=== PATIENT | female | born 1985 | race Caucasian/White ===

== ENCOUNTER 2024-07-08 07:03 | Outpatient (CLI) | payer MEDICARE, OTHER, SELFPAY | END 2024-07-08 07:04 | disposition home or self-care (01) | LOC: AMB 07-09 15:25 | PROVIDERS: Visit Provider Family Medicine | DX: R10.9 Unspecified abdominal pain (principal); R11.10 Vomiting, unspecified | CPT/HCPCS: A0425; A0427 ==

== ENCOUNTER 2024-07-08 07:39 | Emergency (ER) | payer MEDICARE, OTHER, SELFPAY ==
[2024-07-08] VITALS (13 sets, daily range): BP systolic 116–154; BP diastolic 91–107; PULSE 70–96; RESP 20; TEMP 35.8–36.1; O2SAT 90–99; BMI 43.6
--- OUTSIDE RECORDS SUMMARY | 2024-07-08 07:41 | XMS_ITS | Clinical Summary ---
Author Organization [facility] Address [address] [place] [address] [place] [address] Care Team Providers Care Assembly Lead Person Name Role Phone Unavailable Primary Care Provider Unavailabl e Allergies Active Allergy Reactions Criticality Noted Date Comments Amoxicillin GI Disturbance 07/31/2010 Medications * This document contains information received from the source organization and may not represent a complete record from that organization. fexofenadine (MICHAELLE) 180 MG tablet Take 1 tablet by mouth daily. 90 tablet 3 1 Active InFLIXimab (REMICADE IV) Inject into the vein. Once every 6 weeks Active citalopram (CELEXA) 40 MG tablet Take 40 mg by mouth daily. Active azaTHIOprine (IMURAN) 50 MG tablet Take 4 tablets by mouth daily. 90 tablet 2 Active albuterol (PROAIR HFA, PROVENTIL HFA, VENTOLIN HFA) 108 (90 BASE) MCG/ACT inhalerIndicati ons:Intermitten t asthma Inhale 2 puffs into the lungs every 6 hours as needed for shortness of breath / dyspnea. 3 Inhaler 1 3 Active EPINEPHrine (EPIPEN 2-DONNELL) 0.3 MG/0.3ML injectionIndica tions:Allergy to cats Inject 0.3 mLs into the muscle once as needed for anaphylaxis for 1 dose. 2 each 3 3 Active Additional Information Patient not taking.Reported on 03/02/2019 ciprofloxacin (CIPRO) 500 MG tabletIndicatio ns:UTI (urinary tract infection) Take 1 tablet by mouth 2 times daily. 14 tablet 0 3 Active Additional Information Patient not taking.Reported on 03/02/2019 ARIPiprazole (ABILIFY) 2 MG tablet Take 2 mg by mouth daily Active ziprasidone (GEODON) 20 MG capsule Take 20 mg by mouth 2 times daily (with meals) Active lithium (ESKALITH) 600 MG capsule Take 600 mg by mouth 2 times daily (with meals) Active lithium 300 MG capsule Take 300 mg by mouth 3 times daily (with meals) Active busPIRone (BUSPAR) 5 MG tablet Take 5 mg by mouth 2 times daily 1/2 tab TID Active topiramate (TOPAMAX) 25 MG tablet Take 25 mg by mouth 2 times daily 2 tabs in AM and 2 tabs in PM Active prazosin (MINIPRESS) 1 MG capsule Take 1 mg by mouth At Bedtime Active SUMAtriptan (IMITREX) 50 MG tablet Take 50 mg by mouth at onset of headache for migraine Active hydrOXYzine (ATARAX) 10 MG tablet Take 10 mg by mouth as needed for itching Active ustekinumab (STELARA) 45 MG/0.5ML SOSY Inject 45 mg Subcutaneous once 1 injection every 8 weeks Active LORazepam (ATIVAN) 0.5 MG tablet Take 0.5 mg by mouth as needed for anxiety Active escitalopram (LEXAPRO) 10 MG tablet Take 10 mg by mouth daily Active Active Problems Problem Noted Date Diagnosed Date Moderate bipolar I disorder, current or most recent episode depressed, in partial remission 03/05/2019 Major depression in complete remission 3 Fibromyalgia 12/07/2011 PTSD (post-traumatic stress disorder) 12/07/2011 Crohns disease 12/07/2011 Migraine 12/07/2011 Intermittent asthma 12/07/2011 Sleep disorder 12/07/2011 CARDIOVASCULAR SCREENING; LDL GOAL LESS THAN 160 08/07/2010 Erythema nodosum, chronic form Chronic urticaria Anxiety state Overview (12/20/2014): Problem list name updated by automated process. Provider to review Resolved Problems Problem Noted Date Diagnosed Date Resolved Date Crohn's colitis 12/07/2011 01/25/2012 Major depressive disorder, s junior episode, severe 12/07/2011 05/12/2012 Overview (12/20/2014): Problem list name updated by automated process. Provider to review Irritable bowel syndrome 08/2011 Immunizations Name Administration Dates Next Due Influenza (IIV3) PF 01/19/2011 TDAP (Adacel,Boostrix) 12/21/2010 Family History Medical History Relation Comments Bipolar Disorder Brother Bipolar Disorder Father Substance Abuse Father Anxiety Disorder Mother Relation Status Comments Brother Father Alive Mother Alive Social History Tobacco Use Types Packs/Day Years Used Date Smoking Tobacco: Never Smokeless Tobacco: Never Alcohol Use Standard Drinks/Week Comments Yes 0 (1 standard drink = 0.6 oz pur e alcohol) sparingly PHQ-2 Answer Date Recorded PHQ-2 Score 5 03/05/2019 Comments No Sex and Gender Information Value Date Recorded Sex Assigned at Not on file Legal Sex Female 4:56 AM HOOKER MACHINE TENDER Gender Identity Not on file Sexual Orientation Not on file Last Filed Vital Signs Vital Sign Reading Time Taken Comments Blood Pressure 102/67 08/18/2012 4:49 PM CDT Pulse 78 08/18/2012 4:49 PM CDT Temperature 37.2 C (98.9 F) 08/18/2012 4:49 PM CDT Respiratory Rate 16 05/12/2012 3:15 PM HOOKER MACHINE TENDER Oxygen Saturation 99% 06/01/2012 11:33 AM CDT Inhaled Oxygen Concentration - - Weight 86.6 kg (191 lb) 03/07/2019 2:36 PM HOOKER MACHINE TENDER Height 165.1 cm (5' 5) 03/07/2019 2:36 PM HOOKER MACHINE TENDER Body Mass Index 31.78 03/07/2019 2:36 PM HOOKER MACHINE TENDER Plan of Treatment Not on file Insurance MEDICARE
--- OUTSIDE RECORDS SUMMARY | 2024-07-08 07:41 | XMS_ITS | Encounter Summary ---
Author Organization [facility] Address [address] [place] [address] Care Team Providers Care Roller Stitcher Name Role Phone Xochitl Gay PA-C Primary Care Provider [phone] Encounter Details Date Type Department Care Team (Late st Contact Info) Description 05/09/2012 Emergency Room External to Henok Ramesh, Provider DYSURIA Social History Tobacco Use Types Packs/Day Years Used Date Smoking Tobacco: Never Assessed Comments Unknown Sex and Gender Information Value Date Recorded Sex Assigned at Not on file Legal Sex Female 6:49 AM CDT Gender Identity Not on file Sexual Orientation Not on file documented as of this encounter Progress Notes * Henok Ramesh, Provider - 05/09/2012 12:00 AM CST GED CARE NURSE documented in this encounter Plan of Treatment Not on file documented as of this encounter Visit Diagnoses Not on filedocumented in this encounter Care Teams Roller Stitcher Relationship Specialty Start Date End Date Xochitl Gay PA-C [facility] [place] [address] [place] [address] PCP - General Physician Pta 01/20/16 documented as of this encounter
--- OUTSIDE RECORDS SUMMARY | 2024-07-08 07:41 | XMS_ITS | Encounter Summary ---
Author Organization [facility] Address [address] [place] [address] Care Team Providers Care Coding Advisor Name Role Phone Xochitl Gay PA-C Primary Care Provider [phone] Encounter Details Date Type Department Care Team (Late st Contact Info) Description 02/16/2019 Correspondence External to External, [place] [address] LOCUS RECORDING FORM Social History Tobacco Use Types Packs/Day Years Used Date Smoking Tobacco: Never Smokeless Tobacco: Never Alcohol Use Standard Drinks/Week Comments Yes 0 (1 standard drink = 0.6 oz pur e alcohol) Occasional Comments No Sex and Gender Information Value Date Recorded Sex Assigned at Not on file Legal Sex Female 6:49 AM CDT Gender Identity Not on file Sexual Orientation Not on file documented as of this encounter Plan of Treatment Not on file documented as of this encounter Visit Diagnoses Not on filedocumented in this encounter Care Teams Coding Advisor Relationship Specialty Start Date End Date Xochitl Gay PA-C [facility] [address] [place] [address] PCP - General Physician Power Crane Operator 01/20/16 documented as of this encounter
--- OUTSIDE RECORDS SUMMARY | 2024-07-08 07:41 | XMS_ITS | Clinical Summary ---
Author Organization [facility] Address [address] [place] [address] Care Team Providers Care Admission Nurse Name Role Phone Kasandra Quevedo MD Unavailable Unav ailable Allergies Active Allergy Reactions Criticality Noted Date Comments Amoxicillin 07/12/2016 Stomach upset Cat Dander Anaphylaxis High 01/08/2016 Methotrexate Nausea 01/08/2016 Penicillins 12/01/2015 Prednisone 01/21/2016 Medications ACETAMINOPHEN (TYLENOL ORAL) Take 500 mg by mouth Once Daily. Active topiramate (TOPAMAX) 25 mg oral tablet 6 Active fexofenadine (MICHAELLE) 180 mg oral tablet Take by mouth. Unsure of how many milligrams Active albuterol HFA (PROVENTIL;VENT JOYCE HFA) 90 mcg/actuation Inhl inhaler Inhale 2 puffs every 4 (four) hours as needed for Shortness of breath or Wheezing. 18 g 1 6 Active LITHIUM CARBONATE ORAL Take by mouth. Active PRAZOSIN HCL (MINIPRESS ORAL) Take by mouth. Activ e ZIPRASIDONE HCL (GEODON ORAL) Take by mouth. A ctive fluticasone (FLONASE) 50 mcg/actuation nasal spray Instill 2 sprays into EACH nare once daily. Active ARIPiprazole (ABILIFY) 2 mg oral tablet Take 2 mg by mouth. 8 Active busPIRone (BUSPAR) 10 mg oral tablet Take 5 mg by mouth twice a day. Active SUMAtriptan succinate (IMITREX) 50 mg oral tablet Take 50 mg by mouth every 2 hours if needed for Migraine. Max dose: 200mg per 24 hrs. Active predniSONE (DELTASONE) 5 mg oral tablet Take 35 mg by mouth once daily. Active ondansetron (ZOFRAN ODT) 4 mg oral ODT Dissolve 1-2 tablets (4-8 mg) in mouth every 12 (twelve) hours as needed for nausea. 10 tablet 8 Active Social History Tobacco Use Types Packs/Day Years Used Date Smoking Tobacco: Never Smokeless Tobacco: Never Tobacco Cessation:Counseling Given: No Alcohol Use Standard Drinks/Week Comments No 0 (1 standard drink = 0.6 oz pur e alcohol) Comments Unknown Sex and Gender Information Value Date Recorded Sex Assigned at Not on file Legal Sex Female 7:46 AM CDT Gender Identity Not on file Sexual Orientation Not on file Last Filed Vital Signs Vital Sign Reading Time Taken Comments Blood Pressure 121/88 11/19/2019 10:15 PM CDT Pulse 62 11/19/2019 10:45 PM CDT Temperature 36.8 C (98.2 F) 11/19/2019 8:39 PM CDT Respiratory Rate 18 11/19/2019 8:39 PM CDT Oxygen Saturation 97% 11/19/2019 10:45 PM CDT Inhaled Oxygen Concentration - - Weight 83.9 kg (185 lb) 10/20/2018 10:11 PM CDT Height 165.1 cm (5' 5) 10/21/2018 1:46 PM CDT Body Mass Index 30.79 10/20/2018 10:11 PM CDT Plan of Treatment Health Maintenance Due Date Last Done Comments Hepatitis C Screening 1985 Anxiety Screening (ERNESTINA-2) 08/28/1987 Depression Assessment (PHQ-2) 08/28/1987 Pneumococcal Vaccine (1 of 2 - PCV) 2005 Pap Smear 12/06/2008 12/06/2005 COVID-19 Vaccine ( - 2023- season) 2023 Influenza Vaccine (Season Ended) 2024 Adult Tetanus Booster 05/13/2025 05/13/2015, 011 RSV Vaccines (1 - 1-dose 75+ series) 2061 Procedures Procedure Name Priority Date/Time Associated Diagnosis Comments CAT AND DOG BATHER CYTOLOGY 12/06/2005 12:00 AM CDT from Last 3 Months or Most Recently Relevant to Health Maintenance Results * CAT AND DOG BATHER CYTOLOGY (12/06/2005 12:00 AM CDT) 12/06/2005 Narrative 12/06/2005 12:00 AM CDT Ordered by an unspecified provider. Transcriptions [facility] - 12/06/2005 12:00 AM CDTAccession #: [id number] [facility] Surgical Pathology Laboratory [address] [place] [address] CYTOLOGY REPORT Patient Name: CARMELA PERES Specimen No: [id number] Location: ODPED Age: 20 Sex: F Stefanie. Date: 12/02/2005 Med. Rec. #: [id number] : 1985 Received: 12/06/2005 Physician(s): Katalina Heaton MD Reported: 12/07/2005 SOURCE OF SPECIMEN CERVICAL - THIN PREP ( HPV REFLEX CASE ) CLINICAL HISTORY Date of Last Menstrual Period: 11-26-05 Other: CHART NUMBER:: [id number] SPECIMEN ADEQUACY Satisfactory for evaluation. Endocervical cells present INTERPRETATION Negative for intraepithelial lesion or malignant cells. Electronically Signed Out [facility] / 12/07/2005 us PATHOLOGY/CYTOLOGY ORDERABLE Fin al Result from Last 3 Months or Most Recently Relevant to Health [place] [address] NON CONTRACT GENERIC MEDICARE PART A & B [address] [address] MEDICARE PART A & B NON CONTRACT GENERIC * Guarantor: CARMELA DELACRUZ Account Type Relation to Patient Date of Phone Billing Address Personal/Family Advance Directives For more information, please contact: [phone] * Full Code (Latest Code Status on File) Date Activated Date Inactivated Comments 10/21/2018 11:14 AM 10/26/2018 7:29 PM Question Answer Comments How was code status determined? Patient * Full Code Date Activated Date Inactivated Comments 10/20/2018 8:28 PM 10/21/2018 11:09 AM Question Answer Comments How was code status determined? Physician Determ [facility] Care Teams Admission Nurse Relationship Specialty Start Date End Date Kasandra Quevedo MD PCP - Oncologist Hematology/Oncology 04/01/15
--- OUTSIDE RECORDS SUMMARY | 2024-07-08 07:41 | XMS_ITS | Encounter Summary ---
Author Organization [facility] Address [address] [place] [address]. [place] [address] Care Team Providers Care Accounting Auditor Name Role Phone aLrry Jean MD Unavailable [phone] Reason for Visit * Reason Onset Date Comments Outpatient 02/22/2019 Encounter Details Date Type Department Care Team ([facility] st Contact Info) Description 02/22/2019 Telephone [facility] Behavioral Health Intake [address] [place] [id number] Generic, Behavioral Intake, Outpatient Social History Tobacco Use Types Packs/Day Years Used Date Smoking Tobacco: Never Smokeless Tobacco: Never Alcohol Use Standard Drinks/Week Comments Yes 0 (1 standard drink = 0.6 oz pur e alcohol) sparingly PHQ-2 Answer Date Recorded PHQ-2 Score 5 03/05/2019 Comments No Sex and Gender Information Value Date Recorded Sex Assigned at Not on file Legal Sex Female 4:56 AM CENTRIFUGAL CASTING MACHINE TENDER Gender Identity Not on file Sexual Orientation Not on file documented as of this encounter Miscellaneous Notes * Telephone Encounter - Saturnino Pinedo - 03/02/2019 12:12 PM CST ----- Message from Gavi Lewis sent at 03/02/2019 12:04 PM CENTRIFUGAL CASTING MACHINE TENDER ----- Regarding: New Start Day [place] New Start Monday 03/05 Day [place] [address] M,[place],TH [id number] Dr Faye No Auth Required Medicare/[employer] RIFUGAL CASTING MACHINE TENDER * Telephone Encounter - Hilaria Whitman - 02/22/2019 2:06 PM CST Rec'd call from the pt who is interested in the partial program. Pt scheduled for a DA with Reta Wright on 03/02/19 at 8:30 am. Created referral, sent for benefits. RIFUGAL CASTING MACHINE TENDER documented in this encounter Plan of Treatment Not on file documented as of this encounter Visit Diagnoses Not on filedocumented in this encounter Care Teams Accounting Auditor Relationship Specialty Start Date End Date [place] [address] Family Medicine Physician Family Practice 05/12/12 documented as of this encounter
--- OUTSIDE RECORDS SUMMARY | 2024-07-08 07:41 | XMS_ITS | Referral Summary ---
Author Organization [facility] Address [address] [place] [address] Care Team Providers Care Security Flex Utility Officer Name Role Phone Kasandra Quevedo MD Unavailable [...] 10/20/2018 10:11 PM CDT Plan of Treatment Not on file Procedures Procedure Name Priority Date/Time Associated Diagnosis Comments FINGERNAIL SCULPTURER CYTOLOGY 12/06/2005 12:00 AM CDT from Last 3 Months or Most Recently Relevant to Health Maintenance Results * FINGERNAIL SCULPTURER CYTOLOGY (12/06/2005 12:00 AM CDT) 12/06/2005 Narrative 12/06/2005 12:00 AM CDT Ordered by an unspecified provider. Transcriptions Associate, [facility] - 12/06/2005 12:00 AM CDTAccession #: [id number] [facility] Surgical Pathology Laboratory [address] [place] [id number] CYTOLOGY REPORT Patient Name: CARMELA PERES Specimen No: [id number] Location: [facility]DPED Age: 20 Sex: F Stefanie. Date: 12/02/2005 Med. Rec. #: [id number] : 1985 Received: 12/06/2005 Physician(s): Katalina Heaton MD Reported: 12/07/2005 SOURCE OF SPECIMEN CERVICAL - THIN PREP ( HPV REFLEX CASE ) CLINICAL HISTORY Date of Last Menstrual Period: 11-26-05 Other: CHART NUMBER:: [id number] SPECIMEN ADEQUACY Satisfactory for evaluation. Endocervical cells present INTERPRETATION Negative for intraepithelial lesion or malignant cells. Electronically Signed Out [facility] / 12/07/2005 us PATHOLOGY/CYTOLOGY ORDERABLE Fin al Result from Last 3 Months or Most Recently Relevant to Health Maintenance Insurance NON CONTRACT GENERIC MEDICARE PART A & B [id number] [address] MEDICARE PART A & B NON CONTRACT GENERIC * Guarantor: CARMELA DELACRUZ Account Type Relation to Patient Date of Phone Billing Address Personal/Family Advance Directives For more information, please contact: [phone] * Full Code (Latest Code Status on File) Date Activated Date Inactivated Comments 10/21/2018 11:14 AM 10/26/2018 7:29 PM Question Answer Comments How was code status determined? Patient * Full Code Date Activated Date Inactivated Comments 10/20/2018 8:28 PM 10/21/2018 11:09 AM Question Answer Comments How was code status determined? Physician [facility] Care Teams Security Flex Utility Officer Relationship Specialty Start Date End Date Kasandra Quevedo MD PCP - Oncologist Hematology/Oncology 04/01/15
--- OUTSIDE RECORDS SUMMARY | 2024-07-08 07:41 | XMS_ITS | Clinical Summary ---
Author Organization [facility] Address [address] [place] [address] Care Team Providers Care Fisher Trammel Net Name Role Phone Xochitl Gay PA-C Primary Care Provider [phone] Source Comments You are receiving this document as you are listed as the primary care provider,follow-up provider, or the patient has been referred to you for consultation.This is in compliance with the Medicare and[employer] Health[employer] EHR Incentive Program,which states Providers who transition their patient to another setting of careor provider of care or refers their patient to another provider of care shouldprovide summary care record for each transition of care or referral. [facility] Allergies Active Allergy Reactions Criticality Noted Date Comments Amoxicillin 05/05/2003 PN: LW Reaction: GI Pain Methotrexate 03/08/2016 Dizzy, nauseated Other 07/02/1992 PN: LW Other1: -NKA Prednisone 03/08/2016 Hloly Review Contrast Media Hives High 07/02/1992 PN: LW CM1: CONTRAST- NKA Reaction : during iron infusion. Review Food Intolerance 05/05/2003 PN: LW FI1: NKA Medications * This document contains information received from the source organization and may not represent a complete record from that organization. ALBUTEROL SULFATE HFA INIndications:DESHAUN GUERRA Jun 30, 2015 9:53 AM Received from: External Pharmacy Received Si puffs 4 times daily as needed. 4 Active TUBERCULIN SYR 1CC/25GX5/8 (B-D TB SYRINGE 1CC/25GX5/8) 25G X 5/8 1 MLIndications:Zena WADDELLDESHAUN ZEPEDA Zena TueJun 30, 2015 9:53 AM Received from: External Pharmacy Indications: PN: DESHAUN NICKERSON TueJun 30, 2015 9:53 AM Received from: External Pharmacy 99 6 Active aspirin-acetami nophen-caffeine (EXCEDRIN,MIGRA INE) 250-250-65 MG tablet Take 1 Tab by mouth every 6 hours as needed for Pain. Active NIFEDIPINE 0.5% OINTMENT Apply 1 Application topically every 24 hours as needed. Active SUMAtriptan (IMITREX) 50 MG tablet Take 1 Tab by mouth as needed for Migraine. May repeat one tablet after 2 hours if needed. Maximum 4 tabs/24 hours and 9 days/month 9 Tab 0 6 Active polyethylene glycol (MIRALAX) packet Take 1 Packet by mouth daily as needed for Constipation. 7 Active topiramate (TOPAMAX) 25 MG tablet Take 75 mg by mouth two times a day. 7 Active diphenhydrAMINE (BENADRYL) 25 MG capsule Take 1 tablet before Humira injection weekly. 7 Active lidocaine (XYLOCAINE) 2 % jelly Apply topically to affected areas once daily as needed for fibromyalgia. 30 g 7 Active metroNIDAZOLE (METROGEL) 0.75 % gel Apply topically two times a day. 45 g 11 7 Active tobramycin (TOBREX) 0.3 % eye drop solution Place 2 Drops into left eye every 4 hours. 5 mL 8 Active tobramycin (TOBREX) 0.3 % eye drop solution Place 2 Drops into left eye every 4 hours. 5 mL 8 Active acetaminophen (TYLENOL) 500 MG tablet Take 1,000 mg by mouth. 9 Active Acetaminophen-C affeine 500-65 MG Take 2 Tablets by mouth. 9 Active EPINEPHrine (EPIPEN) 0.3 MG/0.3ML injection Inject 0.3 mg intramuscularly. 3 Active OXYCODONE HCL OR Active Ustekinumab (STELARA SC) Active LORazepam (ATIVAN) 0.5 MG tablet Take 1 Tablet by mouth two times daily as needed for Anxiety. 30 Tablet 1 1 Active Active Problems Problem Noted Date Diagnosed Date PTSD (post-traumatic stress disorder) 04/11/2018 Irritable bowel syndrome wit h both constipation and diarrhea 03/25/2016 Hypokalemia 03/24/2016 Chronic migraine without aur a without status migrainosus, not intractable 01/12/2016 Bipolar 1 disorder 01/12/2016 Fibromyalgia 06/30/2015 Other specified eating disorder 06/30/2015 Overview (11/10/2016): Other Specified Feeding and Eating Disorder - OSFED Crohn's disease of colon with complication 06/29 ERNESTINA (generalized anxiety disorder) 06/30/2015 Asthma 02/10/2010 Overview (11/10/2016): Asthma NOS Resolved Problems Problem Noted Date Diagnosed Date Resolved Date [facility] Case Management 02/13/20 16 12/17/2016 Overview (02/13/2016): Background: Diagnosis: Eating disorder, unspecified, Post traumatic stress disorder, Bipolar disorder, Social phobia, Generalized anxiety disorder. Current situation: Grisel's physical health is compromised by Chron's disease, Colitis, Fibromyalgia and Chronic migraines. She is taking a number of medications, one of which recently was thought to have contributed to a manic episode. Grisel has been attending [facility]'s partial hospitalization program with the goal of stabilizing her mental health. She has not been able to work and is in the process of applying for social security income. Providers outside of [facility]: PCP- Dr. Kathie Velez, [facility] [phone] Psychiatry- [facility] [phone] Psychotherapy: [facility] [phone] Goals/Recommendations: Outpatient Behavioral Health Finding FastenerLead Business Analyst Information: Susana Davis MA [facility] [phone] Action Plan: Upon discharge from [facility], Grisel is hoping to start a DBT Program through [facility] in addition to continuing to see her other providers there. Grisel also needs to schedule an initial appointment with [facility] in order to establish her care there. She will continue to follow up with outpatient providers for optimal condition management. Moderate episode of recurren t major depressive disorder 06/30/2015 01/20/2016 Erythema nodosum 02/10/2010 06/30/2015 Immunizations Immunization Administration Dates Next Due DTP 11/22/1991, 9,02/27/1987,1986 ,1986 Hib (ActHIB) 04/01/1988 MMR 12/10/1987 OPV, Trivalent (Orimune or tOPV) 11/22/1991,03/21,1986,1986 Social History Tobacco Use Types Packs/Day Years [...] Sign Reading Time Taken Comments Blood Pressure 129/55 02/05/2019 11:01 PM CREDIT REPORTER Pulse 88 02/05/2019 11:01 PM CREDIT REPORTER Temperature 36.6 C (97.8 F) 02/05/2019 11:01 PM CREDIT REPORTER Respiratory Rate 16 02/05/2019 11:01 PM CREDIT REPORTER Oxygen Saturation 100% 02/05/2019 11:01 PM CREDIT REPORTER Inhaled Oxygen Concentration - - Weight 84.1 kg (185 lb 8 oz) 11/30/2018 2:09 PM CDT Height 165.1 cm (5' 5) 11/30/2018 2:09 PM CDT Body Mass Index 30.87 11/30/2018 2:09 PM CDT Plan of Treatment Health Maintenance Due Date Last Done Comments Cervical Cancer Screening Due 1986 Hep C Screening (Preventive Services) 1986 Medicare Annual Wellness Visit 1986 Asthma ACT (score of 20 or higher) 1990 HIV Screening (Preventive Services) 2002 HepB Vaccine (1) 2005 Pneumococcal Vaccine (1 of 2 - PCV) 2005 COVID-19 Vaccine ( season) 2023 03/16/2021, 08/07/2020, 07/17/2020 Influenza Vaccine (#1) 2023 01/19/2011 DTaP/Tdap/Td Vaccine (8 - Tdap) 05/13/2025 05/13/2015, 12/21/2010, 11/22/1991, Additional history exists Zoster/Shingles Vaccine (1 of 2) 2036 Hib Vaccine Completed 04/01/1988 IPV (Polio) Vaccine Completed 11/22/1991, 04/01/1988, 1986, Additional history exists HPV Vaccine Aged Out No longer eligi ble based on patient's age to complete this topic HepA Vaccine Aged Out No longer eligi ble based on patient's age to complete this topic MCV4 Vaccine Aged Out No longer eligi ble based on patient's age to complete this topic Meningococcal B Vaccine Aged Out No l onger eligible based on patient's age to complete this topic Insurance MEDICARE [employer] SENIOR SUPPLEMENTAL INSURANCE MEDICARE AETNA SENIOR SUPPLEMENTAL INSURANCE Advance Directives * Full Code (Latest Code Status on File) Date Activated Date Inactivated Comments 12/09/2015 7:54 PM 12/11/2015 3:13 PM Care Teams Fisher Trammel Net Relationship Specialty Start Date End Date Xochitl Gay PA-C [address] [place] [address] [address] [place] [address] PCP - General Physician Pilot Safety Inspector 01/20/16
--- OUTSIDE RECORDS SUMMARY | 2024-07-08 07:41 | XMS_ITS | Encounter Summary ---
Author Organization [facility] Address [address] [place] [address]. [place] [address] Care Team Providers Care Chip Crusher Operator Name Role Phone Makayla Anderson MD Primary Care Provider Larry Jean MD Unavailable [phone] Encounter Details Date Type Department Care Team (Late st Contact Info) Description 12/08/[address] [id number] Abstract, Provider DIAGNOSIS NOT YET DEFINED (Primary Dx) Social History Tobacco Use Types Packs/Day Years Used Date Smoking Tobacco: Never Smokeless Tobacco: Never Alcohol Use Standard Drinks/Week Comments Yes 0 (1 standard drink = 0.6 oz pur e alcohol) sparingly Comments No Sex and Gender Information Value Date Recorded Sex Assigned at Not on file 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 Gender Identity Not on file Sexual Orientation Not on file documented as of this encounter Plan of Treatment Not on file documented as of this encounter Procedures Procedure Name Priority Date/Time Associated Diagnosis Comments ABSTRACT PAP (HIM EXTERNAL RESULT) Routine 01/19/2011 DIAGNOSIS NOT YET DEFINED documented in this encounter Results * ABSTRACT PAP-NO CHARGE (01/19/2011) Impressions MISYS - 01/19/2011 Normal pap smear done at [facility] as reported by patient 01/2011 us Provider Abstract LAB - HIM EXTERNAL RESULT Sarai l Result MISYS documented in this encounter Visit Diagnoses Diagnosis DIAGNOSIS NOT YET DEFINED- Primary documented in this encounter Care Teams Chip Crusher Operator Relationship Specialty Start Date End Date Makayla Anderson MD [address] [facility] [place] [address] PCP - General 05/26/08 05/11/12 [place] [address] Family Medicine Physician Family Practice 05/12/12 documented as of this encounter
--- OUTSIDE RECORDS SUMMARY | 2024-07-08 07:42 | XMS_ITS | Clinical Summary ---
Author Organization [facility] Address [address] [place] [address] Care Team Providers Care Rough Rounder Machine Name Role Phone Kathie Velez MD Primary Care Provider Alejandra perez Allergies Active Allergy Reactions Criticality Noted Date Comments Amoxicillin Nausea And Vomiting 05/03/2010 Methotrexate *Unknown 01/30/2016 Prednisone Behavioral Disturbances 01/30/2016 Medications diphenhydrAMINE (BENADRYL ALLERGY) 25 mg tablet Take 25 mg by mouth every 4 hours if needed. Active SUMAtriptan (IMITREX) 50 mg tablet Take 50 mg by mouth every 2 hours if needed for Migraine. Max dose: 200mg per 24 hrs. Active topiramate (TOPAMAX) 25 mg tablet Take 25 mg by mouth 2 times daily. Two tabs bid, taper up to 100 mg within 6weeks Active prazosin (MINIPRESS) 2 mg capsuleIndicati ons:Major depressive disorder, recurrent episode, moderate (HC) Take 1 capsule by mouth at bedtime. 30 capsule 1 02/20/2016 Active busPIRone (BUSPAR) 5 mg tablet Take 2.5 mg by mouth. 05/30/2017 Active ARIPiprazole (ABILIFY) 2 mg tablet Take 2 mg by mouth. 05/30/2017 Active lithium carbonate 300 mg tablet Take 1 tablet by mouth 2 times daily. 0 12/21/2017 Active ziprasidone (GEODON) 20 mg capsule Take 1 capsule by mouth. 07/14/2016 Active hydrOXYzine HCl (ATARAX) 10 mg/5 mL syrp Take 7.5 mg by mouth every 6 hours if needed. Active iron,carb/vit C/vit B12/folic (IRON 100 PLUS ORAL) Take by mouth. Active albuterol sulfate (PROAIR HFA INHL) Inhale by mouth. Active certolizumab pegol (CIMZIA SUBQ) Inject subcutaneous . 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 Gender Identity Not on file Sexual Orientation Not on file Obstetrics History Last Filed Vital Signs Vital Sign Reading Time Taken Comments Blood Pressure 129/71 06/08/2018 9:40 PM CDT Pulse 108 06/08/2018 9:40 PM CDT Temperature 38.3 C (100.9 F) 06/08/2018 8:14 PM CDT Respiratory Rate 16 06/08/2018 9:40 PM CDT Oxygen Saturation 100% 06/08/2018 9:40 PM CDT Inhaled Oxygen Concentration - - Weight 79.8 kg (176 lb) 06/08/2018 8:14 PM CDT Height 165.1 cm (5' 5) 06/08/2018 8:14 PM CDT Body Mass Index 29.29 06/08/2018 8:14 PM CDT Plan of Treatment Health Maintenance Due Date Last Done Comments Tdap 1997 HIV for age 15-65 2001 Hepatitis C screening for age 18-79 2004 Tetanus booster 2006 Pap test for age 21-65 08/28/2007 Depression screening for age 12+ 02/19/2017 02/20/2016, 01/30/2016 BMI (ht and wt on same day) for age 18+ 12/21/2018 12/21/2017 COVID-19 vaccine series (2023- season) 2023 12/08/2021, 06/25/2021, 03/16/2021, Additional history exists Influenza Vaccine (Season Ended) 2024 Pneumococcal series for age 6-49 Aged Out No longer eligible based on patient's age to complete this topic Advance Directives Documents on File Type Date Recorded Patient Manager Food Expl anation Healthcare Directive 03/05/2016 12:47 AM 12/16/2015 Care Teams Rough Rounder Machine Relationship Specialty Start Date End Date Kathie Velez MD PCP - General Family Practice 12/23/15
--- NOTE | 2024-07-08 08:07 | CRLHL7_ITS ---
For Patients: As a result of the Century Cures Act, medical imaging exams and procedure reports are released immediately into your electronic medical record. You may view this report before your referring provider. If you have questions, please contact your health care provider. INDICATION: Abdominal pain. TECHNIQUE: CT abdomen and pelvis acquired with 129 cc Isovue 370 IV contrast. COMPARISON: None. FINDINGS: Lower chest: Unremarkable. Liver: Normal in size and attenuation. No suspicious masses. Gallbladder and bile ducts: No stones or inflammation. No biliary dilatation. Pancreas: No mass or inflammation. Spleen: Normal in size. A calcified granuloma in the spleen. Adrenal glands: No suspicious mass. Kidneys: Bilateral kidneys are normal in size with symmetric enhancement. No nephrolithiasis or hydronephrosis. GI tract: Abnormal distention of the mid to distal small bowel loops with maximum diameter of 3.6 cm. Transition point is identified at the right lower quadrant ostomy. Large parastomal hernia containing nondilated bowel loops. No evidence of free intraperitoneal fluid or air. No pneumatosis intestinalis. Postsurgical changes of total colectomy. Vasculature: Abdominal aorta is normal in caliber. Lymph nodes: No lymphadenopathy. Peritoneum/Abdominal Wall: No free air or significant free fluid. Pelvis: Fat containing umbilical hernia. Large right lower quadrant parastomal hernia containing nonobstructed bowel loops. Bones: Unremarkable for age. IMPRESSION: 1. Findings are suggestive of distal small-bowel obstruction with a transition point at right lower quadrant ostomy. No pneumatosis intestinalis or free intraperitoneal fluid. Findings were communicated with Dr. Maile Weinstein and dose by Dr. Jonh MD radiology at 9:14 a.m. on 07/08/2024. 2. Large right lower quadrant parastomal hernia containing nonobstructed bowel loops. Please note that all CT scans at this facility use dose modulation, iterative reconstruction, and/or weight-based dosing when appropriate to reduce radiation dose to as low as reasonably achievable. Dictated by Silvia Borja MD @ 07/08/2024 9:19:31 AM (Electronically Signed)
--- NOTE | 2024-07-08 08:09 | ED.GENADULT ---
HPI - General Adult General Chief complaint: Abdominal Pain Stated complaint: abdominal pain Time Seen by Provider: 07/08/24 07:43 History of Present Illness HPI narrative: Patient is a 38 year old woman who presents with lower abdominal pain. She has had no fevers no chills no night sweats. She does have a history of Crohn's disease and has a colostomy. She is status post total colectomy with removal the rectum as well. She has had no nausea no vomiting. The pain is diffuse. She has most of her care at [facility] and stopped here as she did not feel like she can not drive all the way to [place] today. Pain started over night but she does have chronic intermittent pain. Today's pain is much worse and sharp as well as more diffuse. Related Data Home Medications ?Medication ?Instructions ?Recorded ?Confirmed ustekinumab 90 mg/mL subcutaneous 90 mg subcut Q4W 06/02/24 06/02/24 syringe (Stelara) benzonatate 100 mg capsule 100 mg PO BID-TID PRN 07/08/24 07/08/24 buspirone 5 mg tablet 5 mg PO 3XD 07/08/24 07/08/24 celecoxib 200 mg capsule 1 PO BID 07/08/24 dextroamphetamine-amphetamine ER 1 cap PO QAM 07/08/24 07/08/24 10 mg 24hr capsule,extend release famotidine 20 mg tablet 20 mg PO Q12H 07/08/24 07/08/24 fexofenadine 180 mg tablet 180 mg PO DAILY 07/08/24 07/08/24 (Iesha Hives) hydroxyzine HCl 10 mg tablet PO 07/08/24 lurasidone 40 mg tablet 40 mg PO DAILY 07/08/24 07/08/24 ondansetron 4 mg disintegrating 4 mg PO Q8H PRN 07/08/24 07/08/24 tablet sulfamethoxazole 800 1 tab PO BID 07/08/24 07/08/24 mg-trimethoprim 160 mg tablet sumatriptan succinate 50 mg tablet PO 07/08/24 ustekinumab 45 mg/0.5 mL mg subcut 07/08/24 subcutaneous solution (Stelara) Allergies Allergy/AdvReac Type Severity Reaction Status Date / Time amoxicillin Allergy Mild Verified 07/08/24 08:17 Review of Systems Status of ROS: Reports: 10 or more systems reviewed and unremarkable except as noted in History and below [facility] Social History Smoking Status: Unknown if ever smoked Exam Narrative: Exam Narrative: EXAM GENERAL: Patient appears comfortable and well. EYES: No scleral icterus. LYMPH: No supraclavicular or cervical lymphadenopathy. SKIN: Visible skin seen during exam normal or with benign process only. EXT: No dependent lower extremity pedal edema. HEART: Regular rate and rhythm with no murmurs, rubs, or gallops. LUNGS: Clear to auscultation bilaterally with no crackles or wheezes. ABD: Mildly distended with colostomy noted. Tenderness palpation no rebound. PSYCH: Good eye contact, speech is not pressured. Const: Vital Signs, click to edit/add: Vital Signs - 24 hr 07/08/24 07:47 07/08/24 08:15 07/08/24 08:38 Temperature 97.0 F L Pulse Rate 82 Pulse Rate [Pulse Oximeter] 85 Respiratory Rate 20 Blood Pressure Blood Pressure [Ri ght Forearm] 143/93 H Pulse Oximetry 97 95 97 Oxygen Delivery Me thod Room Air 07/08/24 09:01 07/08/24 09:30 07/08/24 10:10 Temperature Pulse Rate 70 85 96 Pulse Rate [Pulse Oximeter] Respiratory Rate Blood Pressure 116/91 H 154/94 H Blood Pressure [Ri ght Forearm] Pulse Oximetry 96 90 93 Oxygen Delivery Me thod 07/08/24 10:30 07/08/24 11:02 07/08/24 11:15 Temperature Pulse Rate 78 96 76 Pulse Rate [Pulse Oximeter] Respiratory Rate Blood Pressure 151/107 H Blood Pressure [Ri ght Forearm] Pulse Oximetry 97 99 97 Oxygen Delivery Me thod Course Course ED Course: CBC CMP lipase UA CT abdomen pelvis pending. Normal saline Dilaudid Ativan given. Vital Signs Vital signs: Initial Vital Signs Temperature 97.0 F L 07/08/24 07:47 Temperature Source Temporal Artery Scan 07/08/24 07:47 Pulse Rate 85 07/08/24 07:47 Respiratory Rate 20 07/08/24 07:47 Blood Pressure 143/93 H 07/08/24 07:47 Blood Pressure Mean 109 H 07/08/24 07:47 Blood Pressure Position Supine 07/08/24 07:47 Pulse Oximetry 97 07/08/24 07:47 Oxygen Delivery Method Room Air 07/08/24 07:47 Vital Signs Temperature 97.0 F L 07/08/24 07:47 Pulse Rate 85 07/08/24 07:47 Respiratory Rate 20 07/08/24 07:47 Blood Pressure 143/93 H 07/08/24 07:47 Pulse Oximetry 97 07/08/24 07:47 Oxygen Delivery Method Room Air 07/08/24 07:47 Temperature 97.0 F L 07/08/24 07:47 Pulse Rate 76 07/08/24 11:15 Respiratory Rate 20 07/08/24 07:47 Blood Pressure 151/107 H 07/08/24 11:02 Pulse Oximetry 97 07/08/24 11:15 Oxygen Delivery Method Room Air 07/08/24 07:47 Medications Administered Medications: Generic Name Dose Route Start Last Admin Trade Name Freq PRN Reason Stop Dose Admin Phenol 1 spray 07/08/24 11:38 07/08/24 11:46 Phenol 1.4 % Throat Arab MUCOUS MEM 1 spray Q2H PRN Administration Discontinued Medications Generic Name Dose Route Start Last Admin Trade Name Freq PRN Reason Stop Dose Admin Hydromorphone HCl 0.5 mg 07/08/24 08:08 07/08/24 08:39 Hydromorphone 0.5 Mg/0.5 Ml Inj IVP 07/08/24 08:09 0.5 mg ONCE ONE Administration Hydromorphone HCl 0.5 mg 07/08/24 10:34 07/08/24 10:43 Hydromorphone 0.5 Mg/0.5 Ml Inj IVP 07/08/24 10:35 0.5 mg ONCE ONE Administration Sodium Chloride 1,000 mls @ 1,000 mls/hr 07/08/24 08:12 07/08/24 09:41 0.9 % Sodium Chloride 1000 Ml IV 07/08/24 09:11 Infused .Q1H MEGHAN Infusion Lorazepam 1 mg 07/08/24 08:07 07/08/24 08:25 Lorazepam 2 Mg/Ml Inj IVP 07/08/24 08:08 1 mg ONCE ONE Administration Medical Decision Making [facility] Narrative Medical decision making narrative: Patient is a 38-year-old woman with history of Crohn's disease who presents with small-bowel obstruction the transition point appears to be at the peristomal hernia. I did talk to local General surgery in the did recommend transfer. Patient will be transferred to [place] to be on their inpatient service. NG tube is placed IV hydration provided pain control with Dilaudid anxiety control with Ativan. Patient transferred in stable condition laboratory results reviewed. Lab Data Labs: Lab Results 07/08/24 07/08/24 Range/Units 08:15 10:08 WBC 14.40 H (4.50-11.00) K/uL RBC 5.25 H (4.00-5.20) m/uL Hgb 14.8 (12.0-16.0) gm/dL Hct 44.2 (33.0-51.0) % MCV 84 (80-100) fL MCH 28 (26-34) pg MCHC 34 (32-36) gm/dL RDW Coeff of Yaritza 12.7 (11.5-15.5) % Plt Count 380 (140-440) K/uL Neut % (Auto) 79.4 H (42.0-72.0) % Lymph % (Auto) 13.1 L (20-44) % Barren % (Auto) 6.1 (0.0-11.0) % Eos % (Auto) 1.0 (0.0-7.0) % Baso % (Auto) 0.3 (0.0-3.0) % Neut # (Auto) 11.40 H (1.7-7.0) K/uL Lymph # (Auto) 1.90 (0.90-2.90) K/uL Barren # (Auto) 0.90 (0.00-0.90) K/UL Eos # (Auto) 0.10 (0.00-0.50) K/uL Baso # (Auto) 0.00 (0.00-0.30) K/uL Abs Immat Gran (auto) 0.00 (0.00-0.30) K/uL Imm/Tot Granulo (auto) 0.1 % Sodium 138 (135-149) mmol/L Potassium 3.8 (3.6-5.1) mmol/L Chloride 101 (96-114) mmol/L Carbon Dioxide 26 (20-32) mmol/L Anion Gap 11 (7-15) mEq/L BUN 16 (5-24) mg/dL Creatinine 0.8 (0.5-1.5) mg/dL Estimated Creat Clear 86.64 Estimated GFR 97 ml/min Glucose 112 (60-115) mg/dL Lactate 1.1 (0.5-1.9) mmol/L Calcium 10.0 (8.4-10.6) mg/dL Total Bilirubin 1.0 (0.1-1.5) mg/dL AST 37 H (12-35) U/L ALT 27 (4-35) U/L Alkaline Phosphatase 74 (40-150) U/L Total Protein 7.8 (6.0-8.3) g/dL Albumin 5.0 (3.3-5.0) g/dL Lipase 70 (23-300) U/L Urine Color Yellow (Yellow) Urine Appearance Clear (Clear) Urine pH 6.0 (5.0-8.5) Ur Specific [place] 1.010 (1.000-1.030) Urine Protein Trace A (Negative) Urine Glucose (UA) Negative (Negative) Urine Ketones Negative (Negative) Urine Blood 1+ A (Negative) Urine Nitrite Negative (Negative) Urine Bilirubin Negative (Negative) Urine Urobilinogen 0.2 (0.2-1.0) Ur Leukocyte Esterase Negative (Negative) Urine RBC 0-2 (0-2) Urine WBC 0-2 (0-5) Ur Squamous Epith Cells Few (None-Few) Urine Bacteria None (None) Discharge Plan Discharge Clinical Impression: Complete small bowel obstruction Patient Disposition: [facility] Condition: Stable Activity Level: No Restrictions Discharge Diet: Other Prescriptions: No Action Stelara 90 mg/mL syringe 90 mg subcut Q4W celecoxib 200 mg capsule 1 PO BID buspirone 5 mg tablet 5 mg PO 3XD sumatriptan succinate 50 mg tablet PO dextroamphetamine-amphetamine 10 mg capsule,extended release 24hr 1 cap PO QAM hydroxyzine HCl 10 mg tablet PO ondansetron 4 mg tablet,disintegrating 4 mg PO Q8H PRN lurasidone 40 mg tablet 40 mg PO DAILY benzonatate 100 mg capsule 100 mg PO BID-TID PRN famotidine 20 mg tablet 20 mg PO Q12H fexofenadine [Iesha Hives] 180 mg tablet 180 mg PO DAILY sulfamethoxazole-trimethoprim 800-160 mg tablet 1 tab PO BID Stelara 45 mg/0.5 mL solution SUBCUT Patient Comments: [NO ORIGINAL SIG] Follow Up/Referrals: Provider,Not a Local [Primary Care Provider] - Stand Alone Forms: Web International English Info Instructions
[2024-07-08 08:22] LABS: Lactate* 1.1 mmol/L (0.5-1.9)
[2024-07-08] MEDS: LORazepam 2 MG/ML inj 1 MG IVP (08:25)
--- OUTSIDE RECORDS SUMMARY | 2024-07-08 08:25 | XMS_ITS | Encounter Summary ---
Author Organization [facility] Address [address] [place] [address] Care Team Providers Care Church Administrator Name Role Phone Sánchez Goldberg D.O. Primary Care Provider Encounter Details Date Type Department Care Team (Late st Contact Info) Description 11/20/2010 Historical Ophthalmology [facility] Gentry Love M.D. [address] [place] [phone] Social History Tobacco Use Types Packs/Day Years Used Date Smoking Tobacco: Never Assessed Comments Unknown Sex and Gender Information Value Date Recorded Sex Assigned at Female 09/13/2017 7:50 PM CDT Legal Sex Female 3:11 PM [employer]KERCH[employer] Gender Identity Female 09/13/2017 7:50 PM CDT Sexual Orientation Straight 09/13/2017 7: 50 PM CDT documented as of this encounter Progress Notes * Gentry Love M.D. - 11/20/2010 12:57 PM CDT Eye General CHIEF COMPLAINT worried about iritis, migraines, just diagnosed with Crohn's HISTORY OF PRESENT ILLNESS Blurred vision; both eyes (left > right); x several years; intermittently; symptoms occur at distance and when reading. 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 Daily migraines involving both eyes. Denies floaters or light flashes. Denies diplopia but states she needs to focus hard when tired to keep images single. Has been concerned about iritis due to puffiness in her lower lids lasting 2 hours 2 days ago. No conjunctival redness or eye pain. Light sensitivity forthe past 18 months. SSK: The history is as recorded above. 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 She is currently on Prednisone 40mg/day. She has migraines which occasionally are accompanied by light flashes. She also notes photophobia with the migraines. She has no specific vision or eye complaints. She has had no prolonged rednessor pain in the eyes in the past. IMPRESSION / REPORT / PLAN #1 No evidence of ocular inflammation in the setting of Crohn's Disease We reviewed the symptoms of ocular inflammation for which she should be seen promptly. #2 Migraine Headache She has minimal visual symptoms in conjuction with her migraines. #3 High Risk Medicine Screen We discussed the potential eye side-effects of corticosteroid therapy and she should be examined periodically if she remains on the steroids. #4 Hyperopia DIAGNOSIS #1 No evidence of ocular inflammation in the setting of Crohn's Disease #2 Migraine Headache #3 High Risk Medicine Screen #4 Hyperopia CDM Reports - EYEGEN Id: [id number] Status: Fnl documented in this encounter Plan of Treatment Upcoming Encounters Date Type Department Care Team (Latest Contact Info) Description 07/17/2024 12:30 PM CDT Clinical Communication Virtual Review in [place], [place] [address] [place] [phone] 07/18/2024 10:45 AM CDT Office Visit Department of Orthopedic Surgery in [place], [place] [address] [place] [phone] Andrew Dougherty M.D. [address] [place] [phone] 07/23/2024 10:50 AM CDT Hospital Encounter Post Anesthesia Care Unit in [place], [place] [address] [place] [phone] Andrew Dougherty M.D. [address] [place] [phone] 07/23/2024 10:50 AM CDT - 07/23/2024 12:02 PM CDT Surgery [facility] [address] [place] [phone] Andrew Dougherty M.D. [address] [place] [phone] RELEASE CARPAL TUNNEL OPEN WRIST 09/06/2024 7:50 AM CDT Hospital Encounter Post Anesthesia Care Unit in [place], [place] [address] [place] [phone] Andrew Dougherty M.D. [address] [place] [phone] 09/06/2024 7:50 AM CDT - 09/06/2024 9:02 AM CDT Surgery [facility] [address] [place] [phone] Andrew Dougherty M.D. [address] [place] [phone] RELEASE CARPAL TUNNEL OPEN WRIST Scheduled Procedures Name Priority Associated Diagnoses Date/Ti la RELEASE CARPAL TUNNEL OPEN WRIST Carpal Tunnel Syndrome Right 07/23/2024 10:50 AM CDT RELEASE CARPAL TUNNEL OPEN WRIST Carpal Tunnel Syndrome Left 09/06/2024 7:50 AM CDT documented as of this encounter Visit Diagnoses Not on filedocumented in this encounter Additional Health Concerns Infection Onset Date Last Indicated Resolved Time COVID19 Pending 06/17/2019 06/17/2019 06/18/2019 2 :51 AM CDT COVID19 Pending 07/25/2019 07/25/2019 07/25/2019 7 :25 PM CDT COVID19 Pending 09/26/2019 09/26/2019 09/27/2019 1 0:31 AM CDT COVID19 Pending 11/20/2019 11/20/2019 11/20/2019 1 1:09 AM CDT COVID19 Pending 02/26/2020 02/26/2020 02/26/2020 6 :02 PM HANDKERCHIEF MAKER COVID19 Pending 03/12/2020 03/12/2020 03/12/2020 5 :42 PM HANDKERCHIEF MAKER COVID19 Pending 07/11/2020 07/11/2020 07/11/2020 3 :33 AM CDT COVID19 Pending 07/29/2020 07/29/2020 07/29/2020 4 :12 PM CDT COVID19 Pending 10/02/2020 10/02/2020 10/02/2020 8 :22 AM CDT COVID19 Pending 11/12/2020 11/12/2020 11/12/2020 4 :31 AM CDT COVID19 Pending 05/30/2021 05/30/2021 05/30/2021 4 :55 PM HANDKERCHIEF MAKER COVID19 Pending 12/25/2021 12/25/2021 12/25/2021 1 0:45 AM CDT COVID19 Pending 07/05/2022 07/05/2022 07/05/2022 3 :11 PM CDT COVID19 Pending 01/30/2023 01/30/2023 01/30/2023 1 1:53 AM [employer]KERCHIEF MAKER documented as of this encounter Care Teams Church Administrator Relationship Specialty Start Date End Date Sánchez Goldberg D.O. [address] [place] [phone] PCP - General Family Medicine 03/26/20 documented as of this encounter
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
--- OUTSIDE RECORDS SUMMARY | 2024-07-08 08:25 | XMS_ITS | Clinical Summary ---
Author Organization [facility] Address [address] [place] [address] Care Team Providers Care Background Check Coordinator Name Role Phone Michael Goldberg D.O. Primary Care Provider Source Comments Patient records contain information from all sites at [facility]. For routine questions regarding patient records, call [phone] during business hours, M-F 8:00 AM - 5:00 PM Central Time. Record requests for emergency care only can be directed to [phone] at any time.[facility] Allergies Active Allergy Reactions Criticality Noted Date Comments Adhesive Rash 07/19/2022 Amoxicillin GI intolerance 11/12/2010 nausia, vomiting, diarrhea Cat Dander Anaphylaxis 11/12/2010 Ciprofloxacin Hives (Reselect Reaction) 07/10/2018 Dog Dander Hives (Reselect Reaction) 11/12/2010 Iron Sucrose Hives (Reselect Reaction) High 11/11/2016 Rash, joint pain Skin Cleanser,General Rash 07/19/2022 ESENTA Barrier wipes Methotrexate Nausea Only 12/09/2015 Medications * This document contains information received from the source organization and may not represent a complete record from that organization. DME Ostomy suppliesIndicatio ns:Ileostomy Status (HCC) DME Order 1 Unspecified 11 022 Active amphetamine-dextr oamphetamine (ADDERALL XR) 10 mg 24 hr capsule Take 1 capsule (10 mg total) by mouth daily. 30 capsule 023 Active benzonatate (TESSALON PERLES) 100 mg capsuleIndication s:Cough Unspecified Type Take 1 capsule (100 mg total) by mouth 3 (three) times a day as needed for cough. 60 capsule 1 Active Additional Information Patient not taking.Reported on 01/18/2024 LORazepam (Ativan) 0.5 mg tabletIndications :Anxiety Generalized Disorder Take 1 tablet (0.5 mg total) by mouth daily as needed for anxiety. 30 tablet 024 Active ondansetron ODT (Zofran-ODT) 4 mg disintegrating tablet Dissolve 1 tablet (4 mg total) in the mouth every 8 (eight) hours as needed for nausea or vomiting. 20 tablet 024 Active busPIRone (BuSpar) 5 mg tabletIndications :Anxiety Generalized Disorder Take 1 tablet (5 mg total) by mouth 3 (three) times a day as needed (Anxiety). Place on file 270 tablet 024 Active EPINEPHrine 0.3 mg/0.3 mL injection syringe Inject 0.3 mL (0.3 mg total) intramuscularly as needed (allergies). 1 each 2 024 Active hydrOXYzine (Atarax) 10 mg tabletIndications :Anxiety Generalized Disorder Take 1 tablet (10 mg total) by mouth 4 (four) times a day as needed for anxiety. 30 tablet 3 024 Active ibuprofen 200 mg tabletIndications :Fibromyalgia Take 3 tablets (600 mg total) by mouth every 6 (six) hours as needed for pain. 90 tablet 11 024 Active Stelara 45 mg/0.5 mL injection Inject 45 mg under the skin. Pt states every 6-8 weeks Active naloxone (Narcan) 4 mg/actuation nasal spray Administer 4 mg into nostril(s) as needed. 025 Active cholecalciferol (Vitamin D3) 25 mcg (1,000 Unit) capsule Take 1 capsule by mouth daily. Active celecoxib (CeleBREX) 200 mg capsuleIndication s:Fibromyalgia Take 1 capsule (200 mg total) by mouth 2 (two) times a day. 60 capsule 1 Active albuterol (ProAir HFA) 90 mcg/actuation inhalerIndication s:Asthma (HCC) Inhale 2 puffs every 4 (four) hours as needed for wheezing or shortness of breath. Congestion 18 g 1 Active acetaminophen (TylenoL) 500 mg tabletIndications :Fibromyalgia Take 2 tablets (1,000 mg total) by mouth every 6 (six) hours as needed for pain. Do not exceed 4000 mg in 24 hours. 90 tablet 3 Active SUMAtriptan (Imitrex) 50 mg tabletIndications :Migraine Headache Take 1 tablet (50 mg total) by mouth as needed for migraine. May repeat dose once in 2 hours if migraine is unresolved. Do not exceed 200 mg in 24 hours. 9 tablet 11 Active sulfamethoxazole- trimethoprim (Bactrim DS) 800-160 mg per tabletIndications :Cellulitis Take 1 tablet by mouth 2 (two) times a day. 20 tablet Active lurasidone (Latuda) 20 mg tablet Take 1 tablet (20 mg total) by mouth daily with morning meal. Administer with food (at least 350 calories) 025 2025 Active oxyCODONE (Roxicodone) 5 mg immediate release tabletIndications :Chronic Pain/Nonacute Pain Take 1 tablet (5 mg total) by mouth daily Indication: Chronic Pain/Nonacute Pain. 6 tablet Active oxyCODONE (Roxicodone) 5 mg immediate release tabletIndications :Chronic Pain/Nonacute Pain Take 1 tablet (5 mg total) by mouth daily Indication: Chronic Pain/Nonacute Pain. 6 tablet 025 2024 Disconti nued(Reo rder) sulfamethoxazole- trimethoprim (Bactrim DS) 800-160 mg per tabletIndications :Cellulitis Take 1 tablet by mouth 2 (two) times a day. 20 tablet 025 2024 Disconti nued(Reo rder) oxyCODONE (Roxicodone) 5 mg immediate release tabletIndications :Chronic Pain/Nonacute Pain Take 1 tablet (5 mg total) by mouth daily Indication: Chronic Pain/Nonacute Pain. 6 tablet 2024 Disconti nued(Reo rder) Active Problems Problem Noted Date Diagnosed Date Sinusitis Acute Maxillary 09/29/2023 Fatigue 06/30/2023 Abdominal Pain 05/28/2022 Carpal Tunnel Syndrome Right 01/13/2022 Overview (01/13/2022): EMG showed mild medial neuropathy on right side. Recommended night wrist splint. Obstruction Intestinal 12/24/2021 Hidradenitis Suppurativa 12/24/2021 Borderline Personality Disorder 05/11/2021 Anemia Iron Deficiency 03/16/2021 Overview (03/16/2021): Reports longstanding history of iron deficiency and requiring iron infusions. She does have allergy to iron sucrose, developed hives. She is requesting an order be placed for IV iron infusion, states that she has been taking daily oral iron without any improvement in her iron stores. Current ferritin is 8. Assessment & Plan (03/16/2021 8:52 PM AUTOMOBILE WRECKER): Placed order for iron infusion, dextran. Follow-up labs in 6 weeks. Bipolar Disorder Current Episode Depressed Moder ate 03/16/2021 Overview (06/30/2023): Grisel reports a history of bipolar disorder and recent significant stress. She has tried a number of medications, she does not want to take daily medications to help with mood. More recently she has been using hydroxyzine to cope with increased stress. In the past she notes that Ativan has been helpful for increased stress. She is requesting a prescription for Ativan. Assessment & Plan (03/16/2021 8:50 PM AUTOMOBILE WRECKER): She is looking forward to the consult with Psychiatry. We discussed recommendation to trial BuSpar as needed for increased anxiety and stress, prescription was sent to her pharmacy. I did recommended trial of a daily medication however given her history of trying multiple medications and not having any improvement to symptoms it would likely be best for Psychiatry to evaluate 1st. Abnormal Uterine And Vaginal Bleeding Unspecifie d 11/12/2020 Morbid Obesity Body Mass Index 45.0-49.9 Adult 0 07/30/2020 Obesity Body Mass Index 30-39.9 Adult 08/07/2019 Ileostomy Status 08/03/2019 Hypomagnesemia 07/28/2019 Pain Rectal 06/16/2019 Anemia Iron Deficiency 04/10/2019 Ileostomy Status 06/28/2018 Other Urticaria 06/09/2018 Erythema Nodosum 06/09/2018 Perianal Crohn's Disease 05/17/2018 Overview (05/17/2018): Added automatically from request for surgery [id number] Abscess Perianal 03/07/2018 Overview (03/16/2021): Grisel of recurrent perianal and vaginal lesions, but have been infected. She recalls being placed on Augmentin and did not tolerate this very well only for few days. More recently she has been treated with cefdinir after being seen in the emergency department on February 27, 2021 for these lesions. She does feel that there has been some improvement however since being off the antibiotics over the last week she reports worsening, increased drainage and persistent discomfort. Assessment & Plan (03/16/2021 8:56 PM AUTOMOBILE WRECKER): Recommended referral to gynecology for further evaluation recommendations given persistence of these lesions. Since she did have some improvement with antibiotic to continue with cefdinir 300 mg twice daily for 10 days to treat concern for persistent infection. If any new signs of infection despite use of antibiotics recommend that she be evaluated again. Major depressive disorder, recurrent episode, mo derate 01/18/2018 Posttraumatic Stress Disorder Brief 01/18/2018 Anal/Rectal Fistula NOS 09/15/2017 Overview (01/18/2018): Added automatically from request for surgery [id number] Irritable bowel syndrome 03/25/2016 Chronic Migraine Without Aur a Not Intractable Without Status Migrainosus 01/12/2016 Other Specified Eating Disorder 06/30/2015 Overview (07/30/2020): Overview: Other Specified Feeding and Eating Disorder - OSFED Other Specified Feeding and Eating Disorder - OSFED Other Specified Feeding and Eating Disorder - OSFED Other Specified Feeding and Eating Disorder - OSFED Fibromyalgia 03/21/2012 Migraine Headache 03/21/2012 Overview (03/16/2021): Reports longstanding history of migraine headaches. She has used Imitrex in the past 50 mg as needed and request a refill of this today. Due to limitation in time today for concerns did recommend follow-up visit to more fully addressed migraine headaches. She is requesting referral to Neurology however recommended we 1st do repeat visit in primary care to more fully evaluate this concern. Assessment & Plan (03/16/2021 8:58 PM AUTOMOBILE WRECKER): Placed follow-up office visit, she has requested a video visit for this as it is difficult for her to travel. Anxiety Generalized Disorder 03/21/2012 Asthma Mild Intermittent 12/07/2011 Crohns Disease Of Large Inte andrey With Unspecified Complications 11/21/2010 High Risk Medication 11/21/2010 Crohns Disease Unspecified With Other Complicati on 03/21/2010 Gastroesophageal Reflux Disease NOS 03/21/2000 Asthma 03/21/1994 Overview (07/30/2020): Overview: Asthma NOS Overview: Asthma NOS Asthma NOS Sinus Wound Perineal Low Income Resolved Problems Problem Noted Date Diagnosed Date Resolved Date Hydrosalpinx 11/12/2020 03/16/2021 Pelvic Inflammatory Disease 11/12/2020 03/16/2021 Obstruction Intestinal 10/02/202010/02 Counseling Preconception 09/17/2020 Abdominal Pain 07/11/2020 03/16/2021 Bipolar Disorder Current Epi sode Manic Mild Without Psychotic Features 04/02/2020 05/11/2021 Dehiscence Wound Initial 04/02/2020 Follow Up Examination Status Post Surgery 04/02/2020 03/16/2021 Suicide Ideation 03/12/2020 03/26/2020 Complication Enterostomy 11/20/2019 Hypokalemia 07/31/2019 11/13/2020 Crohns Disease Of Large Inte andrey With Fistula 06/17/2019 06/15/2024 Bipolar Most Recent Episode Depressed Partial Remission 03/05/2019 03/16/2021 Abscess Perineal 07/15/2018 07/19/2019 Anal/Rectal Fistula NOS 06/16/201806/21 Overview (06/16/2018): Added automatically from request for surgery [id number] Depression Major Recurrent Moderate 06/09/2018 07/19/2019 Fever Postprocedural 06/09/2018 020 Urinary Tract Infection Site Not Specified 06/09/2018 07/19/2019 Anemia Posthemorrhagic Acute (Blood Loss Anemia) 01/24/2018 07/19/2019 Colitis Crohn's 01/18/2018 07/19/2019 Bipolar Disorder 01/12/2016 07/19/2019 Depression Major One Episode Full Remission 05/12/2012 07/19/2019 Depressive Disorder 03/21/2012 07/19/19 20 Sleep Disorder 12/07/2011 07/19/2019 Fissure Anal 07/02/2011 07/19/2019 Hyperopia Bilateral 11/21/2010 03/16/20 21 Inflammatory Bowel Disease 11/12/2010 0 07/19/2019 Encounter For Screening For Cardiovascular Disorders 08/07/2010 07/19/2019 Crohns Disease Unspecified W ithout Complications 03/21/2010 09/29/2023 Overview (07/30/2020): Added automatically from request for surgery [id number] Added automatically from request for surgery [id number] Encounters * This document contains information received from the source organization and may not represent a complete record from that organization. Date Type Department Care Team Description 07/08/2024 Nurse Triage Department of Family Medicine, [facility] in [place], [place] [address] [place] [phone] Nicole Flower R.N. Abdominal Pain 07/02/2024 Clinical Communication Department of Family Medicine, [facility], in [place], [place] [address] [place] [phone] Michael Goldberg D.O. 06/15/2024 8:30 AM CDT Office Visit Department of Family Medicine, [facility] in [place], [place] [address] [place] [phone] Michael Goldberg D.O. Preoperative Exam (Primary Dx); Cellulitis; Paronychia Finger Right; Bipolar Disorder Current Episode Depressed Moderate (HCC); Morbid Obesity Body Mass Index 45.0-49.9 Adult (HCC); Low Income 06/15/2024 Clinical Communication Department of Family Medicine, [facility] in [place], [place] [address] [place] [phone] Darby Martines M.S.N., R.N. Med Refill 06/13/2024 12:00 PM CDT Clinical Communication Virtual Review in [place], [place] [address] [place] [phone] Annual Exam (Disability paperwork/Infectio n in left hand pointer finger-finished antibiotics but still a little red-cefalexin /Wrist surgery-needs physical for surgery /Suicide attempt beginning of the month) 06/05/2024 Clinical Communication Department of Family Medicine, [facility] in [place], [place] [address] [place] [phone] Michael Goldberg D.O. OSM - Outside Materials ([employer]) 06/04/2024 Clinical Communication Department of Family Medicine, [facility] in [place], [place] [address] [place] [phone] Michael Goldberg D.O. 05/28/2024 2:00 PM CDT Comprehensive Visit Department of Orthopedic Surgery in [address] [phone] Felipa Regalado, STEPHANIE, C.N.P., M.S. Carpal Tunnel Syndrome Bilateral 05/28/2024 9:15 AM CDT - 05/28/2024 11:59 PM CDT Hospital Encounter Department of Neurology in [address] [phone] Michael Goldberg D.O. Carpal Tunnel Syndrome Bilateral Discharge Disposition: Home or Self Care 05/28/2024 Results Follow-Up Department of Family Medicine, [facility], in [place], [place] [address] [place] [phone] Michael Goldberg D.O. EMG 05/16/2024 11:00 AM AUTOMOBILE WRECKER Telemedicine Department of Family Medicine, [facility], in [place], [place] [address] [place] [phone] Michael Goldberg D.O. Carpal Tunnel Syndrome Bilateral (Primary Dx); Fibromyalgia; Asthma (HCC); Migraine Headache 05/16/2024 Clinical Communication Department of Family Medicine, [facility], in [place], [place] [address] [place] [phone] Michael Goldberg D.O. Med Question; Phone Contact 05/16/2024 Clinical Communication Division of Gastroenterology in [place], [place] [address] [place] [phone] Bradford Gross M.D. Plan of care and visit from Last 3 Months Immunizations Immunization Administration Dates Next Due DTP 11/22/1991, 9,02/27/1987,1986,1986 Hib (PRP-T) (ACTHIB, HIBERIX) 04/01/1988 Influenza Split 01/19/2011 Influenza TIV (IM) 01/19/2011 Influenza, Unspecified 01/19/2011 MMR 12/10/1987 OPV 11/22/1991, 9,1986,1986 PCV13 09/06/2023(Deferred: Patient decision - Patient to bring in records) SARS-COV-2 (COVID-19) - MODE RNA (12 YEARS AND OLDER) Fall Seasonal 01/21/2023 SARS-COV-2 (COVID-19) - MODERNA(Discontinued) 09/06/2023(Deferred: Patient decision) SARS-COV-2 (COVID-19) - PFIZ ER (Discontinued)(12 years or older) 03/16/2021,08/07/2020,07/17/2020 SARS-COV-2 (COVID-19) - PFIZ ER BIVALENT TS(Discontinued)(12 YEARS OR OLDER) 12/08/2021 SARS-COV-2 (COVID-19) - PFIZ ER TS(Discontinued)(12 years or older) 06/25/2021 Tdap 05/13/2015,12/21/2010 influenza vaccine quad (FLUZONE/FLUARIX) (6 months and older)(PF) 09/06/2023(Deferred: Patient decision) Family History Medical History Relation Name Comments Depression Father Hari narvaez Sleep apnea Father Hari narvaez Breast cancer Neg Hx Colon cancer Neg Hx Ovarian cancer Neg Hx Uterine cancer Neg Hx Relation Name Status Comments Father Hari narvaez Alive Social History Tobacco Use Types Packs/Day Years Used Date Smoking Tobacco: Never Passive Smoke Exposure: Never Smokeless Tobacco: Never Tobacco Cessation:Counseling Given: Not Answered Alcohol Use Standard Drinks/Week Comments Not Currently 1 (1 standard drink = 0.6 oz pur e alcohol) daily caffeine [address] FACC Fund I Answer Date Recorded In the past 12 months has [employer], [employer], or water [employer] threatened to shut off services in your [...] Never 07/13/2022 How often do you attend [facility] or church services? Never 07/13/2022 Do you belong to any clubs o r organizations such as druze groups, unions, fraternal or athletic groups, or [...] Answer Date Recorded PHQ-2 Score 6 05/16/2024 [facility] - Occupational Stress Questionnaire Answer Date [...] money to buy more. Never true 01/18/20 24 Within the past 12 months, t he [...] your living situation today? I have a [employer] place to live 01/18/2024 Education Answer Date Recorded What is the highest level of school you have completed or the highest degree you have received? Some college, no degree 02/18/2019 Comments No Sex and Gender Information Value Date Recorded Sex Assigned at Female 09/13/2017 7:50 PM CDT Legal Sex Female 3:11 PM AUTOMOBILE WRECKER Gender Identity Female 09/13/2017 7:50 PM CDT Sexual Orientation Straight 09/13/2017 7: 50 PM CDT Last Filed Vital Signs Vital Sign Reading Time Taken Comments Blood Pressure 137/94 06/15/2024 8:37 AM CDT average of 3 Pulse 102 06/15/2024 8:37 AM CDT Temperature 36.7 C (98.1 F) 09/29/2023 10:53 AM CDT Respiratory Rate 16 09/19/2023 5:20 PM CDT Oxygen Saturation 97% 09/19/2023 5:2 0 PM CDT Inhaled Oxygen Concentration - - Weight 121 kg (266 lb 12.1 oz) 06/16/19 25 8:37 AM CDT pt stated Height 165.1 cm (5' 5) 01/18/2024 3:58 PM CDT Body Mass Index 44.39 01/18/2024 3:58 PM CDT Plan of Treatment Upcoming Encounters Date Type Department Care Team (Latest Contact Info) Description 07/17/2024 12:30 PM CDT Clinical Communication Virtual Review in [place], [place] [address] [place] [phone] 07/18/2024 10:45 AM CDT Office Visit Department of Orthopedic Surgery in [place], [place] [address] [place] [phone] Andrew Dougherty M.D. [address] [place] [phone] 07/23/2024 10:50 AM CDT Hospital Encounter Post Anesthesia Care Unit in [address] [phone] Andrew Dougherty M.D. [address] [place] [phone] 07/23/2024 10:50 AM CDT - 07/23/2024 12:02 PM CDT Surgery [facility] MAIN OR [address] [place] [phone] Andrew Dougherty M.D. [address] [place] [phone] RELEASE CARPAL TUNNEL OPEN WRIST 09/06/2024 7:50 AM CDT Hospital Encounter Post Anesthesia Care Unit in [address] [phone] Andrew Dougherty M.D. [address] [place] [phone] 09/06/2024 7:50 AM CDT - 09/06/2024 9:02 AM CDT Surgery [facility] OR [address] [place] [phone] Andrew Dougherty M.D. [address] [place] [phone] RELEASE CARPAL TUNNEL OPEN WRIST Scheduled Procedures Name Priority Associated Diagnoses Date/Ti me RELEASE CARPAL TUNNEL OPEN WRIST Carpal Tunnel Syndrome Right 07/23/2024 10:50 AM CDT RELEASE CARPAL TUNNEL OPEN WRIST Carpal Tunnel Syndrome Left 09/06/2024 7:50 AM CDT Health Maintenance Due Date Last Done Comments Lipid (Cholesterol) Screening 1986 Hepatitis B Vaccines (1 of 3 - 19+ 3-dose series) 2005 Pneumococcal vaccine (0-49 y ears) (1 of 2 - PCV) 2005 Zoster Vaccines (1 of 2) 2005 HPV Vaccines (1 - Risk 3-dos e SCDM series) 2013 Asthma Action Plan 09/16/2017 COVID-19 Vaccine (7 2023-2 5 season) 2023 01/21/2023, 12/08/2021, 06/25/2021, Additional history exists Influenza Vaccine (#1) 2023 1, 01/19/2011, 01/19/2011 Depression Screening (Annual PHQ-2) 03/21/2024 Controlled Substance Agreement 06/17/2024 Controlled Substance Monitor ing (UDS) 06/17/2024 Opioid Risk Tool (ORT) 06/17/2024 PEG assessment for Opioid therapy 06/17/2024 Asthma Control Test Questionnaire 06/29/2024 024 Asthma Management/Exacerbati on Questionnaire (AMQ/AEQ) 06/29/2024 06/30/2023 Glucose Test for Med Monitoring 09/18/2024 09/19/2023, 09/18/2023, 09/17/2023, Additional history exists Visit: Medicare Annual Wellness 01/18/2025 Controlled Substance Monitor ing (PHQ-9) 05/16/2025 05/16/2024 Generalized Anxiety (ERNESTINA-7) 05/16/2025 05/16/2024 Cervical/Vaginal Cancer Screening 06/26/2026 06/26/2021, 06/26/2021, 03/21/2012 (Performed elsewhere), Additional history exists DTaP,Tdap,and Td Vaccines (9 - Td or Tdap) 06/02/2034 06/02/2024, 05/13/2015, 12/21/2010, Additional history exists IPV Vaccines Completed 11/22/1991, 03/21, 1986, Additional history exists HIV Screening Completed 07/05/2023, 01/30/2023 Goals Goal Patient Goal Type Associated Problems Recent Progress Patient-Stated? Author Autogenera martinez Goal Care Plan Autogenerated Problem No Patient, Online Services Medical Devices Implanted Type Area Sales Associate Cashier Device Identifier Shelf Expiration Date Model / Serial / Lot Screw Cosmo St 2.4x12 - [id number] Implanted:Qt y: 1 on 04/07/2022 by Jose Swift III, M.D. at [facility] Hardware e.g. pins/screws/ashlyn s Left: Ankle Depuy Synthes [id number] / / Screw Cosmo St 2.4x10 - [id number] Implanted:Qt y: 1 on 04/07/2022 by Jose Swift III, M.D. at [facility] Hardware e.g. pins/screws/ashlyn s Left: Ankle Depuy Synthes 201.680 / / Scrw Axs St Fthrd Lck 3.5x12 - [id number] Implanted:Qt y: 2 on 04/07/2022 by Jose Swift III, M.D. at [facility] Hardware e.g. pins/screws/ashlyn s Left: Ankle Reji [id number] / / Scrw Axs St Fthrd Lck 3.5x14 - [id number] Implanted:Qt y: 2 on 04/07/2022 by Jose Swift III, M.D. at [facility] Hardware e.g. pins/screws/ashlyn s Left: Ankle Reji [id number] / / Scrw Axs St Fthrd Lck 3.5x60 - [id number] Implanted:Qt y: 1 on 04/07/2022 by Jose Swift III, M.D. at [facility] Hardware e.g. pins/screws/ashlyn s Left: Ankle [place] [id number] / / Description:10/18/2022: screw broke during removal, part of screw explanted disposed of, part of screw remains in left tibia Plt Sps 03/23 Tub 10h 129 - [id number] Implanted:Qt y: 1 on 04/07/2022 by Jose Swift III, M.D. at [facility] Hardware e.g. pins/screws/ashlyn s Left: Ankle [place] [id number] / / Scrw Asn [address] St Pthrd Travis 4x34 - [id number] Implanted:Qt y: 2 on 04/07/2022 by Jose Swift III, M.D. at [facility] Hardware e.g. pins/screws/ashlyn s Left: Ankle Reji [id number] / / Iud Mrn Lvngstr 52mg-07/01/19 22 Implanted:Qt y: 1 on 06/30/2021 by Martha Pavon APRN CDanielaNDanielaPDaniela, M.S.N. Intrauterine Device Uterus Yesi 09/19/2023 [id number] 05-19 / / [id number] Description:Due to be remove d 06/30/2028 [facility] Jacki Synth 15x15 - [id number] Implanted:Qt y: 1 on 12/24/2021 by Roberto Carlos Sotelo M.D., M.B.A. at [facility] Mesh or Patch N/A: Abdomen Medtronic 06/18/2025 [id number] / / [id number] [facility] Jacki Synth 20x30 - [id number] Implanted:Qt y: 1 on 07/19/2022 by Luz Vaughn M.D., M.S. at [facility] Mesh or Patch Abdomen Medtronic 10/18/2024 [id number] / / [id number] Explanted Type Area Sales Associate Cashier Device Identifier Shelf Expiration Date Model / Serial / Lot Scrw Axs St Ftd Lck 3.5x55 - [id number] Implanted:Qty : 1 on 04/07/2022 by Jose wSift III, M.D. at [facility] Explanted:Qty : 1 on 10/18/2022 by Rosalba Weber M.D. at [facility] Hardware e.g. pins/screws/ rods Left: Ankle Reji [id number] / / Procedures Procedure Name Priority Date/Time Associated Diagnosis Comments EMG Routine 05/28/2024 9:22 AM CDT Carpal Tunnel Syndrome Bilateral BASIC METABOLIC PANEL, S/P Routine 09/19/2023 12:28 AM CDT HIV-1/-2 AG AND AB SCREEN, PLASMA Routine 07/05/2023 2:40 PM CDT General Medical Examination Adult Human Immunodeficiency Virus Screening HPV WITH GENOTYPING, PCR, THINPREP Routine 06/26/2021 1:42 PM CDT from Last 3 Months or Most Recently Relevant to Health Maintenance Results * EMG (05/28/2024 9:22 AM CDT) 05/28/2024 9:15 AM CDT Narrative [facility] - 05/28/2024 10:34 AM CDT Table formatting from the original result was not included. 28-May-2024 Electromyography Final Report Study Number: 2 EMG Varnish Melter Helper: Martha Gilliam 127 or [phone] Referred by: MICHAEL GOLDBERG (127 or [phone]) Referred for: bilat CTS ( R>L) Referral Code: 211 920 RX: [id number] SUMMARY: Prior to starting the procedure, the patient's identity was verified, pertinent available records were reviewed, the nature of the procedure was explained, the appropriate sites of the exam were confirmed directly with the patient, and a pre-procedure pause was performed for final verification of all of the above. Upper limb nerve conduction studies showed a low amplitude median sensory response on the right and prolonged median motor and sensory distal latencies bilaterally. Bilateral upper limb needle EMG was normal. The left and right median nerves were evaluated with ultrasound, using a high frequency linear transducer to evaluate the nerves in short and long axis at the wrists and in short axis at the mid forearms. The patient was positioned semi-recumbent, with the elbow extended, in relaxed supination. The nerve cross-sectional area at the wrists were enlarged bilaterally and the wrist-forearm cross-sectional area ratios were increased bilaterally. A bifid median nerve or persistent median artery was not present on either side. Images were saved to the internal Nuubo network time study observer. CLINICAL INTERPRETATION: Abnormal study. There is electrodiagnostic and neuromuscular ultrasound evidence of a median mononeuropathy at both wrists (carpal tunnel syndrome), which is moderate in severity bilaterally (right worse than left) based on electrodiagnostic criteria. Compared to the prior study from January 12, 2022, there has interval worsening of the median nerve conduction study findings on the right and new findings in this distribution on the left. Magdalena Gilliam (127 or [phone])/SMB NERVE CONDUCTIONS Record Rep Normal Normal Distal Normal F-Wave F-Wave Temp Nerve Type Site Stim Side Amp Amp CV CV Lat Lat Lat Est ( C) Median Motor APB L 12.4 (> 4.0) 59 (> 48) 4.5 (< 4.5) 31.2 Median Motor APB R 10.1 (> 4.0) 58 (> 48) 7.3 (< 4.5) 32.5 Ulnar Motor ADM R 7.7 (> 6.0) 67 (> 51) 2.2 (< 3.6) 32.9 Median Sensory Dig II L 31 (> 15.0) (> 56) 4.3 (< 3.6) 30.9 Median Sensory Dig II R 9 (> 15.0) 48 (> 56) 6.2 (< 3.6) 32.3 Ulnar Sensory Dig V L 21 (> 10.0) (> 54) 2.7 (< 3.1) 31.0 Ulnar Sensory Dig V R 43 (> 10.0) 68 (> 54) 2.4 (< 3.1) 33.2 NEEDLE EMG Ins Spont MUP Recruitment Duration Amplitude Phases Muscle Side Act Fib Fasc Normal Activ Reduced Rapid Long Short High Low % Turns Abductor pollicis brevis R NL 0 0 NL Abductor pollicis brevis L NL 0 0 NL First dorsal interosseous R NL 0 0 NL Pronator teres R NL 0 0 NL NERVE ULTRASOUND (Potential) Area Area Nerve Side Site (mm ) NL Segment Ratio NL Mobility Vascularity Comments Median L Wrist 12.8 < 12.0 Median L Forearm 5.8 Wrist - Forearm 2.2 < 2.00 Median R Wrist 18.8 < 12.0 Median R Forearm 6.5 Wrist - Forearm 2.9 < 2.00 This interpretation has been electronically signed: Martha Gilliam M.D. at 05/28/2024 10:35:50 AM CDT Procedure Note Martha Gilliam M.D. - 05/28/2024 10-Mar-2025 Electromyography Final Report Study Number: 2 EMG Varnish Melter Helper: Martha Gilliam 127 or [phone] Referred by: MICHAEL GOLDBERG (127 or [phone]) Referred for: bilat CTS ( R>L) Referral Code: 211 920 RX: [id number] SUMMARY: Prior to starting the procedure, the patient's identity wasverified, pertinent available records were reviewed, the nature of theprocedure was explained, the appropriate sites of the exam were confirmeddirectly with the patient, and a pre-procedure pause was performed forfinal verification of all of the above. Upper limb nerve conduction studies showed a low amplitude median sensoryresponse on the right and prolonged median motor and sensory distallatencies bilaterally. Bilateral upper limb needle EMG was normal. The left and right median nerves were evaluated with ultrasound, using ahigh frequency linear transducer to evaluate the nerves in short and longaxis at the wrists and in short axis at the mid forearms. The patient waspositioned semi-recumbent, with the elbow extended, in relaxed supination.The nerve cross-sectional area at the wrists were enlarged bilaterally andthe wrist- forearm cross-sectional area ratios were increased bilaterally.A bifid median nerve or persistent median artery was not present on eitherside. Images were saved to the internal Nuubo network time study observer. CLINICAL INTERPRETATION: Abnormal study. There is electrodiagnostic andneuromuscular ultrasound evidence of a median mononeuropathy at bothwrists (carpal tunnel syndrome), which is moderate in severity bilaterally(right worse than left) based on electrodiagnostic criteria. Compared tothe prior study from January 12, 2022, there has interval worsening of themedian nerve conduction study findings on the right and new findings inthis distribution on the left. Magdalena Gilliam (127 or [phone])/SMB NERVE CONDUCTIONS Record Rep Normal Normal Distal Normal F-Wave F-Wave Temp Nerve Type Site Stim Side Amp Amp CV CV Lat Lat Lat Est ( C) Median Motor APB L 12.4 (> 4.0) 59 (> 48) 4.5 (< 4.5) 31.2 Median Motor APB R 10.1 (> 4.0) 58 (> 48) 7.3 (< 4.5) 32.5 Ulnar Motor ADM R 7.7 (> 6.0) 67 (> 51) 2.2 (< 3.6) 32.9 Median Sensory Dig II L 31 (> 15.0) (> 56) 4.3 (< 3.6) 30.9 Median Sensory Dig II R 9 (> 15.0) 48 (> 56) 6.2 (< 3.6) 32.3 Ulnar Sensory Dig V L 21 (> 10.0) (> 54) 2.7 (< 3.1) 31.0 Ulnar Sensory Dig V R 43 (> 10.0) 68 (> 54) 2.4 (< 3.1) 33.2 NEEDLE EMG Ins Spont MUP Recruitment Duration Amplitude Phases Muscle Side Act Fib Fasc Normal Activ Reduced Rapid Long Short High Low %Turns Abductor pollicis brevis R NL 0 0 NL Abductor pollicis brevis L NL 0 0 NL First dorsal interosseous R NL 0 0 NL Pronator teres R NL 0 0 NL NERVE ULTRASOUND (Potential) Area Area Nerve Side Site (mm ) NL Segment Ratio NL Mobility Vascularity Comments Median L Wrist 12.8 < 12.0 Median L Forearm 5.8 Wrist - Forearm 2.2 < 2.00 Median R Wrist 18.8 < 12.0 Median R Forearm 6.5 Wrist - Forearm 2.9 < 2.00 This interpretation has been electronically signed: Martha Guillory M.D. at 05/28/2024 10:35:50 AM CDT Michael Goldberg D.O. NEUROLOGY ORDERABLES E dited Result - Final [facility] * (ABNORMAL) Basic Metabolic Panel (09/19/2023 12:28 AM CDT) Potassium, S 4.2 3.6 - 5.2 mmol/L 09/19/2023 1:16 AM CDT DTL Sodium, S 140 135 - 145 mmol/L 09/19/2023 1:16 AM CDT DTL Chloride, S 107 98 - 107 mmol/L 09/19/2023 1:16 AM CDT DTL Bicarbonate, S 21(L) 22 - 29 mmol/L 09/19/2023 1:16 AM CDT DTL Anion Gap 12 7 - 15 09/19/2023 1:16 AM CDT DTL BUN (Blood Urea Nitrogen), S 10 6 - 21 mg/dL 09/19/2023 1:16 AM CDT DTL Creatinine 0.75 0.59 - 1.04 mg/dL 09/19/2023 1:16 AM CDT DTL Estimated GFR (eGFR) >90 >=60 mL/min/BSA 09/19/2023 1:16 AM CDT DTL Comment: Estimated GFR calculated using the 2020 CKD_EPI creatinine equation. Calcium, Total, S 9.4 8.6 - 10.0 mg/dL 09/19/2023 1:16 AM CDT DTL Glucose, S 95 70 - 140 mg/dL 09/19/2023 1:16 AM CDT DTL Blood (Blood, Venous) 09/19/2023 12:28 AM CDT 09/19/2023 12:40 AM CDT Javad Colindres M.D. LAB BLOOD ADD-ON Final Result Performing Organization Address City/[facility]/ZIP [place] [address], [place] [address] * HIV-1/-2 Ag and Ab Screen, Plasma (07/05/2023 2:40 PM CDT) [facility] HIV-1/-2 Ag and Ab Screen, P Negative Negative 07/05/2023 8:51 PM CDT [facility] Comment: Negative result does not rule out HIV infection. If exposure to HIV infection occurred <14 days ago, contact the laboratory to request addition of HIV-1/HIV-2 RNA detection, Plasma (HIP12). Blood (Blood, Venous) 07/05/2023 2:40 PM CDT 07/05/2023 8:11 PM CDT Michael Goldberg D.O. LAB MICROBIOLOGY - BLO OD ORDERABLES Final Result [facility] [address] [place] [address] [facility] [address] [place] [address] * HPV with Genotyping, PCR, ThinPrep (06/26/2021 1:42 PM CDT) Specimen Source Thin Prep Vial, Cervix/Endoc ervix 07/02/2021 2:47 PM CDT DTL HPV High Risk type 16, PCR Negative Negative 07/02/2021 2:47 PM CDT DTL HPV High Risk type 18, PCR Negative Negative 07/02/2021 2:47 PM CDT DTL HPV other High Risk types, PCR Negative Negative 07/02/2021 2:47 PM CDT DTL Comment: The following Other High Risk HPV types were not detected: 31, 33, 35, 39, 45, 51, 52, 56, 58, 59, 66, and 68 This test was ordered in the context of a [facility] INSURANCE RISK ANALYST Cytology case; this result should be interpreted within the context of the INSURANCE RISK ANALYST cytology report. Varies 06/26/2021 1:42 PM CDT 06/26/2021 4:01 PM CDT Toña Iqbal APRN, C.N.P., M.S.N. LAB MICROBIOLOG Y - GENERAL ORDERABLES Final Result [facility] [address] [place] [address], [facility] [address] [place] [address] from Last 3 Months or Most Recently Relevant to Health Maintenance Additional Health Concerns Active Problems Noted Date Diagnosed Date Autogenerated Problem 06/30/2024 Insurance MEDICARE [employer] Advance Directives For more information, please contact: [phone] Documents on File Type Date Recorded Patient Philosophy Faculty Expl anation Advance Directives 07/25/2019 9:52 AM Healt h Care Directive Advance Directives 01/17/2018 10:21 AM Advance Directives 11/12/2010 12:00 AM Leg acy document. See document viewer. * Full Code (Latest Code Status on File) Date Activated Date Inactivated Comments 09/16/2023 9:17 PM 09/19/2023 8:29 PM Question Answer Comments Full Code: Discussed * Full Code Date Activated Date Inactivated Comments 07/19/2022 6:26 AM 07/22/2022 2:21 PM Question Answer Comments Full Code: Discussed * Full Code Date Activated Date Inactivated Comments 04/07/2022 1:29 PM 04/07/2022 6:06 PM Question Answer Comments Full Code: Not Discussed Due to: Patient not available * Full Code Date Activated Date Inactivated Comments 07/11/2020 1:06 PM 07/12/2020 4:36 PM Question Answer Comments Full Code: Discussed * Full Code Date Activated Date Inactivated Comments 03/12/2020 3:55 PM 03/27/2020 5:21 PM Question Answer Comments Full Code: Discussed Healthcare Agents on File Name Relationship Healthcare Agent Relationshi p Communication Jose A [facility] Health Care Agent --00 [phone] (Mobile) Noe [facility] Health Car e Agent Care Teams Background Check Coordinator Relationship Specialty Start Date End Date Michael Goldberg D.O. [address] [place] [phone] PCP - General Family Medicine 03/26/20
--- OUTSIDE RECORDS SUMMARY | 2024-07-08 08:25 | XMS_ITS | Clinical Summary ---
Author Organization [facility] Address [address] [place] [address] [place] [address] Care Team Providers Care Glass Scullion Name Role Phone Unavailable Primary Care Provider [...] on file Legal Sex Female 4:56 AM EDGE MOLDER Gender Identity Not on file Sexual Orientation Not on file Last Filed Vital Signs Vital Sign Reading Time Taken Comments Blood Pressure 102/67 08/18/2012 4:49 PM CDT Pulse 78 08/18/2012 4:49 PM CDT Temperature 37.2 C (98.9 F) 08/18/2012 4:49 PM CDT Respiratory Rate 16 05/12/2012 3:15 PM EDGE MOLDER Oxygen Saturation 99% 06/01/2012 11:33 AM CDT Inhaled Oxygen Concentration - - Weight 86.6 kg (191 lb) 03/07/2019 2:36 PM EDGE MOLDER Height 165.1 cm (5' 5) 03/07/2019 2:36 PM EDGE MOLDER Body Mass Index 31.78 03/07/2019 2:36 PM EDGE MOLDER Plan of Treatment Not on file Insurance MEDICARE
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
--- OUTSIDE RECORDS SUMMARY | 2024-07-08 08:25 | XMS_ITS | Encounter Summary ---
Author Organization [facility] Address [address] [place] [address] Care Team Providers Care Corncob Pipes Assembler Name Role Phone Sánchez Goldberg D.O. Primary Care Provider Reason for Visit * Reason Onset Date Comments Med Refill 06/15/2024 Encounter Details Date Type Department Care Team (Late st Contact Info) Description 06/15/2024 Clinical Communication Department of Family Medicine, [facility], in [place], [place] [address] [place] [phone] Darby Martines M.S.N., R.N. [address] [place] [phone] Med Refill Social History Tobacco Use Types Packs/Day Years Used Date Smoking Tobacco: Never Passive Smoke Exposure: Never Smokeless Tobacco: Never Alcohol Use Standard Drinks/Week Comments Not Currently 1 (1 standard drink = 0.6 oz pur e alcohol) daily caffeine [facility] Utilities Answer Date Recorded In the past 12 months has th e electric, gas, oil, or water company [...] often do you attend chur ch or taoism services? Never 07/13/2022 Do you belong to any clubs o r organizations such as catholic groups, unions, fraternal or athletic groups, [...] Answer Date Recorded PHQ-2 Score 6 05/16/2024 [facility] - Occupational Stress Questionnaire Answer Date Recorded [...] your living situation today? I have a [facility] place to live 01/18/2024 Education Answer Date Recorded What is the highest level of school you have completed or the highest degree you have received? Some college, no degree 02/18/2019 Comments No Sex and Gender Information Value Date Recorded Sex Assigned at Female 09/13/2017 7:50 PM CDT Legal Sex Female 3:11 PM CASE PLANNER Gender Identity Female 09/13/2017 7:50 PM CDT Sexual Orientation Straight 09/13/2017 7: 50 PM CDT documented as of this encounter Miscellaneous Notes * Telephone Encounter - Lainey Fraser L.P.N. - 06/20/2024 9:06 AM CDT Prescription for oxycodone 5 mg sent on 06/15/24 for #[address] [facility] per patient request. I have pended the prescription to [facility] as requested by patient. documented in this encounter Plan of Treatment Upcoming Encounters Date Type Department Care Team (Latest Contact Info) Description 07/17/2024 12:30 PM CDT Clinical Communication Virtual Review in [place], [place] 200 [place] [phone] 07/18/2024 10:45 AM CDT Office Visit Department of Orthopedic Surgery in [place], [place] [address] [place] [phone] Andrew Dougherty M.D. [address] [place] [phone] 07/23/2024 10:50 AM CDT Hospital Encounter Post Anesthesia Care Unit in [address] [phone] Andrew Dougherty M.D. [address] [place] [phone] 07/23/2024 10:50 AM CDT - 07/23/2024 12:02 PM CDT Surgery RST ROMB MAIN OR [address] [place] [phone] Andrew Dougherty M.D. [address] [place] [phone] RELEASE CARPAL TUNNEL OPEN WRIST 09/06/2024 7:50 AM CDT Hospital Encounter Post Anesthesia Care Unit in [address] [phone] Andrew Dougherty M.D. [address] [place] [phone] 09/06/2024 7:50 AM CDT - 09/06/2024 9:02 AM CDT Surgery RST ROMB MAIN OR [address] [place] [phone] Andrew Dougherty M.D. [address] [place] [phone] RELEASE CARPAL TUNNEL OPEN WRIST Scheduled Procedures Name Priority Associated Diagnoses Date/Ti me RELEASE CARPAL TUNNEL OPEN WRIST Carpal Tunnel Syndrome Right 07/23/2024 10:50 AM CDT RELEASE CARPAL TUNNEL OPEN WRIST Carpal Tunnel Syndrome Left 09/06/2024 7:50 AM CDT documented as of this encounter Visit Diagnoses Diagnosis Cellulitis Carpal Tunnel Syndrome Right Carpal Tunnel Syndrome Left documented in this encounter Additional Health Concerns Assessment Noted Time PHQ-9 Depression Total Score: 17 025 10:48 AM CASE PLANNER documented as of this encounter Care Teams Corncob Pipes Assembler Relationship Specialty Start Date End Date Sánchez Goldberg D.O. [address] [place] [phone] PCP - General Family Medicine 03/26/20 documented as of this encounter
--- OUTSIDE RECORDS SUMMARY | 2024-07-08 08:25 | XMS_ITS | Encounter Summary ---
Author Organization [facility] Address [address] [place] [address] Care Team Providers Care Editing Clerk Name Role Phone Sánchez Goldberg D.O. Primary Care Provider Reason for Visit * Reason Onset Date Comments Annual Exam 06/13/2024 Disability paper workInfection in left hand pointer finger-finished antibiotics but still a little red-cefalexin Wrist surgery-needs physical for surgery Suicide attempt beginning of the month Encounter Details Date Type Department Care Team (Latest Contact Info) Description 06/13/2024 12:00 PM CDT Clinical Communication Virtual Review in [place], [place] 200 [place] [address] Annual Exam (Disability paperwork/Infection in left hand pointer finger-finished antibiotics but still a little red-cefalexin /Wrist surgery-needs physical for surgery /Suicide attempt beginning of the month) Social History Tobacco Use Types Packs/Day Years Used Date Smoking Tobacco: Never Passive Smoke Exposure: Never Smokeless Tobacco: Never Alcohol Use Standard Drinks/Week Comments Not Currently 2 (1 standard drink = 0.6 oz pur e alcohol) daily caffeine C Utilities Answer Date Recorded In the past [...] 07/13/2022 How often do you attend chur or latter day services? Never 07/13/2022 Do you belong to any clubs o r organizations such as baptism groups, unions, fraternal or athletic groups, or [...] Answer Date Recorded PHQ-2 Score 6 05/16/2024 [facility] of Occupat ional Health - Occupational Stress [...] living situation today? I have a [facility] place to live 01/18/2024 Education Answer Date Recorded What is the highest level of school you have completed or the highest degree you have received? Some college, no degree 02/18/2019 Comments No Sex and Gender Information Value Date Recorded Sex Assigned at Female 09/13/2017 7:50 PM CDT Legal Sex Female 3:11 PM DRIER AND EVAPORATOR OPERATOR Gender Identity Female 09/13/2017 7:50 PM CDT Sexual Orientation Straight 09/13/2017 7: 50 PM CDT documented as of this encounter Plan of Treatment Upcoming Encounters Date Type Department Care Team (Latest Contact Info) Description 07/17/2024 12:30 PM CDT Clinical Communication Virtual Review in [address] [phone] 07/18/2024 10:45 AM CDT Office Visit Department of Orthopedic Surgery in [place], [place] [address] [place] [phone] Andrew Dougherty M.D. [address] [place] [phone] 07/23/2024 10:50 AM CDT Hospital Encounter Post Anesthesia Care Unit in [address] [phone] Andrew Dougherty M.D. [address] [place] [phone] 07/23/2024 10:50 AM CDT - 07/23/2024 12:02 PM CDT Surgery RST ROM MAIN OR [address] [place] [phone] Andrew Dougherty M.D. [address] [place] [phone] RELEASE CARPAL TUNNEL OPEN WRIST 09/06/2024 7:50 AM CDT Hospital Encounter Post Anesthesia Care Unit in [address] [phone] Andrew Dougherty M.D. [address] [place] [phone] 09/06/2024 7:50 AM CDT - 09/06/2024 9:02 AM CDT Surgery RST ROMB MAIN OR [address] [place] [phone] Andrew Dougherty M.D. [address] [place] [phone] RELEASE CARPAL TUNNEL OPEN WRIST Scheduled Procedures Name Priority Associated Diagnoses Date/Ti ri RELEASE CARPAL TUNNEL OPEN WRIST Carpal Tunnel Syndrome Right 07/23/2024 10:50 AM CDT RELEASE CARPAL TUNNEL OPEN WRIST Carpal Tunnel Syndrome Left 09/06/2024 7:50 AM CDT documented as of this encounter Visit Diagnoses Not on filedocumented in this encounter Additional Health Concerns Assessment Noted Time PHQ-9 Depression Total Score: 17 025 10:48 AM DRIER AND EVAPORATOR OPERATOR documented as of this encounter Care Teams Editing Clerk Relationship Specialty Start Date End Date Sánchez Goldberg D.O. [address] [place] [address] PCP - General Family Medicine 03/26/20 documented as of this encounter
--- OUTSIDE RECORDS SUMMARY | 2024-07-08 08:25 | XMS_ITS | Clinical Summary ---
Author Organization [facility] Address [address] [place] [address] Care Team Providers Care Trailer Driver Name Role Phone Kathie Velez MD Primary [...] on file Legal Sex Female 6:21 AM CHEF Gender Identity Not on file Sexual Orientation [...] 12/21/2017 COVID-19 vaccine series (2023- season) 2023 01/21/2023, 12/08/2021, 06/25/2021, Additional history exists Influenza Vaccine (Season Ended) 2024 Pneumococcal series for age 6-49 Aged Out No longer eligible based on patient's age to complete this topic Advance Directives Documents on File Type Date Recorded Patient Mass Spectrometry Manager Expl anation Healthcare Directive 03/05/2016 12:47 AM 12/16/2015 Care Teams Trailer Driver Relationship Specialty Start Date End Date Kathie Velez MD PCP - General Family Practice 12/23/15
--- OUTSIDE RECORDS SUMMARY | 2024-07-08 08:25 | XMS_ITS | Encounter Summary ---
Author Organization [facility] Address [address] [place] [address]. 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 Pt scheduled for a DA with Reta Wright on 03/02/19 at 8:30 am. Created referral, sent for benefits. STS' BOOKING REPRESENTATIVE documented in this encounter Plan of Treatment Not on file documented as of this encounter Visit Diagnoses Not on filedocumented in this encounter Care Teams Nurse Ortho Relationship Specialty Start Date End Date Larry Jean MD [place] [address] Family Medicine Physician Family Practice 05/12/12 documented as of this encounter
--- OUTSIDE RECORDS SUMMARY | 2024-07-08 08:25 | XMS_ITS | Encounter Summary ---
Author Organization [facility] Address [address] [place] [address] Care Team Providers Care Partner Marketing Manager Name Role Phone Sánchez Goldberg D.O. Primary Care Provider Encounter Details Date Type Department Care Team (Late st Contact Info) Description 07/02/2024 Clinical Communication Department of Family Medicine, [facility], in [place], [place] [address] [place] [address] Sánchez Goldberg D.O. [address] [place] [phone] Social History Tobacco Use Types Packs/Day Years Used Date Smoking Tobacco: Never Passive Smoke Exposure: Never Smokeless Tobacco: Never Alcohol Use Standard Drinks/Week Comments Not Currently 1 (1 standard drink = 0.6 oz pur e alcohol) daily caffeine [facility] Utilities Answer Date Recorded In the past 12 months has e [employer], gas, oil, or water company threatened to [...] often do you attend chur ch or rastafarian services? Never 07/13/2022 Do you belong to any clubs o r organizations such as temple groups, unions, fraternal or athletic groups, or [...] Answer Date Recorded PHQ-2 Score 6 05/16/2024 [facility] of Occupat ional Health - Occupational Stress [...] your living situation today? I have a [facility] place to live 01/18/2024 Education Answer Date Recorded What is the highest level of school you have completed or the highest degree you have received? 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 Form is done and was faxed back to [facility] on 06/18/2024. documented in this encounter Plan of Treatment Upcoming Encounters Date Type Department Care Team (Latest Contact Info) Description 07/17/2024 12:30 PM CDT Clinical Communication Virtual Review in [place], [place] [address] [place] [address] 07/18/2024 10:45 AM CDT Office Visit Department of Orthopedic Surgery in [place], [place] [address] [place] [phone] Andrew Dougherty M.D. [address] [place] [phone] 07/23/2024 10:50 AM CDT Hospital Encounter Post Anesthesia Care Unit in [address] [phone] Andrew Dougherty M.D. [address] [place] [phone] 07/23/2024 10:50 AM CDT - 07/23/2024 12:02 PM CDT Surgery RST ROMB MAIN OR [facility] [address] [place] [phone] Andrew Dougherty M.D. [address] [place] [phone] RELEASE CARPAL TUNNEL OPEN WRIST 09/06/2024 7:50 AM CDT Hospital Encounter Post Anesthesia Care Unit in [address] [phone] Andrew Dougherty M.D. [address] [place] [phone] 09/06/2024 7:50 AM CDT - 09/06/2024 9:02 AM CDT Surgery RST ROMB MAIN OR [address] [place] [phone] Andrew Dougherty M.D. [address] [place] [phone] RELEASE CARPAL TUNNEL OPEN WRIST Scheduled Procedures Name Priority Associated Diagnoses Date/Ti in RELEASE CARPAL TUNNEL OPEN WRIST Carpal Tunnel Syndrome Right 07/23/2024 10:50 AM CDT RELEASE CARPAL TUNNEL OPEN WRIST Carpal Tunnel Syndrome Left 09/06/2024 7:50 AM CDT documented as of this encounter Goals Goal Patient Goal Type Associated Problems Recent Progress Patient-Stated? Author Moises martinez Goal Care Plan Autogenerated Problem No Patient, Online Services documented as of this encounter Visit Diagnoses Not on filedocumented in this encounter Additional Health Concerns Active Problems Noted Date Diagnosed Date Autogenerated Problem 06/30/2024 Assessment Noted Time PHQ-9 Depression Total Score: 17 025 10:48 AM HIGH SCHOOL ART TEACHER documented as of this encounter Care Teams Partner Marketing Manager Relationship Specialty Start Date End Date Sánchez Goldberg D.O. 200 [place] [address] PCP - General Family Medicine 03/26/20 documented as of this encounter
--- OUTSIDE RECORDS SUMMARY | 2024-07-08 08:25 | XMS_ITS | Encounter Summary ---
Author Organization [facility] Address [address] [place] [address] Care Team Providers Care Medical Scientific Liaison Name Role Phone Sánchez Goldberg D.O. Primary Care Provider Reason for Visit * Reason Onset Date Comments Abdominal Pain 07/08/2024 Encounter Details Date Type Department Care Team (Late st Contact Info) Description 07/08/2024 Nurse Triage Department of Family Medicine, [facility], in [place], [place] [address] [place] [address] Nicole Flower RNavarro [address] [place] [address] Abdominal Pain Social History Tobacco Use Types Packs/Day Years Used Date Smoking Tobacco: Never Passive Smoke Exposure: Never Smokeless Tobacco: Never Alcohol Use Standard Drinks/Week Comments Not Currently 1 (1 standard drink = 0.6 oz pur e alcohol) daily caffeine [facility] Utilities Answer Date Recorded In the past 12 months has e [employer], gas, oil, or water company threatened to [...] How often do you attend chur or hindu services? Never 07/13/2022 Do you belong to any clubs o r organizations such as faith groups, unions, fraternal or athletic groups, or [...] Answer Date Recorded PHQ-2 Score 6 05/16/2024 [facility] of Occupat ional Health - [...] your living situation today? I have a [facility] place to live 01/18/2024 Education Answer Date Recorded What is the highest level of school you have completed or the highest degree you have received? 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 - 07/08/2024 6:27 AM CDT Chief Complaint / Reason for Call Patient is a 38 y.o. female calling regarding Abdominal Pain. Assessment Concern: Abdominal pain with concerns of a partial blockage. Patient has a stoma. Pain is constant,9/10, nausea Present for: 5.5 hours Home cares tried: none Calling to request: advice The recommended disposition is Go to ED Now. Care Advice Patient/Caregiver understands and will follow care advice?: Yes, able to teach back Abdominal Pain - Oivbvy-Txryo-EX Nurse Nicole Fuentes Jul 08, 2024 06:28 AM Care Advice GO TO ED NOW: * You need to be seen in the Emergency Department. * Go to the ED at your Hospital. * Leave now. Drive carefully. NOTHING BY MOUTH: * Do not eat or drink anything for now. * Reason: Condition may need surgery and general anesthesia. Reason for Disposition [1] SEVERE pain (e.g., excruciating) AND [2] present > 1 hour Protocols used: Abdominal Pain - [id number] documented in this encounter Plan of Treatment Upcoming Encounters Date Type Department Care Team (Latest Contact Info) Description 07/17/2024 12:30 PM CDT Clinical Communication Virtual Review in [place], [place] 200 [place] [address] 07/18/2024 10:45 AM CDT Office Visit Department of Orthopedic Surgery in [place], [place] [address] [place] [phone] Andrew Dougherty M.D. [address] [place] [phone] 07/23/2024 10:50 AM CDT Hospital Encounter Post Anesthesia Care Unit in [place] [phone] [place] [phone] Andrew Dougherty M.D. [address] [place] [phone] 07/23/2024 10:50 AM CDT - 07/23/2024 12:02 PM CDT Surgery RST ROMB MAIN OR [address] [place] [phone] Andrew Dougherty M.D. [address] [place] [phone] RELEASE CARPAL TUNNEL OPEN WRIST 09/06/2024 7:50 AM CDT Hospital Encounter Post Anesthesia Care Unit in [place], [place] [address] [place] [phone] Andrew Dougherty M.D. [address] [place] [phone] 09/06/2024 7:50 AM CDT - 09/06/2024 9:02 AM CDT Surgery RST ROMB MAIN OR [address] [place] [phone] Andrew Dougherty M.D. [address] [place] [phone] RELEASE CARPAL TUNNEL OPEN WRIST Scheduled Procedures Name Priority Associated Diagnoses Date/Ti me RELEASE CARPAL TUNNEL OPEN WRIST Carpal Tunnel Syndrome Right 07/23/2024 10:50 AM CDT RELEASE CARPAL TUNNEL OPEN WRIST Carpal Tunnel Syndrome Left 09/06/2024 7:50 AM CDT documented as of this encounter Goals Goal Patient Goal Type Associated Problems Recent Progress Patient-Stated? 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 [address] [place] [phone] PCP - General Family Medicine 03/26/20 documented as of this encounter
--- OUTSIDE RECORDS SUMMARY | 2024-07-08 08:26 | XMS_ITS | Encounter Summary ---
Author Organization [facility] Address [address] [place] [address] Care Team Providers Care Grain Broker And Market Operator Name Role Phone Sánchez Goldberg D.O. Primary Care Provider Reason for Visit * Reason Onset Date Comments [employer] 06/05/2024 [employer] Encounter Details Date Type Department Care Team (Latest Contact Info) Description 06/05/2024 Clinical Communication Department of Family Medicine, [facility], in [place], [place] [address] [place] [phone] Sánchez Goldberg D.O. [address] [place] [phone] [employer] ([employer]) Social History Tobacco Use Types Packs/Day Years Used Date Smoking Tobacco: Never Passive Smoke Exposure: Never Smokeless Tobacco: Never Alcohol Use Standard Drinks/Week Comments Not Currently 2 (1 standard drink = 0.6 oz pur e alcohol) daily caffeine [facility] Utilities Answer Date Recorded In the [...] often do you attend chur ch or baptist services? Never 07/13/2022 Do you belong to any clubs o r organizations such as religion groups, unions, fraternal or athletic groups, or [...] Answer Date Recorded PHQ-2 Score 6 05/16/2024 [facility] of Occupat ional Health - Occupational Stress [...] your living situation today? I have a [facility] place to live 01/18/2024 Education Answer Date Recorded What is the highest level of school you have completed or the highest degree you have received? Some college, no degree 02/18/2019 Comments No Sex and Gender Information Value Date Recorded Sex Assigned at Female 09/13/2017 7:50 PM CDT Legal Sex Female 3:11 PM WIRE WINDER Gender Identity Female 09/13/2017 7:50 PM CDT Sexual Orientation Straight 09/13/2017 7: 50 PM CDT documented as of this encounter Plan of Treatment Upcoming Encounters Date Type Department Care Team (Latest Contact Info) Description 07/17/2024 12:30 PM CDT Clinical Communication Virtual Review in [place], [place] [address] [place] [address] 07/18/2024 10:45 AM CDT Office Visit Department of Orthopedic Surgery in [place], [place] [address] [place] [phone] Andrew Dougherty M.D. [address] [place] [phone] 07/23/2024 10:50 AM CDT Hospital Encounter Post Anesthesia Care Unit in [address] [phone] Andrew Dougherty M.D. [address] [place] [phone] 07/23/2024 10:50 AM CDT - 07/23/2024 12:02 PM CDT Surgery RST ROMB MAIN OR [address] [place] [phone] Andrew Dougherty M.D. [address] [place] [phone] RELEASE CARPAL TUNNEL OPEN WRIST 09/06/2024 7:50 AM CDT Hospital Encounter Post Anesthesia Care Unit in [address] [phone] Andrew Dougherty M.D. [address] [place] [phone] 09/06/2024 7:50 AM CDT - 09/06/2024 9:02 AM CDT Surgery RST ROMB MAIN OR [address] [place] [phone] Andrew Dougherty M.D. [address] [place] [phone] RELEASE CARPAL TUNNEL OPEN WRIST Scheduled Procedures Name Priority Associated Diagnoses Date/Ti pr RELEASE CARPAL TUNNEL OPEN WRIST Carpal Tunnel Syndrome Right 07/23/2024 10:50 AM CDT RELEASE CARPAL TUNNEL OPEN WRIST Carpal Tunnel Syndrome Left 09/06/2024 7:50 AM CDT documented as of this encounter Visit Diagnoses Not on filedocumented in this encounter Additional Health Concerns Assessment Noted Time PHQ-9 Depression Total Score: 17 025 10:48 AM WIRE WINDER documented as of this encounter Care Teams Grain Broker And Market Operator Relationship Specialty Start Date End Date Sánchez Goldberg D.O. [address] [place] [address] PCP - General Family Medicine 03/26/20 documented as of this encounter
--- OUTSIDE RECORDS SUMMARY | 2024-07-08 08:26 | XMS_ITS | Encounter Summary ---
Author Organization [facility] Address [address] [place] [address] Care Team Providers Care Municipal Court Judge Name Role Phone Xochitl Gay PA-C Primary Care Provider [phone] Encounter Details Date Type Department Care Team [...] Ramesh, Provider - 05/09/2012 12:00 AM CST L HANGER documented in this encounter Plan of Treatment Not on file documented as of this encounter Visit Diagnoses Not on filedocumented in this encounter Care Teams Municipal Court Judge Relationship Specialty Start Date End Date Xochitl Gay PA-C [facility] [address] [place] [address] PCP - General Physician Painter And Paperhanger Apprentice 01/20/16 documented as of this encounter
--- OUTSIDE RECORDS SUMMARY | 2024-07-08 08:26 | XMS_ITS | Encounter Summary ---
Author Organization [facility] Address [address] [place] [address] Care Team Providers Care Iron Guardrail Installer Name Role Phone Sánchez Goldberg D.O. Primary Care Provider Reason for Visit * Reason Onset Date Comments Med Question 05/16/2024 Phone Contact 05/16/2024 Encounter Details Date Type Department Care Team (Latest Contact Info) Description 05/16/2024 Clinical Communication Department of Family Medicine, [facility], in [place], [place] [address] [place] [phone] Sánchez Goldberg D.O. [address] [place] [phone] Med Question; Phone Contact Social History Tobacco Use Types Packs/Day Years Used Date Smoking Tobacco: Never Passive Smoke Exposure: Never Smokeless Tobacco: Never Alcohol Use Standard Drinks/Week Comments Not Currently 2 (1 standard drink = 0.6 oz pur e alcohol) daily caffeine [facility] Utilities Answer Date Recorded In the [...] often do you attend chur ch or gnosticist services? Never 07/13/2022 Do you belong to any clubs o r organizations such as religious groups, unions, fraternal or athletic groups, or [...] Answer Date Recorded PHQ-2 Score 6 05/16/2024 [facility] [place] of Occupat ional Health - Occupational Stress [...] your living situation today? I have a [facility] place to live 01/18/2024 Education Answer Date Recorded What is the highest level of school you have completed or the highest degree you have received? Some college, no degree 02/18/2019 Comments No Sex and Gender Information Value Date Recorded Sex Assigned at Female 09/13/2017 7:50 PM CDT Legal Sex Female 3:11 PM STAFF RN Gender Identity Female 09/13/2017 7:50 PM CDT Sexual Orientation Straight 09/13/2017 7: 50 PM CDT documented as of this encounter Plan of Treatment Upcoming Encounters Date Type Department Care Team (Latest Contact Info) Description 07/17/2024 12:30 PM CDT Clinical Communication Virtual Review in [place], [place] [address] [place] [address] 07/18/2024 10:45 AM CDT Office Visit Department of Orthopedic Surgery in [place], [place] [address] [place] [phone] Andrew Dougherty M.D. [address] [place] [phone] 07/23/2024 10:50 AM CDT Hospital Encounter Post Anesthesia Care Unit in [address] [phone] Andrew Dougherty M.D. [address] [place] [phone] 07/23/2024 10:50 AM CDT - 07/23/2024 12:02 PM CDT Surgery RST ROMB MAIN OR [address] [place] [phone] Andrew Dougherty M.D. [address] [place] [phone] RELEASE CARPAL TUNNEL OPEN WRIST 09/06/2024 7:50 AM CDT Hospital Encounter Post Anesthesia Care Unit in [address] [address] Andrew Dougherty M.D. [address] [place] [phone] 09/06/2024 7:50 AM CDT - 09/06/2024 9:02 AM CDT Surgery RST ROMB MAIN OR [address] [place] [phone] Andrew Dougherty M.D. [address] [place] [phone] RELEASE CARPAL TUNNEL OPEN WRIST Scheduled Procedures [...] Depression Total Score: 17 025 10:48 AM STAFF RN documented as of this encounter Care Teams Iron Guardrail Installer Relationship Specialty Start Date End Date Sánchez Goldberg D.O. [address] [place] [address] PCP - General Family Medicine 03/26/20 documented as of this encounter
--- OUTSIDE RECORDS SUMMARY | 2024-07-08 08:26 | XMS_ITS | Encounter Summary ---
Author Organization [facility] Address [address] [place] [address] Care Team Providers Care Insurance Instructor Name Role Phone Sánchez Goldberg D.O. Primary Care Provider Encounter Details Date Type Department Care Team (Late st Contact Info) Description 06/04/2024 Clinical Communication Department of Family Medicine, [facility], in [place], [place] [address] [place] [address] Sánchez Goldberg D.O. [address] [place] [phone] Social History Tobacco Use Types Packs/Day Years Used Date Smoking Tobacco: Never Passive Smoke Exposure: Never Smokeless Tobacco: Never Alcohol Use Standard Drinks/Week Comments Not Currently 2 (1 standard drink = 0.6 oz pur e alcohol) daily caffeine [facility] Utilities Answer Date Recorded In the past 12 months has e [employer], gas, oil, or water company threatened to [...] often do you attend chur ch or yazidi services? Never 07/13/2022 Do you belong to any clubs o r organizations such as amish groups, unions, fraternal or athletic groups, or [...] Answer Date Recorded PHQ-2 Score 6 05/16/2024 [facility] of Occupat ional Health - Occupational Stress [...] your living situation today? I have a [facility] place to live 01/18/2024 Education Answer Date Recorded What is the highest level of school you have completed or the highest degree you have received? Some college, no degree 02/18/2019 Comments No Sex and Gender Information Value Date Recorded Sex Assigned at Female 09/13/2017 7:50 PM CDT Legal Sex Female 3:11 PM AUTOMATION QA LEAD Gender Identity Female 09/13/2017 7:50 PM CDT Sexual Orientation Straight 09/13/2017 7: 50 PM CDT documented as of this encounter Plan of Treatment Upcoming Encounters Date Type Department Care Team (Latest Contact Info) Description 07/17/2024 12:30 PM CDT Clinical Communication Virtual Review in [place], [place] 200 [place] [address] 07/18/2024 10:45 AM CDT Office Visit Department of Orthopedic Surgery in [place], [place] [address] [place] [phone] Andrew Dougherty M.D. [address] [place] [phone] 07/23/2024 10:50 AM CDT Hospital Encounter Post Anesthesia Care Unit in [address] [address] Andrew Dougherty M.D. [address] [place] [phone] 07/23/2024 10:50 AM CDT - 07/23/2024 12:02 PM CDT Surgery RST ROMB MAIN OR [address] [place] [phone] Andrew Dougherty M.D. [address] [place] [phone] RELEASE CARPAL TUNNEL OPEN WRIST 09/06/2024 7:50 AM CDT Hospital Encounter Post Anesthesia Care Unit in [address] [address] Andrew Dougherty M.D. [address] [place] [phone] 09/06/2024 7:50 AM CDT - 09/06/2024 9:02 AM CDT Surgery RST ROMB MAIN OR [address] [place] [phone] Andrew Dougherty M.D. [address] [place] [phone] RELEASE CARPAL TUNNEL OPEN WRIST Scheduled Procedures Name Priority Associated Diagnoses Date/Ti ne RELEASE CARPAL TUNNEL OPEN WRIST Carpal Tunnel Syndrome Right 07/23/2024 10:50 AM CDT RELEASE CARPAL TUNNEL OPEN WRIST Carpal Tunnel Syndrome Left 09/06/2024 7:50 AM CDT documented as of this encounter Visit Diagnoses Not on filedocumented in this encounter Additional Health Concerns Assessment Noted Time PHQ-9 Depression Total Score: 17 05/16/ 025 10:48 AM AUTOMATION QA LEAD documented as of this encounter Care Teams Insurance Instructor Relationship Specialty Start Date End Date Sánchez Goldberg D.O. 200 [place] [address] PCP - General Family Medicine 03/26/20 documented as of this encounter
--- OUTSIDE RECORDS SUMMARY | 2024-07-08 08:26 | XMS_ITS | Encounter Summary ---
Author Organization [facility] Address [address] [place] [address] Care Team Providers Care Programmer Business Name Role Phone Michael Goldberg D.O. Primary Care Provider Reason for Referral * Outpatient (Routine) - Closed Specialty Diagnoses / Procedures Referred By Clare anthony Referred To Contact Diagnoses Carpal Tunnel Syndrome Bilateral Procedures EMG Michael Goldberg D.O. 200 [place] [address] Phone: tel: fax: [facility] Referral ID Status Reason Start Date Expiration Date Visits Re quested Visits Authorized [id number] Closed 05/16/2024 08/16/2025 1 1 Reason for Visit * Outpatient (Routine) - Closed Specialty Diagnoses / Procedures Referred By Clare anthony Referred To Contact Diagnoses Carpal Tunnel Syndrome Bilateral Procedures EMG Michael Goldberg D.O. [address] [place] [address] Phone: tel: fax: [facility] Referral ID Status Reason Start Date Expiration Date Visits Re quested Visits Authorized [id number] Closed 05/16/2024 08/16/2025 1 1 Encounter Details Date Type Department Care Team (Latest Contact Info) Description 05/28/2024 9:15 AM CDT - 05/28/2024 11:59 PM CDT Hospital Encounter Department of Neurology in [place], [place] [address] [place] [address] Michael Goldberg D.O. [address] [place] [address] Carpal Tunnel Syndrome Bilateral Discharge Disposition: Home or Self Care Social History Tobacco Use Types Packs/Day Years Used Date Smoking Tobacco: Never Passive Smoke Exposure: Never Smokeless Tobacco: Never Alcohol Use Standard Drinks/Week Comments Not Currently 2 (1 standard drink = 0.6 oz pur e alcohol) daily caffeine [facility] Utilities Answer Date Recorded In the past 12 months has e [employer], gas, oil, or water [employer] threatened to shut off services in your [...] any clubs o r organizations such as taoism groups, unions, fraternal or athletic groups, or [...] Answer Date Recorded PHQ-2 Score 6 05/16/2024 [facility] of Occupat ional Health - [...] Date Recorded Dental: Regular Dentist Yes 10/26/19 24 Employment Answer Date Recorded Employment status Permanently disabled Housing Stability Answer Date Recorded What is your living situation today? I have a [facility] place to live 01/18/2024 Education Answer Date Recorded What is the highest level of school you have completed or the highest degree you have received? 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 Do not exceed 4000 mg in 24 hours. 90 tablet 3 05/16/19 25 albuterol (ProAir HFA) 90 mcg/actuation inhalerIndications :Asthma (HCC) Inhale 2 puffs every 4 (four) hours as needed for wheezing or shortness of breath. Congestion 18 g 1 05/16/19 25 amphetamine-dextro amphetamine (ADDERALL XR) 10 mg 24 hr capsule Take 1 capsule (10 mg total) by mouth daily. 30 capsule 01/19/20 23 benzonatate (TESSALON PERLES) 100 mg capsuleIndications :Cough Unspecified Type Take 1 capsule (100 mg total) by mouth 3 (three) times a day as needed for cough. 60 capsule 1 06/30/19 24 busPIRone (BuSpar) 5 mg tabletIndications: Anxiety Generalized Disorder Take 1 tablet (5 mg total) by mouth 3 (three) times a day as needed (Anxiety). Place on file 270 tablet 02/02/20 24 celecoxib (CeleBREX) 200 mg capsuleIndications :Fibromyalgia Take 1 capsule (200 mg total) by mouth 2 (two) times a day. 60 capsule 1 05/16/19 25 cholecalciferol (Vitamin D3) 25 mcg (1,000 Unit) capsule Take 1 capsule by mouth daily. DME Ostomy suppliesIndication s:Ileostomy Status (HCC) DME Order 1 Unspecified 11 01/09/20 22 EPINEPHrine 0.3 mg/0.3 mL injection syringe Inject 0.3 mL (0.3 mg total) intramuscularly as needed (allergies). 1 each 2 02/02/20 24 hydrOXYzine (Atarax) 10 mg tabletIndications: Anxiety Generalized Disorder Take 1 tablet (10 mg total) by mouth 4 (four) times a day as needed for anxiety. 30 tablet 3 02/02/20 24 ibuprofen 200 mg tabletIndications: Fibromyalgia Take 3 tablets (600 mg total) by mouth every 6 (six) hours as needed for pain. 90 tablet 11 02/02/20 24 LORazepam (Ativan) 0.5 mg tabletIndications: Anxiety Generalized Disorder Take 1 tablet (0.5 mg total) by mouth daily as needed for anxiety. 30 tablet 09/13/19 24 naloxone (Narcan) 4 mg/actuation nasal spray Administer 4 mg into nostril(s) as needed. 04/16/19 25 ondansetron ODT (Zofran-ODT) 4 mg disintegrating tablet Dissolve 1 tablet (4 mg total) in the mouth every 8 (eight) hours as needed for nausea or vomiting. 20 tablet 01/09/20 24 Stelara 45 mg/0.5 mL injection Inject 45 mg under the skin. Pt states every 6-8 weeks 03/26/19 25 SUMAtriptan (Imitrex) 50 mg tabletIndications: Migraine Headache Take 1 tablet (50 mg total) by mouth as needed for migraine. May repeat dose once in 2 hours if migraine is unresolved. Do not exceed 200 mg in 24 hours. 9 tablet 11 05/16/19 25 oxyCODONE (Roxicodone) 5 mg immediate release tabletIndications: Chronic Pain/Nonacute Pain Take 1 tablet (5 mg total) by mouth daily Indication: Chronic Pain/Nonacute Pain. 6 tablet 05/16/19 25 025 documented as of this encounter Plan of Treatment Upcoming Encounters Date Type Department Care Team (Latest Contact Info) Description 07/17/2024 12:30 PM CDT Clinical Communication Virtual Review in [address] [phone] 07/18/2024 10:45 AM CDT Office Visit Department of Orthopedic Surgery in [place], [place] [address] [place] [phone] Andrew Dougherty M.D. [address] [place] [phone] 07/23/2024 10:50 AM CDT Hospital Encounter Post Anesthesia Care Unit in [address] [address] Andrew Dougherty M.D. [address] [place] [phone] 07/23/2024 10:50 AM CDT - 07/23/2024 12:02 PM CDT Surgery RST ROMB MAIN OR [address] [place] [phone] Andrew Dougherty M.D. [address] [place] [phone] RELEASE CARPAL TUNNEL OPEN WRIST 09/06/2024 7:50 AM CDT Hospital Encounter Post Anesthesia Care Unit in [address] [address] Andrew Dougherty M.D. [address] [place] [phone] 09/06/2024 7:50 AM CDT - 09/06/2024 9:02 AM CDT Surgery RST ROMB MAIN OR [address] [place] [phone] Andrew Dougherty M.D. [address] [place] [phone] RELEASE CARPAL TUNNEL OPEN WRIST Scheduled Procedures Name Priority Associated Diagnoses Date/Ti tn RELEASE CARPAL TUNNEL OPEN WRIST Carpal Tunnel Syndrome Right 07/23/2024 10:50 AM CDT RELEASE CARPAL TUNNEL OPEN WRIST Carpal Tunnel Syndrome Left 09/06/2024 7:50 AM CDT documented as of this encounter Procedures Procedure Name Priority Date/Time Associated Diagnosis Comments EMG Routine 05/28/2024 9:22 AM CDT Carpal Tunnel Syndrome Bilateral documented in this encounter Results * EMG (05/28/2024 9:22 AM CDT) 05/28/2024 9:15 AM CDT Narrative EMG - 05/28/2024 10:34 AM CDT Table formatting from the original result was not included. 28-May-2024 Electromyography Final Report Study Number: 2 EMG Wetlands Conservation Laborer: Martha Gilliam 127 or [phone] Referred by: MICHAEL GOLDBERG (127 or [phone]) Referred for: bilat CTS ( R>L) Referral [...] side. Images were saved to the internal [employer] network geophysical observer. CLINICAL INTERPRETATION: Abnormal study. There is [...] on the left. Magdalena Gilliam (127 or [phone])/SMB NERVE CONDUCTIONS Record Rep Normal Normal Distal [...] Procedure Note Martha Gilliam M.D. - 05/28/2024 28-May-2024 Electromyography Final Report Study Number: 2 EMG Wetlands Conservation Laborer: Martha Gilliam 127 or [phone] Referred by: MICHAEL GOLDBERG (127 or [phone]) Referred for: bilat CTS ( R>L) Referral [...] eitherside. Images were saved to the internal [employer] network geophysical observer. CLINICAL INTERPRETATION: Abnormal study. There is [...] on the left. 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 [address] [place] [address] PCP - General Family Medicine 03/26/20 documented as of this encounter
--- OUTSIDE RECORDS SUMMARY | 2024-07-08 08:26 | XMS_ITS | Referral Summary ---
Author Organization [facility] Address [address] [place] [address] Care Team Providers Care Rural Mail Carrier Name Role Phone Kasandra Quevedo MD Unavailable [...] Procedure Name Priority Date/Time Associated Diagnosis Comments WOOD SHINGLE ROOFER CYTOLOGY 12/06/2005 12:00 AM CDT from Last 3 Months or Most Recently Relevant to Health Maintenance Results * WOOD SHINGLE ROOFER CYTOLOGY (12/06/2005 12:00 AM CDT) 12/06/2005 Narrative 12/06/2005 12:00 AM CDT Ordered by an unspecified provider. Transcriptions Associate, [facility] - 12/06/2005 12:00 AM CDTAccession #: [id number] Formerly [facility] [address] [place] [phone] CYTOLOGY REPORT Patient Name: CARMELA PERES Specimen No: [id number] Location: [facility] Age: 20 Sex: F Stefanie. Date: 12/02/2005 Med. Rec. #: [id number] : 1985 Received: 12/06/2005 Physician(s): Katalina Heaton MD Reported: 12/07/2005 SOURCE OF SPECIMEN CERVICAL - THIN PREP ( HPV REFLEX CASE ) CLINICAL HISTORY Date of Last Menstrual Period: 11-26-05 Other: CHART NUMBER:: [id number] SPECIMEN ADEQUACY Satisfactory for evaluation. Endocervical cells present INTERPRETATION Negative for intraepithelial lesion or malignant cells. Electronically Signed Out [facility] / 12/07/2005 us PATHOLOGY/CYTOLOGY ORDERABLE Fin al Result from Last 3 Months or Most Recently Relevant to Health Maintenance Insurance NON CONTRACT GENERIC MEDICARE PART A & B [address] [id number] MEDICARE PART A & B NON CONTRACT GENERIC * Guarantor: CARMELA DELACRUZ Account Type Relation to Patient Date of Phone Billing Address Personal/Family Advance Directives For more information, please contact: [phone] * Full Code (Latest Code Status on File) Date Activated Date Inactivated Comments 10/21/2018 11:14 AM 10/26/2018 7:29 PM Question Answer Comments How was code status determined? Patient * Full Code Date Activated Date Inactivated Comments 10/20/2018 8:28 PM 10/21/2018 11:09 AM Question Answer Comments How was code status determined? Physician [facility] Care Teams Rural Mail Carrier Relationship Specialty Start Date End Date Kasandra Quevedo MD PCP - Oncologist Hematology/Oncology 04/01/15
--- OUTSIDE RECORDS SUMMARY | 2024-07-08 08:26 | XMS_ITS | Encounter Summary ---
Author Organization [facility] Address [address] [place] [address]. [place] [address] Care Team Providers Care Nail Specialist Name Role Phone Makayla Anderosn MD Primary Care Provider [phone] Larry Jean MD Unavailable [phone] Encounter Details Date Type Department Care Team (Late st Contact Info) Description 12/08/[address] [phone] Abstract, Provider DIAGNOSIS NOT YET DEFINED (Primary Dx) Social History Tobacco Use Types Packs/Day Years Used Date Smoking Tobacco: Never Smokeless Tobacco: Never Alcohol Use Standard Drinks/Week Comments Yes 0 (1 standard drink = 0.6 oz pur e alcohol) sparingly Comments No Sex and Gender Information Value Date Recorded Sex Assigned at Not on file Legal Sex Female 4:56 AM 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 OF 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 Gender Identity Not on file Sexual Orientation [...] - 01/19/2011 Normal pap smear done at [facility] as reported by patient 01/2011 us Provider Abstract LAB - HIM EXTERNAL RESULT Sarai l Result MISYS documented in this encounter Visit Diagnoses Diagnosis DIAGNOSIS NOT YET DEFINED- Primary documented in this encounter Care Teams Nail Specialist Relationship Specialty Start Date End Date Makayla Anderson MD [address] [facility] [place] [address] PCP - General 05/26/08 05/11/12 Larry Jean [place] [address] Family Medicine Physician Family Practice 05/12/12 documented as of this encounter
--- OUTSIDE RECORDS SUMMARY | 2024-07-08 08:26 | XMS_ITS | Encounter Summary ---
Author Organization [facility] Address [address] [place] [address] Care Team Providers Care Financial Intern Name Role Phone Sánchez Goldberg D.O. Primary Care Provider Encounter Details Date Type Department Care Team (Late st Contact Info) Description 05/28/2024 Results Follow-Up Department of Family Medicine, [facility], in [place], [place] [address] [place] [address] Sánchez Goldberg D.O. [address] [place] [phone] EMG Social History Tobacco Use Types Packs/Day Years Used Date Smoking Tobacco: Never Passive Smoke Exposure: Never Smokeless Tobacco: Never Alcohol Use Standard Drinks/Week Comments Not Currently 2 (1 standard drink = 0.6 oz pur e alcohol) daily caffeine [facility] Utilities Answer Date Recorded In the past 12 months has e [employer], gas, oil, or water company threatened to [...] any clubs o r organizations such as buddhist groups, unions, fraternal or athletic groups, or [...] Date Recorded PHQ-2 Score 6 05/16/2024 [facility] of Occupat ional Health - Occupational [...] your living situation today? I have a [facility] place to live 01/18/2024 Education Answer Date Recorded What is the highest level of school you have completed or the highest degree you have received? 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 [address] [place] [phone] 07/23/2024 10:50 AM CDT Hospital Encounter Post Anesthesia Care Unit in [address] [address] Andrew Dougherty M.D. [address] [place] [phone] 07/23/2024 10:50 AM CDT - 07/23/2024 12:02 PM CDT Surgery RST ROMB MAIN OR [address] [place] [phone] Andrew Dougherty M.D. [address] [place] [phone] RELEASE CARPAL TUNNEL OPEN WRIST 09/06/2024 7:50 AM CDT Hospital Encounter Post Anesthesia Care Unit in [address] [phone] Andrew Dougherty M.D. [address] [place] [phone] 09/06/2024 7:50 AM CDT - 09/06/2024 9:02 AM CDT Surgery RST ROMB MAIN OR [address] [place] [phone] Andrew Dougherty M.D. 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 [address] [place] [address] PCP - General Family Medicine 03/26/20 documented as of this encounter
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
--- OUTSIDE RECORDS SUMMARY | 2024-07-08 08:26 | XMS_ITS | Encounter Summary ---
Author Organization [facility] Address [address] [place] [address] Care Team Providers Care Immersion Metal Cleaner Name Role Phone Xochitl Gay PA-C Primary Care Provider [phone] Encounter Details Date Type Department Care Team (Late st Contact Info) Description 02/16/2019 Correspondence External to External, [place] [address] LOCUS RECORDING FORM Social History Tobacco Use [...] on filedocumented in this encounter Care Teams Immersion Metal Cleaner Relationship Specialty Start Date End Date Xochitl Gay PA-C [facility] [address] [place] [address] PCP - General Physician School Plant Consultant 01/20/16 documented as of this encounter
--- OUTSIDE RECORDS SUMMARY | 2024-07-08 08:26 | XMS_ITS | Clinical Summary ---
Author Organization [facility] Address [address] [place] [address] Care Team Providers Care Technical Illustrations Map Inker Name Role Phone Kasandra Quevedo MD Unavailable [...] Procedure Name Priority Date/Time Associated Diagnosis Comments PLANTING MATERIAL REMOVER CYTOLOGY 12/06/2005 12:00 AM CDT from Last 3 Months or Most Recently Relevant to Health Maintenance Results * PLANTING MATERIAL REMOVER CYTOLOGY (12/06/2005 12:00 AM CDT) 12/06/2005 Narrative 12/06/2005 12:00 AM CDT Ordered by an unspecified provider. Transcriptions Henok Abbott - 12/06/2005 12:00 AM CDTAccession #: [id number] [facility] [address] [place] [address] CYTOLOGY REPORT Patient Name: CARMELA PERES Specimen No: [id number] Location: [facility] Age: 20 Sex: F Stefanie. Date: 12/02/2005 Med. Rec. #: [id number] : 1985 Received: 12/06/2005 Physician(s): Katalina Heaton MD Reported: 12/07/2005 SOURCE OF SPECIMEN CERVICAL - THIN PREP ( HPV REFLEX CASE ) CLINICAL HISTORY Date of Last Menstrual Period: 11-26-05 Other: CHART NUMBER:: [id number] SPECIMEN ADEQUACY Satisfactory for evaluation. Endocervical cells present INTERPRETATION Negative for intraepithelial lesion or malignant cells. Electronically Signed [facility] / 12/07/2005 us PATHOLOGY/CYTOLOGY ORDERABLE Fin al Result from Last 3 Months or Most Recently Relevant to Health [place] [address] NON CONTRACT GENERIC MEDICARE PART A & B [address] [address] MEDICARE PART A & B NON CONTRACT GENERIC * Guarantor: CARMELA DELACRUZ Account Type Relation to Patient Date of Phone Billing Address Personal/Family Advance Directives For more information, please contact: [phone] * Full Code (Latest Code Status on File) Date Activated Date Inactivated Comments 10/21/2018 11:14 AM 10/26/2018 7:29 PM Question Answer Comments How was code status determined? Patient * Full Code Date Activated Date Inactivated Comments 10/20/2018 8:28 PM 10/21/2018 11:09 AM Question Answer Comments How was code status determined? Physician Determ [facility] Care Teams Technical Illustrations Map Inker Relationship Specialty Start Date End Date Kasandra Quevedo MD PCP - Oncologist Hematology/Oncology 04/01/15
--- OUTSIDE RECORDS SUMMARY | 2024-07-08 08:26 | XMS_ITS | Clinical Summary ---
Author Organization [employer] Address [address] [place] [address] Care Team Providers Care Will Call Order Clerk Name Role Phone Xochitl Gay PA-C Primary Care Provider [phone] Source Comments You are receiving this document as you are listed as the primary care provider,follow-up provider, or the patient has been referred to you for consultation.This is in compliance with the Medicare and[facility] Hospital[facility] EHR Incentive Program,which states Providers who transition their patient to another setting of careor provider of care or refers their patient to another provider of care shouldprovide summary care record for each transition of care or referral. [employer] Allergies Active Allergy Reactions Criticality Noted Date Comments Amoxicillin 05/05/2003 PN: LW Reaction: GI Pain Methotrexate 03/08/2016 Dizzy, nauseated Other 07/02/1992 PN: LW Other1: -NKA Prednisone 03/08/2016 Holly Review Contrast Media Hives High 07/02/1992 PN: [...] Problem Noted Date Diagnosed Date Resolved Date [facility] Case Management 02/13/20 16 12/17/2016 Overview (02/13/2016): Background: Diagnosis: Eating disorder, unspecified, Post traumatic stress disorder, Bipolar disorder, Social phobia, Generalized anxiety disorder. Current situation: Grisel's physical health is compromised by Chron's disease, Colitis, Fibromyalgia and Chronic migraines. She is taking a number of medications, one of which recently was thought to have contributed to a manic episode. Grisel has been attending [facility]'s partial hospitalization program with the goal of stabilizing her mental health. She has not been able to work and is in the process of applying for social security income. Providers outside of [facility]: PCP- Dr. Kathie Velez, [facility] [phone] Psychiatry- Meseret Michael [phone] Psychotherapy: Meseret Barker [phone] Goals/Recommendations: Outpatient Behavioral Health Fine PatcherLooseleaf Binder Coverer Information: Susana Davis MA [facility] [phone] Action Plan: Upon discharge from [facility], Grisel is hoping to start a DBT [...] Comments Blood Pressure 129/55 02/05/2019 11:01 PM OXIDATION OPERATOR Pulse 88 02/05/2019 11:01 PM OXIDATION OPERATOR Temperature 36.6 C (97.8 F) 02/05/2019 11:01 PM OXIDATION OPERATOR Respiratory Rate 16 02/05/2019 11:01 PM OXIDATION OPERATOR Oxygen Saturation 100% 02/05/2019 11:01 PM OXIDATION OPERATOR Inhaled Oxygen Concentration - - Weight 84.1 [...] 7:54 PM 12/11/2015 3:13 PM Care Teams Will Call Order Clerk Relationship Specialty Start Date End Date Xochitl Gay PA-C [address] [place] [address] [address] [place] [address] PCP - General Physician Sharepoint Solutions Developer 01/20/16
[2024-07-08 08:27] LABS: Basophils Percent Auto 0.3 % (0.0-3.0); Hematocrit 44.2 % (33.0-51.0); Hemoglobin* 14.8 gm/dL (12.0-16.0); Immature Granulocytes Pct Auto 0.1 %; Lymphocytes Percent Auto 13.1 % (20-44); Mean Corpuscular HGB Conc 34 gm/dL (32-36); Mean Corpuscular Hemoglobin 28 pg (26-34); Mean Corpuscular Volume 84 fL (80-100); Monocytes Percent Auto 6.1 % (0.0-11.0); Neutrophils Percent Auto 79.4 % (42.0-72.0); Platelet Count* 380 K/uL (140-440); RDW Coefficient of Variation % 12.7 % (11.5-15.5); Red Blood Count 5.25 m/uL (4.00-5.20)
[2024-07-08 08:28] LABS: Slide Review Reflex No
[2024-07-08 08:38] LABS: Chloride* 101 mmol/L (96-114); Potassium* 3.8 mmol/L (3.6-5.1); Sodium* 138 mmol/L (135-149)
[2024-07-08] MEDS: HYDROmorphone 0.5 mg/0.5 ml inj IVP ×3 (08:39→13:12)
[2024-07-08] MEDS: 0.9 % SODIUM CHLORIDE 1000 ml 1,000 ML IV (08:39)
[2024-07-08 08:41] LABS: Alanine Aminotransferase* 27 U/L (4-35); Alkaline Phosphatase* 74 U/L (40-150); Anion Gap 11 mEq/L (7-15); Aspartate Amino Transferase* 37 U/L (12-35); Blood Urea Nitrogen* 16 mg/dL (5-24); Carbon Dioxide* 26 mmol/L (20-32); Creatinine* 0.8 mg/dL (0.5-1.5); Est. Creatinine Clearance* 86.64; Estimated Glomerular Filt Rate 97 ml/min; Glucose* 112 mg/dL (60-115); Lipase* 70 U/L (23-300); Total Protein* 7.8 g/dL (6.0-8.3)
[2024-07-08 10:14] LABS: Appearance Urine Clear (Clear); Bilirubin Urine Negative (Negative); Blood Urine 1+ (Negative); Color Urine Yellow (Yellow); Glucose Urine Negative (Negative); Ketones Urine Negative (Negative); Leukocyte Esterase Urine Negative (Negative); Nitrite Urine Negative (Negative); Protein Urine Trace (Negative); Urobilinogen Urine 0.2 (0.2-1.0)
[2024-07-08 10:34] LABS: RBC Urine 0-2 (0-2); Squamous Epithelial Cell Urine Few (None-Few); WBC Urine 0-2 (0-5)
--- NOTE | 2024-07-08 11:35 | CRLHL7_ITS ---
For Patients: As a result of the Century Cures Act, medical imaging exams and procedure reports are released immediately into your electronic medical record. You may view this report before your referring provider. If you have questions, please contact your health care provider. INDICATION: Nasogastric tube placement confirmation. TECHNIQUE: Chest AP sitting. FINDINGS: There is a nasogastric tube extending into the body of the stomach. The visualized lungs are clear. There is contrast within both renal pelves. IMPRESSION: The nasogastric tube is extending into the body of the stomach. Dictated by Lincoln Augustin MD @ 07/08/2024 1:11:09 PM (Electronically Signed)
[2024-07-08] MEDS: phenoL 1.4 % THROAT SPRAY 1 SPRAY MUCOUS MEM (11:46)
[2024-07-08] MEDS: ONDANSETRON 2 MG/ML inj 4 MG IVP (12:45)
== END 2024-07-08 13:32 | disposition short-term general hospital (02) ==
PROVIDERS: Emergency Provider Internal Medicine
DX: K56.601 Complete intestinal obstruction, unspecified as to cause (principal)
CPT/HCPCS: 36415; 74018; 74177; 80053; 81001; 81003; 83605; 83690; 85025; 94761; 96361; 96374; 96375; 99283; 99285; A9270; J1171; J2060; J2405; J7030; Q9967

== ENCOUNTER 2024-07-08 13:03 | Outpatient (CLI) | payer MEDICARE, OTHER, SELFPAY | END 2024-07-08 13:04 | disposition home or self-care (01) | LOC: AMB 07-10 09:32 | PROVIDERS: Visit Provider Internal Medicine | DX: K56.601 Complete intestinal obstruction, unspecified as to cause (principal) | CPT/HCPCS: A0425; A0427 ==

== ENCOUNTER 2024-07-13 23:18 | Outpatient (CLI) | payer MEDICARE, OTHER, SELFPAY | END 2024-07-13 23:19 | disposition home or self-care (01) | PROVIDERS: Visit Provider Student in an Organized Health Care Education/Training Program | DX: R10.9 Unspecified abdominal pain (principal) | CPT/HCPCS: A0425; A0427 ==

== ENCOUNTER 2024-07-13 23:42 | Emergency (ER) | payer MEDICARE, OTHER, SELFPAY ==
--- OUTSIDE RECORDS SUMMARY | 2024-07-13 23:44 | XMS_ITS | Encounter Summary ---
Author Organization [facility] Address [address] [place] [address] Care Team Providers Care Spinning Frame Fixer Name Role Phone Sánchez Goldberg D.O. Primary Care Provider Reason for Visit * Reason Onset Date Comments Abdominal Pain 07/08/2024 Encounter Details Date Type Department Care Team (Late st Contact Info) Description 07/08/2024 Nurse Triage Department of Family Medicine, [facility], in [place], [place] [address] [place] [address] Nicole Flower, RNavarro [address] [place] [address] Abdominal Pain Social History Tobacco Use Types Packs/Day Years Used Date Smoking Tobacco: Never Passive Smoke Exposure: Never Smokeless Tobacco: Never Alcohol Use Standard Drinks/Week Comments Not Currently 1 (1 standard drink = 0.6 oz pur e alcohol) daily caffeine [facility] Utilities Answer Date Recorded In the past 12 months has th e electric, gas, oil, or water company threatened to shut off services in your home? No 07/08/2024 Humiliation, Afraid, Rape, and Kick questionnair e Answer Date Recorded Within the last year, have y ou been afraid of your partner or ex-partner? No 07/08/2024 Within the last year, have y ou been humiliated or emotionally abused in other ways by your partner or ex-partner? No Within the last year, have y ou been kicked, hit, slapped, or otherwise physically hurt by your partner or ex-partner? No 07/08/2024 Within the last year, have y ou been raped or forced to have any kind of sexual activity by your partner or ex-partner? No 07/08/2024 Social Connection and Isolat ion Panel [NHANES] Answer Date Recorded In a typical week, how many times do you talk on the phone with family, friends, or neighbors? More than three times a week 07/13/2022 How often do you get togethe r with friends or relatives? Never 07/13/2022 How often do you attend chur ch or advent services? Never 07/13/2022 Do you belong to any clubs o r organizations such as orthodox groups, unions, fraternal or athletic groups, or [...] Answer Date Recorded PHQ-2 Score 6 05/16/2024 [facility] [place] of Occupat ional Health - Occupational Stress [...] the money to buy more. Never true 07/09/19 25 Within the past 12 months, t he food you bought just didn't last and you didn't have money to get more. Never true 07/08/2024 PRAPARE - Transportation Answer Date Re corded In the past 12 months, has l ack of transportation kept you from medical appointments or from getting medications? No 06/20 In the past 12 months, has l ack of transportation kept you from meetings, work, or from getting things needed for daily living? No 07/08/2024 Depression Answer Date Recor ded PHQ-9 Total [...] your living situation today? I have a [facility] place to live 07/08/2024 Education Answer Date Recorded What is the highest level of school you have completed or the highest degree you have received? Some college, no degree 02/18/2019 Comments No Sex and Gender Information Value Date Recorded Sex Assigned at Female 09/13/2017 7:50 PM CDT Legal Sex Female 3:11 PM MERGERS AND ACQUISITIONS CONSULTANT Gender Identity Female 09/13/2017 7:50 PM CDT [...] able to teach back Abdominal Pain - Bodpkf-Ijehl-SP Nurse Nicole Fuentes Jul 08, 2024 06:28 [...] 1 hour Protocols used: Abdominal Pain - [id number]-GU documented in this encounter Plan of Treatment Upcoming Encounters Date Type Department Care Team (Latest Contact Info) Description 07/18/2024 10:45 AM CDT Office Visit Department of Orthopedic Surgery in [place], [place] [address] [place] [address] Andrew Dougherty M.D. [address] [place] [phone] 07/20/2024 3:00 PM CDT Office Visit Department of Family Medicine, [facility], in [place], [place] [address] [place] [phone] Sánchez Goldberg D.O. [address] [place] [phone] 07/23/2024 10:50 AM CDT Hospital Encounter Post Anesthesia Care Unit in [place], [place] [address] [place] [phone] Andrew Dougherty M.D. [address] [place] [phone] 07/23/2024 10:50 AM CDT - 07/23/2024 12:02 PM CDT Surgery [facility] MAIN OR [address] [place] [phone] Andrew Dougherty M.D. [address] [place] [phone] RELEASE CARPAL TUNNEL OPEN WRIST 07/27/2024 9:00 AM CDT Office Visit Division of Trauma Critical Care and General Surgery in [address] [phone] Jeanie Tavarez APRN, C.N.P., D.N.P. [address] [place] [phone] 09/06/2024 7:50 AM CDT Hospital Encounter Post Anesthesia Care Unit in [address] [phone] Andrew Dougherty M.D. [address] [place] [phone] 09/06/2024 7:50 AM CDT - 09/06/2024 9:02 AM CDT Surgery [facility] MAIN OR [address] [place] [phone] Andrew Dougherty M.D. [address] [place] [phone] RELEASE CARPAL TUNNEL OPEN WRIST Scheduled Procedures Name Priority Associated Diagnoses Date/Ti ia RELEASE CARPAL TUNNEL OPEN WRIST Carpal Tunnel [...] Depression Total Score: 17 025 10:48 AM MERGERS AND ACQUISITIONS CONSULTANT documented as of this encounter Care Teams Spinning Frame Fixer Relationship Specialty Start Date End Date Sánchez Goldberg D.O. 200 [place] [address] PCP - General Family Medicine 03/26/20 documented as of this encounter
--- OUTSIDE RECORDS SUMMARY | 2024-07-13 23:45 | XMS_ITS | Encounter Summary ---
Author Organization [facility] Address [address] [place] [address] Care Team Providers Care Telemarketing Manager Name Role Phone Sánchez Goldberg D.O. Primary Care Provider Encounter Details Date Type Department Care Team (Late st Contact Info) Description 07/09/2024 Clinical Communication [facility] [address] [place] [phone] Bradford Gross M.D. [address] [place] [phone] Social History Tobacco Use Types Packs/Day Years Used Date Smoking Tobacco: Never Passive Smoke Exposure: Never Smokeless Tobacco: Never Alcohol Use Standard Drinks/Week Comments Not Currently 1 (1 standard drink = 0.6 oz pur e alcohol) daily caffeine [facility] Utilities Answer Date Recorded In the past 12 months has [employer] electric, gas, oil, or water company threatened [...] often do you attend chur ch or mormonism services? Never 07/13/2022 Do you belong to [...] Answer Date Recorded PHQ-2 Score 6 05/16/2024 [facility] of Occupat ional Health - [...] your living situation today? I have a [facility] place to live 07/08/2024 Education Answer Date Recorded What is the highest level of school you have completed or the highest degree you have received? Some college, no degree 02/18/2019 Comments No Sex and Gender Information Value Date Recorded Sex Assigned at Female 09/13/2017 7:50 PM CDT Legal Sex Female 3:11 PM COLD HEADER OPERATOR Gender Identity Female 09/13/2017 7:50 PM CDT Sexual Orientation Straight 09/13/2017 7: 50 PM CDT documented as of this encounter Plan of Treatment Upcoming Encounters Date Type Department Care Team (Latest Contact Info) Description 07/18/2024 10:45 AM CDT Office Visit Department of Orthopedic Surgery in [place], [place] 200 [place] [phone] Andrew Dougherty M.D. 200 [place] [address] 07/20/2024 3:00 PM CDT Office Visit Department of Family Medicine, [facility], in [place], [place] [address] [place] [address] Sánchez Goldberg D.O. [address] [place] [phone] 07/23/2024 10:50 AM CDT Hospital Encounter Post Anesthesia Care Unit in [address] [phone] Andrew Dougherty M.D. [address] [place] [phone] 07/23/2024 10:50 AM CDT - 07/23/2024 12:02 PM CDT Surgery [facility] MAIN OR [address] [place] [phone] Andrew Dougherty M.D. [address] [place] [phone] RELEASE CARPAL TUNNEL OPEN WRIST 07/27/2024 9:00 AM CDT Office Visit Division of Trauma Critical Care and General Surgery in [address] [phone] Jeanie Tavarez APRN, C.N.P., D.N.P. [address] [place] [phone] 09/06/2024 7:50 AM CDT Hospital Encounter Post Anesthesia Care Unit in [address] [phone] Andrew Dougherty M.D. [address] [place] [phone] 09/06/2024 7:50 AM CDT - 09/06/2024 9:02 AM CDT Surgery [facility] MAIN OR [address] [place] [phone] Andrew Dougherty M.D. 200 [place] [address] RELEASE CARPAL TUNNEL OPEN WRIST Scheduled Procedures Name Priority Associated Diagnoses Date/Ti ct RELEASE CARPAL TUNNEL OPEN WRIST Carpal Tunnel [...] Total Score: 17 05/16/ 025 10:48 AM COLD HEADER OPERATOR documented as of this encounter Care Teams Telemarketing Manager Relationship Specialty Start Date End Date Sánchez Goldberg D.O. 200 [place] [address] PCP - General Family Medicine 03/26/20 documented as of this encounter
--- OUTSIDE RECORDS SUMMARY | 2024-07-13 23:45 | XMS_ITS | Encounter Summary ---
Author Organization [facility] Address [address] [place] [address] Care Team Providers Care Kelp Or Seagrass Gatherer Name Role Phone Sánchez Goldberg D.O. Primary Care Provider Encounter Details Date Type Department Care Team (Late st Contact Info) Description 11/20/2010 Historical Ophthalmology [facility] Gentry Love M.D. [address] [place] [phone] Social History Tobacco Use Types Packs/Day Years Used Date Smoking Tobacco: Never Assessed Comments Unknown Sex and Gender Information Value Date Recorded Sex Assigned at Female 09/13/2017 7:50 PM CDT Legal Sex Female 3:11 PM VACATION GUIDE Gender Identity Female 09/13/2017 7:50 PM CDT Sexual Orientation Straight 09/13/2017 7: 50 PM CDT documented as of this encounter Progress Notes * eGntry Love M.D. - 11/20/2010 12:57 PM CDT [...] #4 Hyperopia CDM Reports - EYEGEN Id: [id number] Status: Fnl documented in this encounter Plan of Treatment Upcoming Encounters Date Type Department Care Team (Latest Contact Info) Description 07/18/2024 10:45 AM CDT Office Visit Department of Orthopedic Surgery in [place], [place] [address] [place] [address] Andrew Dougherty M.D. [address] [place] [address] 07/20/2024 3:00 PM CDT Office Visit Department of Family Medicine, [facility], in [place], [place] [address] [place] [address] Sánchez Goldberg D.O. [address] [place] [phone] 07/23/2024 10:50 AM CDT Hospital Encounter Post Anesthesia Care Unit in [address] [phone] Andrew Dougherty M.D. [address] [place] [phone] 07/23/2024 10:50 AM CDT - 07/23/2024 12:02 PM CDT Surgery [facility] MAIN OR [address] [place] [phone] Andrew Dougherty M.D. [address] [place] [phone] RELEASE CARPAL TUNNEL OPEN WRIST 07/27/2024 9:00 AM CDT Office Visit Division of Trauma Critical Care and General Surgery in [address] [phone] Jeanie Tavarez APRN, C.N.P., D.N.P. [address] [place] [phone] 09/06/2024 7:50 AM CDT Hospital Encounter Post Anesthesia Care Unit in [address] [phone] Andrew Dougherty M.D. [address] [place] [phone] 09/06/2024 7:50 AM CDT - 09/06/2024 9:02 AM CDT Surgery [facility] MAIN OR [address] [place] [phone] Andrew Dougherty M.D. [address] [place] [phone] RELEASE CARPAL TUNNEL OPEN WRIST Scheduled Procedures [...] Pending 02/26/2020 02/26/2020 02/26/2020 6 :02 PM VACATION GUIDE COVID19 Pending 03/12/2020 03/12/2020 03/12/2020 5 :42 PM VACATION GUIDE COVID19 Pending 07/11/2020 07/11/2020 07/11/2020 3 :33 AM CDT COVID19 Pending 07/29/2020 07/29/2020 07/29/2020 4 :12 PM CDT COVID19 Pending 10/02/2020 10/02/2020 10/02/2020 8 :22 AM CDT COVID19 Pending 11/12/2020 11/12/2020 11/12/2020 4 :31 AM CDT COVID19 Pending 05/30/2021 05/30/2021 05/30/2021 4 :55 PM VACATION GUIDE COVID19 Pending 12/25/2021 12/25/2021 12/25/2021 1 0:45 AM CDT COVID19 Pending 07/05/2022 07/05/2022 07/05/2022 3 :11 PM CDT COVID19 Pending 01/30/2023 01/30/2023 01/30/2023 1 1:53 AM VACATION GUIDE documented as of this encounter Care Teams Kelp Or Seagrass Gatherer Relationship Specialty Start Date End Date Sánchez Goldberg D.O. [address] [place] [phone] PCP - General Family Medicine 03/26/20 documented as of this encounter
--- OUTSIDE RECORDS SUMMARY | 2024-07-13 23:45 | XMS_ITS | Encounter Summary ---
Author Organization [facility] Address [address] [place] [address] Care Team Providers Care Publications Inspector Name Role Phone Sánchez Goldberg D.O. Primary Care Provider Reason for Visit * Reason Onset Date Comments Med Question 05/16/2024 Phone Contact 05/16/2024 Encounter Details Date Type Department Care Team (Latest Contact Info) Description 05/16/2024 Clinical Communication Department of Family Medicine, [facility], in [place], [place] [address] [place] [phone] Sánchez Goldberg D.O. [address] [place] [phone] Med Question; Phone Contact Social History Tobacco [...] How often do you attend chur or gnosticist services? Never 07/13/2022 Do you belong to any clubs o r organizations such as quaker groups, unions, fraternal or athletic groups, or [...] Answer Date Recorded PHQ-2 Score 6 05/16/2024 [facility] of Occupat ional Health - Occupational Stress [...] your living situation today? I have a [facility] place to live 01/18/2024 Education Answer Date Recorded What is the highest level of school you have completed or the highest degree you have received? Some college, no degree 02/18/2019 Comments No Sex and Gender Information Value Date Recorded Sex Assigned at Female 09/13/2017 7:50 PM CDT Legal Sex Female 3:11 PM REAL ESTATE ASSISTANT Gender Identity Female 09/13/2017 7:50 PM CDT Sexual Orientation Straight 09/13/2017 7: 50 PM CDT documented as of this encounter Plan of Treatment Upcoming Encounters Date Type Department Care Team (Latest Contact Info) Description 07/18/2024 10:45 AM CDT Office Visit Department of Orthopedic Surgery in [place], [place] 200 [place] [address] Andrew Dougherty M.D. [address] [place] [phone] 07/20/2024 3:00 PM CDT Office Visit Department of Family Medicine, [facility], in [place], [place] [address] [place] [address] Sánchez Goldberg D.O. [address] [place] [phone] 07/23/2024 10:50 AM CDT Hospital Encounter Post Anesthesia Care Unit in [address] [phone] Andrew Dougherty M.D. [address] [place] [phone] 07/23/2024 10:50 AM CDT - 07/23/2024 12:02 PM CDT Surgery [facility] MAIN OR [address] [place] [phone] Andrew Dougherty M.D. [address] [place] [phone] RELEASE CARPAL TUNNEL OPEN WRIST 07/27/2024 9:00 AM CDT Office Visit Division of Trauma Critical Care and General Surgery in [address] [phone] Jeanie Tavarez APRN, C.N.P., D.N.P. [address] [place] [phone] 09/06/2024 7:50 AM CDT Hospital Encounter Post Anesthesia Care Unit in [address] [phone] Andrew Dougherty M.D. [address] [place] [phone] 09/06/2024 7:50 AM CDT - 09/06/2024 9:02 AM CDT Surgery [facility] MAIN OR [address] [place] [address] Andrew Dougherty M.D. 200 [place] [address] RELEASE CARPAL TUNNEL OPEN WRIST Scheduled Procedures [...] Depression Total Score: 17 025 10:48 AM REAL ESTATE ASSISTANT documented as of this encounter Care Teams Publications Inspector Relationship Specialty Start Date End Date Sánchez Goldberg D.O. [address] [place] [phone] PCP - General Family Medicine 03/26/20 documented as of this encounter
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
--- OUTSIDE RECORDS SUMMARY | 2024-07-13 23:45 | XMS_ITS | Encounter Summary ---
Author Organization [facility] Address [address] [place] [phone] Care Team Providers Care Store Consultant Name Role Phone Sánchez Goldberg D.O. Primary [...] PM CDT Clinical Communication Virtual Review in [place], [place] 200 [place] [phone] Annual Exam (Disability paperwork/Infection in left hand [...] 0.6 oz pur e alcohol) daily caffeine [facility] Utilities Answer Date Recorded In the past 12 months has [employer], gas, oil, or water company threatened [...] Never 07/13/2022 How often do you attend [facility] or restorationism services? Never 07/13/2022 Do you belong to any clubs o r organizations such as presybeterian groups, unions, fraternal or athletic groups, or [...] Date Recorded PHQ-2 Score 6 05/16/2024 [facility] of Occupat ional Health - Occupational [...] your living situation today? I have a [facility] place to live 01/18/2024 Education Answer Date Recorded What is the highest level of school you have completed or the highest degree you have received? Some college, no degree 02/18/2019 Comments No Sex and Gender Information Value Date Recorded Sex Assigned at Female 09/13/2017 7:50 PM CDT Legal Sex Female 3:11 PM PRODUCT DIRECTOR Gender Identity Female 09/13/2017 7:50 PM CDT Sexual Orientation Straight 09/13/2017 7: 50 PM CDT documented as of this encounter Plan of Treatment Upcoming Encounters Date Type Department Care Team (Latest Contact Info) Description 07/18/2024 10:45 AM CDT Office Visit Department of Orthopedic Surgery in [place], [place] [address] [place] [phone] Andrew Dougherty M.D. [address] [place] [phone] 07/20/2024 3:00 PM CDT Office Visit Department of Family Medicine, [facility], in [place], [place] [address] [place] [phone] Sánchez Goldberg D.O. [address] [place] [phone] 07/23/2024 10:50 AM CDT Hospital Encounter Post Anesthesia Care Unit in [address] [phone] Andrew Dougherty M.D. [address] [place] [phone] 07/23/2024 10:50 AM CDT - 07/23/2024 12:02 PM CDT Surgery [facility]ST ROMB MAIN OR [address] [place] [phone] Andrew Dougherty M.D. [address] [place] [phone] RELEASE CARPAL TUNNEL OPEN WRIST 07/27/2024 9:00 AM CDT Office Visit Division of Trauma Critical Care and General Surgery in [address] [phone] Jeanie Tavarez APRN, C.N.P., D.N.P. [address] [place] [phone] 09/06/2024 7:50 AM CDT Hospital Encounter Post Anesthesia Care Unit in [address] [phone] Andrew Dougherty M.D. [address] [place] [phone] 09/06/2024 7:50 AM CDT - 09/06/2024 9:02 AM CDT Surgery RST ROMB MAIN OR [address] [place] [address] Andrew Dougherty M.D. 200 [place] [phone] RELEASE CARPAL TUNNEL OPEN WRIST Scheduled Procedures [...] Depression Total Score: 17 025 10:48 AM PRODUCT DIRECTOR documented as of this encounter Care Teams Store Consultant Relationship Specialty Start Date End Date Sánchez Goldberg D.O. [address] [place] [phone] PCP - General Family Medicine 03/26/20 documented as of this encounter
--- OUTSIDE RECORDS SUMMARY | 2024-07-13 23:45 | XMS_ITS | Encounter Summary ---
Author Organization [facility] Address [address] [place] [address] Care Team Providers Care Reduction Furnace Operator Helper Name Role Phone Sánchez Goldberg D.O. Primary Care Provider Encounter Details Date Type Department Care Team (Late st Contact Info) Description 06/04/2024 Clinical Communication Department of Family Medicine, [facility], in [place], [place] [address] [place] [phone] Sánchez Goldberg D.O. [address] [place] [phone] Social History Tobacco Use Types Packs/Day Years Used Date Smoking Tobacco: Never Passive Smoke Exposure: Never Smokeless Tobacco: Never Alcohol Use Standard Drinks/Week Comments Not Currently 2 (1 standard drink = 0.6 oz pur e alcohol) daily caffeine [facility] [place] [facility] Utilities Answer Date Recorded In the past 12 months has e [employer], gas, oil, or water [employer] threatened to shut off services in your [...] often do you attend chur ch or synagogue services? Never 07/13/2022 Do you belong to any clubs o r organizations such as islam groups, unions, fraternal or athletic groups, or [...] Answer Date Recorded PHQ-2 Score 6 05/16/2024 [facility] of Occupat ional Health - Occupational Stress [...] your living situation today? I have a [facility] place to live 01/18/2024 Education Answer Date Recorded What is the highest level of school you have completed or the highest degree you have received? 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 200 [place] [phone] 07/20/2024 3:00 PM CDT Office Visit Department of Family Medicine, [facility], in [place], [place] [address] [place] [phone] Sánchez Goldberg D.O. [address] [place] [phone] 07/23/2024 10:50 AM CDT Hospital Encounter Post Anesthesia Care Unit in [address] [phone] Andrew Dougherty M.D. [address] [place] [phone] 07/23/2024 10:50 AM CDT - 07/23/2024 12:02 PM CDT Surgery RST ROMB MAIN OR [address] [place] [phone] Andrew Dougherty M.D. [address] [place] [phone] RELEASE CARPAL TUNNEL OPEN WRIST 07/27/2024 9:00 AM CDT Office Visit Division of Trauma Critical Care and General Surgery in [address] [phone] Jeanie Tavarez APRN, C.N.P., D.N.P. [address] [place] [phone] 09/06/2024 7:50 AM CDT Hospital Encounter Post Anesthesia Care Unit in [address] [phone] Andrew Dougherty M.D. [address] [place] [phone] 09/06/2024 7:50 AM CDT - 09/06/2024 9:02 AM CDT Surgery RST ROMB MAIN OR [address] [place] [phone] Andrew Dougherty M.D. [address] [place] [phone] RELEASE CARPAL TUNNEL OPEN WRIST Scheduled Procedures [...] Depression Total Score: 17 025 10:48 AM INSPECTOR TUBES documented as of this encounter Care Teams Reduction Furnace Operator Helper Relationship Specialty Start Date End Date Sánchez Goldberg D.O. [address] [place] [phone] PCP - General Family Medicine 03/26/20 documented as of this encounter
--- OUTSIDE RECORDS SUMMARY | 2024-07-13 23:45 | XMS_ITS | Encounter Summary ---
Author Organization [facility] Address [address] [place] [address] Care Team Providers Care Waste Picker Name Role Phone Sánchez Goldberg D.O. Primary Care Provider Encounter Details Date Type Department Care Team (Latest Contact Info) Description 07/08/2024 Intake [facility] Social History Tobacco Use Types Packs/Day Years Used Date Smoking Tobacco: Never Passive Smoke Exposure: Never Smokeless Tobacco: Never Alcohol Use Standard Drinks/Week Comments Not Currently 1 (1 standard drink = 0.6 oz pur e alcohol) daily caffeine [facility] Utilities Answer Date Recorded In the past 12 months has [facility] [employer], oil, or water [employer] threatened to shut off services in your [...] often do you attend chur ch or confucianism services? Never 07/13/2022 Do you belong to [...] Answer Date Recorded PHQ-2 Score 6 05/16/2024 [facility] of Occupat ional Health - Occupational [...] your living situation today? I have a [facility] place to live 07/08/2024 Education Answer Date Recorded What is the highest level of school you have completed or the highest degree you have received? 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 200 [place] [phone] 07/20/2024 3:00 PM CDT Office Visit Department of Family Medicine, [facility], in [place], [place] [address] [place] [phone] Sánchez Goldberg D.O. 200 [place] [phone] 07/23/2024 10:50 AM CDT Hospital Encounter Post Anesthesia Care Unit in [address] [phone] Andrew Dougherty M.D. [address] [place] [phone] 07/23/2024 10:50 AM CDT - 07/23/2024 12:02 PM CDT Surgery RST ROMB MAIN OR [address] [place] [phone] Andrew Dougherty M.D. [address] [place] [phone] RELEASE CARPAL TUNNEL OPEN WRIST 07/27/2024 9:00 AM CDT Office Visit Division of Trauma Critical Care and General Surgery in [address] [phone] Jeanie Tavarez APRN, C.N.P., D.N.P. [address] [place] [phone] 09/06/2024 7:50 AM CDT Hospital Encounter Post Anesthesia Care Unit in [address] [phone] Andrew Dougherty M.D. [address] [place] [phone] 09/06/2024 7:50 AM CDT - 09/06/2024 9:02 AM CDT Surgery RST ROMB MAIN OR [address] [place] [phone] Andrew Dougherty M.D. [address] [place] [phone] RELEASE CARPAL TUNNEL OPEN WRIST Scheduled Procedures Name Priority Associated Diagnoses Date/Ti me RELEASE CARPAL TUNNEL OPEN WRIST Carpal Tunnel Syndrome Right 07/23/2024 10:50 AM CDT RELEASE CARPAL TUNNEL OPEN WRIST Carpal Tunnel Syndrome Left 09/06/2024 7:50 AM CDT documented as of this encounter Goals Goal Patient Goal Type Associated Problems Recent Progress Patient-Stated? Author Autogenera [email or web address] Goal Care Plan Autogenerated Problem No Patient, Online Services documented as of this encounter Visit Diagnoses Not on filedocumented in this encounter Additional Health Concerns Active Problems Noted Date Diagnosed Date Autogenerated Problem 06/30/2024 Assessment Noted Time PHQ-9 Depression Total Score: 17 05/16/ 025 10:48 AM TEMPLATE INSPECTOR documented as of this encounter Care Teams Waste Picker Relationship Specialty Start Date End Date Sánchez Goldberg D.O. 200 [place] [phone] PCP - General Family Medicine 03/26/20 documented as of this encounter
--- OUTSIDE RECORDS SUMMARY | 2024-07-13 23:45 | XMS_ITS | Clinical Summary ---
Author Organization [facility] Address [address] [place] [address] Care Team Providers Care Personnel Placement Specialist Name Role Phone Michael Goldberg D.O. Primary Care Provider Source Comments Patient records contain information from all sites at [facility]. For routine questions regarding patient records, call [phone] during business hours, M-F 8:00 AM - 5:00 PM Central Time. Record requests for emergency care only can be directed to [phone] at any time.[facility] Allergies Active Allergy Reactions Criticality Noted Date [...] complete record from that organization. DME Ostomy suppliesIndicati ons:Ileostomy Status (HCC) DME Order 1 Unspecified 11 2021 Active amphetamine-dext roamphetamine (ADDERALL XR) 10 mg 24 hr capsule Take 1 capsule (10 mg total) by mouth daily. 30 capsule 2022 Active LORazepam (Ativan) 0.5 mg tabletIndication s:Anxiety Generalized Disorder Take 1 tablet (0.5 mg total) by mouth daily as needed for anxiety. 30 tablet 2023 Active ondansetron ODT (Zofran-ODT) 4 mg disintegrating tablet Dissolve 1 tablet (4 mg total) in the mouth every 8 (eight) hours as needed for nausea or vomiting. 20 tablet 2023 Active busPIRone (BuSpar) 5 mg tabletIndication s:Anxiety Generalized Disorder Take 1 tablet (5 mg total) by mouth 3 (three) times a day as needed (Anxiety). Place on file 270 tablet 2023 Active EPINEPHrine 0.3 mg/0.3 mL injection syringe Inject 0.3 mL (0.3 mg total) intramuscularly as needed (allergies). 1 each 2 2023 Active hydrOXYzine (Atarax) 10 mg tabletIndication s:Anxiety Generalized Disorder Take 1 tablet (10 mg total) by mouth 4 (four) times a day as needed for anxiety. 30 tablet 3 2023 Active ibuprofen 200 mg tabletIndication s:Fibromyalgia Take 3 tablets (600 mg total) by mouth every 6 (six) hours as needed for pain. 90 tablet 11 2023 Active Stelara 45 mg/0.5 mL injection Inject 45 mg under the skin. Pt states every 6-8 weeks 2024 Active naloxone (Narcan) 4 mg/actuation nasal spray Administer 4 mg into nostril(s) as needed. 2024 Active cholecalciferol (Vitamin D3) 25 mcg (1,000 Unit) capsule Take 1 capsule by mouth daily. Active celecoxib (CeleBREX) 200 mg capsuleIndicatio ns:Fibromyalgia Take 1 capsule (200 mg total) by mouth 2 (two) times a day. 60 capsule 1 2024 Active albuterol (ProAir HFA) 90 mcg/actuation inhalerIndicatio ns:Asthma (HCC) Inhale 2 puffs every 4 (four) hours as needed for wheezing or shortness of breath. Congestion 18 g 1 2024 Active acetaminophen (TylenoL) 500 mg tabletIndication s:Fibromyalgia Take 2 tablets (1,000 mg total) by mouth every 6 (six) hours as needed for pain. Do not exceed 4000 mg in 24 hours. 90 tablet 3 2024 Active SUMAtriptan (Imitrex) 50 mg tabletIndication s:Migraine Headache Take 1 tablet (50 mg total) by mouth as needed for migraine. May repeat dose once in 2 hours if migraine is unresolved. Do not exceed 200 mg in 24 hours. 9 tablet 11 2024 Active lurasidone (Latuda) 20 mg tablet Take 1 tablet (20 mg total) by mouth daily with morning meal. Administer with food (at least 350 calories) 06/15 Active Additional Information Patient taking differently: 40 mgoral Daily with morning meal, Administer with food (at least 350 calories), Reported on 07/09/2024 oxyCODONE (Roxicodone) 5 mg immediate release tabletIndication s:Chronic Pain/Nonacute Pain Take 1 tablet (5 mg total) by mouth daily Indication: Chronic Pain/Nonacute Pain. 6 tablet 2024 Active oxyCODONE (Roxicodone) 5 mg immediate release tabletIndication s:Acute Pain Take 1 tablet (5 mg total) by mouth every 4 (four) hours as needed for severe pain or score 7-10 of 10 12 tablet 025 1:23 PM CDT 2024 Active pantoprazole (Protonix) 40 mg EC tablet Take 1 tablet (40 mg total) by mouth daily before morning meal. 30 tablet 025 1:23 PM CDT 2024 Active benzonatate (TESSALON PERLES) 100 mg capsuleIndicatio ns:Cough Unspecified Type Take 1 capsule (100 mg total) by mouth 3 (three) times a day as needed for cough. 60 capsule 1 07/09 Discontinued oxyCODONE (Roxicodone) 5 mg immediate release tabletIndication s:Chronic Pain/Nonacute Pain Take 1 tablet (5 mg total) by mouth daily Indication: Chronic Pain/Nonacute Pain. 6 tablet 06/15 Discontinued( Reorder) sulfamethoxazole -trimethoprim (Bactrim DS) 800-160 mg per tabletIndication s:Cellulitis Take 1 tablet by mouth 2 (two) times a day. 20 tablet 06/15 Discontinued( Reorder) oxyCODONE (Roxicodone) 5 mg immediate release tabletIndication s:Chronic Pain/Nonacute Pain Take 1 tablet (5 mg total) by mouth daily Indication: Chronic Pain/Nonacute Pain. 6 tablet 06/20 Discontinued( Reorder) sulfamethoxazole -trimethoprim (Bactrim DS) 800-160 mg per tabletIndication s:Cellulitis Take 1 tablet by mouth 2 (two) times a day. 20 tablet 07/09 Discontinued Active Problems Problem Noted Date Diagnosed Date Crohn's Disease 07/08/2024 Sinusitis Acute Maxillary 09/29/2023 Fatigue 06/30/2023 Abdominal [...] 8. Assessment & Plan (03/16/2021 8:52 PM ORACLE SECURITY CONSULTANT): Placed order for iron infusion, dextran. Follow-up [...] Ativan. Assessment & Plan (03/16/2021 8:50 PM ORACLE SECURITY CONSULTANT): She is looking forward to the consult [...] (05/17/2018): Added automatically from request for surgery [id number] Abscess Perianal 03/07/2018 Overview (03/16/2021): Grisel of [...] discomfort. Assessment & Plan (03/16/2021 8:56 PM ORACLE SECURITY CONSULTANT): Recommended referral to gynecology for further evaluation [...] (01/18/2018): Added automatically from request for surgery [id number] Irritable bowel syndrome 03/25/2016 Chronic Migraine Without [...] concern. Assessment & Plan (03/16/2021 8:58 PM ORACLE SECURITY CONSULTANT): Placed follow-up office visit, she has requested [...] (06/16/2018): Added automatically from request for surgery [id number] Depression Major Recurrent Moderate 06/09/2018 07/19/2019 Fever [...] (07/30/2020): Added automatically from request for surgery [id number] Added automatically from request for surgery [id number] Encounters * This document contains information received from the source organization and may not represent a complete record from that organization. Date Type Department Care Team Description 07/13/2024 Clinical Communication Division of Trauma Critical Care and General Surgery in [address] [phone] Jose Leon D.O. 07/13/2024 Nurse Triage Department of Family Medicine, [facility], in [place], [place] [address] [place] [address] Kelly Palomo R.N. Abdominal Pain; Constipation 07/13/2024 Clinical Communication RST [address] [phone] Jeanie Tavarez, STEPHANIE, C.N.P., D.N.P. Pre-visit Testing Orders 07/12/2024 Clinical Communication Division of Trauma Critical Care and General Surgery in [address] [phone] Jennifer Edge M.D. Request to see a [facility] nurse 07/09/2024 4:06 PM CDT Anesthesia Event [facility] [place] [address] [place] [phone] Shereen Rocha M.D. Nuttall, Gregory A, M.D. 07/09/2024 2:30 PM CDT Ancillary Procedure Department of General Surgery 07/09/2024 1:58 PM CDT - 07/09/2024 6:01 PM CDT Surgery RST [facility] OR [address] [place] [phone] Jennifer Edge M.D. ROBOTIC-ASSISTED ABDOMINAL EXPLORATION, lysis of adhesions, parastoma hernia repair with mesh 07/09/2024 Clinical Communication RST [facility] [address] [place] [phone] Bradford Gross M.D. 07/08/2024 6:55 PM CDT Ancillary Procedure Department of Gastroenterology 07/08/2024 2:52 PM CDT - 07/13/2024 1:28 PM CDT Hospital Encounter [facility], [facility] [place], Fourth Floor [address] [place] [phone] Jay Love M.B.B.S., Jennifer Corey M.D. Abdominal Pain (Primary Dx) Discharge Disposition: Home or Self Care 07/08/2024 Intake [facility] 07/08/2024 Nurse Triage Department of Family Medicine, [place], [place] [address] [place] [phone] Nicole Flower R.N. Abdominal Pain 07/02/2024 Clinical Communication Department of Family Medicine, [place], [place] [address] [place] [phone] Michael Goldberg D.O. 06/15/2024 8:30 AM CDT Office Visit Department of Family Medicine, [place], [place] [address] [place] [phone] Michael Goldberg D.O. Preoperative Exam (Primary Dx); Cellulitis; Paronychia Finger Right; Bipolar Disorder Current Episode Depressed Moderate (HCC); Morbid Obesity Body Mass Index 45.0-49.9 Adult (HCC); Low Income 06/15/2024 Clinical Communication Department of Family Medicine, [place], [place] [address] [place] [phone] Darby Martines M.S.N., R.N. Med Refill 06/13/2024 12:00 PM CDT Clinical Communication Virtual Review in [place], [place] [address] [place] [address] Annual Exam (Disability paperwork/Infectio n in left hand pointer finger-finished antibiotics but still a little red-cefalexin /Wrist surgery-needs physical for surgery /Suicide attempt beginning of the month) 06/05/2024 Clinical Communication Department of Family Medicine, [facility], in [place], [place] [address] [place] [phone] Michael Goldberg D.O. OSM - Outside Materials ([employer]) 06/04/2024 Clinical Communication Department of Family Medicine, [facility] in [place], [place] [address] [place] [phone] Michael Goldberg D.O. 05/28/2024 2:00 PM CDT Comprehensive Visit Department of Orthopedic Surgery in [place], [place] [address] [place] [phone] Felipa Regalado, STEPHANIE CDanielaN.P., M.S. Carpal Tunnel Syndrome Bilateral 05/28/2024 9:15 AM CDT - 05/28/2024 11:59 PM CDT Hospital Encounter Department of Neurology in [place], [place] [address] [place] [address] Michael Goldberg D.O. Carpal Tunnel Syndrome Bilateral Discharge Disposition: Home or Self Care 05/28/2024 Results Follow-Up Department of Family Medicine, [facility], in [place], [place] [address] [place] [phone] Michael Goldberg D.O. EMG 05/16/2024 11:00 AM ORACLE SECURITY CONSULTANT Telemedicine Department of Family Medicine, [facility], in [place], [place] [address] [place] [phone] Michael Goldberg D.O. Carpal Tunnel Syndrome Bilateral (Primary Dx); Fibromyalgia; Asthma (HCC); Migraine Headache 05/16/2024 Clinical Communication Department of Family Medicine, [facility], in [place], [place] [address] [place] [phone] Michael Goldberg D.O. Med Question; Phone Contact 05/16/2024 Clinical Communication Division of Gastroenterology in [place], [place] [address] [place] [phone] Bradford Gross M.D. Plan of care and [...] 0.6 oz pur e alcohol) daily caffeine [facility] Utilities Answer Date Recorded In the past 12 months has th e Trover, gas, oil, or water [employer] threatened to shut off services in your [...] How often do you attend chur or worship services? Never 07/13/2022 Do you belong to any clubs o r organizations such as spiritism groups, unions, fraternal or athletic groups, or [...] Date Recorded PHQ-2 Score 6 05/16/2024 [facility] of Occupat ional Health - Occupational Stress [...] money to buy more. Never true 07/09/19 Within the past 12 months, t he [...] PM CDT Legal Sex Female 3:11 PM ORACLE SECURITY CONSULTANT Gender Identity Female 09/13/2017 7:50 PM CDT Sexual Orientation Straight 09/13/2017 7: 50 PM CDT Last Filed Vital Signs Vital Sign Reading Time Taken Comments Blood Pressure 131/109 07/13/2024 9:37 AM CDT Pulse 88 07/12/2024 10:56 PM CDT Temperature 36.8 C (98.2 F) 07/13/2024 9:37 AM CDT Respiratory Rate 16 07/13/2024 9:37 AM CDT Oxygen Saturation 97% 07/12/2024 10:56 PM CDT Inhaled Oxygen Concentration - - Weight 122 kg (268 lb 1.3 oz) 07/11/2024 12:45 A M CDT Height 165.1 cm (5' 5) 07/08/2024 3:15 PM CDT Body Mass Index 44.61 07/08/2024 3:15 PM CDT Plan of Treatment Upcoming Encounters Date Type Department Care Team (Latest Contact Info) Description 07/18/2024 10:45 AM CDT Office Visit Department of Orthopedic Surgery in [place], [place] [address] [place] [phone] Anderw Dougherty M.D. [address] [place] [phone] 07/20/2024 3:00 PM CDT Office Visit Department of Family Medicine, [facility], in [place], [place] [address] [place] [phone] Michael Goldberg D.O. [address] [place] [phone] 07/23/2024 10:50 AM CDT Hospital Encounter Post Anesthesia Care Unit in [place], [place] [address] [place] [phone] Andrew Dougherty M.D. [address] [place] [phone] 07/23/2024 10:50 AM CDT - 07/23/2024 12:02 PM CDT Surgery [facility] [address] [place] [phone] Andrew Dougherty M.D. [address] [place] [phone] RELEASE CARPAL TUNNEL OPEN WRIST 07/27/2024 9:00 AM CDT Office Visit Division of Trauma Critical Care and General Surgery in [place], [place] [address] [place] [phone] Jeanie Tavarez, TAPPING MACHINE OPERATOR, C.N.P., D.N.P. [address] [place] [phone] 09/06/2024 7:50 AM CDT Hospital Encounter Post Anesthesia Care Unit in [address] [phone] Andrew Dougherty M.D. [address] [place] [phone] 09/06/2024 7:50 AM CDT - 09/06/2024 9:02 AM CDT Surgery [facility] OR [address] [place] [phone] Andrew Dougherty M.D. [address] [place] [phone] RELEASE CARPAL TUNNEL OPEN WRIST Scheduled Procedures [...] 2013 Asthma Action Plan 09/16/2017 COVID-19 Vaccine (2023-2 5 season) 2023 01/21/2023, 12/08/2021, 06/25/2021, Additional history exists Influenza Vaccine (#1) 2023 1, 01/19/2011, 01/19/2011 Depression Screening (Annual PHQ-2) 03/21/2024 Controlled Substance Agreement 06/17/2024 Controlled Substance Monitor ing (UDS) 06/17/2024 Opioid Risk Tool (ORT) 06/17/2024 PEG assessment for Opioid therapy 06/17/2024 Asthma Control Test Questionnaire 06/29/2024 024 Asthma Management/Exacerbati on Questionnaire (AMQ/AEQ) 06/29/2024 06/30/2023 Visit: Medicare Annual Wellness 01/18/2025 Controlled Substance Monitor ing (PHQ-9) 05/16/2025 05/16/2024 Generalized Anxiety (ERNESTINA-7) 05/16/2025 05/16/2024 Glucose Test for Med Monitoring 07/12/2025 07/12/2024, 07/10/2024, 07/10/2024, Additional history exists Cervical/Vaginal Cancer Screening 06/26/2026 06/26/2021, 06/26/2021, 03/21/2012 [...] Online Services Medical Devices Implanted Type Area Personal Attendant Device Identifier Shelf Expiration Date Model / Serial / Lot Scrw Asn 3 St Pthrd Travis 4x34 - [id number] Implanted:Q ty: 2 on 04/07/2022 by Jose Swift III, M.D. at [facility] Hardware e.g. pins/screws/ro ds Left: Ankle Erskine [id number] / / Screw Cosmo St 2.4x12 - [id number] Implanted:Q ty: 1 on 04/07/2022 by Jose Swift III, M.D. at [facility] Hardware e.g. pins/screws/ro ds Left: Ankle Depuy Synthes 201.612 / / Screw Cosmo St 2.4x10 - [id number] 28 Implanted:Q ty: 1 on 04/07/2022 by Jose Swift III, M.D. at [facility] Hardware e.g. pins/screws/ro ds Left: Ankle Depuy Synthes 201.680 / / Scrw Axs St Fthrd Lck 3.5x12 - [id number] 28 Implanted:Q ty: 2 on 04/07/2022 by Jose Swift III, M.D. at [facility] Hardware e.g. pins/screws/ro ds Left: Ankle Reji [id number] / / Scrw Axs St Fthrd Lck 3.5x14 - [id number] 28 Implanted:Q ty: 2 on 04/07/2022 by Jose Swift III, M.D. at [facility] Hardware e.g. pins/screws/ro ds Left: Ankle Erskine [id number] / / Scrw Axs St Fthrd Lck 3.5x60 - [id number] 28 Implanted:Q ty: 1 on 04/07/2022 by Jose Swift III, M.D. at [facility] Hardware e.g. pins/screws/ro ds Left: Ankle Reji [id number] / / Description:10/18/2022: screw broke during removal, part of screw explanted disposed of, part of screw remains in left tibia Plt Sps 03/23 Tub 10h 129 - [id number] 28 Implanted:Q ty: 1 on 04/07/2022 by Jose Swift III, M.D. at [facility] Hardware e.g. pins/screws/ro ds Left: Ankle Erskine [id number] / / Iud Mrn Lvngstr 52mg- 022 Implanted:Q ty: 1 on 06/30/2021 by Martha Pavon APRN, C.N.P., M.S.N. Intrauterine Device Uterus Yesi 09/19/2023 [id number] / / [id number] Description:Due to be remove d 06/30/2028 [facility] Jacki Synth 15x15 - [id number] Implanted:Q ty: 1 on 12/24/2021 by Roberto Carlos Sotelo M.D., M.B.A. at [facility] Mesh or Patch N/A: Abdomen Medtronic 06/18/2025 [id number] / / [id number] [facility] Prt Jacki Synth 20x30 - [id number] Implanted:Q ty: 1 on 07/19/2022 by Luz Vaughn M.D., M.S. at [facility] Mesh or Patch Abdomen Medtronic 10/18/2024 [id number] / / [id number] [facility] Vnt Jacki Polyprp Ov 4x6 - [id number] Implanted:Q ty: 1 on 07/09/2024 by Keisha Donald M.D. at [facility] Mesh or Patch N/A: Abdomen C.R.Bard [id number] 01/15/2026 [id number] / / [id number] Explanted Type Area Personal Attendant Device Identifier Shelf Expiration Date Model / Serial / Lot Scrw Axs St Fthrd Lck 3.5x55 - [id number] Implanted:Qty : 1 on 04/07/2022 by Jose Swift III, M.D. at [facility] Explanted:Qty : 1 on 10/18/2022 by Rosalba Weber M.D. at [facility] Hardware e.g. pins/screws/ rods Left: Ankle Erskine [id number] / / Procedures Procedure Name Priority Date/Time Associated Diagnosis Comments REMOVE CENTRAL OR MIDLINE CATHETER Routine 07/13/2024 12:08 PM CDT CBC WITHOUT DIFFERENTIAL, B Routine 07/12/2024 8:13 PM CDT PHOSPHORUS (INORGANIC), S Routine 07/12/2024 3:25 AM CDT MAGNESIUM, S Routine 07/12/2024 3:25 AM CDT BASIC METABOLIC PANEL, S/P Routine 07/12/2024 3:25 AM CDT CBC WITHOUT DIFFERENTIAL, B Routine 07/12/2024 3:24 AM CDT DX ABDOMEN PORTABLE ANTERIOR POSTERIOR 1 VIEW RAD - Routine (most inpatients and all outpatients) 07/11/2024 11:39 PM CDT DX ABDOMEN PORTABLE ANTERIOR POSTERIOR 1 VIEW RAD - Routine (most inpatients and all outpatients) 07/11/2024 6:24 PM CDT DX ABDOMEN PORTABLE ANTERIOR POSTERIOR 1 VIEW RAD - Routine (most inpatients and all outpatients) 07/11/2024 1:[address] MIDLINE CATHETER Routine 07/11/2024 12:05 PM CDT BASIC METABOLIC PANEL, S/P Routine 07/10/2024 8:53 PM CDT CBC WITHOUT DIFFERENTIAL, B Routine 07/10/2024 8:53 PM CDT PHOSPHORUS (INORGANIC), S Routine 07/10/2024 8:53 PM CDT CBC WITHOUT DIFFERENTIAL, B Timed 07/10/2024 8:17 AM CDT BASIC METABOLIC PANEL, S/P Timed 07/10/2024 8:17 AM CDT MAGNESIUM, S Timed 07/10/2024 8:17 AM CDT PHOSPHORUS (INORGANIC), S Timed 07/10/2024 8:17 AM CDT ADULT OXYGEN THERAPY Routine 07/09/2024 9:31 PM CDT DX CHEST PORTABLE 1 VIEW RAD - Routine (most inpatients and all outpatients) 07/09/2024 9:30 PM CDT LDA ANE ENDOTRACHEAL AIRWAY Routine 07/09/2024 4:19 PM CDT BLOCK - TRANSVERSUS ABDOMINIS PLANE 07/09/2024 3:36 PM CDT Abdominal Pain ROBOTIC-ASSISTED ABDOMINAL EXPLORATION 07/09/2024 3:36 PM CDT Abdominal Pain SURGERY IMAGE EXAM Routine 07/09/2024 2:30 PM CDT PROTHROMBIN TIME (PT), P Timed 07/09/2024 6:48 AM CDT TYPE AND SCREEN Routine 07/09/2024 6:48 AM CDT BASIC METABOLIC PANEL, S/P Timed 07/09/2024 6:48 AM CDT CBC WITH DIFFERENTIAL, B Timed 07/09/2024 6:48 AM CDT DX ABDOMEN 1 VIEW RAD - Routine (most inpatients and all outpatients) 07/09/2024 4:42 AM CDT GASTROENTEROLOGY IMAGE EXAM Routine 07/08/2024 6:55 PM CDT DX ABDOMEN PORTABLE ANTERIOR POSTERIOR 1 VIEW RAD - Semiurgent (Fast; most ED patients; some inpatients) 07/08/2024 4:49 PM CDT ECG Routine 07/08/2024 3:48 PM CDT LACTATE, B/P STAT 07/08/2024 3:42 PM CDT PROTHROMBIN TIME (PT), P Timed 07/08/2024 3:42 PM CDT C-REACTIVE PROTEIN (CRP), S/P Timed 07/08/2024 3:42 PM CDT HEPATIC FUNCTION PANEL, S Timed 07/08/2024 3:42 PM CDT BASIC METABOLIC PANEL, S/P Timed 07/08/2024 3:42 PM CDT CBC WITH DIFFERENTIAL, B Timed 07/08/2024 3:[address] BODY Routine 07/08/2024 8:20 AM CDT EMG Routine 05/28/2024 9:22 AM CDT Carpal Tunnel Syndrome Bilateral HIV-1/-2 AG AND AB SCREEN, PLASMA Routine 07/05/2023 2:40 PM CDT General Medical Examination Adult Human Immunodeficiency Virus Screening HPV WITH GENOTYPING, PCR, THINPREP Routine 06/26/2021 1:42 PM CDT from Last 3 Months or Most Recently Relevant to Health Maintenance Results * Remove PICC (non-tunneled) or Midline Catheter (07/13/2024 12:08 PM CDT) Narrative MMODAL - 07/13/2024 12:08 PM CDT Paty Kowalski R.N. 07/13/2024 12:09 PM Remove PICC (non-tunneled) or Midline Catheter Performed by: Paty Kowalski R.N. Authorized by: Jennifer Edge M.D. Jennifer Edge M.D. PROCEDURE/MINOR SURGICAL ORDERABLES Final Result MMODAL NA * (ABNORMAL) CBC without Differential (07/12/2024 8:13 PM CDT) Only the most recent of4 resultswithin the time period is included. Hemoglobin 13.5 11.6 - 15.0 g/dL 07/12/2024 9:17 PM CDT DTL Hematocrit 41.0 35.5 - 44.9 % 07/12/2024 9:17 PM CDT DTL Erythrocytes 4.75 3.92 - 5.13 x10(12)/L 07/12/2024 9:17 PM CDT DTL MCV 86.3 78.2 - 97.9 fL 07/12/2024 9:17 PM CDT DTL RBC Distrib Width 13.0 12.2 - 16.1 % 07/12/2024 9:17 PM CDT DTL Platelet Count 386(H) 157 - 371 x10(9)/L 07/12/2024 9:17 PM CDT DTL Leukocytes 14.3(H) 3.4 - 9.6 x10(9)/L 07/12/2024 9:17 PM CDT DTL Blood (Blood, Venous) 07/12/2024 8:13 PM CDT 07/12/2024 9:09 PM CDT Jeanie Tavarez APRN, C.N.P., D.N.P. LAB BLOOD A DD-ON Final Result Performing Organization Address City/[facility]/[place] [address] * Phosphorus Inorganic (07/12/2024 3:25 AM CDT) Only the most recent of3 resultswithin the time period is included. Phosphorus (Inorganic), S 3.4 2.5 - 4.5 mg/dL 07/12/2024 4:42 AM CDT DTL Blood (Blood, Venous) 07/12/2024 3:25 AM CDT 07/12/2024 4:20 AM CDT Noreen Vega P.A.-C. LAB BLOOD ADD-ON Final Result Performing Organization Address City/[facility]/ZIP Co de Phone Number [facility] [address] [place] [address] * Magnesium (07/12/2024 3:25 AM CDT) Only the most recent of2 resultswithin the time period is included. Magnesium, S 2.3 1.7 - 2.3 mg/dL 07/12/2024 4:42 AM CDT DTL Blood (Blood, Venous) 07/12/2024 3:25 AM CDT 07/12/2024 4:20 AM CDT us Noreen Vega P.A.-C. LAB BLOOD ADD-ON Final Result [facility] [address] [place] [address], [place] DTL [facility] [address] [place] [address] * Basic Metabolic Panel (07/12/2024 3:25 AM CDT) Only the most recent of5 resultswithin the time period is included. Pathologist [facility] Potassium, S 4.0 3.6 - 5.2 mmol/L 07/12/2024 4:42 AM CDT DTL Sodium, S 141 135 - 145 mmol/L 07/12/2024 4:42 AM CDT DTL Chloride, S 102 98 - 107 mmol/L 07/12/2024 4:42 AM CDT DTL Bicarbonate, S 24 22 - 29 mmol/L 07/12/2024 4:42 AM CDT DTL Anion Gap 15 7 - 15 07/12/2024 4:42 AM CDT DTL BUN (Blood Urea Nitrogen), S 8 6 - 21 mg/dL 07/12/2024 4:42 AM CDT DTL Creatinine 0.73 0.59 - 1.04 mg/dL 07/12/2024 4:42 AM CDT DTL Estimated GFR (eGFR) >90 >=60 mL/min/BSA 07/12/2024 4:42 AM CDT DTL Comment: Estimated GFR calculated using the 2020 CKD_EPI creatinine equation. Calcium, Total, S 9.0 8.6 - 10.0 mg/dL 07/12/2024 4:42 AM CDT DTL Glucose, S 83 70 - 140 mg/dL 07/12/2024 4:42 AM CDT DTL Blood (Blood, Venous) 07/12/2024 3:25 AM CDT 07/12/2024 4:20 AM CDT us Noreen Vega P.A.-C. LAB BLOOD ADD-ON Final Result [facility] [address] [place] [address], [place] DTL [facility] [address] [place] [address] * DX Abdomen Portable Anterior Posterior 1 View (07/11/2024 11:39 PM CDT) Only the most recent of4 resultswithin the time period is included. Anatomical Region Laterality Modality Abdomen, Abdominal RST LOS, Abdominal ARZ LOS, Abdominal FLA LOS N/A Digital Radiography Impressions 07/12/2024 7:43 AM CDT Enteric tube with tip and side-port below the diaphragm projecting in the stomach. Redemonstrated dilated loops of small bowel consistent with obstruction. Cutaneous sharmin. Narrative 07/12/2024 7:43 AM CDT EXAM: DX ABDOMEN PORTABLE ANTERIOR POSTERIOR 1 VIEW Procedure Note Ad Curran M.D. - 07/12/2024 EXAM: DX ABDOMEN PORTABLE ANTERIOR POSTERIOR 1 VIEW IMPRESSION: Enteric tube with tip and side-port below the diaphragm projecting in thestomach. Redemonstrated dilated loops of small bowel consistent withobstruction. Cutaneous sharmin. Jennifer Edge M.D. [facility] DI[facility] IM[facility] P ROCEDURES Final Result * Place midline catheter (single lumen) (07/11/2024 12:05 PM CDT) Narrative Mariola Kaur R.N. - 07/11/2024 12:05 PM CDT Mariola Kaur R.N. 07/11/2024 12:[address] midline catheter (single lumen) Performed by: Mariola Kaur R.N. Authorized by: Noreen Vega PDanielaA.Kwame. Care team members present 1. Mariola Kaur R.N. 2. Tamara Marks R.N. PROCEDURE DETAILS Select line: Midline Line type: temporary (non-tunneled, non-implanted) Line size: Other (Comment) (18g) Catheter to vein ratio less than 45%: yes Adult or Julio C/Peds: adult # of lumens: single lumen Type of catheter: power injectable and non-valved Laterality: right IV location: cephalic Optimal site selected: yes Number of insertion attempts: 1 Blood return: yes Placement assistance: ultrasound guided Catheter length (cm): 10 Initial exposed catheter (cm): 0 Mid upper arm circumference (cm): 42 All lumens flushed (Document volume in I/O): yes CONSENT Consent obtained: written (Risks, benefits and alternatives were discussed and a written Informed Consent was obtained. Please see Informed Consent form for further details.) UNIVERSAL PROTOCOL All relevant documentation and testing were reviewed and available. All required blood products, implants, devices and or special equipment were made available as applicable. Pre-procedure verification was conducted and the correct site was marked if required. A fire risk and smoke assessment were done as applicable. The procedural time-out to verify correct patient, correct side/site, and procedure was conducted prior to performing the procedure and confirmed in a procedural pause. PRE-PROCEDURE DETAILS Indications: Insufficient peripheral access Appropriate hand hygiene, gown, cap, mask, protective eyewear, sterile gloves, skin preparation, sterile drape, and strict aseptic technique were utilized as applicable for the procedure.: yes Site preparation: Chlorhexidine SEDATION / ANESTHESIA Anesthesia method: local infiltration Local infiltrate type: lidocaine POST-PROCEDURE DETAILS Procedure completed successfully: yes Complications: no apparent complications us Noreen Vega P.A.-C. PROCEDURE/MINOR SURGIC AL ORDERABLES Final Result * DX Chest Portable 1 View (07/09/2024 9:30 PM CDT) Anatomical Region Laterality Modality Chest, Thoracic RST LOS, Tho racic ARZ LOS, Thoracic FLA LOS N/A Digital Radiography Impressions 07/10/2024 3:27 AM CDT Postoperative radiograph obtained following abdominal surgery. No pneumothorax. Low lung volumes which accentuates the cardiac silhouette. Perihilar and bibasilar atelectasis. No focal consolidation or pleural effusion. Endotracheal tube with tip in the mid thoracic trachea. Narrative 07/10/2024 3:27 AM CDT EXAM: DX CHEST PORTABLE 1 VIEW Procedure Note Mayra Wilson M.D. - 07/10/2024 EXAM: DX CHEST PORTABLE 1 VIEW IMPRESSION: Postoperative radiograph obtained following abdominal surgery. Nopneumothorax. Low lung volumes which accentuates the cardiac silhouette.Perihilar and bibasilar atelectasis. No focal consolidation or pleuraleffusion. Endotracheal tube with tip in the mid thoracic trachea. us Keisha Donald M.D. IMG DIAGNOSTIC IMAGING PROC EDURES Final Result * LDA ANE ENDOTRACHEAL AIRWAY (07/09/2024 4:19 PM CDT) Narrative Brice Gutierrez APRN, CRNA, DNAP - 07/09/2024 4:19 PM CDT Brice Gutierrez APRN, CRNA, DNASony 07/09/2024 5:11 PM Airway Date/Time: 07/09/2024 4:19 PM Performed by: Brice Gutierrez APRN, CRNA, DNAP Authorized by: Josue Williamson M.D. Patient location during procedure: OR / Procedure Area PROCEDURE DETAILS: Mask difficulty assessment: not attempted Final airway type: video laryngoscope Laryngeal Manipulation: no Final best view of glottic structures - Cormack/Lehane Score: grade 2A ETT location: oral VL device: glide scope Norman scope blade size: 3 Tube size: 6.5 ETT distance at teeth/gum: 21 Oral tube type: standard ETT Cuffed: yes Number of attempt to successful placement: 1 Airway confirmation: bilateral breath sounds, positive ETCO2 and bilateral chest rise Other previous techniques attempted: none PRE PROCEDURE DETAILS: Pre evaluation for airway management: procedure Urgency: elective Preop assessment of probable difficulty: no difficulty anticipated Preoxygenation: bag valve mask SEDATION / ANESTHESIA Anesthesia method: anesthesia POST PROCEDURE DETAILS: Procedure outcome: successful Notable Events: no complications us Josue Williamson M.D. ANESTHESIA ORDERABLES Fin al Result * Surgery Image Exam-Surgery Image Exam (07/09/2024 2:30 PM CDT) Narrative IIMS - 07/09/2024 10:00 PM CDT This order has been created and auto-finalized to support the import of images acquired without order. The clinical documentation to support these images can be found on the encounter that produced images. Provider Not In System IMG NON RAD IMAGING PROCE DURES Final Result Performing Organization Address [facility] de Phone Number IIMS NA * Prothrombin Time (PT) (07/09/2024 6:48 AM CDT) Only the most recent of2 resultswithin the time period is included. Prothrombin Time, P 11.8 9.4 - 12.5 sec 07/09/2024 7:48 AM CDT DTL INR 1.1 0.9 - 1.1 07/09/2024 7:48 AM CDT DTL Comment: ----ADDITIONAL INFORMATION---- Standard intensity warfarin therapeutic range: 2.0 to 3.0 High intensity warfarin therapeutic range: 2.5 to 3.5 Blood (Blood, Venous) 07/09/2024 6:48 AM CDT 07/09/2024 7:12 AM CDT Kunal Sharif LAB BLOOD ADD- ON Final Result Performing Organization Address [facility] [place] [address], [facility] [place] [address] * (ABNORMAL) CBC with Differential, Blood (07/09/2024 6:48 AM CDT) Only the most recent of2 resultswithin the time period is included. Hemoglobin 14.2 11.6 - 15.0 g/dL 07/09/2024 7:23 AM CDT DTL Hematocrit 41.8 35.5 - 44.9 % 07/09/2024 7:23 AM CDT DTL Erythrocytes 4.99 3.92 - 5.13 x10(12)/L 07/09/2024 7:23 AM CDT DTL MCV 83.8 78.2 - 97.9 fL 07/09/2024 7:23 AM CDT DTL RBC Distrib Width 13.0 12.2 - 16.1 % 07/09/2024 7:23 AM CDT DTL Platelet Count 384(H) 157 - 371 x10(9)/L 07/09/2024 7:23 AM CDT DTL Leukocytes 16.0(H) 3.4 - 9.6 x10(9)/L 07/09/2024 7:23 AM CDT DTL Neutrophils 12.66(H) 1.56 - 6.45 x10(9)/L 07/09/2024 7:23 AM CDT DHPM Lymphocytes 2.21 0.95 - 3.07 x10(9)/L 07/09/2024 7:23 AM CDT DTL Monocytes 1.07(H) 0.26 - 0.81 x10(9)/L 07/09/2024 7:23 AM CDT DTL Eosinophils <0.03 0.03 - 0.48 x10(9)/L 07/09/2024 7:23 AM CDT DTL Basophils 0.05 0.01 - 0.08 x10(9)/L 07/09/2024 7:23 AM CDT DTL Blood (Blood, Venous) 07/09/2024 6:48 AM CDT 07/09/2024 7:12 AM CDT Kunal JoyceBDanielaSDaniela LAB BLOOD ADD- ON Final Result [facility] [address] [place] [address], [facility] DTL [facility] [address] [place] [address] DHPM [facility] [address] [place] [address] * Type and Screen (with Reflex Antibody ID) (07/09/2024 6:48 AM CDT) Pathologist [facility] ABORh B Pos Not applicable 07/09/2024 7:46 AM CDT STRM Antibody Screen Negative Negative 07/09/2024 7:51 AM CDT STRM Type & Screen Expiration 07/12/2024 23:59 07/09/2024 7:46 AM CDT STRM Testing Location [place] DEFAULT 07/09/2024 7:08 AM CDT STRM Blood (Blood, Venous) 07/09/2024 6:48 AM CDT 07/09/2024 7:08 AM CDT Kunal JoyceB.S. LAB BLOOD BANK TEST ORDERABLES Final Result [facility] [address] [place] [address], [facility] STRM [facility] [address] [place] [address] * DX Abdomen 1 View (07/09/2024 4:42 AM CDT) Anatomical Region Laterality Modality Abdomen, Abdominal RST LOS, Abdominal ARZ LOS, Abdominal FLA LOS N/A Digital Radiography Impressions 07/09/2024 5:31 AM CDT No significant change since 07/08/2024. Redemonstrated dilated loops of small bowel in the central abdomen. Enteric tube tip in the stomach. IUD. Residual contrast in the urinary bladder. No definitive positive enteric contrast is visualized but could be diluted in small bowel fluid. Narrative 07/09/2024 5:31 AM CDT EXAM: DX ABDOMEN 1 VIEW Procedure Note Honey Perera M.D., Ph.D. - 07/09/2024 EXAM: DX ABDOMEN 1 VIEW IMPRESSION: No significant change since 07/08/2024. Redemonstrated dilated loops ofsmall bowel in the central abdomen. Enteric tube tip in the stomach. IUD.Residual contrast in the urinary bladder. No definitive positive entericcontrast is visualized but could be diluted in small bowel fluid. Gabriel JoyceB.S. IMG DIAGNOSTIC IMAGING PROCEDURES Final Result * Abdomen-Gastroenterology Image Exam (07/08/2024 6:55 PM CDT) 07/08/2024 6:53 PM CDT Narrative IIMS - 07/08/2024 6:57 PM CDT This order has been created and auto-finalized to support the import of images acquired without order. The clinical documentation to support these images can be found on the encounter that produced images. us Provider Not In System IMG NON RAD IMAGING PROCE DURES Final Result Performing Organization Address [facility] Co de Phone Number IIMS NA * ECG 12 Lead (07/08/2024 3:48 PM CDT) Ventricular Rate ECG/Min 86 BPM MUSE IA Interval 166 ms MUSE QRSD Interval 92 ms MUSE QT Interval 374 ms MUSE QTC Interval 447 ms MUSE P [place] 6 degrees MUSE R [place] 79 degrees MUSE T Wave [place] -14 degrees MUSE 07/08/2024 3:48 PM CDT 07/09/2024 10:38 AM CDT Impressions MUSE - 07/08/2024 3:59 PM CDT Normal sinus rhythm Nonspecific T wave abnormality When compared with ECG of 30-Jan-2023 11:17, No significant change in data has occurred Reviewed by DIANNE Marques Narrative Procedure Note Gabino Canela M.D. - 07/09/2024 IMPRESSION: Normal sinus rhythm Nonspecific T wave abnormality When compared with ECG of 30-Jan-2023 11:17, No significant change in data has occurred Reviewed by DIANNE Marques Kunal Sharif ECG ORDERABLES Edited Result - Final Performing Organization Address [facility] Co de Phone Number MUSE NA * Hepatic Function Panel (07/08/2024 3:42 PM CDT) Bilirubin, Total, S 0.8 0.0 - 1.2 mg/dL 07/08/2024 4:33 PM CDT DTL Bilirubin, Direct, S <0.2 0.0 - 0.3 mg/dL 07/08/2024 4:33 PM CDT DTL Aspartate Aminotransferase (AST), S 30 8 - 43 U/L 07/08/2024 4:33 PM CDT DTL Alanine Aminotransferase (ALT), S 25 7 - 45 U/L 07/08/2024 4:33 PM CDT DTL Alkaline Phosphatase, S 95 35 - 104 U/L 07/08/2024 4:33 PM CDT DTL Albumin, S 4.8 3.5 - 5.0 g/dL 07/08/2024 4:33 PM CDT DTL Protein, Total, S 7.1 6.3 - 7.9 g/dL 07/08/2024 4:33 PM CDT DTL Blood (Blood, Venous) 07/08/2024 3:42 PM CDT 07/08/2024 4:18 PM CDT Kunal JoyceB.S. LAB BLOOD ADD- ON Final Result Performing Organization Address City/[facility]/ZIP Co de Phone Number [facility] [address] [place] [address] * (ABNORMAL) CRP (C-Reactive Protein) (07/08/2024 3:42 PM CDT) [facility] C-Reactive Protein (CRP), S 14.9(H) <5.0 mg/L 07/08/2024 4:33 PM CDT DTL Blood (Blood, Venous) 07/08/2024 3:42 PM CDT 07/08/2024 4:18 PM CDT Kunal JoyceB.S. LAB BLOOD ADD- ON Final Result [facility] [address] [place] [address] * Lactate (07/08/2024 3:42 PM CDT) Lactate, P 1.0 0.5 - 2.2 mmol/L 07/08/2024 4:35 PM CDT STMA Blood (Blood, Venous) 07/08/2024 3:42 PM CDT 07/08/2024 3:52 PM CDT Kunal Sharif LAB BLOOD NON ADD-ON Final Result Performing Organization Address [facility] de Phone Number [facility] [address] [place] [address], [facility] STMA [facility] [address] [place] [address] * CT ABDOMEN PELVIS W CON-Outside CT Body (07/08/2024 8:20 AM CDT) 07/08/2024 8:20 AM CDT Narrative IIMS - 07/08/2024 9:53 AM CDT This order has been created and auto-finalized to support the import of outside images. If available, original interpretation can be found on the Media Tab in Chart Review, in Document Viewer, as an image in InfinityView or as an Addendum. If a re-interpretation or overread is required please follow defined workflow. Provider Not In System IMG CT PROCEDURES Final R esult Performing Organization Address [facility] de Phone Number IIMS NA * EMG (05/28/2024 9:22 AM CDT) 05/28/2024 9:15 AM CDT Narrative EMG - 05/28/2024 10:34 AM CDT Table formatting from the original result was not included. 28-May-2024 Electromyography Final Report Study Number: 2 EMG Wire Tester: Martha Gilliam 127 or [phone] Referred by: MICHAEL GOLDBERG (127 or [phone]) Referred for: bilat CTS ( R>L) Referral [...] side. Images were saved to the internal [employer] kitchen food server. CLINICAL INTERPRETATION: Abnormal study. There is electrodiagnostic [...] on the left. Magdalena Gilliam (127 or [phone])/[facility] NERVE CONDUCTIONS Record Rep Normal Normal Distal [...] Electromyography Final Report Study Number: 2 EMG Wire Tester: Martha Gilliam 127 or [phone] Referred by: MICHAEL GOLDBERG (127 or [phone]) Referred for: bilat CTS ( R>L) Referral [...] eitherside. Images were saved to the internal [employer] network kitchen food server. CLINICAL INTERPRETATION: Abnormal study. There is electrodiagnostic [...] on the left. Magdalena Gilliam (127 or [phone])/[facility] NERVE CONDUCTIONS Record Rep Normal Normal Distal [...] dited Result - Final [facility] EMG * HIV-1/-2 Ag and Ab Screen, Plasma (07/05/2023 2:40 PM CDT) Pathologist [facility] HIV-1/-2 Ag and Ab Screen, P Negative Negative 07/05/2023 8:51 PM CDT [facility] Comment: Negative result does not rule out HIV infection. If exposure to HIV infection occurred <14 days ago, contact the laboratory to request addition of HIV-1/HIV-2 RNA detection, Plasma (HIP12). Blood (Blood, Venous) 07/05/2023 2:40 PM CDT 07/05/2023 8:11 PM CDT Michael Goldberg D.O. LAB MICROBIOLOGY - BLO OD ORDERABLES Final Result Performing Organization Address City/[facility] Co de Phone Number [facility] [address] [place] [address] [facility] [address] [place] [address] * HPV with Genotyping, PCR, ThinPrep (06/26/2021 [...] was ordered in the context of a [facility] RESEARCH AND EVALUATION ANALYST Cytology case; this result should be interpreted within the context of the RESEARCH AND EVALUATION ANALYST cytology report. Varies 06/26/2021 1:42 PM CDT 06/26/2021 4:01 PM CDT Toña Iqbal APRN C.N.P., M.S.N. LAB MICROBIOLOG Y - GENERAL ORDERABLES Final Result [facility] [address] [place] [address], [facility] [address] [place] [address] from Last 3 Months or Most Recently Relevant to Health Maintenance Additional Health Concerns Active Problems Noted Date Diagnosed Date Autogenerated Problem 06/30/2024 Insurance MEDICARE [employer] Advance Directives For more information, please contact: [phone] Documents on File Type Date Recorded Patient Material Stress Tester Expl anation Advance Directives 07/25/2019 9:52 AM Healt h Care Directive Advance Directives 01/17/2018 10:21 AM Advance Directives 11/12/2010 12:00 AM Leg acy document. See document viewer. * Full Code (Latest Code Status on File) Date Activated Date Inactivated Comments 07/09/2024 10:51 PM 07/13/2024 3:33 PM Question Answer Comments Full Code: Not Discussed Due to: Patient not available * Full Code Date Activated Date Inactivated Comments 07/08/2024 6:45 PM 07/09/2024 10:51 PM Question Answer Comments Full Code: Discussed * Full Code Date Activated Date Inactivated Comments 07/08/2024 3:30 PM 07/08/2024 6:45 PM Question Answer Comments Full Code: Not Discussed Due to: Not medically appropriate * Full Code Date Activated Date Inactivated Comments 09/16/2023 9:17 PM 09/19/2023 8:29 PM Question Answer Comments Full Code: Discussed * Full Code Date Activated Date Inactivated Comments 07/19/2022 6:26 AM 07/22/2022 2:21 PM Question Answer Comments Full Code: Discussed Healthcare Agents on File Name Relationship Healthcare Agent [facility] Care Agent - 00 (Mobile) Noe [facility] Health Car e Agent Care Teams Personnel Placement Specialist Relationship Specialty Start Date End Date Michael Goldberg D.O. [address] [place] [phone] PCP - General Family Medicine 03/26/20
--- OUTSIDE RECORDS SUMMARY | 2024-07-13 23:45 | XMS_ITS | Encounter Summary ---
Author Organization [facility] Address [address] [place] [address] Care Team Providers Care Proposal Rep Name Role Phone Michael Goldberg D.O. Primary Care Provider Reason for Referral * Outpatient (Routine) - Closed Specialty Diagnoses / Procedures Referred By Clare anthony Referred To Contact Diagnoses Carpal Tunnel Syndrome Bilateral Procedures EMG Michael Goldberg D.O. [address] [place] [address] Phone: tel: fax: [facility] Referral ID Status Reason Start Date Expiration Date Visits Re quested Visits Authorized [id number] Closed 05/16/2024 08/16/2025 1 1 Reason for Visit * Outpatient (Routine) - Closed Specialty Diagnoses / Procedures Referred By Clare anthony Referred To Contact Diagnoses Carpal Tunnel Syndrome Bilateral Procedures EMG Michael Goldberg D.O. 200 [place] [address] Phone: tel: fax: [facility] Referral ID Status Reason Start Date Expiration Date Visits Re quested Visits Authorized [id number] Closed 05/16/2024 08/16/2025 1 1 Encounter Details Date Type Department Care Team (Latest Contact Info) Description 05/28/2024 9:15 AM CDT - 05/28/2024 11:59 PM CDT Hospital Encounter Department of Neurology in [place], [place] [address] [place] [address] Michael Goldberg D.O. [address] [place] [address] Carpal Tunnel Syndrome Bilateral Discharge Disposition: Home or Self Care Social History Tobacco Use Types Packs/Day Years Used Date Smoking Tobacco: Never Passive Smoke Exposure: Never Smokeless Tobacco: Never Alcohol Use Standard Drinks/Week Comments Not Currently 2 (1 standard drink = 0.6 oz pur e alcohol) daily caffeine [facility] Utilities Answer Date Recorded In the past 12 months has [employer], gas, oil, or water [employer] threatened to shut off services in your [...] Never 07/13/2022 How often do you attend [facility] or latter day services? Never 07/13/2022 Do [...] Answer Date Recorded PHQ-2 Score 6 05/16/2024 [facility] - Occupational Stress [...] your living situation today? I have a [place] place to live 01/18/2024 Education Answer Date Recorded What is the highest level of school you have completed or the highest degree you have received? 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 30 capsule 01/19/20 23 busPIRone (BuSpar) 5 mg tabletIndications: Anxiety Generalized [...] 24 hours. 9 tablet 11 05/16/19 25 benzonatate (TESSALON PERLES) 100 mg capsuleIndications :Cough Unspecified Type Take 1 capsule (100 mg total) by mouth 3 (three) times a day as needed for cough. 60 capsule 1 06/30/19 24 025 oxyCODONE (Roxicodone) 5 mg immediate release tabletIndications: Chronic Pain/Nonacute Pain Take 1 tablet (5 mg total) by mouth daily Indication: Chronic Pain/Nonacute Pain. 6 tablet 05/16/19 25 025 documented as of this encounter Plan of Treatment Upcoming Encounters Date Type Department Care Team (Latest Contact Info) Description 07/18/2024 10:45 AM CDT Office Visit Department of Orthopedic Surgery in [place], [place] [address] [place] [phone] Andrew Dougherty M.D. [address] [place] [phone] 07/20/2024 3:00 PM CDT Office Visit Department of Family Medicine, [facility], in [place], [place] [address] [place] [phone] Michael Goldberg D.O. [address] [place] [phone] 07/23/2024 10:50 AM CDT Hospital Encounter Post Anesthesia Care Unit in [place] [id number] [place] [phone] Andrew Dougherty M.D. [address] [place] [phone] 07/23/2024 10:50 AM CDT - 07/23/2024 12:02 PM CDT Surgery [facility] ROM[facility] MAIN OR [address] [place] [phone] Andrew Dougherty M.D. [address] [place] [phone] RELEASE CARPAL TUNNEL OPEN WRIST 07/27/2024 9:00 AM CDT Office Visit Division of Trauma Critical Care and General Surgery in [address] [phone] Jeanie Tavarez APRN, C.N.P., D.N.P. [address] [place] [phone] 09/06/2024 7:50 AM CDT Hospital Encounter Post Anesthesia Care Unit in [address] [phone] Andrew Dougherty M.D. [address] [place] [address] 09/06/2024 7:50 AM CDT - 09/06/2024 9:02 AM CDT Surgery [facility] ROM[facility] MAIN OR [address] [place] [phone] Andrew Dougherty M.D. 200 [place] [phone] RELEASE CARPAL TUNNEL OPEN WRIST Scheduled Procedures [...] Electromyography Final Report Study Number: 2 EMG Housing Coordinator: Martha Gilliam 127 or [phone] Referred by: MICHAEL GOLDBERG (127 or [phone]) Referred for: bilat CTS ( R>L) Referral [...] either side. Images were saved to the Business [employer] observer gravity prospecting. CLINICAL INTERPRETATION: Abnormal study. There is electrodiagnostic [...] on the left. Magdalena Gilliam (127 or [phone])/[facility] NERVE CONDUCTIONS Record Rep Normal Normal Distal [...] Electromyography Final Report Study Number: 2 EMG Housing Coordinator: Martha Gilliam 127 or [phone] Referred by: MICHAEL GOLDBERG (127 or [phone]) Referred for: bilat CTS ( R>L) Referral [...] eitherside. Images were saved to the internal [employer] observer gravity prospecting. CLINICAL INTERPRETATION: Abnormal study. There is electrodiagnostic [...] on the left. Magdalena Gilliam (127 or [phone])/[facility] NERVE CONDUCTIONS Record Rep Normal Normal Distal [...] Depression Total Score: 17 025 10:48 AM TRAFFIC RATE ANALYST documented as of this encounter Care Teams Proposal Rep Relationship Specialty Start Date End Date Michael Goldberg D.O. [address] [place] [phone] PCP - General Family Medicine 03/26/20 documented as of this encounter
--- OUTSIDE RECORDS SUMMARY | 2024-07-13 23:45 | XMS_ITS | Encounter Summary ---
Author Organization [facility] Address [address] [place] [address] Care Team Providers Care Mixer Operator Name Role Phone Sánchez Goldberg D.O. Primary Care Provider Reason for Visit * Reason Onset Date Comments OSM - Outside Materials 06/05/2024 [employer] Encounter Details Date Type Department Care Team (Latest Contact Info) Description 06/05/2024 Clinical Communication Department of Family Medicine, [facility], in [place], [place] [address] [place] [phone] Sánchez Goldberg D.O. [address] [place] [phone] OSM - Outside Materials ([employer]) Social History Tobacco Use Types Packs/Day Years Used Date Smoking Tobacco: Never Passive Smoke Exposure: Never Smokeless Tobacco: Never Alcohol Use Standard Drinks/Week Comments Not Currently 2 (1 standard drink = 0.6 oz pur e alcohol) daily caffeine [facility] Utilities Answer Date Recorded In [...] How often do you attend chur or moravian services? Never 07/13/2022 Do you belong to any clubs o r organizations such as samaritan groups, unions, fraternal or athletic groups, or [...] Answer Date Recorded PHQ-2 Score 6 05/16/2024 [facility] [place] of Occupat ional Health - Occupational Stress [...] your living situation today? I have a [facility] place to live 01/18/2024 Education Answer Date Recorded What is the highest level of school you have completed or the highest degree you have received? 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 [address] [place] [phone] 07/20/2024 3:00 PM CDT Office Visit Department of Family Medicine, [facility], in [place], [place] [address] [place] [phone] Sánchez Goldberg D.O. [address] [place] [phone] 07/23/2024 10:50 AM CDT Hospital Encounter Post Anesthesia Care Unit in [address] [phone] Andrew Dougherty M.D. [address] [place] [phone] 07/23/2024 10:50 AM CDT - 07/23/2024 12:02 PM CDT Surgery RST ROMB MAIN OR [address] [place] [phone] Andrew Dougherty M.D. [address] [place] [phone] RELEASE CARPAL TUNNEL OPEN WRIST 07/27/2024 9:00 AM CDT Office Visit Division of Trauma Critical Care and General Surgery in [address] [phone] Jeanie Tavarez APRN, C.N.P., D.N.P. [address] [place] [phone] 09/06/2024 7:50 AM CDT Hospital Encounter Post Anesthesia Care Unit in [address] [phone] Andrew Dougherty M.D. [address] [place] [phone] 09/06/2024 7:50 AM CDT - 09/06/2024 9:02 AM CDT Surgery RST ROMB MAIN OR [address] [place] [phone] Andrew Dougherty M.D. [address] [place] [phone] RELEASE CARPAL TUNNEL OPEN WRIST Scheduled Procedures [...] Depression Total Score: 17 025 10:48 AM DRAW MACHINE OPERATOR documented as of this encounter Care Teams Mixer Operator Relationship Specialty Start Date End Date Sánchez Goldberg D.O. [address] [place] [phone] PCP - General Family Medicine 03/26/20 documented as of this encounter
--- OUTSIDE RECORDS SUMMARY | 2024-07-13 23:45 | XMS_ITS | Encounter Summary ---
Author Organization [facility] Address [address] [place] [address] Care Team Providers Care Clinical Fellow Name Role Phone Sánchez Goldberg D.O. Primary Care Provider Encounter Details Date Type Department Care Team (Late st Contact Info) Description 07/02/2024 Clinical Communication Department of Family Medicine, [facility], in [place], [place] [address] [place] [phone] Sánchez Goldberg D.O. [address] [place] [phone] Social History Tobacco Use Types Packs/Day Years Used Date Smoking Tobacco: Never Passive Smoke Exposure: Never Smokeless Tobacco: Never Alcohol Use Standard Drinks/Week Comments Not Currently 1 (1 standard drink = 0.6 oz pur e alcohol) daily caffeine [facility] Utilities Answer Date Recorded In the past 12 months has e [employer], gas, oil, or water [employer] threatened to shut off services in your [...] often do you attend chur ch or gnosticism services? Never 07/13/2022 Do you belong to any clubs o r organizations such as zoroastrian groups, unions, fraternal or athletic groups, or [...] Answer Date Recorded PHQ-2 Score 6 05/16/2024 [facility] [place] of Occupat ional Health - Occupational Stress [...] your living situation today? I have a [facility] place to live 01/18/2024 Education Answer Date Recorded What is the highest level of school you have completed or the highest degree you have received? Some college, no degree 02/18/2019 Comments No Sex and Gender Information Value Date Recorded Sex Assigned at Female 09/13/2017 7:50 PM CDT Legal Sex Female 3:11 PM CARDIOPULMONARY PHYSICAL THERAPIST Gender Identity Female 09/13/2017 7:50 PM CDT Sexual Orientation Straight 09/13/2017 7: 50 PM CDT documented as of this encounter Miscellaneous Notes * Telephone Encounter - Estefany Lange - 07/02/2024 4:27 PM CDT Called patient back. Form is done and was faxed back to [facility] on 06/18/2024. documented in this encounter Plan of Treatment Upcoming Encounters Date Type Department Care Team (Latest Contact Info) Description 07/18/2024 10:45 AM CDT Office Visit Department of Orthopedic Surgery in [place], [place] [address] [place] [phone] Andrew Dougherty M.D. [address] [place] [phone] 07/20/2024 3:00 PM CDT Office Visit Department of Family Medicine, [facility], in [place], [place] [address] [facility] [place] [phone] Sánchez Goldberg D.O. [address] [place] [phone] 07/23/2024 10:50 AM CDT Hospital Encounter Post Anesthesia Care Unit in [place], [place] [address] [place] [phone] Andrew Dougherty M.D. [address] [place] [phone] 07/23/2024 10:50 AM CDT - 07/23/2024 12:02 PM CDT Surgery RST ROMB MAIN OR [address] [place] [phone] Andrew Dougherty M.D. [address] [place] [phone] RELEASE CARPAL TUNNEL OPEN WRIST 07/27/2024 9:00 AM CDT Office Visit Division of Trauma Critical Care and General Surgery in [place] [phone] [place] [phone] Jeanie Tavarez, STEPHANIE, C.N.P., D.N.P. [address] [place] [phone] 09/06/2024 7:50 AM CDT Hospital Encounter Post Anesthesia Care Unit in [place], [place] [address] [place] [phone] Andrew Dougherty M.D. [address] [place] [phone] 09/06/2024 7:50 AM CDT - 09/06/2024 9:02 AM CDT Surgery RST ROMB MAIN OR [address] [place] [phone] Andrew Dougherty M.D. [address] [place] [phone] RELEASE CARPAL TUNNEL OPEN WRIST Scheduled Procedures Name Priority Associated Diagnoses Date/Ti ar RELEASE CARPAL TUNNEL OPEN WRIST Carpal Tunnel [...] Depression Total Score: 17 025 10:48 AM CARDIOPULMONARY PHYSICAL THERAPIST documented as of this encounter Care Teams Clinical Fellow Relationship Specialty Start Date End Date Sánchez Goldberg D.O. [address] [place] [phone] PCP - General Family Medicine 03/26/20 documented as of this encounter
--- OUTSIDE RECORDS SUMMARY | 2024-07-13 23:45 | XMS_ITS | Encounter Summary ---
Author Organization [facility] Address [address] [place] [address] Care Team Providers Care Manager Mobile Name Role Phone Sánchez Goldberg D.O. Primary Care Provider Reason for Visit * Reason Onset Date Comments Med Refill 06/15/2024 Encounter Details Date Type Department Care Team (Late st Contact Info) Description 06/15/2024 Clinical Communication Department of Family Medicine, [facility], in [place], [place] [address] [place] [phone] Darby Martines M.S.N., R.N. [address] [place] [phone] Med Refill Social History Tobacco Use Types [...] often do you attend chur ch or presybeterian services? Never 07/13/2022 Do you belong to any clubs o r organizations such as jew groups, unions, fraternal or athletic groups, or [...] Answer Date Recorded PHQ-2 Score 6 05/16/2024 [facility] [place] of Occupat ional Health - Occupational Stress [...] your living situation today? I have a [facility] place to live 01/18/2024 Education Answer Date Recorded What is the highest level of school you have completed or the highest degree you have received? Some college, no degree 02/18/2019 Comments No Sex and Gender Information Value Date Recorded Sex Assigned at Female 09/13/2017 7:50 PM CDT Legal Sex Female 3:11 PM SUPERVISOR WATER SOFTENER SERVICE Gender Identity Female 09/13/2017 7:50 PM CDT Sexual Orientation Straight 09/13/2017 7: 50 PM CDT documented as of this encounter Miscellaneous Notes * Telephone Encounter - Lainey Fraser L.P.N. - 06/20/2024 9:06 AM CDT Prescription for oxycodone 5 mg sent on 06/15/24 for #6 tablets canceled at [facility] per patient request. I have pended the prescription to [facility] as requested by patient. documented in this encounter Plan of Treatment Upcoming Encounters Date Type Department Care Team (Latest Contact Info) Description 07/18/2024 10:45 AM CDT Office Visit Department of Orthopedic Surgery in [place], [place] [address] [place] [phone] Andrew Dougherty M.D. [address] [place] [phone] 07/20/2024 3:00 PM CDT Office Visit Department of Family Medicine, [facility], in [place], [place] [address] [facility] [place] [phone] Sánchez Goldberg D.O. [address] [place] [phone] 07/23/2024 10:50 AM CDT Hospital Encounter Post Anesthesia Care Unit in [place], [place] [address] [place] [phone] Andrew Dougherty M.D. [address] [place] [phone] 07/23/2024 10:50 AM CDT - 07/23/2024 12:02 PM CDT Surgery RST ROMB MAIN OR [address] [place] [phone] Andrew Dougherty M.D. [address] [place] [phone] RELEASE CARPAL TUNNEL OPEN WRIST 07/27/2024 9:00 AM CDT Office Visit Division of Trauma Critical Care and General Surgery in [address] [phone] Jeanie Tavarez, STEPHANIE, C.N.P., D.N.P. [address] [place] [phone] 09/06/2024 7:50 AM CDT Hospital Encounter Post Anesthesia Care Unit in [place], [place] [address] [place] [phone] Andrew Dougherty M.D. [address] [place] [phone] 09/06/2024 7:50 AM CDT - 09/06/2024 9:02 AM CDT Surgery RST ROMB MAIN OR Counts include 234 beds at the [facility] [place] [phone] Andrew Dougherty M.D. [address] [place] [phone] RELEASE CARPAL TUNNEL OPEN WRIST Scheduled Procedures [...] Depression Total Score: 17 025 10:48 AM SUPERVISOR WATER SOFTENER SERVICE documented as of this encounter Care Teams Manager Mobile Relationship Specialty Start Date End Date Sánchez Goldberg D.O. [address] [place] [phone] PCP - General Family Medicine 03/26/20 documented as of this encounter
--- OUTSIDE RECORDS SUMMARY | 2024-07-13 23:45 | XMS_ITS | Encounter Summary ---
Author Organization [facility] Address [address] [place] [address] Care Team Providers Care Barge Engineer Name Role Phone Sánchez Goldberg D.O. Primary Care Provider Encounter Details Date Type Department Care Team (Late st Contact Info) Description 07/14/2016 Confidential HX RST NO MAPPING Niru Sorensen, M.S.WDaniela, Enrique.I.C.S.WDaniela [address] [place] [phone] Social History Tobacco Use Types Packs/Day Years Used Date Smoking Tobacco: Never Assessed Comments Unknown Sex and Gender Information Value Date Recorded Sex Assigned at Female 09/13/2017 7:50 PM CDT Legal Sex Female 3:11 PM SEMICONDUCTOR PROCESSING TECHNICIAN Gender Identity Female 09/13/2017 7:50 PM CDT Sexual Orientation Straight 09/13/2017 7: 50 PM CDT documented as of this encounter Progress Notes * Niru Pinto L.I.C.S.WDaniela, M.S.W. - 07/14/2016 10:01 AM CDT DEMOGRAPHIC INFORMATION Clinic Number: [id number] Patient Name: Mrs. Grisel Cruz Age: 30 Y Birthdate: 1985 Sex: F Address: [address] [place] [address] City: [place] [address] CONFIDENTIAL NOTE Service Date/Time: 14-Jul-2016 10:01 Provider: ELVIN Pinto MSW Pager: [phone] Service: MAXIM Type/Desc: PI Status: Fnl Revision [...] lyd Electronically Signed: 14-Jul-2016 10:06 by ELVIN Trevino MSW Clinical Notes - [id number] Id: [id number] Status: Fnl documented in this encounter Plan of Treatment Upcoming Encounters Date Type Department Care Team (Latest Contact Info) Description 07/18/2024 10:45 AM CDT Office Visit Department of Orthopedic Surgery in [place], [place] [address] [place] [address] Andrew Dougherty M.D. [address] [place] [phone] 07/20/2024 3:00 PM CDT Office Visit Department of Family Medicine, [facility], in [place] [address] [place] [address] Sánchez Goldberg D.O. [address] [place] [phone] 07/23/2024 10:50 AM CDT Hospital Encounter Post Anesthesia Care Unit in [address] [phone] Andrew Dougherty M.D. [address] [place] [phone] 07/23/2024 10:50 AM CDT - 07/23/2024 12:02 PM CDT Surgery RST ROMB MAIN OR [address] [place] [phone] Andrew Dougherty M.D. [address] [place] [phone] RELEASE CARPAL TUNNEL OPEN WRIST 07/27/2024 9:00 AM CDT Office Visit Division of Trauma Critical Care and General Surgery in [address] [phone] Jeanie Tavarez APRN, C.N.P., D.N.P. [address] [place] [phone] 09/06/2024 7:50 AM CDT Hospital Encounter Post Anesthesia Care Unit in [address] [phone] Andrew Dougherty M.D. [address] [place] [phone] 09/06/2024 7:50 AM CDT - 09/06/2024 9:02 AM CDT Surgery RST ROMB MAIN OR [address] [place] [phone] Andrew Dougherty M.D. [address] [place] [phone] RELEASE CARPAL TUNNEL OPEN WRIST Scheduled Procedures [...] Pending 02/26/2020 02/26/2020 02/26/2020 6 :02 PM SEMICONDUCTOR PROCESSING TECHNICIAN COVID19 Pending 03/12/2020 03/12/2020 03/12/2020 5 :42 PM SEMICONDUCTOR PROCESSING TECHNICIAN COVID19 Pending 07/11/2020 07/11/2020 07/11/2020 3 :33 AM CDT COVID19 Pending 07/29/2020 07/29/2020 07/29/2020 4 :12 PM CDT COVID19 Pending 10/02/2020 10/02/2020 10/02/2020 8 :22 AM CDT COVID19 Pending 11/12/2020 11/12/2020 11/12/2020 4 :31 AM CDT COVID19 Pending 05/30/2021 05/30/2021 05/30/2021 4 :55 PM SEMICONDUCTOR PROCESSING TECHNICIAN COVID19 Pending 12/25/2021 12/25/2021 12/25/2021 1 0:45 AM CDT COVID19 Pending 07/05/2022 07/05/2022 07/05/2022 3 :11 PM CDT COVID19 Pending 01/30/2023 01/30/2023 01/30/2023 1 1:53 AM SEMICONDUCTOR PROCESSING TECHNICIAN Assessment Noted Time PHQ-9 Depression Total Score: 19 012 9:38 AM CDT documented as of this encounter Care Teams Barge Engineer Relationship Specialty Start Date End Date Sánchez Goldberg D.O. [address] [place] [phone] PCP - General Family Medicine 03/26/20 documented as of this encounter
--- OUTSIDE RECORDS SUMMARY | 2024-07-13 23:45 | XMS_ITS | Encounter Summary ---
Author Organization [facility] Address [address] [place] [address] Care Team Providers Care Special Class Welder Name Role Phone Sánchez Goldberg D.O. Primary Care Provider Encounter Details Date Type Department Care Team (Late st Contact Info) Description 05/28/2024 Results Follow-Up Department of Family Medicine, [facility], in [place], [place] [address] [place] [phone] Sánchez Goldberg D.O. [address] [place] [phone] EMG Social History Tobacco Use Types Packs/Day [...] often do you attend chur ch or uatsdin services? Never 07/13/2022 Do you belong to any clubs o r organizations such as buddhism groups, unions, fraternal or athletic groups, or [...] Answer Date Recorded PHQ-2 Score 6 05/16/2024 [facility] [place] of Occupat ional Health - Occupational Stress [...] your living situation today? I have a [facility] place to live 01/18/2024 Education Answer Date Recorded What is the highest level of school you have completed or the highest degree you have received? Some college, no degree 02/18/2019 Comments No Sex and Gender Information Value Date Recorded Sex Assigned at Female 09/13/2017 7:50 PM CDT Legal Sex Female 3:11 PM CENTRIFUGAL SCREEN TENDER Gender Identity Female 09/13/2017 7:50 PM CDT Sexual Orientation Straight 09/13/2017 7: 50 PM CDT documented as of this encounter Plan of Treatment Upcoming Encounters Date Type Department Care Team (Latest Contact Info) Description 07/18/2024 10:45 AM CDT Office Visit Department of Orthopedic Surgery in [place], [place] [address] [place] [phone] Andrew Dougherty M.D. [address] [place] [address] 07/20/2024 3:00 PM CDT Office Visit Department of Family Medicine, [facility], in [place], [place] [address] [place] [phone] Sánchez Goldberg D.O. [address] [place] [phone] 07/23/2024 10:50 AM CDT Hospital Encounter Post Anesthesia Care Unit in [address] [phone] Andrew Dougherty M.D. [address] [place] [phone] 07/23/2024 10:50 AM CDT - 07/23/2024 12:02 PM CDT Surgery RST ROMB MAIN OR [address] [place] [phone] Andrew Dougherty M.D. [address] [place] [phone] RELEASE CARPAL TUNNEL OPEN WRIST 07/27/2024 9:00 AM CDT Office Visit Division of Trauma Critical Care and General Surgery in [address] [phone] Jeanie Tavarez APRN, C.N.P., D.N.P. [address] [place] [phone] 09/06/2024 7:50 AM CDT Hospital Encounter Post Anesthesia Care Unit in [address] [phone] Andrew Dougherty M.D. [address] [place] [phone] 09/06/2024 7:50 AM CDT - 09/06/2024 9:02 AM CDT Surgery RST ROMB MAIN OR [address] [place] [phone] Andrew Dougherty M.D. [address] [place] [phone] RELEASE CARPAL TUNNEL OPEN WRIST Scheduled Procedures [...] Depression Total Score: 17 025 10:48 AM CENTRIFUGAL SCREEN TENDER documented as of this encounter Care Teams Special Class Welder Relationship Specialty Start Date End Date Sánchez Goldberg D.O. [address] [place] [phone] PCP - General Family Medicine 03/26/20 documented as of this encounter
--- OUTSIDE RECORDS SUMMARY | 2024-07-13 23:46 | XMS_ITS | Encounter Summary ---
Author Organization [facility] Address [address] [place] [phone] Care Team Providers Care Manager Travel Name Role Phone Sánchez Goldberg D.O. Primary Care Provider Encounter Details Date Type Department Care Team (Late st Contact Info) Description 07/13/2024 Clinical Communication Division of Trauma Critical Care and General Surgery in [place], [place] [address] [place] [phone] Jose Leon D.O. [address] [place] [phone] Social History Tobacco Use Types Packs/Day Years Used Date Smoking Tobacco: Never Passive Smoke Exposure: Never Smokeless Tobacco: Never Alcohol Use Standard Drinks/Week Comments Not Currently 1 (1 standard drink = 0.6 oz pur e alcohol) daily caffeine C Utilities Answer Date Recorded In the past 12 months has e [employer], gas, oil, or water [employer] threatened to shut off services in your [...] often do you attend chur ch or spiritism services? Never 07/13/2022 Do you belong to any clubs o r organizations such as hindu groups, unions, fraternal or athletic groups, or [...] Answer Date Recorded PHQ-2 Score 6 05/16/2024 [facility] of Occupat ional Health - Occupational Stress [...] your living situation today? I have a [facility] place to live 07/08/2024 Education Answer Date Recorded What is the highest level of school you have completed or the highest degree you have received? Some college, no degree 02/18/2019 Comments No Sex and Gender Information Value Date Recorded Sex Assigned at Female 09/13/2017 7:50 PM CDT Legal Sex Female 3:11 PM PULL WORKER Gender Identity Female 09/13/2017 7:50 PM CDT Sexual Orientation Straight 09/13/2017 7: 50 PM CDT documented as of this encounter Miscellaneous Notes * Telephone Encounter - Jose Leon D.O. - 07/13/2024 11:05 PM CDT This evening Mrs. Jacobsen called our service multiple times over concerns of low stoma output, nausea and distention. After talking with her she has significant concern that she could have an obstruction. She tried to drink some water later this evening and was unable to tolerate it and feels it if she were to lay down that she would vomit. I recommended returning to our emergency department for evaluation, however due to certain restraints she will go to her local emergency department for evaluation of ileus versus early obstruction postoperatively. She understands that again in contact with our service, and we will remain available to her. documented in this encounter Plan of Treatment Upcoming Encounters Date Type Department Care Team (Latest Contact Info) Description 07/18/2024 10:45 AM CDT Office Visit Department of Orthopedic Surgery in [place], [place] [address] [place] [phone] Andrew Dougherty M.D. [address] [place] [phone] 07/20/2024 3:00 PM CDT Office Visit Department of Family Medicine, [facility], in [place], [place] [address] [place] [phone] Sánchez Goldberg D.O. [address] [place] [phone] 07/23/2024 10:50 AM CDT Hospital Encounter Post Anesthesia Care Unit in [place], [place] [address] [place] [phone] Andrew Dougherty M.D. [address] [place] [phone] 07/23/2024 10:50 AM CDT - 07/23/2024 12:02 PM CDT Surgery [facility] OR [address] [place] [phone] Andrew Dougherty M.D. [address] [place] [phone] RELEASE CARPAL TUNNEL OPEN WRIST 07/27/2024 9:00 AM CDT Office Visit Division of Trauma Critical Care and General Surgery in [address] [phone] Jeanie Tavarez APRN, C.N.P., D.N.P. [address] [place] [phone] 09/06/2024 7:50 AM CDT Hospital Encounter Post Anesthesia Care Unit in [address] [phone] Andrew Dougherty M.D. [address] [place] [phone] 09/06/2024 7:50 AM CDT - 09/06/2024 9:02 AM CDT Surgery [facility] MAIN OR [address] [place] [phone] Andrew Dougherty M.D. [address] [place] [phone] RELEASE CARPAL TUNNEL OPEN WRIST Scheduled Procedures Name Priority Associated Diagnoses Date/Ti mt RELEASE CARPAL TUNNEL OPEN WRIST Carpal Tunnel [...] Depression Total Score: 17 025 10:48 AM PULL WORKER documented as of this encounter Care Teams Manager Travel Relationship Specialty Start Date End Date Sánchez Goldberg D.O. [address] [place] [phone] PCP - General Family Medicine 03/26/20 documented as of this encounter
--- OUTSIDE RECORDS SUMMARY | 2024-07-13 23:46 | XMS_ITS | Encounter Summary ---
Author Organization [facility] Address [address] [place] [address] Care Team Providers Care Director Of Career Resources Name Role Phone Sánchez Goldberg D.O. Primary Care Provider Reason for Visit * Reason Onset Date Comments Request to see a [facility] nurse 07/12/2024 Encounter Details Date Type Department Care Team (Late st Contact Info) Description 07/12/2024 Clinical Communication Division of Trauma Critical Care and General Surgery in [place], [place] [address] [place] [phone] Jennifer Edge M.D. [address] [place] [phone] Request to see a [facility] nurse Social History Tobacco Use Types Packs/Day Years Used Date Smoking Tobacco: Never Passive Smoke Exposure: Never Smokeless Tobacco: Never Alcohol Use Standard Drinks/Week Comments Not Currently 1 (1 standard drink = 0.6 oz pur e alcohol) daily caffeine [facility] Utilities Answer Date Recorded In the [...] How often do you attend chur or pentecostal services? Never 07/13/2022 Do you belong to [...] Score 6 05/16/2024 [facility] of Occupat ional Health - Occupational Stress [...] your living situation today? I have a [facility] place to live 07/08/2024 Education Answer Date Recorded What is the highest level of school you have completed or the highest degree you have received? Some college, no degree 02/18/2019 Comments No Sex and Gender Information Value Date Recorded Sex Assigned at Female 09/13/2017 7:50 PM CDT Legal Sex Female 3:11 PM DOG LICENSER Gender Identity Female 09/13/2017 7:50 PM CDT Sexual Orientation Straight 09/13/2017 7: 50 PM CDT documented as of this encounter Plan of Treatment Upcoming Encounters Date Type Department Care Team (Latest Contact Info) Description 07/18/2024 10:45 AM CDT Office Visit Department of Orthopedic Surgery in [place], [place] 200 [place] [phone] Andrew Dougherty M.D. [address] [place] [phone] 07/20/2024 3:00 PM CDT Office Visit Department of Family Medicine, [facility], in [place], [place] [address] [place] [phone] Sánchez Goldberg D.O. [address] [place] [phone] 07/23/2024 10:50 AM CDT Hospital Encounter Post Anesthesia Care Unit in [address] [phone] Andrew Dougherty M.D. [address] [place] [phone] 07/23/2024 10:50 AM CDT - 07/23/2024 12:02 PM CDT Surgery [facility] MAIN OR [address] [place] [phone] Andrew Dougherty M.D. [address] [place] [phone] RELEASE CARPAL TUNNEL OPEN WRIST 07/27/2024 9:00 AM CDT Office Visit Division of Trauma Critical Care and General Surgery in [address] [phone] Jeanie Tavarez APRN, C.N.P., D.N.P. [address] [place] [phone] 09/06/2024 7:50 AM CDT Hospital Encounter Post Anesthesia Care Unit in [address] [phone] Andrew Dougherty M.D. [address] [place] [phone] 09/06/2024 7:50 AM CDT - 09/06/2024 9:02 AM CDT Surgery [facility] OR [address] [place] [phone] Andrew Dougherty M.D. [address] [place] [phone] RELEASE CARPAL TUNNEL OPEN WRIST Scheduled Procedures [...] Depression Total Score: 17 025 10:48 AM DOG LICENSER documented as of this encounter Care Teams Director Of Career Resources Relationship Specialty Start Date End Date Sánchez Goldberg, Melodie [address] [place] [phone] PCP - General Family Medicine 03/26/20 documented as of this encounter
--- OUTSIDE RECORDS SUMMARY | 2024-07-13 23:46 | XMS_ITS | Encounter Summary ---
Author Organization [facility] Address [address] [place] [address] Care Team Providers Care Wing Scorer Name Role Phone Sánchez Goldberg D.O. Primary Care Provider Encounter Details Date Type Department Care Team (Latest Contact Info) Description 07/08/2024 6:55 PM CDT Ancillary Procedure Department of Gastroenterology Social History Tobacco Use Types Packs/Day Years Used Date Smoking Tobacco: Never Passive Smoke Exposure: Never Smokeless Tobacco: Never Alcohol Use Standard Drinks/Week Comments Not Currently 1 (1 standard drink = 0.6 oz pur e alcohol) daily caffeine [facility] Utilities Answer Date Recorded In the past 12 months has [employer], oil, or water [employer] threatened to shut off services in your [...] often do you attend chur ch or zoroastrianism services? Never 07/13/2022 Do you belong to any clubs o r organizations such as mandaen groups, unions, fraternal or athletic groups, or [...] Answer Date Recorded PHQ-2 Score 6 05/16/2024 [facility] Questionnaire Answer Date [...] your living situation today? I have a [facility] place to live 07/08/2024 Education Answer Date Recorded What is the highest level of school you have completed or the highest degree you have received? Some college, no degree 02/18/2019 Comments No Sex and Gender Information Value Date Recorded Sex Assigned at Female 09/13/2017 7:50 PM CDT Legal Sex Female 3:11 PM [employer] MATE Gender Identity Female 09/13/2017 7:50 PM CDT Sexual Orientation Straight 09/13/2017 7: 50 PM CDT documented as of this encounter Plan of Treatment Upcoming Encounters Date Type Department Care Team (Latest Contact Info) Description 07/18/2024 10:45 AM CDT Office Visit Department of Orthopedic Surgery in [place], [place] 200 [place] [phone] Andrew Dougherty M.D. 200 [place] [phone] 07/20/2024 3:00 PM CDT Office Visit Department of Family Medicine, [facility], in [place], [place] [address] [place] [phone] Sánchez Goldberg D.O. [address] [place] [phone] 07/23/2024 10:50 AM CDT Hospital Encounter Post Anesthesia Care Unit in [address] [phone] Andrew Dougherty M.D. [address] [place] [phone] 07/23/2024 10:50 AM CDT - 07/23/2024 12:02 PM CDT Surgery [facility] MAIN OR [address] [place] [phone] Andrew Dougherty M.D. [address] [place] [phone] RELEASE CARPAL TUNNEL OPEN WRIST 07/27/2024 9:00 AM CDT Office Visit Division of Trauma Critical Care and General Surgery in [address] [phone] Jeanie Tavarez APRN, C.N.P., D.N.P. [address] [place] [phone] 09/06/2024 7:50 AM CDT Hospital Encounter Post Anesthesia Care Unit in [address] [phone] Andrew Dougherty M.D. [address] [place] [phone] 09/06/2024 7:50 AM CDT - 09/06/2024 9:02 AM CDT Surgery [facility] OR [address] [place] [phone] Andrew Dougherty M.D. [address] [place] [phone] RELEASE CARPAL TUNNEL OPEN WRIST Scheduled Procedures [...] Online Services documented as of this encounter Procedures Procedure Name Priority Date/Time Associated Diagnosis Comments GASTROENTEROLOGY IMAGE EXAM Routine 07/08/2024 6:55 PM CDT documented in this encounter Results * Abdomen-Gastroenterology Image Exam (07/08/2024 6:55 PM [...] NON RAD IMAGING PROCE DURES Final Result IIMS NA documented in this encounter Visit Diagnoses Not on filedocumented in this encounter Additional Health Concerns Active Problems Noted Date Diagnosed Date 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 [address] [place] [phone] PCP - General Family Medicine 03/26/20 documented as of this encounter
--- OUTSIDE RECORDS SUMMARY | 2024-07-13 23:46 | XMS_ITS | Encounter Summary ---
Author Organization [facility] Address [address] [place] [address] Care Team Providers Care Flow Machine Operator Name Role Phone Sánchez Goldberg D.O. Primary Care Provider Encounter Details Date Type Department Care Team (Late st Contact Info) Description 07/09/2024 1:58 PM CDT - 07/09/2024 6:01 PM CDT Surgery RST ROMB MAIN OR [address] [place] [phone] Jennifer Edge M.D. [address] [place] [phone] ROBOTIC-ASSISTED ABDOMINAL EXPLORATION, lysis of adhesions, parastoma hernia repair with mesh Social History Tobacco Use Types Packs/Day Years [...] How often do you attend chur or sabianist services? Never 07/13/2022 Do you belong to any clubs o r organizations such as gnosticist groups, unions, fraternal or athletic groups, or [...] Answer Date Recorded PHQ-2 Score 6 05/16/2024 [facility] [place] of Occupat ional Health - Occupational Stress [...] your living situation today? I have a [facility] place to live 07/08/2024 Education Answer Date Recorded What is the highest level of school you have completed or the highest degree you have received? 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 Gender Identity Female 09/13/2017 7:50 PM CDT Sexual Orientation Straight 09/13/2017 7: 50 PM CDT documented as of this encounter Last Filed Vital Signs Vital Sign Reading Time Taken Comments Blood Pressure 134/79 07/09/2024 12:07 PM CDT Pulse 88 07/09/2024 2:45 PM CDT Temperature 36.8 C (98.2 F) 07/09/2024 3:20 PM CDT Respiratory Rate 13 07/09/2024 2:45 PM CDT Oxygen Saturation 91% 07/09/2024 2:45 PM CDT Inhaled Oxygen Concentration - - Weight 120 kg (264 lb 12.4 oz) 07/08/2024 3:15 P M CDT Height 165.1 cm (5' 5) 07/08/2024 3:15 PM CDT Body Mass Index 44.61 07/08/2024 3:15 PM CDT documented in this encounter Discharge Summaries * Jeanie Tavarez APRN, C.N.P., D.N.P. - 07/13/2024 9:38 AM CDT DISCHARGE SUMMARY BRIEF OVERVIEW Hospital: [facility] Discharge Provider: Jennifer Edge M.D. Primary Team: [facility] Primary Care Providers: Sánchez Goldberg D.O. (General) [address] [place] [phone] Primary Care Provider Primary Care Provider Admission Date: 07/08/2024 Discharge Date: 07/13/2024 PRINCIPAL DIAGNOSIS Crohn's Disease (HCC) SECONDARY DIAGNOSES Principal Problem: Crohn's Disease (HCC) Active Problems: Gastroesophageal Reflux Disease NOS Fibromyalgia Anxiety Generalized Disorder Asthma Mild Intermittent (HCC) Anemia Iron Deficiency Morbid Obesity Body Mass Index 45.0-49.9 Adult (HCC) Bipolar Disorder Current Episode Depressed Moderate (HCC) Borderline Personality Disorder (HCC) Obstruction Intestinal (HCC) Abdominal Pain Resolved Problems: * No resolved hospital problems. * Surgery Information This Encounter Past Procedures (07/14/2023 to Today) Date Procedures Providers Loc / Dept 07/09/2024 ROBOTIC-ASSISTED ABDOMINAL EXPLORATION, lysis of adhesions, parastoma hernia repair withmesh, BLOCK - TRANSVERSUS ABDOMINIS PLANE Jennifer Edge M.D.Sherwin Galvan M.D., Ph.D.Keisha Donald M.D.Young, Lindsey W, M.D. RST ROMB OR DISCHARGE DISPOSITION Home or Self Care [1] ACTIVE ISSUES REQUIRING FOLLOW UP PRIMARY CARE PROVIDER: You should follow up with your primary care provider within one to two weeks of being discharged. This appointment will be for further assessment following your hospitalization evaluation of your pre-existing medical conditions and review and management of your medications. Changes to your previousmedications may have been made during this hospitalization, and you will need to discuss those ayala es with your healthcare provider. HOSPITAL SURGICAL SERVICE: CHIEF B SERVICE You will receive a follow up appointment in the mail to see a team otr truck driver of the [facility] Surgical Service in 2 weeks regarding staple removal for parastomal hernia repair. If you do not receive an appointment please call [phone]. If you need to speak with them during office hours you may call the [facility] Surgical executive secretary at [phone]. If you need to reach a provider on the [facility] Surgical Service after hours, you may call the [facility] carding machine operator at [phone] and ask to speak the provider high school home economics teacher. If you have forms that need addressed by the surgery team or outside records that need to be uploaded, please email them to [email or web address] or fax them at [phone]. Issue: Post hospitalization follow-up What is Needed: PCP follow-up Follow-up Appointments Arranged: Yes Issue: Staple removal, follow-up after parastomal hernia repair What is Needed: Follow-up in [facility] clinic Follow-up Appointments Arranged: Yes OUTPATIENT FOLLOW UP Scheduled Appointments 07/18/2024 10:45 AM Andrew Dougherty M.D. Orthopedic Surgery 07/20/2024 3:00 PM Sánchez Goldberg D.O. Family Medicine For appointment details refer to your Patient Appointment Guide. TEST RESULTS PENDING AT DISCHARGE Pending Labs None DETAILS OF HOSPITAL STAY REASON FOR ADMISSION Abdominal Pain Obstruction Intestinal (HCC) Crohn's Disease (HCC) HOSPITAL COURSE Mrs. Grisel Cruz is a 38 y.o. female with ileocolonic and perianal Crohn's disease s/p total proctocolectomy and end ileostomy (07/2019) and parastomal hernia c/b recurrence requiring repair in 2021 and 2022 as well as treatment refractory disease who was admitted for SBO suspected secondary to hernia obstruction. The patient had a 1 week history of worsening abdominal pain, which worsened overnight on 07/07, prompting her to present to her local hospital, [facility]. There they placed an NG tube and prescribed IV fluids. Outside CT abdomen pelvis on 07/08 demonstrated small bowel loop dilatation (up to 4 cm) and a likely transition point at the hernia site. [facility]. GI-B (07/08-07/09) On arrival, laboratory evaluation revealed elevated CRP and leukocytosis. Lactate was within normallimits. Of note, she stated explicitly that she would not refuse blood products (see admission notefor further details). She was started on maintenance fluids. HSS B (07/09-07/13) The [facility] Surgical Service Chief B was consulted. She underwent gastrografin challenge. She failed a Gastrografin challenge, therefore it was recommended to proceed to the operating room. On 07/09,she proceeded to the operating room for robotic assisted abdominal exploration, lysis of adhesions and parastomal hernia repair with mesh. Her incisions were closed with sharmin. She transferred to [facility] surgical service following the procedure. She remained with a NG tube in place until return of bowel function. This was removed on 07/12 and she was started on a clear liquid diet. She was then advanced to regular diet which she tolerated. [facility] RN also was engaged to assist with ostomy appliance. When she was tolerating a diet, her pain was well controlled with oral pain medications, she was mobilizing without difficulty and her bowel and bladder function were acceptable, she was dismissed tohome independently. CONSULTS ORDERED DURING THIS ADMISSION IP CONSULT TO GENERAL SURGERY IP CONSULT TO CARE MANAGEMENT IP CONSULT TO CARE MANAGEMENT IP CONSULT TO OSTOMY CARE CONDITION AT DISCHARGE stable Discharge instructions were provided to the patient and caregiver(s). Total time spent in discharge services today: 30 minutes. * Kunal Narvaez M.B.B.S. - 07/09/2024 1:23 PM CDT TRANSFER NOTE REASON FOR TRANSFER Postoperative Care CONDITION AT TRANSFER Stable. PHYSICAL EXAM Please see physical exam in the progress note from today. SUMMARY OF CARE Mrs. Grisel Cruz is a 38 y.o. female with ileocolonic and perianal Crohn's disease s/p total proctocolectomy and end ileostomy (07/2019) and parastomal hernia c/b recurrence requiring repair in 2021 and 2022 as well as treatment refractory disease who was admitted for SBO suspected secondary to hernia obstruction. The patient had a 1 week history of worsening abdominal pain, which worsened overnight on 07/07, prompting her to present to her local hospital, [facility]. There they placed an NG tube and prescribed IV fluids. Outside CT abdomen pelvis on 07/08 demonstrated small bowel loop dilatation (up to 4 cm) and a likely transition point at the hernia site. [facility] was [facility]. GI-B (07/08-07/09) On arrival, laboratory evaluation revealed elevated CRP and leukocytosis. Lactate was within normallimits. Of note, she stated explicitly that she would not refuse blood products (see admission notefor further details). She was started on maintenance fluids and TCGS was consulted. She failed a Gastrografin challenge and HSS-A took the patient to exploratory laparotomy on 07/09/2024. The patientsubsequently transferred to the surgical service. Recommendations: Cares per Primary Team Outpatient Gastroenterology Follow-Up with Dr. Mccollum (already ordered) SUMMARY DIAGNOSES #1 Ileocolonic Crohn's Disease and Perianal Crohn's disease s/p total proctocolectomy and end ileostomy c/b Parastomal Hernia #2 SBO Secondary to Parastomal Hernia Dr. Kunal Narvaez PGY-2 Internal Medicine [id number] Service Pager: [phone] documented in this encounter Discharge Instructions * Discharge Instructions* Jeanie Tavarez, STEPHANIE, C.N.P., D.N.P. - 07/09/2024 7:57 AM CDT You were discharged from the [facility] Hospital Service. Please identify this service name if you call with questions after hospitalization. .Opioid Pain Medicine Management Opioid pain medicines are strong medicines that are used to treat bad or very bad pain. When you take them for a short time, they can help you: 1. Sleep better. 2. Do better in physical therapy. 3. Feel better during the first few days after you get hurt. 4. Recover from surgery. Only take these medicines if a doctor says that you can. You should only take them for a short time. This is because opioids can be very addictive. This means that they are hard to stop taking. The longer you take opioids, the harder it may be to stop taking them. What are the risks? Opioids can cause problems (side effects). Taking them for more than 3 days raises your chance of problems, such as: 1. Trouble pooping (constipation). 2. Feeling sick to your stomach (nausea). 3. Vomiting. 4. Feeling very sleepy. 5. Confusion. 6. Not being able to stop taking the medicine. 7. Breathing problems. Taking opioids for a long time can make it hard for you to do daily tasks. It can also put you at risk for: 1. Car accidents. 2. Depression. 3. Suicide. 4. Heart attack. 5. Taking too much of the medicine (overdose). This can lead to . Tapering Opioids Opioids can help but also hurt. Opioids are strong medications that can help manage acute pain for a short time. However, when taken long-term, opioids can actually make pain worse. The risks of taking opioids over a long period of time include addiction and life-threatening breathing problems. In addition, risks include constipation, confusion, forgetfulness, dizziness, difficulty sleeping, sexual problems, irritability, and drug-interaction problems. Taking opioids can cause issues in your daily life, such as relationship, workplace and driving problems. For these reasons, it is important to take opioids only as long as needed and at the lowest dose possible. Why taper? Once you have been taking opioids for a long while, your body gets used to taking them. It is important to slowly lower the dose of opioids you take, called tapering, rather than just stop taking them all at once. This is to avoid withdrawal symptoms. Withdrawal symptoms can include: 1. Muscle aches. 2. Restlessness. 3. Anxiety. 4. Pain that gets worse. 5. Having a hard time sleeping. 6. Diarrhea, abdominal cramping, upset stomach. Opioids and the cycle of pain can happen over time when you take opioids. - You take opioids regularly - Your pain improves for a short while - Over time opioids become less effective. You take higher doses to get the same pain relief - Your pain gets worse, called hyperalgesia - You have more side effects and do not function well - You try to stop taking opioids - You have withdrawals symptoms What is your goal? Talk with your provider about your goal for tapering. For many people, the goal is to no longer take opioids at all. However, for others, the goal may be to taper opioids until they take the lowest dose of opioid medication that is helpful. Your provider can help you set a goal right for you. What is your tapering schedule? Work with your health care provider to set up a schedule for tapering opioids. Talk to your provider about other options besides opioids and how to safely reduce how much opioid medication you take. Use this resource to record your personal opioid tapering plan. Getting rid of leftover pills Do not save any leftover pills. Get rid of leftover pills safely by: 1. Taking the medicine to a prescription take-back program. This is usually offered by the county or law enforcement. 2. Bringing them to a pharmacy that has a drug disposal container. 3. Flushing them down the toilet. Check the label or package insert of your medicine to see whetherthis is safe to do. 4. Throwing them out in the trash. Check the label or package insert of your medicine to see whether this is safe to do. - If it is safe to throw it out, remove the medicine from the original container, put it into a sealable bag or container, and mix it with used coffee grounds, food scraps, dirt, or cat litter beforeputting it in the trash. Get help right away if: 1. You may have taken too much of an opioid (overdosed). Common symptoms of an overdose: -Your breathing is slower or more shallow than normal. -You have a very slow heartbeat (pulse). -You have slurred speech. -You have nausea and vomiting. -Your pupils become very small. 2. You have other potential symptoms: -You are very confused. -You faint or feel like you will faint. -You have cold, clammy skin. -You have blue lips or fingernails. 3. You have thoughts of harming yourself or harming others. Get help right away if you feel like you may hurt yourself or others or have thoughts about taking your own life. Go to your nearest emergency room or: - Call your local emergency services (911 in the [place] - Call the National Poison Control Center at . - Call a suicide crisis helpline, such as the National Suicide Prevention Lifeline at or 501 in the [place] This is open 24 hours a day. - Text the Crisis Text Line at 606997. Where to find more information - Centers for Disease Control and Prevention (CDC): www.cdc.gov - [place] Food and Drug Administration (FDA): www.fda.gov Summary Opioids are strong medicines that are used to treat bad or very bad pain. A pain treatment plan is a plan made by you and your doctor. Work with your doctor to make a plan for treating your pain. If you think that you or someone else may have taken too much of an opioid, get help right away. This information is not intended to replace advice given to you by your health care provider. Make sure you discuss any questions you have with your health care provider documented in this encounter Medications at Time of Discharge [...] needed for anxiety. 30 tablet 09/13/19 24 lurasidone (Latuda) 20 mg tablet Take 1 tablet (20 mg total) by mouth daily with morning meal. Administer with food (at least 350 calories) 06/16/19 25 026 naloxone (Narcan) 4 mg/actuation nasal spray Administer 4 mg into nostril(s) as needed. 04/16/19 25 ondansetron ODT (Zofran-ODT) 4 mg disintegrating tablet Dissolve 1 tablet (4 mg total) in the mouth every 8 (eight) hours as needed for nausea or vomiting. 20 tablet 01/09/20 24 oxyCODONE (Roxicodone) 5 mg immediate release tabletIndications: Chronic Pain/Nonacute Pain Take 1 tablet (5 mg total) by mouth daily Indication: Chronic Pain/Nonacute Pain. 6 tablet 06/21/19 25 oxyCODONE (Roxicodone) 5 mg immediate release tabletIndications: Acute Pain Take 1 tablet (5 mg total) by mouth every 4 (four) hours as needed for severe pain or score 7-10 of 10 12 tablet 07/13/2024 1:23 PM CDT 07/14/19 25 pantoprazole (Protonix) 40 mg EC tablet Take 1 tablet (40 mg total) by mouth daily before morning meal. 30 tablet 07/13/2024 1:23 PM CDT 07/15/19 25 Stelara 45 mg/0.5 mL injection Inject 45 mg under the skin. Pt states every 6-8 weeks 03/26/19 25 SUMAtriptan (Imitrex) 50 mg tabletIndications: Migraine Headache Take 1 tablet (50 mg total) by mouth as needed for migraine. May repeat dose once in 2 hours if migraine is unresolved. Do not exceed 200 mg in 24 hours. 9 tablet 11 05/16/19 25 documented as of this encounter Progress Notes * Leonidas Russell, RDanielaNDaniela, MELISSA - 07/13/2024 10:44 AM CDT SUBJECTIVE REASON FOR VISIT Postoperative visit Patient Coping: Appropriate OBJECTIVE Physical Exam 07/13/24 1000 Ileostomy End RLQ Placement Date/Time: 07/27/19 1634 Surgeon: Dr. Vaughn Ileostomy Type: End Location: RLQ Site Assessment Budded;Red Stoma Size 1-3/8 x 2 Skin Assessment Intact;Sutures intact Peristomal Skin Care Water Pouching System (Stomal Appliance) Status Changed Changed by Wound entry level administrative assistant;Completed;Patient;Observed Pouching System Removed OR Pouch Pouching System Applied Jerry 33850 wafer, Coloplast 37245 protective seal, Jerry 38301 pouch (Similar system to what she was using previously) Ongoing management Nursing;Patient/caregiver She was previously using a Scalf 22653 oval convex ring as well but this was not needed at thistime. Other products used are the same as before surgery. Additional Ostomy Products for Consideration: #8026 Jerry Adapt Stoma powder 1 oz bottle #[id number] Esenta Adhesive Remover Wipes 25/box #3583 Jerry Adapt 1 Ostomy Belt- Medium #2696 Scalf Adapt 1 Ostomy Belt- Large #3083 Jerry M9 Odor Eliminator Drops 8 oz bottle ASSESSMENT / PLAN EDUCATION STATUS Patient is familiar and comfortable with ostomy cares. PLAN Consult complete, patient has met ostomy specialty service criteria. To request another consultation with a [facility] nurse, please place an order using [id number]. * Tito Johnson M.D. - 07/13/2024 7:05 AM CDT HSS-B Progress Note SUBJECTIVE Postop Day: 4 Days Post-Op Hospital Day: LOS: 5 days No acute events overnight. Hemodynamically stable, afebrile, on room air. Tolerating soft diet without nausea or emesis. Adequate stoma function (1200 cc). Increased WBC 14.3 (13.3), Hb 13.5 (12.4) and platelets 386 (341) likely due to hemoconcentration. Ambulating. Adequate urine output. OBJECTIVE VITAL SIGNS Temperature: [36.8 ??C-37.2 ??C] 36.9 ??C Resp Rate: [13-16] 16 Blood Pressure: (120-143)/(69-94) 120/69 SpO2: [97 %-99 %] 97 % Pulse Rate: [88-95] 88 I/O Date 07/12/24 0700 - 07/13/24 0659 07/13/24 0700 - 07/14/24 0659 Shift 6203-9754 1851-6684 5673-9657 24 Hour Total 9643-6393 8822-0573 9522-8457 24 Hour Total INTAKE P.O. 450 300 750 Shift Total(mL/kg) 450(3.7) 300(2.5) 750(6.2) OUTPUT Urine(mL/kg/hr) 200(0.2) 650(0.7) 325(0.3) 1175(0.4) Emesis or Enteric Tube 100 100 Output (mL) ([REMOVED] GI Tube (Adult) 14 Fr Nare Left) 100 100 Stool 775 392 924 1240 Shift Total(mL/kg) 1075(8.8) 775(6.4) 705(5.8) 2555(21) Weight (kg) 121.6 121.6 121.6 121.6 121.6 121.6 121.6 121.6 DIAGNOSTICS Recent Results (from the past 24 hours) CBC without Differential Collection Time: 07/12/24 8:13 PM Result Value Hemoglobin 13.5 Hematocrit 41.0 Erythrocytes 4.75 MCV 86.3 RBC Distrib Width 13.0 Platelet Count 386 (H) Leukocytes 14.3 (H) PHYSICAL EXAM Constitutional General: She is not in acute distress. Appearance: She is obese. Eyes Extraocular Movements: Extraocular movements intact. Pulmonary Effort: Pulmonary effort is normal. Abdominal Palpations: Abdomen is soft. Comments: Healthy stoma, stool in the bag. Abdomen soft, appropriate minimal tenderness. Incisions healing well. Neurological Mental Status: She is alert. Assessment ASSESSMENT AND PLAN #1 Gastroesophageal Reflux Disease NOS #2 Fibromyalgia #3 Anxiety Generalized Disorder #4 Asthma Mild Intermittent ([facility]) #5 Anemia Iron Deficiency #6 Morbid Obesity Body Mass Index 45.0-49.9 Adult ([facility]) #7 Bipolar Disorder Current Episode Depressed Moderate ([facility]) #8 Borderline Personality Disorder ([facility]) #9 Obstruction Intestinal ([facility]) #10 Abdominal Pain #11 Crohn's Disease ([facility]) 38 F with Crohn's disease with history of total proctocolectomy with end ileostomy c/b recurrent parastomal hernia s/p robotic-assisted parastomal hernia repair with mesh on 07/09/24. Continues to progress favorably. NGT removed yesterday. Today she is tolerating soft diet and having adequate stoma function. PLAN: - Regular diet - Encourage increased fluid intake - Discharge later today if tolerating regular diet - Continue pain, bowel, and psychiatric regimen - Follow-up in 2 weeks via phone call Patient is being cared for by the HSS-B team. Please page [phone] (HSS-B) with any questions. Plan and assessment were discussed with Dr. Edge, who was in agreement. Rich Bella M.D. General Surgery PGY-1 * Shania Wills R.N., MELISSA - 07/12/2024 11:49 AM CDT SUBJECTIVE REASON FOR VISIT Consulted for questions if pouching system is due to be changed, if output is appropriate, and patient wanting to ensure her current procedure for system change is appropriate prior to discharge. Spoke with unit-based RN and referred to [facility] RN note from 07/09, which specifies [facility] RN role, ostomycares, and patient's current supplies. Informed Unit RN that any necessary supplies not orderable in [facility] can be provided by [facility] RN's. Discussed stool output can vary greatly from liquid to pudding-like depending on diet and that any questions related to appropriate quantity of output should be referred to Dr. Edge's Service. ADDENDUM: Spoke with patient's unit-based RN again who reported patient voiced she did not like the pouching system that was placed during surgery and that stoma size had changed due to recent hernia repair. Informed unit-RN the [facility] RN's never received a consult post hernia repair on 07/09 and that patient would be seen tomorrow for assessment of pouching system. Upon further examination, consult received for management of ostomy and request for cares for patient on 07/09 was received in the morning (note signed at 0833), and surgery for hernia repair was listed for 1438. PLAN Consult complete, patient has met ostomy specialty service criteria. To request another consultation with a [facility] nurse, please place an order using [id number]. * Tito Johnson M.D. - 07/12/2024 9:28 AM CDT HSS-B Progress Note SUBJECTIVE Postop Day: 3 Days Post-Op Hospital Day: LOS: 4 days No acute events overnight. Hemodynamically stable, afebrile, on room air. Feels well. NG in place (800 cc); denies nausea or vomiting. Stoma is producing stool (630 cc). WBC stable at 13.2 (13.3). Hemoglobin stable at 12.4 (12.1). Ambulating without difficulty. OBJECTIVE VITAL SIGNS Temperature: [36.7 ??C-37.3 ??C] 37.3 ??C Heart Rate: [92] 92 Resp Rate: [15-16] 16 Blood Pressure: (120-132)/(74-95) 120/74 SpO2: [93 %-96 %] 93 % Pulse Rate: [92-97] 97 I/O Date 07/11/24 07 - 07/12/24 0659 07/12/24 07 - 07/13/24 0659 Shift 4002-4694 0594-1576 9338-1885 24 Hour Total 7969-7432 6573-7320 1612-1651 24 Hour Total INTAKE P.O. 250 0 250 Crystalloid Bolus 20 20 Shift Total(mL/kg) 20(0.2) 250(2.1) 0(0) 270(2.2) OUTPUT Urine(mL/kg/hr) 900(0.9) 820(0.8) 375(0.4) 2095(0.7) Emesis or Enteric Tube 150 600 200 950 Output (mL) (GI Tube (Adult) 14 Fr Nare Left) 150 600 200 950 Stool 230 400 630 125 125 Shift Total(mL/kg) 1050(8.6) 1650(13.6) 975(8) 3675(30.2) 125(1) 125(1) Weight (kg) 121.6 121.6 121.6 121.6 121.6 121.6 121.6 121.6 DIAGNOSTICS Recent Results (from the past 24 hours) CBC without Differential Collection Time: 07/12/24 3:24 AM Result Value Hemoglobin 12.4 Hematocrit 38.2 Erythrocytes 4.35 MCV 87.8 RBC Distrib Width 12.8 Platelet Count 341 Leukocytes 13.2 (H) Basic Metabolic Panel Collection Time: 07/12/24 3:25 AM Result Value Potassium, S 4.0 Sodium, S 141 Chloride, S 102 Bicarbonate, S 24 Anion Gap 15 BUN (Blood Urea Nitrogen), S 8 Creatinine 0.73 Estimated GFR (eGFR) >90 Calcium, Total, S 9.0 Glucose, S 83 Magnesium Collection Time: 07/12/24 3:25 AM Result Value Magnesium, S 2.3 Phosphorus Inorganic Collection Time: 07/12/24 3:25 AM Result Value Phosphorus (Inorganic), S 3.4 PHYSICAL EXAM Constitutional General: She is not in acute distress. Eyes Extraocular Movements: Extraocular movements intact. Pulmonary Effort: Pulmonary effort is normal. Abdominal Palpations: Abdomen is soft. Comments: Healthy stoma, stool in the bag. Abdomen soft, nontender. Incisions healing well. Neurological Mental Status: She is alert. Assessment ASSESSMENT AND PLAN #1 Gastroesophageal Reflux Disease NOS #2 Fibromyalgia #3 Anxiety Generalized Disorder #4 Asthma Mild Intermittent ([facility]) #5 Anemia Iron Deficiency #6 Morbid Obesity Body Mass Index 45.0-49.9 Adult ([facility]) #7 Bipolar Disorder Current Episode Depressed Moderate ([facility]) #8 Borderline Personality Disorder ([facility]) #9 Obstruction Intestinal ([facility]) #10 Abdominal Pain #11 Crohn's Disease ([facility]) 38F with Crohn's disease with history of total proctocolectomy with end ileostomy c/b recurrent parastomal hernia s/p robotic-assisted parastomal hernia repair with mesh on 07/09/24. She is progressing in a favorable fashion. Achieved return of bowel function. PLAN: - NGT Clamp trial this morning. - Remove NGT and start clears if tolerates clamp trial. - Continue pain, bowel, and psychiatric medications as scheduled and tolerated. - Encourage ambulation Patient is being cared for by the S-B team. Please page [phone] (S-B) with any questions. Plan and assessment were discussed with Dr. Edge, who was in agreement. Rich Bella M.D. General Surgery PGY-1 * Jose Soni - 07/11/2024 8:29 AM CDT SUBJECTIVE Postop Day: 2 Days Post-Op Hospital Day: LOS: 3 days Grisel Cruz is a 38-year-old female with a history of Crohn's disease s/p total proctocolectomy with end ileostomy on hospital day 3, post-op day 2, recovering from a robotic parastomal hernia repair with mesh. She originally presented with an SBO on 07/08 with a recurrent, large parastomal hernia. She failed conservative measures and underwent a successful reduction and mesh repair of her hernia on 07/09. We met and examined the patient today. There were no acute events overnight. Her indwelling urinarycatheter was removed yesterday without complication. She continues to feel significantly improved. She did have some mild nausea last night but this improved when she turned the temperature down in her room. She states she is no longer nauseous, and additionally denies abdominal pain, abdominal pressure, or shortness of breath. Her stoma continues to demonstrate minimal, appropriate appearing output. She is intermittently sitting up and ambulating as tolerated. All questions answered. OBJECTIVE VITAL SIGNS Temperature: [36.4 ??C-37.2 ??C] 37.2 ??C Resp Rate: [14-17] 14 Blood Pressure: (110-127)/(61-76) 125/75 SpO2: [93 %-99 %] 96 % Weight: [122 kg] 122 kg BMI (Calculated): [44.6 kg/m??] 44.6 kg/m?? Pulse Rate: [79-91] 79 I/O Intake/Output Last 24 Hours: Intake/Output Summary (Last 24 hours) at 07/11/2024 0833 Last data filed at 07/11/2024 0822 Gross per 24 hour Intake 2117.5 ml Output 2720 ml Net -602.5 ml DIAGNOSTICS Recent Results (from the past 24 hours) Phosphorus Inorganic Collection Time: 07/10/24 8:53 PM Result Value Phosphorus (Inorganic), S 2.8 CBC without Differential Collection Time: 07/10/24 8:53 PM Result Value Hemoglobin 12.1 Hematocrit 35.9 Erythrocytes 4.18 MCV 85.9 RBC Distrib Width 13.1 Platelet Count 282 Leukocytes 13.3 (H) Basic Metabolic Panel Collection Time: 07/10/24 8:53 PM Result Value Potassium, S 3.5 (L) Sodium, S 139 Chloride, S 102 Bicarbonate, S 27 Anion Gap 10 BUN (Blood Urea Nitrogen), S 7 Creatinine 0.75 Estimated GFR (eGFR) >90 Calcium, Total, S 8.5 (L) Glucose, S 98 PHYSICAL EXAM Constitutional General: She is not in acute distress. Pulmonary Effort: Pulmonary effort is normal. Abdominal Palpations: Abdomen is soft. Comments: Minimal, appropriate appearing nonbloody stoma contents seen. There is diffuse mild tenderness to palpation. No erythema or overlying skin changes. Neurological Mental Status: She is alert. Assessment ASSESSMENT AND PLAN #1 Obstruction Intestinal (HCC) #2 Abdominal Pain #3 Crohn's Disease ([facility]) 38F with Crohn's disease s/p total proctocolectomy with end ileostomy c/b recurrent parastomal hernia post-op day 2 following robotic parastomal hernia repair with mesh. She continues to feel improved. There are no signs of surgical complications. The patient is hemodynamically stable. We are awaiting return of bowel function. PLAN: - Awaiting return of bowel function. The patient has active bowel sounds with no obvious signs of continued obstruction. Given her recent mild nausea, we will modify her clear liquid diet and transition to just sips. If her nausea were to recur or she demonstrates signs of recurrent obstruction, patient is aware she may require NG tube placement. - Continue pain, bowel, and psychiatric medications as scheduled and tolerated. - Continue to encourage careful walking in the hospital. Patient is being cared for by the HSS-B team. Please page [phone] (HSS-B) with any questions. Plan and assessment were discussed with Dr. Edge, who was in agreement. Jose Soni Medical Student Cosigned by Norma Chand M.D. at 07/11/2024 2:40 PM CDT Associated attestation - Norma Chand M.D. - 07/11/2024 2:40 PM CDT I saw the patient with the medical student. I was present for or re-performed the History of Present Illness. I saw and evaluated the patient, participating in the meneses portions of the service and didmedical decision making. I have reviewed the above documentation and agree or amended. Norma Chand PGY1 2:40 PM CDT 07/11/24 * Wayne Brown - 07/11/2024 8:03 AM CDT Pharmacist Progress Note Reason for admission: abdominal pain, small bowel obstruction s/p Hernia mesh repair on 07/09 PMH: Ileocolonic Crohn's Disease and perianal Crohn's disease (since 2010) s/p total proctocolectomy and end ileostomy (07/2019) and parastomal hernia c/b recurrence requiring repair in 2021 in 2022 as well as treatment refractory disease to infliximab, adalimumab, vedolizumab, and certolizumab currently on Ustekinumab; hepatic steatosis, hidradenitis suppurativa, bipolar disorder, fibromyalgia OBJECTIVE Home medications: Held: Adderall XL, Latuda, Celebrex, lorazepam, vitamins New: Pantoprazole DVT Prophylaxis: [facility] ASSESSMENT / PLAN GI SMO: PRN Zofran and Compazine; New pantoprazole 40 mg/d, Last BM Date: 07/10/24; Bowel regimen active Neuro Pain: APAP 1 g Q6H, PRN ketorolac 15 mg, PRN oxycodone 5-10 mg, PRN hydromorphone 0.2 mg; Naloxone order active Sumatriptan PRN for headaches Mood: hydroxyzine PRN; Consider reinitiating home Latuda, medication does need to be given with 350calories Consider discontinuing PRN buspirone, as other agents more effective when used PRN Neph K 3.5 07/10 PM, replacing with 60 mEq orally; continue to monitor lytes daily Duplicate rx orders: discontinued by pharmacy per CPA Wayne Brown PharmD Candidate Cosigned by Kayleigh Monique PharmCanelo, R.Ph., BCPS at 07/11/2024 10:09 AM CDT * Jennifer Edge M.D. - 07/10/2024 5:35 PM CDT 38-year-old woman who is 1 day status post robotic reduction of parastomal hernia and redo repair. Overall the patient has done very well overnight. Pain is well controlled. Minimal stoma function. Abdominal exam is benign. Operative findings discussed with the patient. Awaiting return of bowel function. * Keila Sanchez M.S.W., RyS.W. - 07/10/2024 11:44 AM CDT SUBJECTIVE Patient requested social work visit today. Patient concerned about getting home when medically ready. Reported does not have funds at this time due to moving twice within 5 months and is on permanentdisability. Limited social supports. She states she has been in touch with friends and they might be a possibility for a ride, but they also work and may not be available. Social work shared transportation can be further discussed when discharge is known, but there are options. Patient was appreciative of visit. OBJECTIVE Anticipated Needs Anticipated Needs Assistive Devices: None Anticipated Modifications to the Patient's Home: None Transportation Needs: Cab/ride share, Public transportation Does the patient need discharge transport arranged?: Yes Has discharge transport been arranged?: No Anticipated Discharge Destination: Home or Self Care Patient remains hospitalized on [facility]. Patient requested social work visit to discuss transportation options at discharge. Patient/family are understanding and accepting of the discharge plan as described below. ASSESSMENT / PLAN Assessment Those noted above appear to have insight into the patient's needs at this time and are planning appropriately for discharge needs. They report agreement with the below plan with no further questions at this time. Anticipated barriers: None Plan 1) Patient anticipates returning home self care when medically ready 2) Social work will continue to follow. Charles Jin, RyS.W. 07/10/2024 * Jose Soni - 07/10/2024 10:49 AM CDT SUBJECTIVE Postop Day: 1 Day Post-Op Hospital Day: LOS: 2 days Grisel Anthony is a 38-year-old female with a history of Crohn's disease s/p total proctocolectomy with end ileostomy on hospital day 2, post-op day 1, recovering from a robotic parastomal hernia repair with mesh. She originally presented with an SBO on 07/08 with a recurrent, large parastomal hernia. She failed conservative measures and underwent a successful reduction and mesh repair of her hernia yesterday (07/09). We met and examined the patient today. There were no acute overnight events. She feels significantly improved. She denies nausea, abdominal pain, abdominal pressure, shortness of breath, or chest pain. Her stoma demonstrates minimal, appropriate appearing output. She endorses active bowel sounds. Continues to be hemodynamically stable. She is motivated to ambulate in the hospital and would like to lose weight over the coming months. All questions answered. OBJECTIVE VITAL SIGNS Temperature: [36.3 ??C-37.3 ??C] 36.4 ??C Heart Rate: [80-118] 96 Resp Rate: [12-23] 16 Blood Pressure: (117-144)/(66-95) 118/71 SpO2: [91 %-100 %] 95 % Flow Rate (L/min): [0 L/min-3 L/min] 0 L/min Pulse Rate: [61-121] 89 I/O Intake/Output Last 24 Hours: Intake/Output Summary (Last 24 hours) at 07/10/2024 1059 Last data filed at 07/10/2024 1026 Gross per 24 hour Intake 4662.5 ml Output 1750 ml Net 2912.5 ml DIAGNOSTICS Recent Results (from the past 24 hours) Phosphorus Inorganic Collection Time: 07/10/24 8:17 AM Result Value Phosphorus (Inorganic), S 2.3 (L) Magnesium Collection Time: 07/10/24 8:17 AM Result Value Magnesium, S 2.0 Basic Metabolic Panel Collection Time: 07/10/24 8:17 AM Result Value Potassium, S 3.5 (L) Sodium, S 140 Chloride, S 101 Bicarbonate, S 27 Anion Gap 12 BUN (Blood Urea Nitrogen), S 10 Creatinine 0.78 Estimated GFR (eGFR) >90 Calcium, Total, S 9.0 Glucose, S 102 CBC without Differential Collection Time: 07/10/24 8:17 AM Result Value Hemoglobin 13.6 Hematocrit 41.6 Erythrocytes 4.82 MCV 86.3 RBC Distrib Width 13.2 Platelet Count 387 (H) Leukocytes 17.8 (H) PHYSICAL EXAM Constitutional General: She is not in acute distress. Appearance: Normal appearance. Pulmonary Effort: Pulmonary effort is normal. Abdominal General: Abdomen is flat. There is no distension. Palpations: Abdomen is soft. Tenderness: There is no abdominal tenderness. Comments: Ostomy bag with minimal appropriately appearing stool content. No blood. Skin General: Skin is warm and dry. Findings: No erythema. Neurological Mental Status: She is alert. Assessment ASSESSMENT AND PLAN #1 Obstruction Intestinal (HCC) #2 Abdominal Pain #3 Crohn's Disease (HCC) 38F with Crohn's disease s/p total proctocolectomy with end ileostomy c/b recurrent parastomal hernia post-op day 1 following robotic parastomal hernia repair with mesh. She feels significantly improved from yesterday. There are no signs of acute complications. PLAN: - Continue pain, bowel, and psychiatric medications as scheduled and tolerated. - Indwelling catheter will be removed. - Continue to encourage careful walking in the hospital. - Awaiting return of bowel function. The patient has active bowel sounds with no obvious signs of continued obstruction. Continue clear liquid diet. Patient is being cared for by the HSS-B team. Please page [phone] (HSS-B) with any questions. Plan and assessment were discussed with Dr. Edge, who was in agreement. Jose Soni Medical Student Cosigned by Norma Chand M.D. at 07/10/2024 12:03 PM CDT Associated attestation - Norma Chand M.D. - 07/10/2024 12:03 PM CDT I saw the patient with the medical student. I was present for or re-performed the History of Present Illness. I saw and evaluated the patient, participating in the meneses portions of the service and didmedical decision making. I have reviewed the above documentation and agree or amended. Norma JesikaDaniela Chand PGY1 12:03 PM CDT 07/10/24 * Vivi Hameed, Pharm.D., R.Ph., BCPS - 07/09/2024 12:39 PM CDT Images from the original note were not included. Admission Medication History Note Adherence issues: No concerns Medication list source: Patient, Care Everywhere or chart review, and Pharmacy or dispense records Medication related information: Dc: bactrim, PRN tessalon Perles Prior to Admission Medications Med List Status: Pharmacy Complete Set By: Vivi Hameed, Pharm.D., R.Ph., BCPS at 07/09/2024 12:35 PM Status Comment 07/09/2024 12:35 PM With patient over the phone Taking? Last Dose Informant Start Date End Date LT acetaminophen (TylenoL) 500 mg tablet 07/07/2024 at Bedtime -- 05/16/24 -- Take 2 tablets (1,000 mg total) by mouth every 6 (six) hours as needed for pain. Do not exceed 4000mg in 24 hours. albuterol (ProAir HFA) 90 mcg/actuation inhaler -- -- 05/16/24 -- Inhale 2 puffs every 4 (four) hours as needed for wheezing or shortness of breath. Congestion Notes: May substitute generic Proair, generic Ventolin or generic Proventil as appropriate for patient or insurance preference amphetamine-dextroamphetamine (ADDERALL XR) 10 mg 24 hr capsule -- -- 01/18/23 07/09/24 Take 1 capsule (10 mg total) by mouth daily. busPIRone (BuSpar) 5 mg tablet 07/07/2024 at Evening -- 02/02/24 -- Take 1 tablet (5 mg total) by mouth 3 (three) times a day as needed (Anxiety). Place on file celecoxib (CeleBREX) 200 mg capsule 07/08/2024 -- 05/16/24 -- Take 1 capsule (200 mg total) by mouth 2 (two) times a day. cholecalciferol (Vitamin D3) 25 mcg (1,000 Unit) capsule 07/07/2024 at Bedtime -- -- -- Take 1 capsule by mouth daily. DME Ostomy supplies -- -- 01/08/22 -- DME Order EPINEPHrine 0.3 mg/0.3 mL injection syringe -- -- 02/02/24 -- Inject 0.3 mL (0.3 mg total) intramuscularly as needed (allergies). Notes: Place on file hydrOXYzine (Atarax) 10 mg tablet -- -- 02/02/24 -- Take 1 tablet (10 mg total) by mouth 4 (four) times a day as needed for anxiety. Notes: Has not taken ibuprofen 200 mg tablet More than a month -- 02/02/24 -- Take 3 tablets (600 mg total) by mouth every 6 (six) hours as needed for pain. LORazepam (Ativan) 0.5 mg tablet More than a month -- 09/13/23 -- Take 1 tablet (0.5 mg total) by mouth daily as needed for anxiety. lurasidone (Latuda) 20 mg tablet 07/07/2024 at Evening -- 06/15/24 06/15/25 Take 1 tablet (20 mg total) by mouth daily with morning meal. Administer with food (at least 350 calories) Patient taking differently: Take 40 mg by mouth daily with morning meal. Administer with food (at least 350 calories) naloxone (Narcan) 4 mg/actuation nasal spray -- -- 04/16/24 -- Administer 4 mg into nostril(s) as needed. Patient not taking: Reported on 06/13/2024 ondansetron ODT (Zofran-ODT) 4 mg disintegrating tablet 07/08/2024 at Morning -- 01/09/24 -- Dissolve 1 tablet (4 mg total) in the mouth every 8 (eight) hours as needed for nausea or vomiting. oxyCODONE (Roxicodone) 5 mg immediate release tablet 07/07/2024 at Evening -- 06/20/24 -- Take 1 tablet (5 mg total) by mouth daily Indication: Chronic Pain/Nonacute Pain. Notes: Fill now Stelara 45 mg/0.5 mL injection -- -- 03/26/24 -- Inject 45 mg under the skin. Pt states every 6-8 weeks Notes: About 6 weeks ago per patient SUMAtriptan (Imitrex) 50 mg tablet Past Week -- 05/16/24 -- Take 1 tablet (50 mg total) by mouth as needed for migraine. May repeat dose once in 2 hours if migraine is unresolved. Do not exceed 200 mg in 24 hours. * Vivi Hameed PharmFady., R.Ph., BCPS - 07/09/2024 8:49 AM CDT Pharmacist Progress Note Reason for admission: abdominal pain, concern for small bowel obstruction PMH: Ileocolonic Crohn's Disease and perianal Crohn's disease (since 2010) s/p total proctocolectomy and end ileostomy (07/2019) and parastomal hernia c/b recurrence requiring repair in 2021 in 2022 as well as treatment refractory disease to infliximab, adalimumab, vedolizumab, and certolizumab currently on Ustekinumab, hepatic steatosis, hidradenitis suppurativa, bipolar disorder, fibromyalgia OBJECTIVE Home medications: Held: hydroxyzine PRN, sumatriptan PRN, Adderall XL, Latuda, Celebrex DVT Prophylaxis: held Estimated Creatinine Clearance: 138.8 mL/min (by C-G formula based on SCr of 0.72 mg/dL). ASSESSMENT / PLAN Small bowel obstruction, Crohn's: IVF, NGT in, Gastrografin given 07/08, PRN compazine Pain control: PRN tylenol, PRN IV hydromorphone break thru DVT PPX: ordered as x2 SQ heparin doses on admission, would resume as continuous order pending procedures plans Home medication reconciliation: to review with patient as able; note: holding multiple home medications Vivi Hameed Pharm.D., R.Ph., BCPS * Christiana Portillo R.N. - 07/09/2024 8:22 AM CDT SUBJECTIVE REASON FOR VISIT Consulted for Patient requesting assistance with routine pouching system change. Discussion from bedside nursing and FIELD MARKETING TEAM LEADER identified the following: Grisel changes her pouching system on her own at home but is way too sick to do it here and needs someone who knows what they are doing. Nursing explained that they can help her. She is currently using Jerry [id number] but denies needing supplies or adjustments to her system. Nursing states that there is some skin irritation on the lower right peristomal skin. Grisel is treating this with barrier spray, stoma powder, and purple stuff for antibiotic. Nursing states the skinappears dry & is blanchable. PLAN Consult complete, patient has met ostomy specialty service criteria. WOC RN explained that we do not do routine changes and it does not sound like Grisel wants any adjustments made to her pouching system. We would recommend she complete her next pouching system change with bedside nursing assistance as she would normally do so at home. If there are skin issues during that change, they should take photos and then reconsult us. To request another consultation with a [facility] nurse, please place an order using [id number]. * Whit De Paz M.B.B.S. - 07/09/2024 8:00 AM CDT SUBJECTIVE No acute events overnight. Afebrile and hemodynamically stable on room air. Remains NPO with NGT toLIS. GGC was done overnight. AM abdominal X-ray does not show any contrast in the colon. Patient continues to feel bloated. Pain is otherwise well controlled. No gas or stool in stoma appliance. UOP adequate. OBJECTIVE Net IO Since Admission: -102.5 mL [07/09/24 1442] Vitals: Vitals signs reviewed. Hemodynamically stable and afebrile. Physical Exam: General: No acute distress. AAO x3 Abdomen: Soft, tenderness around stoma site with palpable peristomal hernia. No overlying skin changes. No gas or stool seen in stoma appliance Labs Labs reviewed 16.0 \ 14.2 / 384 / 41.8 \ 137 101 10 / 129 3.8(S) ; -- (P) 24 0.72 \ ASSESSMENT / PLAN #1 Obstruction Intestinal (HCC) #2 Abdominal Pain #3 Crohn's Disease (HCC) 38F with Crohn's disease s/p total proctocolectomy with end ileostomy c/b recurrent parastomal hernia is currently admitted with SBO with a transition point at the fascial level. Abdomen is soft withmild tenderness. Patient has failed gastrografin challenge on AXR this morning. We will plan for surgical intervention today. Plan Continue NPO with NGT to [facility] OR with HSS-B today 07/10 for robotic-assisted exploration. Risks, benefits, and alternatives discussed with the patient. Informed consent has been obtained. Will plan to transfer to [facility] service post-op Please page [phone] (S-A) with any questions or concerns. Plan and assessment were discussed with Dr. Hollis, who was in agreement. CLAUDE Riggs General Surgery Resident * Kunal Narvaez M.B.B.S. - 07/09/2024 6:29 AM CDT Images from the original note were not included. GI-B PROGRESS NOTE SUBJECTIVE Mrs. Grisel Cruz is a 38 y.o. female with ileocolonic and perianal Crohn's disease s/p total proctocolectomy and end ileostomy (07/2019) and parastomal hernia c/b recurrence requiring repair in 2021 and 2022 as well as treatment refractory disease who was admitted for SBO suspected secondary to hernia obstruction. Interval Events: - Patient said she has been taking Celecoxib Daily for the past year - Clarified that she takes Lurasidone 40 mg Daily - Failed Gastrografin Challenge - CM and Wound Care Ostomy Consulted I have reviewed the current medication list. OBJECTIVE VITAL SIGNS Temperature: [36.9 ??C-37.6 ??C] 37.3 ??C Heart Rate: [86-103] 103 Resp Rate: [10-24] 10 Blood Pressure: (131-147)/(88-98) 143/88 SpO2: [92 %-97 %] 94 % Pulse Rate: [86-98] 92 Intake/Output Last 24 Hours: Intake/Output Summary (Last 24 hours) at 07/09/2024 0629 Last data filed at 07/09/2024 0022 Gross per 24 hour Intake 212.5 ml Output 300 ml Net -87.5 ml PHYSICAL EXAM General: Alert, oriented, appropriate affect, no apparent distress. Eyes: Clear conjunctivae and lids. ENT: Moist oral mucosa without mucositis. Vessels: Normal radial and pedal pulses. No edema. Heart: Regular rate. No murmurs or rubs. Lungs: Clear to auscultation bilaterally. Abdomen: Ileostomy Bag with no stool output. Examination of the ileostomy site revealed hard stool on palpation around the site. Exquisite tenderness around ostomy site. DIAGNOSTICS AXR s/p Gastrografin Challenge (07/09/2024) Impression: ASSESSMENT / PLAN Overall, upon discussion with [facility] they are planning to take the patient to the OR for exploratory laparotomy. We will defer IV corticosteroids at this time, keep the patient NPO, and on NG tube withintermittent suction. I have ordered the necessary presurgical laboratory testing. Plan Today: Follow-Up [facility] Surgical Opinion Defer IV Corticosteroids NPO and Continue NGT to Intermittent Suction PT with INR and Type & Screen #Ileocolonic Crohn's Disease and perianal Crohn's disease (diagnosed approximately around 2010) s/ptotal proctocolectomy and end ileostomy (07/2019) and parastomal hernia c/b recurrence requiring repair in 2021 in 2022 as well as treatment refractory disease to infliximab, adalimumab, vedolizumab,and certolizumab currently on Ustekinumab #Previous Yazdanism #Obesity (BMI 44) c/b hepatic steatosis and hidradenitis suppurativa - Failed Gastrografin Challenge - PT with INR and Type & Screen - NGT to low intermittent suction - Maintenance IV Fluids LR 75 cc/hr - Benzocaine [place] 20% 1 Application QID PRN - Blood Consent Form Completed - Hold other PO Medications - Hold Bactrim DS BID - Hold NSAIDs #Bipolar Disorder #Fibromyalgia - Hold Sumatriptan 50 mg PRN - Hold Hydroxyzine 10 mg QID PRN - Hold Lurasidone 40 mg Daily Current activity/mobility: PAMP Level 4 (walks frequently) Diet: NPO diet Tubes/lines: PIV VTE prophylaxis: heparin Code status: Full Code Disposition: Uncertain with expected discharge date Stable to discharge criteria (not met): Tests/procedures/consults Dr. Kunal Narvaez PGY-2 Internal Medicine [id number] Service Pager: [phone] documented in this encounter H&P Notes * Jay Love M.B.B.S., M.S. - 07/09/2024 10:20 AM CDT Hospital Admission Note DATE: 07/09/2024 This is a supervisory note for Chante Pantoja. I have reviewed the available records, interviewed and examined the patient. I agree with the history,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 obese. Cardiovascular Rate and Rhythm: Normal rate. Pulmonary Effort: Pulmonary effort is normal. Abdominal Comments: Soft, mild distention, mild generalized tenderness, no peritonitis. Palpable peristomal hernia with no skin changes. Stoma appliance in place Neurological Mental Status: She is alert. DIAGNOSTICS I have reviewed the relevant laboratory, imaging, and other diagnostics as applicable. Labs Recent Results (from the past 24 hours) CBC with Differential, Blood Collection Time: 07/08/24 3:42 PM Result Value Hemoglobin 15.0 Hematocrit 44.9 Erythrocytes 5.31 (H) MCV 84.6 RBC Distrib Width 12.9 Platelet Count 397 (H) Leukocytes 19.5 (H) Neutrophils 17.25 (H) Lymphocytes 1.49 Monocytes 0.71 Eosinophils <0.03 Basophils 0.07 Basic Metabolic Panel Collection Time: 07/08/24 3:42 PM Result Value Potassium, S 4.5 Sodium, S 140 Chloride, S 102 Bicarbonate, S 23 Anion Gap 15 BUN (Blood Urea Nitrogen), S 11 Creatinine 0.70 Estimated GFR (eGFR) >90 Calcium, Total, S 9.7 Glucose, S 113 Hepatic Function Panel Collection Time: 07/08/24 3:42 PM Result Value Bilirubin, Total, S 0.8 Bilirubin, Direct, S <0.2 Aspartate Aminotransferase (AST), S 30 Alanine Aminotransferase (ALT), S 25 Alkaline Phosphatase, S 95 Albumin, S 4.8 Protein, Total, S 7.1 CRP (C-Reactive Protein) Collection Time: 07/08/24 3:42 PM Result Value C-Reactive Protein (CRP), S 14.9 (H) Prothrombin Time (PT) Collection Time: 07/08/24 3:42 PM Result Value Prothrombin Time, P 11.0 INR 1.0 Lactate Collection Time: 07/08/24 3:42 PM Result Value Lactate, P 1.0 Imaging DX Abdomen Portable Anterior Posterior 1 View Result Date: 07/08/2024 Impression: Comparison CT abdomen/pelvis with IV contrast 07/08/2024. Placement of a NGT with tip and side-port in the stomach. ASSESSMENT / PLAN #1 Obstruction Intestinal (HCC) #2 Crohn's Disease (HCC) Grisel Cruz is a 38 y.o. female with a past medical history significant for Crohn's disease status post total proctocolectomy with end ileostomy and a peristomal hernia complicated by recurrent who presents with a small-bowel obstruction with a transition point at the level of the fascia. Patient is vitally stable. WBC 19.5. Abdomen is soft, distended with mild generalized tenderness, no evidence of peritonitis. Discussed with the patient our recommendation to proceed with conservative management with NGT decompression and Gastrografin challenge discussed with the patient the possibilityof needing to proceed to the OR for surgical intervention. Patient understands and all questions answered at this time Recommendations: - NPO - NGT to LIS - Gastrografin challenge - Maintain electrolytes - Stoma consult - Hold off on steroids until we know the results of the gastrografin challenge. Please page [phone] (HSS-A) with any questions. Plan and assessment were discussed with Dr. Bernal, who was in agreement. Gregory Kovacs D.O. General Surgery Cosigned by Stephanie Bernal M.D. at 07/08/2024 8:57 PM CDT Associated attestation - Stephanie Bernal M.D. - 07/08/2024 8:57 PM CDT I saw and evaluated the patient, participating in the meneses portions of the service. I reviewed Dr. Kovacs's note. I agree with his findings and plan. S ICU INSURANCE SALESPERSON SUMMARY Ms. Cruz is a 38 year old female patient on whom we are consulted regarding small bowel obstruction. She has a history of Crohn's disease status post colectomy and end ileostomy, on Stelara, and with recurrent parastomal herniation. Surgical history is as follows: - 2018 ileostomy creation -[id number] multiple exams of perianal area under anesthesia - 2019 proctocolectomy, end ileostomy, perineal closure - 2021 parastomal hernia repair with onlay Prolene mesh for emergent obstruction at ostomy site - 2022 robotic-assisted parastomal and ventral hernia repairs with mesh - Documented recurrence of hernia in August 2023 The patient reports she has had abdominal pain for weeks. She also describes significant malaise. She has been emptying her ostomy appliance regularly. Then, this morning, she noticed decreased ostomy output and she vomited. She reports that she knew this meant she had a bowel obstruction, so she sought medical attention. Her vital signs are stable. She has leukocytosis to 19.[address] scan of her abdomen demonstrates small bowel obstruction at the level of the abdominal wall, at the mouth of the hernia. No signsof bowel ischemia. No abdominal free fluid. OBJECTIVE I have reviewed the current vital sign data as applicable. VITAL SIGNS BP (!) 142/98 (BP Location: Right arm, Patient Position: Semi-recumbent) Pulse 86 Temp 37.6 ??C Resp 20 Ht 165.1 cm Wt 120 kg SpO2 97% BMI 44.06 kg/m?? PHYSICAL EXAM GENERAL: In no acute distress. Sitting up in bed calmly but appears uncomfortable. NEUROLOGIC: Awake, alert and oriented. Appropriately conversive. PULMONARY: Breathing comfortably on room air. No increased work of breathing. ABDOMINAL: Tender at the site of hernia but without any rebound tenderness, guarding, peritonitis. The hernia itself is soft. EXTREMITIES: Warm, well-perfused. ASSESSMENT AND PLAN Ms. Cruz is a 38 year old female patient with recurrent parastomal herniation, with small bowelobstruction associated with this. Her abdominal exam is reassuring, so we will proceed with Gastrografin challenge. If her bowel obstruction is able to be managed without surgery, then she can hopefully get back on the pathway of weight loss with the goal of being a candidate for an elective parastomal hernia repair. The patient strongly requests help with changing her ostomy appliance if she starts to have bowel function again; applying the pouch is likely made difficult by the prominence of the hernia, so we would recommend ostomy nursing consult to assist with this. documented in this encounter Nursing Notes * Jose Raul Johnson R.N. - 07/13/2024 1:28 PM CDT Patient was discharged home to self care. The dismissal and AVS were reviewed with the patient/family. The education was provided and reinforced. All questions were answered. The patient's belongings were sent with them. Vital signs were obtained and IV was removed. Patient transport was called to escort the patient off the unit. Prescriptions for were sent to [facility] pharmacy. Electronically signed by: Jasmeet Johnson R.N. 07/13/24 3:27 PM CDT * Shayla Freed R.N. - 07/13/2024 2:51 AM CDT Problem: Risk for Compromised Skin Integrity-NG/ND/NJ Tube Goal: Maintain and/or improve skin integrity under and around nasogastric/nasoduodenal/nasojejunal tube. Outcome: Completed * Judith Munoz APRN, BEA, D.N.P. - 07/09/2024 8:27 AM CDT AUTOMOTIVE PRODUCT SPECIALIST Clinical Nurse Specialist consulted by primary RN to assess Mrs. Grisel Cruz' ostomy change needs. Assessment: Mrs. Cruz requested a WOC consult after declining to allow bedside RNs to assist with changing her ostomy with her home supplies. FIELD MARKETING TEAM LEADER explained that bedside RNs can assist with changes, and that FIELD MARKETING TEAM LEADER will consult with WOC if any new supplies are needed. Patient declined to alter homesystem and requested FIELD MARKETING TEAM LEADER assistance in changing her home system. Mrs. Cruz expressed feelings of anxiety, and FIELD MARKETING TEAM LEADER provided emotional support, active listening, and set expectations and limitations. Mrs. Cruz used adhesive remover to detach the previous wafer from her abdomen, which was non-adherent at the right inferior aspect. Peristomal skin irritation from approximately 5 o'clock to 8 o'clock was erythematous and dry with no lesions. Interventions: FIELD MARKETING TEAM LEADER assisted Mrs. Cruz with supplies, as she completed her home regimen. The peristomal area was cleansed with Vashe prior to applying stoma powder and barrier spray. She placed the cut 66973 to the 17290 wafer and then applied a coloplast 24949 ring to seal to the skin. She applied this after barrier spray dried and then attached the bag 15527. A warm blanket and light pressure was placed over the top of the pouching system to help the wax soften and adhere to her skin. Recommendations: Mrs. Cruz expressed satisfaction with this system, and FIELD MARKETING TEAM LEADER reinforced that bedside RNs can and will assist her with this change when needed. If a new or altered pouching system is needed, please consult FIELD MARKETING TEAM LEADER or WOC RN. Electronically signed by: Idalia Munoz APRN, BEA, D.N.P. 07/09/24 8:40 AM CDT * Marisol Farris R.N. - 07/09/2024 5:47 AM CDT Shift Goals: Patient will report decreased pain and nausea. Identify possible barriers to meeting goals/advancing plan of care: Patient condition and hospitalization. End of Shift Summary: RN assumed care at 1900 Patient is A&Ox 3. Able e to make needs known. Follows commands. CMS intact. ALDRICH. BP (!) 131/93 (BP Location: Right arm;Lower, Patient Position: Semi-recumbent) Pulse 87 Temp 36.9 ??C Resp 22 Ht 165.1 cm Wt 120 kg SpO2 94% BMI 44.06 kg/m?? Patient on room air Patient transfers with a standby assist Incontinent/Continent of B&B. No BM this shift Patient NPO NG tube attached to low intermittent suction. Refer to LDAs for all tubes and drains Pain managed with PRN dilaudid. Problem: PAIN - ADULT Goal: PT VERBALIZES/DEMONSTRATES ADEQUATE COMFORT LEVEL OR BASELINE Outcome: Progressing Problem: KNOWLEDGE DEFICIT Goal: Patient/family/caregiver demonstrates understanding of disease process, treatment plan, medications, and discharge instructions Outcome: Progressing Problem: SKIN/TISSUE INTEGRITY Goal: Skin/Tissue integrity maintained or improved Outcome: Progressing Goal: Oral and Nasal mucous membranes remain intact Outcome: Progressing Problem: SAFETY ADULT Goal: Maintain a safe environment Outcome: Progressing Problem: DISCHARGE PLANNING Goal: Patient discharge needs identified Outcome: Progressing Problem: Risk for Compromised Skin Integrity-NG/ND/NJ Tube Goal: Maintain and/or improve skin integrity under and around nasogastric/nasoduodenal/nasojejunal tube. Outcome: Progressing Problem: Risk for Compromised Skin Integrity-Other Senior Telecommunications Consultant(s) Goal: Risk for Compromised Skin Integrity-Other Senior Telecommunications Consultant(s) Outcome: Progressing Problem: GASTROINTESTINAL - ADULT Goal: Minimal or absence of nausea and vomiting Outcome: Progressing Goal: Optimize bowel function Outcome: Progressing Goal: Nutrient intake appropriate for improving, restoring or maintaining nutritional needs Outcome: Progressing Goal: Establish and maintain optimal ostomy function Outcome: Progressing documented in this encounter Miscellaneous Notes * Hospital Course - Jeanie Tavarez APRN, C.N.P., D.N.P. - 07/09/2024 1:30 PM CDT Mrs. Grisel Cruz is a 38 y.o. female with ileocolonic and perianal Crohn's disease s/p total proctocolectomy and end ileostomy (07/2019) and parastomal hernia c/b recurrence requiring repair in 2021 and 2022 as well as treatment refractory disease who was admitted for SBO suspected secondary to hernia obstruction. The patient had a 1 week history of worsening abdominal pain, which worsened overnight on 07/07, prompting her to present to her local hospital, [facility]. There they placed an NG tube and prescribed IV fluids. Outside CT abdomen pelvis on 07/08 demonstrated small bowel loop dilatation (up to 4 cm) and a likely transition point at the hernia site. [facility] GI-B (07/08-07/09) On arrival, laboratory evaluation revealed elevated CRP and leukocytosis. Lactate was within normallimits. Of note, she stated explicitly that she would not refuse blood products (see admission notefor further details). She was started on maintenance fluids. HSS B (07/09-07/13) [facility] Surgical Service Chief B was consulted. She underwent gastrografin challenge. She failed a Gastrografin challenge, therefore it was recommended to proceed to the operating room. On 07/09,she proceeded to the operating room for robotic assisted abdominal exploration, lysis of adhesions and parastomal hernia repair with mesh. Her incisions were closed with . She transferred to the romero rgical service following the procedure. She remained with a NG tube in place until return of bowel function. This was removed on 07/12 and she was started on a clear liquid diet. She was then advanced to regular diet which she tolerated. WOC RN also was engaged to assist with ostomy appliance. When she was tolerating a diet, her pain was well controlled with oral pain medications, she was mobilizing without difficulty and her bowel and bladder function were acceptable, she was dismissed tohome independently . documented in this encounter Plan of Treatment Upcoming Encounters Date Type Department Care Team (Latest Contact Info) Description 07/18/2024 10:45 AM CDT Office Visit Department of Orthopedic Surgery in [place], [place] [address] [place] [phone] Andrew Dougherty M.D. [address] [place] [phone] 07/20/2024 3:00 PM CDT Office Visit Department of Family Medicine, [facility], in [place], [place] [address] [place] [phone] Sánchez Goldberg D.O. [address] [place] [phone] 07/23/2024 10:50 AM CDT Hospital Encounter Post Anesthesia Care Unit in [place] [id number] [place] [phone] Andrew Dougherty M.D. [address] [place] [phone] 07/23/2024 10:50 AM CDT - 07/23/2024 12:02 PM CDT Surgery [facility] MAIN OR [facility] [place] [phone] Andrew Dougherty M.D. [address] [place] [phone] RELEASE CARPAL TUNNEL OPEN WRIST 07/27/2024 9:00 AM CDT Office Visit Division of Trauma Critical Care and General Surgery in [address] [phone] Jeanie Tavarez APRN, C.N.P., D.N.P. [address] [place] [phone] 09/06/2024 7:50 AM CDT Hospital Encounter Post Anesthesia Care Unit in [place], [place] [address] [place] [phone] Andrew Dougherty M.D. [address] [place] [phone] 09/06/2024 7:50 AM CDT - 09/06/2024 9:02 AM CDT Surgery [facility] MAIN OR [address] [place] [phone] Andrew Dougherty M.D. [address] [place] [phone] RELEASE CARPAL TUNNEL OPEN WRIST Scheduled Procedures [...] MIDLINE CATHETER Routine 07/11/2024 12:05 PM CDT CBC WITHOUT DIFFERENTIAL, B Routine 07/10/2024 8:53 PM CDT PHOSPHORUS (INORGANIC), S Routine 07/10/2024 8:53 PM CDT BASIC METABOLIC PANEL, S/P Routine 07/10/2024 8:53 PM CDT CBC WITHOUT DIFFERENTIAL, B Timed 07/10/2024 8:17 AM CDT PHOSPHORUS (INORGANIC), S Timed 07/10/2024 8:17 AM CDT MAGNESIUM, S Timed 07/10/2024 8:17 AM CDT BASIC METABOLIC PANEL, S/P Timed 07/10/2024 8:17 AM CDT ADULT OXYGEN THERAPY Routine 07/09/2024 9:31 PM CDT DX CHEST PORTABLE 1 VIEW RAD - Routine (most inpatients and all outpatients) 07/09/2024 9:30 PM CDT BLOCK - TRANSVERSUS ABDOMINIS PLANE 07/09/2024 3:36 PM CDT Abdominal Pain ROBOTIC-ASSISTED ABDOMINAL EXPLORATION 07/09/2024 3:36 PM CDT Abdominal Pain PROTHROMBIN TIME (PT), P Timed 07/09/2024 6:48 AM CDT CBC WITH DIFFERENTIAL, B Timed 07/09/2024 6:48 AM CDT TYPE AND SCREEN Routine 07/09/2024 6:48 AM CDT BASIC METABOLIC PANEL, S/P Timed 07/09/2024 6:48 AM CDT DX ABDOMEN 1 VIEW RAD - Routine (most inpatients and all outpatients) 07/09/2024 4:42 AM CDT DX ABDOMEN PORTABLE ANTERIOR POSTERIOR 1 VIEW RAD - Semiurgent (Fast; most ED patients; some inpatients) 07/08/2024 4:49 PM CDT ECG Routine 07/08/2024 3:48 PM CDT HEPATIC FUNCTION PANEL, S Timed 07/08/2024 3:42 PM CDT PROTHROMBIN TIME (PT), P Timed 07/08/2024 3:42 PM CDT CBC WITH DIFFERENTIAL, B Timed 07/08/2024 3:42 PM CDT C-REACTIVE PROTEIN (CRP), S/P Timed 07/08/2024 3:42 PM CDT LACTATE, B/P STAT 07/08/2024 3:42 PM CDT BASIC METABOLIC PANEL, S/P Timed 07/08/2024 3:42 PM CDT documented in this encounter Results * Remove PICC (non-tunneled) or Midline Catheter (07/13/2024 12:08 PM CDT) Narrative MMOD[facility] - 07/13/2024 12:08 PM CDT Paty Kowalski R.N. 07/13/2024 12:09 PM Remove PICC (non-tunneled) or Midline Catheter Performed by: Paty Kowalski R.N. Authorized by: Jennifer Edge M.D. Jennifer Edge M.D. PROCEDURE/MINOR SURGICAL ORDERABLES Final Result MMODAL NA * (ABNORMAL) CBC without Differential (07/12/2024 8:13 PM CDT) Hemoglobin 13.5 11.6 - 15.0 g/dL 07/12/2024 [...] 8:13 PM CDT 07/12/2024 9:09 PM CDT us Jeanie Tavarez APRN, C.N.P., D.N.P. LAB BLOOD A DD-ON Final Result [facility] [address] [place] [address], [facility] [address] [place] [address] * Phosphorus Inorganic (07/12/2024 3:25 AM CDT) Phosphorus (Inorganic), S 3.4 2.5 - 4.5 mg/dL 07/12/2024 4:42 AM CDT DTL Blood (Blood, Venous) 07/12/2024 3:25 AM CDT 07/12/2024 4:20 AM CDT us Noreen E Silvia Araujo LAB BLOOD [place] [address] * Magnesium (07/12/2024 3:25 AM CDT) Magnesium, S 2.3 1.7 - 2.3 mg/dL 07/12/2024 4:42 AM CDT DTL Blood (Blood, Venous) 07/12/2024 3:25 AM CDT 07/12/2024 4:20 AM CDT Noreen Vega P.A.-C. LAB BLOOD ADD-ON Final Result Performing Organization Address City/[facility]/[place] [address] * Basic Metabolic Panel (07/12/2024 3:25 AM CDT) Potassium, S 4.0 3.6 - 5.2 mmol/L [...] Vega P.A.-C. LAB BLOOD ADD-ON Final Result [facility] [address] [place] [address], [facility] [address] [place] [address] * (ABNORMAL) CBC without Differential (07/12/2024 3:24 AM CDT) Hemoglobin 12.4 11.6 - 15.0 g/dL 07/12/2024 4:13 AM CDT DTL Hematocrit 38.2 35.5 - 44.9 % 07/12/2024 4:13 AM CDT DTL Erythrocytes 4.35 3.92 - 5.13 x10(12)/L 07/12/2024 4:13 AM CDT DTL MCV 87.8 78.2 - 97.9 fL 07/12/2024 4:13 AM CDT DTL RBC Distrib Width 12.8 12.2 - 16.1 % 07/12/2024 4:13 AM CDT DTL Platelet Count 341 157 - 371 x10(9)/L 07/12/2024 4:13 AM CDT DTL Leukocytes 13.2(H) 3.4 - 9.6 x10(9)/L 07/12/2024 4:13 AM CDT DTL Blood (Blood, Venous) 07/12/2024 3:24 AM CDT 07/12/2024 4:04 AM CDT us Noreen Vega P.A.-C. LAB BLOOD ADD-ON Final Result [facility] [address] [place] [address], [place] DTL [facility] [address] [place] [address] * DX Abdomen Portable Anterior Posterior 1 View (07/11/2024 11:39 PM CDT) Anatomical Region Laterality Modality Abdomen, Abdominal [...] DIAGNOSTIC IMAGING P ROCEDURES Final Result * DX Abdomen Portable Anterior Posterior 1 View (07/11/2024 6:24 PM CDT) Anatomical Region Laterality Modality Abdomen, Abdominal RST LOS, Abdominal ARZ LOS, Abdominal FLA LOS N/A Digital Radiography Impressions 07/11/2024 6:29 PM CDT Since earlier today 07/11/2024 at 13:25, enteric tube is been advanced with tip and side-port in the stomach. Similar gaseous dilation of small bowel in the central abdomen. Narrative 07/11/2024 6:29 PM CDT EXAM: DX ABDOMEN PORTABLE ANTERIOR POSTERIOR 1 VIEW Procedure Note Fran Winston M.D. - 07/11/2024 EXAM: DX ABDOMEN PORTABLE ANTERIOR POSTERIOR 1 VIEW IMPRESSION: Since earlier today 07/11/2024 at 13:25, enteric tube is been advanced withtip and side-port in the stomach. Similar gaseous dilation of small bowelin the central abdomen. us Noreen Vega P.A.-C. [facility] DIAGNOSTIC IMAGING PROCEDURES Final Result * DX Abdomen Portable Anterior Posterior 1 View (07/11/2024 1:33 PM CDT) Anatomical Region Laterality Modality Abdomen, Abdominal RST LOS, Abdominal ARZ LOS, Abdominal FLA LOS N/A Digital Radiography Impressions 07/11/2024 1:57 PM CDT Nasogastric tube tip gastric fundus with side-port at the gastroesophageal junction. Consider advancement by 4 to 6.5 cm for optimal positioning. Dilated loops of small bowel in the central abdomen, not significantly changed in extent or distribution since 07/09/2024. Narrative 07/11/2024 1:57 PM CDT EXAM: DX ABDOMEN PORTABLE ANTERIOR POSTERIOR 1 VIEW Procedure Note Mamadou Connor M.D. - 07/11/2024 EXAM: DX ABDOMEN PORTABLE ANTERIOR POSTERIOR 1 VIEW IMPRESSION: Nasogastric tube tip gastric fundus with side-port at the gastroesophagealjunction. Consider advancement by 4 to 6.5 cm for optimal positioning.Dilated loops of small bowel in the central abdomen, not significantlychanged in extent or distribution since 07/09/2024. us Noreen Vega P.A.-C. [facility] DIAGNOSTIC IMAGING PROCEDURES Final Result * Place midline catheter (single lumen) (07/11/2024 12:05 PM CDT) Narrative Mariola Kaur R.N. - 07/11/2024 12:05 PM CDT Mariola Kaur R.N. 07/11/2024 12:[address] midline catheter (single lumen) Performed by: Mariola Kaur R.N. Authorized by: Noreen Vega P.A.-C. Care team members present 1. Mariola Kaur R.N. 2. Placek, Tamara C, R.N. PROCEDURE DETAILS Select line: Midline Line [...] completed successfully: yes Complications: no apparent complications Noreen Vega P.A.-C. PROCEDURE/MINOR SURGIC AL ORDERABLES Final Result * (ABNORMAL) Basic Metabolic Panel (07/10/2024 8:53 PM CDT) Potassium, S 3.5(L) 3.6 - 5.2 mmol/L 07/10/2024 9:44 PM CDT DTL Sodium, S 139 135 - 145 mmol/L 07/10/2024 9:44 PM CDT DTL Chloride, S 102 98 - 107 mmol/L 07/10/2024 9:44 PM CDT DTL Bicarbonate, S 27 22 - 29 mmol/L 07/10/2024 9:44 PM CDT DTL Anion Gap 10 7 - 15 07/10/2024 9:44 PM CDT DTL BUN (Blood Urea Nitrogen), S 7 6 - 21 mg/dL 07/10/2024 9:44 PM CDT DTL Creatinine 0.75 0.59 - 1.04 mg/dL 07/10/2024 9:44 PM CDT DTL Estimated GFR (eGFR) >90 >=60 mL/min/BSA 07/10/2024 9:44 PM CDT DTL Comment: Estimated GFR calculated using the 2020 CKD_EPI creatinine equation. Calcium, Total, S 8.5(L) 8.6 - 10.0 mg/dL 07/10/2024 9:44 PM CDT DTL Glucose, S 98 70 - 140 mg/dL 07/10/2024 9:44 PM CDT DTL Blood (Blood, Venous) 07/10/2024 8:53 PM CDT 07/10/2024 9:27 PM CDT Noreen HodgesAWilton LAB BLOOD ADD-ON Final Result [facility] [address] [facility] [address] [place] [address] * (ABNORMAL) CBC without Differential (07/10/2024 8:53 PM CDT) Hemoglobin 12.1 11.6 - 15.0 g/dL 07/10/2024 9:21 PM CDT DTL Hematocrit 35.9 35.5 - 44.9 % 07/10/2024 9:21 PM CDT DTL Erythrocytes 4.18 3.92 - 5.13 x10(12)/L 07/10/2024 9:21 PM CDT DTL MCV 85.9 78.2 - 97.9 fL 07/10/2024 9:21 PM CDT DTL RBC Distrib Width 13.1 12.2 - 16.1 % 07/10/2024 9:21 PM CDT DTL Platelet Count 282 157 - 371 x10(9)/L 07/10/2024 9:21 PM CDT DTL Leukocytes 13.3(H) 3.4 - 9.6 x10(9)/L 07/10/2024 9:21 PM CDT DTL Blood (Blood, Venous) 07/10/2024 8:53 PM CDT 07/10/2024 9:12 PM CDT us Noreen Vega P.A.-C. LAB BLOOD ADD-ON Final Result Performing Organization Address [facility] Co de Phone Number [facility] [address] [place] [address] * Phosphorus Inorganic (07/10/2024 8:53 PM CDT) Pathologist [facility] Phosphorus (Inorganic), S 2.8 2.5 - 4.5 mg/dL 07/10/2024 9:44 PM CDT DTL Blood (Blood, Venous) 07/10/2024 8:53 PM CDT 07/10/2024 9:27 PM CDT us Noreen VasquezC. LAB BLOOD ADD-ON Final Result Performing Organization Address [facility] de Phone Number [facility] [address] [place] [address] * (ABNORMAL) CBC without Differential (07/10/2024 8:17 AM CDT) Hemoglobin 13.6 11.6 - 15.0 g/dL 07/10/2024 9:16 AM CDT DTL Hematocrit 41.6 35.5 - 44.9 % 07/10/2024 9:16 AM CDT DTL Erythrocytes 4.82 3.92 - 5.13 x10(12)/L 07/10/2024 9:16 AM CDT DTL MCV 86.3 78.2 - 97.9 fL 07/10/2024 9:16 AM CDT DTL RBC Distrib Width 13.2 12.2 - 16.1 % 07/10/2024 9:16 AM CDT DTL Platelet Count 387(H) 157 - 371 x10(9)/L 07/10/2024 9:16 AM CDT DTL Leukocytes 17.8(H) 3.4 - 9.6 x10(9)/L 07/10/2024 9:16 AM CDT DTL Blood (Blood, Venous) 07/10/2024 8:17 AM CDT 07/10/2024 8:39 AM CDT us Norma Chand M.D. LAB BLOOD ADD-ON Final Resu lt [facility] [address] [place] [address], [facility] [address] [place] [address] * (ABNORMAL) Basic Metabolic Panel (07/10/2024 8:17 AM CDT) Potassium, S 3.5(L) 3.6 - 5.2 mmol/L 07/10/2024 9:30 AM CDT DTL Sodium, S 140 135 - 145 mmol/L 07/10/2024 9:30 AM CDT DTL Chloride, S 101 98 - 107 mmol/L 07/10/2024 9:30 AM CDT DTL Bicarbonate, S 27 22 - 29 mmol/L 07/10/2024 9:30 AM CDT DTL Anion Gap 12 7 - 15 07/10/2024 9:30 AM CDT DTL BUN (Blood Urea Nitrogen), S 10 6 - 21 mg/dL 07/10/2024 9:30 AM CDT DTL Creatinine 0.78 0.59 - 1.04 mg/dL 07/10/2024 9:30 AM CDT DTL Estimated GFR (eGFR) >90 >=60 mL/min/BSA 07/10/2024 9:30 AM CDT DTL Comment: Estimated GFR calculated using the 2020 CKD_EPI creatinine equation. Calcium, Total, S 9.0 8.6 - 10.0 mg/dL 07/10/2024 9:30 AM CDT DTL Glucose, S 102 70 - 140 mg/dL 07/10/2024 9:30 AM CDT DTL Blood (Blood, Venous) 07/10/2024 8:17 AM CDT 07/10/2024 9:02 AM CDT us Norma Chand M.D. LAB BLOOD ADD-ON Final Resu lt Performing Organization Address City/[facility]/ZIP Co de Phone Number [facility] [address] [place] [address], [facility] 200 [place] [address] * Magnesium (07/10/2024 8:17 AM CDT) Magnesium, S 2.0 1.7 - 2.3 mg/dL 07/10/2024 9:30 AM CDT DTL Blood (Blood, Venous) 07/10/2024 8:17 AM CDT 07/10/2024 9:02 AM CDT us Nroma Chand M.D. LAB BLOOD ADD-ON Final Resu lt Performing Organization Address [facility] Co de Phone Number [facility] [address] [place] [address], [facility] [address] [place] [address] * (ABNORMAL) Phosphorus Inorganic (07/10/2024 8:17 AM CDT) Phosphorus (Inorganic), S 2.3(L) 2.5 - 4.5 mg/dL 07/10/2024 9:30 AM CDT DTL Blood (Blood, Venous) 07/10/2024 8:17 AM CDT 07/10/2024 9:02 AM CDT us Norma Chand M.D. LAB BLOOD ADD-ON Final Resu lt Performing Organization Address City/[facility]/ZIP Co de Phone Number [facility] [address] [place] [address], [facility] DTL [facility] [address] [place] [address] * DX Chest Portable 1 View (07/09/2024 [...] with tip in the mid thoracic trachea. Keisha Donald M.D. [facility] DIAGNOSTIC IMAGING PROC EDURES Final Result * Prothrombin Time (PT) (07/09/2024 6:48 AM CDT) Prothrombin Time, P 11.8 9.4 - 12.5 sec 07/09/2024 7:48 AM CDT DTL INR 1.1 0.9 - 1.1 07/09/2024 7:48 AM CDT DTL Comment: ----ADDITIONAL INFORMATION---- Standard intensity warfarin therapeutic range: 2.0 to 3.0 High intensity warfarin therapeutic range: 2.5 to 3.5 Blood (Blood, Venous) 07/09/2024 6:48 AM CDT 07/09/2024 7:12 AM CDT us Kunal Engel.S. LAB BLOOD ADD- ON Final Result Performing Organization Address City/[facility]/ZIP Co de Phone Number [facility] [address] DTL [facility] 200 [place] [address] * Type and Screen (with Reflex Antibody ID) (07/09/2024 6:48 AM CDT) [facility] ABORh B Pos Not applicable 07/09/2024 7:46 AM CDT STRM Antibody Screen Negative Negative 07/09/2024 7:51 AM CDT STRM Type & Screen Expiration 07/12/2024 23:59 07/09/2024 7:46 AM CDT STRM Testing Location [place] DEFAULT 07/09/2024 7:08 AM CDT STRM Blood (Blood, Venous) 07/09/2024 6:48 AM CDT 07/09/2024 7:08 AM CDT Kunal JoyceB.S. LAB BLOOD BANK TEST ORDERABLES Final Result Performing Organization Address City/[facility] Co de Phone Number [address] STRM [facility] 200 [place] [address] * Basic Metabolic Panel (07/09/2024 6:48 AM CDT) [facility] Potassium, S 3.8 3.6 - 5.2 mmol/L 07/09/2024 8:13 AM CDT DTL Sodium, S 137 135 - 145 mmol/L 07/09/2024 8:13 AM CDT DTL Chloride, S 101 98 - 107 mmol/L 07/09/2024 8:13 AM CDT DTL Bicarbonate, S 24 22 - 29 mmol/L 07/09/2024 8:13 AM CDT DTL Anion Gap 12 7 - 15 07/09/2024 8:13 AM CDT DTL BUN (Blood Urea Nitrogen), S 10 6 - 21 mg/dL 07/09/2024 8:13 AM CDT DTL Creatinine 0.72 0.59 - 1.04 mg/dL 07/09/2024 8:13 AM CDT DTL Estimated GFR (eGFR) >90 >=60 mL/min/BSA 07/09/2024 8:13 AM CDT DTL Comment: Estimated GFR calculated using the 2020 CKD_EPI creatinine equation. Calcium, Total, S 9.3 8.6 - 10.0 mg/dL 07/09/2024 8:13 AM CDT DTL Glucose, S 129 70 - 140 mg/dL 07/09/2024 8:13 AM CDT DTL Blood (Blood, Venous) 07/09/2024 6:48 AM CDT 07/09/2024 7:35 AM CDT Kunal Sharif LAB BLOOD ADD- ON Final Result [facility] [address] [facility] [address] [place] [address] * (ABNORMAL) CBC with Differential, Blood (07/09/2024 6:48 AM CDT) Pathologist [facility] Hemoglobin 14.2 11.6 - 15.0 g/dL 07/09/2024 [...] Sharif LAB BLOOD ADD- ON Final Result [facility] [address] [place] [address], [facility] DTL [facility] [address] [place] [address] [facility] [address] [place] [address] * DX Abdomen 1 View (07/09/2024 4:42 [...] be diluted in small bowel fluid. Gabriel SaezB.B.S. [facility] DIAGNOSTIC IMAGING PROCEDURES Final Result * DX Abdomen Portable Anterior Posterior 1 View (07/08/2024 4:49 PM CDT) Anatomical Region Laterality Modality Abdomen, Abdominal RST LOS, Abdominal ARZ LOS, Abdominal FLA LOS N/A Digital Radiography Impressions 07/08/2024 5:[address] abdomen/pelvis with IV contrast 07/08/2024. Placement of a NGT with tip and side-port in the stomach. Narrative 07/08/2024 5:17 PM CDT EXAM: DX ABDOMEN PORTABLE ANTERIOR POSTERIOR 1 VIEW Procedure Note Bella Rivera M.D. - 07/08/2024 EXAM: DX ABDOMEN PORTABLE ANTERIOR POSTERIOR 1 VIEW IMPRESSION: Comparison CT abdomen/pelvis with IV contrast 07/08/2024. Placement of aNGT with tip and side-port in the stomach. Kunal SaezB.B.S. [facility] DIAGNOSTIC IMAGING PROCEDURES Final Result * ECG 12 Lead (07/08/2024 3:48 PM CDT) Ventricular Rate ECG/Min 86 BPM MUSE CO Interval 166 ms MUSE QRSD Interval 92 ms MUSE QT Interval 374 ms MUSE QTC Interval 447 ms MUSE P Lopez 6 degrees MUSE R Lopez 79 degrees MUSE T Wave Lopez -14 degrees MUSE 07/08/2024 3:48 PM CDT [...] has occurred Reviewed by DIANNE Marques Kunal JoyceBDanielaSDaniela ECG ORDERABLES Edited Result - Final Performing Organization Address City/[facility]/ZIP Co de Phone Number MUSE NA * Lactate (07/08/2024 3:42 PM CDT) Pathologist [facility] Lactate, P 1.0 0.5 - 2.2 mmol/L 07/08/2024 4:35 PM CDT STMA Blood (Blood, Venous) 07/08/2024 3:42 PM CDT 07/08/2024 3:52 PM CDT Kunal JoyceB.S. LAB BLOOD NON ADD-ON Final Result Performing Organization Address [facility] [place] [address], [facility] 200 [place] [address] * Prothrombin Time (PT) (07/08/2024 3:42 PM CDT) Prothrombin Time, P 11.0 9.4 - 12.5 sec 07/08/2024 4:32 PM CDT DTL INR 1.0 0.9 - 1.1 07/08/2024 4:32 PM CDT DTL Comment: ----ADDITIONAL INFORMATION---- Standard intensity warfarin therapeutic range: 2.0 to 3.0 High intensity warfarin therapeutic range: 2.5 to 3.5 Blood (Blood, Venous) 07/08/2024 3:42 PM CDT 07/08/2024 4:07 PM CDT Kunal ReidS. LAB BLOOD ADD- ON Final Result Performing Organization Address City/[facility]/[place] [address] * (ABNORMAL) CRP (C-Reactive Protein) (07/08/2024 3:42 PM CDT) C-Reactive Protein (CRP), S 14.9(H) <5.0 mg/L 07/08/2024 4:33 PM CDT DTL Blood (Blood, Venous) 07/08/2024 3:42 PM CDT 07/08/2024 4:18 PM CDT Kunal Engel.S. LAB BLOOD ADD- ON Final Result Performing Organization Address City/[facility] [place] [address], [place] [address] * Hepatic Function Panel (07/08/2024 3:42 PM [...] PM CDT 07/08/2024 4:18 PM CDT Kunal Sharif LAB BLOOD ADD- ON Final Result [facility] [address] [place] [address], [facility] [address] [place] [address] * Basic Metabolic Panel (07/08/2024 3:42 PM CDT) Pathologist [facility] Potassium, S 4.5 3.6 - 5.2 mmol/L 07/08/2024 4:33 PM CDT DTL Sodium, S 140 135 - 145 mmol/L 07/08/2024 4:33 PM CDT DTL Chloride, S 102 98 - 107 mmol/L 07/08/2024 4:33 PM CDT DTL Bicarbonate, S 23 22 - 29 mmol/L 07/08/2024 4:33 PM CDT DTL Anion Gap 15 7 - 15 07/08/2024 4:33 PM CDT DTL BUN (Blood Urea Nitrogen), S 11 6 - 21 mg/dL 07/08/2024 4:33 PM CDT DTL Creatinine 0.70 0.59 - 1.04 mg/dL 07/08/2024 4:33 PM CDT DTL Estimated GFR (eGFR) >90 >=60 mL/min/BSA 07/08/2024 4:33 PM CDT DTL Comment: Estimated GFR calculated using the 2020 CKD_EPI creatinine equation. Calcium, Total, S 9.7 8.6 - 10.0 mg/dL 07/08/2024 4:33 PM CDT DTL Glucose, S 113 70 - 140 mg/dL 07/08/2024 4:33 PM CDT DTL Blood (Blood, Venous) 07/08/2024 3:42 PM CDT 07/08/2024 4:18 PM CDT Kunal Sharif LAB BLOOD ADD- ON Final Result [facility] [address] [place] [address], [facility] DTL [facility] [address] [place] [address] * (ABNORMAL) CBC with Differential, Blood (07/08/2024 3:42 PM CDT) Hemoglobin 15.0 11.6 - 15.0 g/dL 07/08/2024 4:16 PM CDT DTL Hematocrit 44.9 35.5 - 44.9 % 07/08/2024 4:16 PM CDT DTL Erythrocytes 5.31(H) 3.92 - 5.13 x10(12)/L 07/08/2024 4:16 PM CDT DTL MCV 84.6 78.2 - 97.9 fL 07/08/2024 4:16 PM CDT DTL RBC Distrib Width 12.9 12.2 - 16.1 % 07/08/2024 4:16 PM CDT DTL Platelet Count 397(H) 157 - 371 x10(9)/L 07/08/2024 4:16 PM CDT DTL Leukocytes 19.5(H) 3.4 - 9.6 x10(9)/L 07/08/2024 4:16 PM CDT DTL Neutrophils 17.25(H) 1.56 - 6.45 x10(9)/L 07/08/2024 4:16 PM CDT DHPM Lymphocytes 1.49 0.95 - 3.07 x10(9)/L 07/08/2024 4:16 PM CDT DTL Monocytes 0.71 0.26 - 0.81 x10(9)/L 07/08/2024 4:16 PM CDT DTL Eosinophils <0.03 0.03 - 0.48 x10(9)/L 07/08/2024 4:16 PM CDT DTL Basophils 0.07 0.01 - 0.08 x10(9)/L 07/08/2024 4:16 PM CDT DTL Blood (Blood, Venous) 07/08/2024 3:42 PM CDT 07/08/2024 4:07 PM CDT Kunal Sharif LAB BLOOD ADD- ON Final Result [facility] [address] [place] [address], [place] DTL [facility] [address] [place] [address] DHPM [facility] [address] [place] [address] documented in this encounter Visit Diagnoses Diagnosis Crohn's Disease (HCC)- Primary Abdominal Pain Obstruction Intestinal (HCC) Abdominal Pain Abdominal Pain Carpal Tunnel Syndrome Right Carpal Tunnel Syndrome Left documented in this encounter Admitting Diagnoses Diagnosis Crohn's Disease (HCC) Obstruction Intestinal (HCC) Abdominal Pain documented in this encounter Administered Medications Inactive Administered Medications - up to 3 most recent administrations Medication Order MAR Action Action Date Dose Rate Site acetaminophen tablet 1,000 mg (TylenoL) 1,000 mg, oral, Every 6 hours, First dose (after last modification) on [place] 07/12/24 at 1800, Not to exceed 4 grams in 24 hours. Given 07/13/2024 5:36 AM CDT 1,000 mg Given 07/12/2024 11:36 PM CDT 1,000 mg Given 07/12/2024 5:01 PM CDT 1,000 mg BUPivacaine liposome (PF) 20 mL, BUPivacaine 30 mL 50 mL injection As needed, Starting on 07/09/24 at 2100, Intra-Op Given 07/09/2024 9:00 PM CDT 50 mL Abdominal Tissue busPIRone tablet 5 mg (BuSpar) 5 mg, oral, 3 times daily PRN, Anxiety, Starting on [place] 07/12/24 at 1553 Given 07/13/2024 9:37 AM CDT 5 mg Given 07/12/2024 8:50 PM CDT 5 mg D5W infusion 1-999 mL/hr, intravenous, As needed, Medications Incompatible with 0.9% NaCL, Starting on Tue07/11/24 at 1156, Infuse at the same rate as the piggyback until tubing clears or up to a volume of 20 mL pre and post infusion for medications incompatible with 0.9% NaCL. Use 50 mL bag then discard. heparin (porcine) injection 5,000 Units 5,000 Units, subcutaneous, Every 8 hours scheduled, First dose on Tue07/10/24 at 0530 Given 07/13/2024 5:37 AM CDT 5,000 Units Right Outer Thigh Given 07/12/2024 9:52 PM CDT 5,000 Units L eft Outer Thigh Given 07/12/2024 1:00 PM CDT 5,000 Units R ight Upper Arm (Back) HYDROmorphone (PF) injection 0.2 mg (Dilaudid) 0.2 mg, intravenous, Every 2 hour PRN, severe pain or score 7-10 of 10, breakthrough pain, Starting on Tue07/09/24 at 2251, For breakthrough pain unrelieved 30 minutes after PRN oral pain medication is used; or if unable to take oral pain medication. Given 07/12/2024 1:05 PM CDT 0.2 mg Given 07/12/2024 11:00 AM CDT 0.2 mg Given 07/11/2024 9:31 PM CDT 0.2 mg ketorolac injection 15 mg (ToradoL) 15 mg, intravenous, Every 6 hours PRN, mild pain or score 1-3 of 10, Starting on Tue07/09/24 at 2251, For 5 days, Adult IV push rate: Over 15 seconds. Peds IV push rate: Over 1 minute. Doses > 15 mg IV/IM are discouraged due to lack of additional analgesic benefit. Given 07/13/2024 2:11 AM CDT 15 mg Given 07/12/2024 6:46 AM CDT 15 mg Given 07/11/2024 11:32 PM CDT 15 mg LORazepam tablet 0.5 mg (Ativan) 0.5 mg, oral, Daily PRN, anxiety, Starting on [place] 07/12/24 at 2103 Given 07/13/2024 9:37 AM CDT 0.5 mg Given 07/12/2024 9:59 PM CDT 0.5 mg magnesium hydroxide suspension 30 mL (Milk of Magnesia) 30 mL, oral, 2 times daily, First dose on Tue07/10/24 at 0900 Given 07/13/2024 9:37 AM CDT 30 mL Given 07/12/2024 8:50 PM CDT 30 mL Given 07/12/2024 8:03 AM CDT 30 mL NaCl 0.9% infusion 1-999 mL/hr, intravenous, As needed, Between Consecutive Piggyback Medications, Starting on Tue07/11/24 at 1156, For 7 days, Infuse at the same rate as the piggyback until tubing clears or up to a volume of 20 mL. Select for IV medication administration when no maintenance IV available or when IV medications are not compatible with maintenance fluid. NaCl 0.9% infusion 1-999 mL/hr, intravenous, As needed, Post Medications (Hazardous/Low Fluid Volume), Starting on Tue07/11/24 at 1156, For 7 days, Infuse at the same rate as the medication until tubing cleared of medication, then discard. oxyCODONE IR tablet 10 mg (Roxicodone) 10 mg, oral, Every 4 hours PRN, severe pain or score 7-10 of 10, Starting on Tue07/12/24 at 1553 Given 07/13/2024 9:37 AM CDT 10 mg Given 07/13/2024 5:45 AM CDT 10 mg Given 07/12/2024 9:53 PM CDT 10 mg oxyCODONE IR tablet 5 mg (Roxicodone) 5 mg, oral, Every 4 hours PRN, moderate pain or score 4-6 of 10, Starting on Tue07/12/[address] tablet 40 mg (Protonix) 40 mg, oral, Daily before morning meal, First dose on Tue07/13/24 at 0700, Swallow whole. Do NOT crush, chew, or split tablet. Given 07/13/2024 5:37 AM CDT 40 mg phenoL 1.4 % spray 1 spray (Chloraseptic) 1 spray, mouth/throat, As needed, sore throat, Starting on 07/08/24 at 2241 Given 07/09/2024 6:08 AM CDT 1 sp ray Given 07/08/2024 11:25 PM CDT 1 spray sodium chloride 0.9 % injection 10 mL 10 mL, intravenous, As needed, line care, Starting on 07/08/24 at 1458, Peripheral Intravenous Catheter and Rapid Infusion Catheter, prior to blood sampling, post blood transfusion or post blood sampling Given 07/10/2024 8:28 PM CDT 10 mL Given 07/10/2024 5:02 PM CDT 10 mL sodium chloride 0.9 % injection 10 mL 10 mL, intravenous, As needed, line care, Midline Catheter, Starting on 07/11/24 at 1156, Prior to and following infusion, between multiple consecutive infusions. sodium chloride 0.9 % injection 10 mL 10 mL, intravenous, Every 24 hours scheduled, First dose on [place] 07/12/24 at 0900, Midline Catheter: When no infusion to maintain patency. Given 07/13/2024 9:38 AM CDT 10 mL Given 07/12/2024 8:03 AM CDT 10 mL sodium chloride 0.9 % injection 20 mL 20 mL, intravenous, As needed, line care, Midline Catheter, Starting on 07/11/24 at 1156, Prior to blood sampling, post blood transfusion or post blood sampling. sodium chloride 0.9 % injection 3 mL 3 mL, intravenous, As needed, line care, Starting on 07/08/24 at 1458, Prior to and following infusion and between multiple consecutive infusions: sodium chloride 0.9 % injection Given 07/08/2024 8:06 PM CDT 3 mL sodium chloride 0.9 % injection 3 mL 3 mL, intravenous, Every 12 hours scheduled, First dose on [place] 07/08/24 at 2100, Peripheral Intravenous Catheter and Rapid Infusion Catheter, when no infusion to maintain patency Given 07/13/2024 9: 43 AM CDT 3 mL Given 07/12/2024 8:53 PM CDT 3 mL Given 07/12/2024 8:03 AM CDT 3 mL documented in this encounter Active and Recently Administered Medications Times are shown in CDT. Scheduled Medication Order 07/11/2024 07/12/2024 07/13/2024 acetaminophen tablet 1,000 mg (TylenoL) (CANCELED) 1,000 mg, oral, Every 6 hours, First dose on 07/09/24 at 2315, Not to exceed 4 grams in 24 hours. 0548 (Given - Provider: Jeanie E Baires, R.N.)1215 (Not Given - Provider: Sheryl Raymond R.N. - Reason: Patient/family refused) acetaminophen tablet 1,000 mg (TylenoL) 1,000 mg, oral, Every 6 hours, First dose (after last modification) on Tue07/12/24 at 1800, Not to exceed 4 grams in 24 hours. 1701 (Given - Provider: Surinder Walters R.N.)2336 (Given - Provider: Shayla Freed R.N.) 0536 (Given - Provider: Shayla Freed R.N.)1200 (Due) heparin (porcine) injection 5,000 Units 5,000 Units, subcutaneous, Every 8 hours scheduled, First dose on Tue07/10/24 at 0530 0548 (Given - Provider: Jeanie Baires RDanielaNDaniela)1404 (Given - Provider: Vitor GoveaN.)2111 (Given - Provider: Shayla Freed R.N.) 0535 (Given - Provider: Shayla Freed R.N.)1300 (Given - Provider: Surinder Walters R.N.)2152 (Given - Provider: Shayla Freed R.N.) 0537 (Given - Provider: Vitor PickettN.) lidocaine 10 mg/mL (1 %) injection 0-10 mL (Xylocaine) 0-10 mL, intradermal, Once, On Tue07/11/24 at 0830, For 1 dose, Administer intradermally prior to midline placement. Patient 18 years and older - 1 mL (may repeat twice up to 1 mL each midline insertion attempt if patient complains or pain or discomfort at injection site. 0830 (Due) LORazepam injection 0.5 mg (Ativan) (COMPLETED) 0.5 mg, intravenous, Once, On Tue07/11/24 at 2315, For 1 dose, Shortage on injection, use oral when possible For intravenous use, dilute with equal volume of 0.9% NS 2307 (Given - Provider: Shayla Freed R.N.) magnesium hydroxide suspension 30 mL (Milk of Magnesia) 30 mL, oral, 2 times daily, First dose on Tue07/10/24 at 0900 0812 (Given - Provider: Sheryl Raymond R.N.)2110 (Given - Provider: Shayla Freed R.N.) 08 (Given - Provider: Surinder Walters R.N.)2049 (Given - Provider: Shayla Freed R.N.) 0937 (Given - Provider: Jain Pendleton R.N.) pantoprazole DR tablet 40 mg (Protonix) (CANCELED) 40 mg, oral, Daily before morning meal, First dose on Tue07/10/24 at 0700, Swallow whole. Do NOT crush, chew, or split tablet. 811 (Given - Provider: Sheryl Raymond R.N.) pantoprazole DR tablet 40 mg (Protonix) 40 mg, oral, Daily before morning meal, First dose on Tue07/13/24 at 0700, Swallow whole. Do NOT crush, chew, or split tablet. 0537 (Given - Provider: Shayla Freed R.N.) pantoprazole injection 40 mg (Protonix) (CANCELED) 40 mg, intravenous, Every 24 hours scheduled, First dose on Tue07/12/24 at 0900, Administer IV push over 2 minutes. Add 10 mL NS to 40 mg vial for a final concentration of 4 mg/mL. 08 (Given - Provider: Surinder Walters R.N.) potassium chloride ER tablet 60 mEq (COMPLETED) 60 mEq, oral, Once, On Tue07/11/24 at 0600, For 1 dose, For K<3 mEq/L - give 60 mEq Swallow whole. Do NOT crush, chew, or split tablet., Monitor the following for replacement: Potassium, Replace Potassium per: Standard Schedule 0548 (Given - Provider: Jeanie Baires R.N.) sodium chloride 0.9 % injection 10 mL 10 mL, intravenous, Every 24 hours scheduled, First dose on Tue07/12/24 at 0900, Midline Catheter: When no infusion to maintain patency. 08 (Given - Provider: Surinder Walters R.N.) 0938 (Given - Provider: Jian Pendleton R.N.) sodium chloride 0.9 % injection 10-30 mL 10-30 mL, intravenous, Once, On Tue07/11/24 at 0830, For 1 dose, 10 mL flush to each lumen 0815 (Not Given - Provider: Sheryl Raymond R.N. - Reason: Loss of IV access) sodium chloride 0.9 % injection 3 mL 3 mL, intravenous, Every 12 hours scheduled, First dose on Tue07/08/24 at 2100, Peripheral Intravenous Catheter and Rapid Infusion Catheter, when no infusion to maintain patency 0818 (Not Given - Provider: Sheryl Raymond R.N. - Reason: Loss of IV access)2110 (Given - Provider: Shayla Freed R.N.) 0803 (Given - Provider: Surinder Walters R.N.)2052 (Given - Provider: Shayal Freed R.N.) 0943 (Given - Provider: Jian Pendleton R.N.) PRN Medication Order 07/11/2024 07/12/2024 07/13/2024 busPIRone tablet 5 mg (BuSpar) 5 mg, oral, 3 times daily PRN, Anxiety, Starting on [place] 07/12/24 at 1553 0 (Given - Provider: Shayla Freed R.N.) 0937 (Given - Provider: Jian Pendleton R.N.) D5W infusion 1-999 mL/hr, intravenous, As needed, Medications Incompatible with 0.9% NaCL, Starting on Tue07/11/24 at 1156, Infuse at the same rate as the piggyback until tubing clears or up to a volume of 20 mL pre and post infusion for medications incompatible with 0.9% NaCL. Use 50 mL bag then discard. dexAMETHasone injection 4 mg (Decadron) (COMPLETED) 4 mg, intravenous, Once as needed, nausea, vomiting, Starting on Tue07/09/24 at 2251, For 1 dose, Give only if NOT given during the pre or intraoperative period. If ondansetron ordered, give dexamethasone with first dose of ondansetron. 1311 (Given - Provider: Surinder Walters R.N.) haloperidol lactate injection 1 mg (HaldoL) () 1 mg, intravenous, Every 6 hours PRN, nausea, vomiting, Starting on Tue07/09/24 at 2251, For 48 hours, Total of 3 doses in 24 hour period. RASS must be -2 or higher to administer. Reassess for nausea or vomiting after at least 10 minutes. If nausea or vomiting persists administer next ordered antiemetic medications (order for antiemetic medication administration ondansetron then haloperidol then prochlorperazine) 1620 (Given - Provider: Sheryl Raymond R.N.) HYDROmorphone (PF) injection 0.2 mg (Dilaudid) 0.2 mg, intravenous, Every 2 hour PRN, severe pain or score 7-10 of 10, breakthrough pain, Starting on Tue07/09/24 at 2251, For breakthrough pain unrelieved 30 minutes after PRN oral pain medication is used; or if unable to take oral pain medication. 1223 (Given - Provider: Sheryl Raymond R.N.)1534 (Given - Provider: Sheryl Raymond R.N.)2131 (Given - Provider: Shayla Freed R.N.) 1100 (Given - Provider: Surinder Walters R.N.)1305 (Given - Provider: Surinder Walters R.N.) hydrOXYzine tablet 10 mg (Atarax) 10 mg, oral, 4 times daily PRN, anxiety, Starting on 07/08/24 at 1458, On hold since 07/08/2024 at 1503 until manually unheld 1528 (Unheld by provider - Provider: Discharge Provider, Automatic) ketorolac injection 15 mg (ToradoL) 15 mg, intravenous, Every 6 hours PRN, mild pain or score 1-3 of 10, Starting on Tue07/09/24 at 2251, For 5 days, Adult IV push rate: Over 15 seconds. Peds IV push rate: Over 1 minute. Doses > 15 mg IV/IM are discouraged due to lack of additional analgesic benefit. 1612 (Given - Provider: Sheryl Raymond R.N.)2332 (Given - Provider: Shayla Freed R.N.) 0646 (Given - Provider: Shayla Freed R.N.) 0211 (Given - Provider: Shayla Lour[place], R.N.) LORazepam tablet 0.5 mg (Ativan) 0.5 mg, oral, Daily PRN, anxiety, Starting on [place] 07/12/24 at 2103 [id number] (Given - Provider: Shayla Freed RVitor.) 0937 (Given - Provider: Jian Pendleton R.N.) NaCl 0.9% infusion 1-999 mL/hr, intravenous, As needed, Between Consecutive Piggyback Medications, Starting on Tue07/11/24 at 1156, For 7 days, Infuse at the same rate as the piggyback until tubing clears or up to a volume of 20 mL. Select for IV medication administration when no maintenance IV available or when IV medications are not compatible with maintenance fluid. NaCl 0.9% infusion 1-999 mL/hr, intravenous, As needed, Post Medications (Hazardous/Low Fluid Volume), Starting on Tue07/11/24 at 1156, For 7 days, Infuse at the same rate as the medication until tubing cleared of medication, then discard. naloxone injection 0.2 mg (Narcan) 0.2 mg, intravenous, As needed, respiratory depression, Starting on Tue07/09/24 at 2251, For RASS Score -4 or less, respiratory rate of less than 8 breaths/min. Notify provider/service and rapid response team (if available at institution). ondansetron (PF) injection 4 mg (Zofran) () 4 mg, intravenous, Every 6 hours PRN, nausea, vomiting, Starting on Tue07/09/24 at 2251, For 48 hours, Reassess for nausea or vomiting after at least 10 minutes. If nausea or vomiting persists administer next ordered antiemetic medications (order for antiemetic medication administration ondansetron then haloperidol then prochlorperazine). 1557 (Given - Provider: Sheryl Raymond RDanielaNDaniela) oxyCODONE IR tablet 10 mg (Roxicodone) (CANCELED) 10 mg, oral, Every 4 hours PRN, severe pain or score 7-10 of 10, Starting on Tue07/09/24 at 2251 0042 (Given - Provider: Jeanie Baires RDanielaN.) oxyCODONE IR tablet 10 mg (Roxicodone) (CANCELED) 10 mg, gastric tube, Every 4 hours PRN, severe pain or score 7-10 of 10, Starting on Tue07/11/24 at 1137 1539 (Given - Provider: Surinder Walters R.N.) oxyCODONE IR tablet 10 mg (Roxicodone)(Linked Group 1) 10 mg, oral, Every 4 hours PRN, severe pain or score 7-10 of 10, Starting on [place] 07/12/24 at 1553 2153 (Given - Provider: Shayla Freed R.N.) 0545 (Given - Provider: Shayla Freed R.N.)0937 (Given - Provider: Jian Pendleton R.N.) oxyCODONE IR tablet 5 mg (Roxicodone)(Linked Group 1) 5 mg, oral, Every 4 hours PRN, moderate pain or score 4-6 of 10, Starting on [place] 07/12/24 at 1553 2153 (See Alternative - Provider: Shayla Freed R.N.) 0545 (See Alternative - Provider: Shayla Freed R.N.)0937 (See Alternative - Provider: Jian Pendleton R.N.) phenoL 1.4 % spray 1 spray (Chloraseptic) 1 spray, mouth/throat, As needed, sore throat, Starting on Tue07/08/24 at 2241 prochlorperazine injection 5 mg (Compazine) () 5 mg, intravenous, Every 6 hours PRN, nausea, vomiting, Starting on Tue07/09/24 at 2251, For 48 hours, RASS must be -2 or higher to administer. Reassess for nausea/vomiting after at least 10 minutes. If nausea or vomiting persists administer next ordered antiemetic medications (order for antiemetic medication administration ondansetron then haloperidol then prochlorperazine) 4049 (Given - Provider: Shayla Freed R.N.) sodium chloride 0.9 % injection 10 mL 10 mL, intravenous, As needed, line care, Starting on Tue07/08/24 at 1458, Peripheral Intravenous Catheter and Rapid Infusion Catheter, prior to blood sampling, post blood transfusion or post blood sampling sodium chloride 0.9 % injection 10 mL 10 mL, intravenous, As needed, line care, Midline Catheter, Starting on Tue07/11/24 at 1156, Prior to and following infusion, between multiple consecutive infusions. sodium chloride 0.9 % injection 20 mL 20 mL, intravenous, As needed, line care, Midline Catheter, Starting on Tue07/11/24 at 1156, Prior to blood sampling, post blood transfusion or post blood sampling. sodium chloride 0.9 % injection 3 mL 3 mL, intravenous, As needed, line care, Starting on Tue07/08/24 at 1458, Prior to and following infusion and between multiple consecutive infusions: sodium chloride 0.9 % injection SUMAtriptan tablet 50 mg (Imitrex) 50 mg, oral, As needed, migraine, Starting on Tue07/08/24 at 1458, May repeat dose once in 2 hours if migraine is unresolved. Do not exceed 200 mg in 24 hours., On hold since [place] 07/08/2024 at 1503 until manually unheld 1528 (Unheld by provider - Provider: Discharge Provider, Automatic) Linked Groups Order Group 1: oxyCODONE IR tablet 5 mg (Roxicodone)Jump to med 5 mg, oral, Every 4 hours PRN, moderate pain or score 4-6 of 10, Starting on [place] 07/12/24 at 1553 Or oxyCODONE IR tablet 10 mg (Roxicodone)Jump to med 10 mg, oral, Every 4 hours PRN, severe pain or score 7-10 of 10, Starting on [place] 07/12/24 at 1553 documented in this encounter Additional Health Concerns Active Problems Noted Date Diagnosed Date Autogenerated Problem 06/30/2024 Assessment Noted Time PHQ-9 Depression Total Score: 17 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 [address] [place] [id number] PCP - General Family Medicine 03/26/20 documented as of this encounter
--- OUTSIDE RECORDS SUMMARY | 2024-07-13 23:46 | XMS_ITS | Encounter Summary ---
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 Blood (Blood, Venous) 07/10/2024 8:53 PM CDT 07/10/2024 9:27 PM CDT us Noreen Vega P.A.-C. LAB BLOOD ADD-ON Final Result [facility] [address] [facility] [address] [place] [address] * (ABNORMAL) CBC without Differential (07/10/2024 8:17 AM CDT) Pathologist [facility] Hemoglobin 13.6 11.6 - 15.0 g/dL 07/10/2024 [...] M.D. LAB BLOOD ADD-ON Final Resu lt [facility] [address] [place] [address], [facility] [address] [place] [address] * (ABNORMAL) Basic Metabolic Panel (07/10/2024 8:17 [...] M.D. LAB BLOOD ADD-ON Final Resu lt [facility] [address] [place] [address] * Magnesium (07/10/2024 8:17 AM CDT) Magnesium, S 2.0 1.7 - 2.3 mg/dL 07/10/2024 9:30 AM CDT DTL Blood (Blood, Venous) 07/10/2024 8:17 AM CDT 07/10/2024 9:02 AM CDT us Norma Chand M.D. LAB BLOOD ADD-ON Final Resu lt [facility] [address] [place] [address], [place] [address] * (ABNORMAL) Phosphorus Inorganic (07/10/2024 8:17 AM CDT) Phosphorus (Inorganic), S 2.3(L) 2.5 - 4.5 mg/dL 07/10/2024 9:30 AM CDT DTL Blood (Blood, Venous) 07/10/2024 8:17 AM CDT 07/10/2024 9:02 AM CDT Norma Chand M.D. LAB BLOOD ADD-ON Final Resu lt [facility] [address] [place] [address], [place] D[place] [facility] [address] [place] [address] * DX Chest Portable 1 View (07/09/2024 [...] the mid thoracic trachea. Keisha Donald M.D. [facility] PROC EDURES Final Result * [...] AM CDT 07/09/2024 7:12 AM CDT Kunal JoyceB.S. LAB BLOOD ADD- ON Final Result Performing Organization Address [facility] de Phone Number [facility] [address] DTL [facility] [address] [place] [address] * Type and Screen (with Reflex Antibody ID) (07/09/2024 6:48 AM CDT) Pathologist [facility] ABORh B Pos Not applicable 07/09/2024 7:46 AM CDT STRM Antibody Screen Negative Negative 07/09/2024 7:51 AM CDT STRM Type & Screen Expiration 07/12/2024 23:59 07/09/2024 7:46 AM CDT STRM Testing Location [place] DEFAULT 07/09/2024 7:08 AM CDT STRM Blood (Blood, Venous) 07/09/2024 6:48 AM CDT 07/09/2024 7:08 AM CDT Kunal JoyceB.S. LAB BLOOD BANK TEST ORDERABLES Final Result Performing Organization Address [facility] de Phone Number [facility] [address] STRM [facility] [address] [place] [address] * Basic Metabolic Panel (07/09/2024 6:48 AM CDT) Pathologist [facility] Potassium, S 3.8 3.6 - 5.2 mmol/L [...] Sharif LAB BLOOD ADD- ON Final Result [facility] [address] [place] [address], [facility] [address] [place] [address] * (ABNORMAL) CBC with Differential, Blood (07/09/2024 6:48 AM CDT) Hemoglobin 14.2 11.6 - 15.0 g/dL 07/09/2024 [...] Sharif LAB BLOOD ADD- ON Final Result [facility] [address] [place] [address], [facility] DTL [facility] [address] [place] [address] [facility] [address] [place] [address] * DX Abdomen 1 View (07/09/2024 4:42 [...] be diluted in small bowel fluid. Gabriel Duran.B.B.S. [facility] PROCEDURES Final Result * DX [...] and side-port in the stomach. Kunal SaezB.B.S. [facility] PROCEDURES Final Result * ECG 12 Lead (07/08/2024 3:48 PM CDT) Ventricular Rate ECG/Min 86 BPM MUSE PA Interval 166 ms MUSE QRSD Interval 92 ms MUSE QT Interval 374 ms MUSE QTC Interval 447 ms MUSE P Anna 6 degrees MUSE R Anna 79 degrees MUSE T Wave Anna -14 degrees MUSE 07/08/2024 3:48 PM CDT [...] has occurred Reviewed by DIANNE Marques Kunal JoyceB.SDaniela ECG ORDERABLES Edited Result - Final Performing Organization Address City/[facility]/ZIP Co de Phone Number MUSE NA * Lactate (07/08/2024 3:42 PM CDT) Pathologist [facility] Lactate, P 1.0 0.5 - 2.2 mmol/L 07/08/2024 4:35 PM CDT STMA Blood (Blood, Venous) 07/08/2024 3:42 PM CDT 07/08/2024 3:52 PM CDT Kunal JoyceB.S. LAB BLOOD NON ADD-ON Final Result [facility] [address] [place] [address], [facility] STMA [facility] [address] [place] [address] * Prothrombin Time (PT) (07/08/2024 3:42 PM CDT) Pathologist [facility] Prothrombin Time, P 11.0 9.4 - 12.5 sec 07/08/2024 4:32 PM CDT DTL INR 1.0 0.9 - 1.1 07/08/2024 4:32 PM CDT DTL Comment: ----ADDITIONAL INFORMATION---- Standard intensity warfarin therapeutic range: 2.0 to 3.0 High intensity warfarin therapeutic range: 2.5 to 3.5 Blood (Blood, Venous) 07/08/2024 3:42 PM CDT 07/08/2024 4:07 PM CDT Kunal Engel.S. LAB BLOOD ADD- ON Final Result Performing Organization Address [facility] Co de Phone Number [facility] [address] [place] [address] * (ABNORMAL) CRP (C-Reactive Protein) (07/08/2024 3:42 PM CDT) C-Reactive Protein (CRP), S 14.9(H) <5.0 mg/L 07/08/2024 4:33 PM CDT DTL Blood (Blood, Venous) 07/08/2024 3:42 PM CDT 07/08/2024 4:18 PM CDT Kunal Engel.S. LAB BLOOD ADD- ON Final Result Performing Organization Address [facility] de Phone Number [facility] [address] [place] [address] * Hepatic Function Panel (07/08/2024 3:42 PM [...] Sharif LAB BLOOD ADD- ON Final Result [address] [address], [facility] [address] [place] [address] * Basic Metabolic Panel (07/08/2024 3:42 PM [...] Sharif LAB BLOOD ADD- ON Final Result [facility] [address] [place] [address], [facility] [address] [place] [address] * (ABNORMAL) CBC with Differential, Blood (07/08/2024 [...] Sharif LAB BLOOD ADD- ON Final Result [facility] [address] [place] [address], [place] DTL [facility] [address] [place] [address] DHPM [facility] [address] [place] [address] documented in this encounter Visit Diagnoses Diagnosis Crohn's Disease (HCC)- Primary Abdominal Pain Obstruction Intestinal (HCC) Abdominal Pain Anemia Iron Deficiency Anxiety Generalized Disorder Asthma Mild Intermittent (HCC) Bipolar Disorder Current Episode Depressed Moderate (HCC) Borderline Personality Disorder (HCC) Fibromyalgia Gastroesophageal Reflux Disease NOS Morbid Obesity Body Mass Index 45.0-49.9 Adult (HCC) Carpal Tunnel Syndrome Right Carpal Tunnel Syndrome [...] exceed 4 grams in 24 hours. Given 07/11/2024 5:48 AM CDT 1,000 mg Given 07/10/2024 9:08 PM CDT 1,000 mg Given 07/10/2024 5:01 PM CDT 1,000 mg acetaminophen tablet 1,000 mg (TylenoL) 1,000 mg, oral, Every 6 hours, First dose (after last modification) on [place] 07/12/24 at 1800, Not to exceed 4 grams in 24 hours. Given 07/13/2024 5:36 AM CDT 1,0 00 mg Given 07/12/2024 11:36 PM CDT 1,000 mg Given 07/12/2024 5:01 PM CDT 1,000 mg busPIRone tablet 5 mg (BuSpar) 5 mg, oral, 3 times daily PRN, Anxiety, Starting on 07/10/24 at 0950 Given 07/10/2024 10:34 AM CDT 5 mg busPIRone tablet 5 mg (BuSpar) 5 mg, oral, 3 times daily PRN, Anxiety, Starting on [place] 07/12/24 at 1553 Given 07/13/2024 9:37 AM CDT 5 mg Given 07/12/2024 8:50 PM CDT 5 mg D5W and Lactated Ringer's infusion 75 mL/hr, intravenous, Continuous, Starting on Tue07/08/24 at 1615, For 12 hours Rate/Dose Verify 07/08/2024 5:32 PM CDT 75 mL/hr 75 mL/hr New Bag 07/08/2024 4:32 PM CDT 75 mL/hr 75 mL/hr D5W infusion 1-999 mL/hr, intravenous, As needed, Medications Incompatible with 0.9% NaCL, Starting on Tue07/11/24 at 1156, Infuse at the same rate as the piggyback until tubing clears or up to a volume of 20 mL pre and post infusion for medications incompatible with 0.9% NaCL. Use 50 mL bag then discard. dexAMETHasone injection 4 mg (Decadron) 4 mg, intravenous, Once as needed, nausea, vomiting, Starting on Tue07/09/24 at 2251, For 1 dose, Give only if NOT given during the pre or intraoperative period. If ondansetron ordered, give dexamethasone with first dose of ondansetron. Given 07/12/2024 1:11 PM CDT 4 mg diatrizoate meglumine-diatrizoate sodium 66-10 % solution 100 mL (Gastrografin) 100 mL, gastric tube, Once, On Tue07/08/24 at 1915, For 1 dose, Administer two hours after NG tube insertion when stomach contents have been evacuated. Dilute in 50 mL tap water (OK to use sterile water). Clamp NG tube for 2 hours after administration of Diatrizoate Methylglucamine and then to low intermittent suction. Given 07/08/2024 8:28 PM CDT 100 mL haloperidol lactate injection 1 mg (HaldoL) 1 mg, intravenous, Every 6 hours PRN, nausea, vomiting, Starting on Tue07/09/24 at 2251, For 48 hours, Total of 3 doses in 24 hour period. RASS must be -2 or higher to administer. Reassess for nausea or vomiting after at least 10 minutes. If nausea or vomiting persists administer next ordered antiemetic medications (order for antiemetic medication administration ondansetron then haloperidol then prochlorperazine) Given 07/11/2024 4:20 PM CDT 1 mg heparin (porcine) injection 5,000 Units 5,000 Units, subcutaneous, Every 8 hours scheduled, First dose on Tue07/10/24 at 0530 Given 07/13/2024 5:37 AM CDT 5,000 Units Right Outer Thigh Given 07/12/2024 9:52 PM CDT 5,000 Units L eft Outer Thigh Given 07/12/2024 1:00 PM CDT 5,000 Units R ight Upper Arm (Back) heparin (porcine) injection 7,500 Units 7,500 Units, subcutaneous, Every 8 hours scheduled, First dose on Tue07/08/24 at 1515, For 2 doses Given 07/08/2024 9:40 PM CDT 7,500 Units Left Upper Arm (Back ) HYDROmorphone (PF) injection 0.2 mg (Dilaudid) 0.2 mg, intravenous, Every 4 hours PRN, severe pain or score 7-10 of 10, Starting on Tue07/08/24 at 1528 Given 07/10/2024 5:01 PM CDT 0.2 mg Given 07/09/2024 2:16 PM CDT 0.2 mg Given 07/09/2024 10:21 AM CDT 0.2 mg HYDROmorphone (PF) injection 0.2 mg (Dilaudid) 0.2 [...] Given 07/11/2024 11:32 PM CDT 15 mg Lactated Ringer's 1.5 mL/kg/hr 57 kg [place] weight (85.5 mL/hr), intravenous, Continuous, Starting on Tue07/08/24 at 1915, Conditional Phase Pre-Gastrografin Administration. (Rate = 1.5 mL/kg/hr ideal body weight) New Bag 07/09/2024 7:16 AM CDT 1.5 mL/kg/hr 85.5 mL/hr New Bag 07/08/2024 7:21 PM CDT 1.5 mL/kg/hr 85.5 mL/hr Lactated Ringer's 50 mL/hr, intravenous, Continuous, Starting on Tue07/09/24 at 2130, PACU & Post-Op Rate/Dose Verify 07/10/2024 10:26 AM CDT 50 mL/hr 50 mL/hr Rate/Dose Verify 07/10/2024 3:00 AM CDT 50 mL/hr 50 mL/h r New Bag 07/09/2024 11:35 PM CDT 50 mL/hr 50 mL/hr LORazepam injection 0.5 mg (Ativan) 0.5 mg, intravenous, Once as needed, anxiety, Starting on Tue07/09/24 at 1156, For 1 dose, Shortage on injection, use oral when possible For intravenous use, dilute with equal volume of 0.9% NS Given 07/09/2024 12:26 PM CDT 0.5 mg LORazepam injection 0.5 mg (Ativan) 0.5 mg, intravenous, Once, On Tue07/11/24 at 2315, For 1 dose, Shortage on injection, use oral when possible For intravenous use, dilute with equal volume of 0.9% NS Given 07/11/2024 11:07 PM CDT 0. 5 mg LORazepam tablet 0.5 mg (Ativan) 0.5 mg, oral, Daily PRN, anxiety, Starting on Tue07/12/24 at 2103 Given 07/13/2024 9:37 AM CDT [...] until tubing cleared of medication, then discard. ondansetron (PF) injection 4 mg (Zofran) 4 mg, intravenous, Every 6 hours PRN, nausea, vomiting, Starting on 07/08/24 at 1529 Given 07/09/2024 12:26 PM CDT 4 mg Given 07/09/2024 5:36 AM CDT 4 mg Given 07/08/2024 10:18 PM CDT 4 mg ondansetron (PF) injection 4 mg (Zofran) 4 mg, intravenous, Every 6 hours PRN, nausea, vomiting, Starting on Tue07/09/24 at 2251, For 48 hours, Reassess for nausea or vomiting after at least 10 minutes. If nausea or vomiting persists administer next ordered antiemetic medications (order for antiemetic medication administration ondansetron then haloperidol then prochlorperazine). Given 07/11/2024 3:57 PM CDT 4 mg oxyCODONE IR tablet 10 mg (Roxicodone) 10 mg, oral, Every 4 hours PRN, severe pain or score 7-10 of 10, Starting on Tue07/09/24 at 2251 Given 07/11/2024 12:42 AM CDT 10 mg Given 07/10/2024 7:40 PM CDT 10 mg Given 07/10/2024 2:02 PM CDT 10 mg oxyCODONE IR tablet 10 mg (Roxicodone) 10 mg, gastric tube, Every 4 hours PRN, severe pain or score 7-10 of 10, Starting on Tue07/11/24 at 1137 Given 07/12/2024 3:39 PM CDT 10 mg oxyCODONE IR tablet 10 mg (Roxicodone) 10 [...] or score 4-6 of 10, Starting on Tue07/09/24 at 2251 Given 07/10/2024 5:39 AM CDT 5 mg Given 07/10/2024 1:34 AM CDT 5 mg oxyCODONE IR tablet 5 mg (Roxicodone) 5 mg, oral, Every 4 hours PRN, moderate pain or score 4-6 of 10, Starting on Tue07/12/[address] tablet 40 mg (Protonix) 40 mg, oral, Daily before morning meal, First dose on Tue07/10/24 at 0700, Swallow whole. Do NOT crush, chew, or split tablet. Given 07/11/2024 8:12 AM CDT 40 mg Given 07/10/2024 8:09 AM CDT [address] tablet 40 mg (Protonix) 40 mg, oral, Daily before morning meal, First dose on Tue07/13/24 at 0700, Swallow whole. Do NOT crush, chew, or split tablet. Given 07/13/2024 5:37 AM CDT 40 mg pantoprazole injection 40 mg (Protonix) 40 mg, intravenous, Every 24 hours scheduled, First dose on Tue07/12/24 at 0900, Administer IV push over 2 minutes. Add 10 mL NS to 40 mg vial for a final concentration of 4 mg/mL. Given 07/12/2024 8:03 AM CDT 40 mg phenoL 1.4 % spray 1 spray (Chloraseptic) 1 spray, mouth/throat, As needed, sore throat, Starting on Tue07/08/24 at 2241 Given 07/09/2024 6:08 AM CDT 1 sp ray Given 07/08/2024 11:25 PM CDT 1 spray potassium chloride ER tablet 60 mEq 60 mEq, oral, Once, On Tue07/11/24 at 0600, For 1 dose, For K<3 mEq/L - give 60 mEq Swallow whole. Do NOT crush, chew, or split tablet., Monitor the following for replacement: Potassium, Replace Potassium per: Standard Schedule Given 07/11/2024 5:48 AM CDT 60 mEq potassium phosphates 30 mmol in NaCl 0.9% IVPB 30 mmol (0.25 mmol/kg 120 kg Dosing weight), intravenous, at 116 mL/hr, Administer over 4.4 Hours, Once, On Tue07/10/24 at 1700, For 1 dose, Peripheral Line: Administrater at 6.8 mmoL phosphate/hr, Monitor the following for replacement: Phosphorus New Bag 07/10/2024 6:05 PM CDT 30 mmol 116 mL/hr prochlorperazine injection 5 mg (Compazine) 5 mg, intravenous, Every 6 hours PRN, nausea, vomiting, Starting on Tue07/08/24 at 1929 Given 07/09/2024 10:21 AM CDT 5 mg Given 07/09/2024 2:31 AM CDT 5 mg Given 07/08/2024 8:06 PM CDT 5 mg prochlorperazine injection 5 mg (Compazine) 5 mg, intravenous, Every 6 hours PRN, nausea, vomiting, Starting on 07/09/24 at 2251, For 48 hours, RASS must be -2 or higher to administer. Reassess for nausea/vomiting after at least 10 minutes. If nausea or vomiting persists administer next ordered antiemetic medications (order for antiemetic medication administration ondansetron then haloperidol then prochlorperazine) Given 07/11/2024 9:39 PM CDT 5 mg Given 07/10/2024 8:28 PM CDT 5 mg sodium chloride 0.9 % injection 10 mL [...] oral, Every 6 hours, First dose on Tue07/09/24 at 2315, Not to exceed 4 grams in 24 hours. 0548 (Given - Provider: Jeanie Baires R.N.)1215 (Not Given - Provider: Sheryl Raymond [...] 0530 0548 (Given - Provider: Jeanie Baires R.N.)1404 (Given - Provider: Sheryl Raymond RDanielaN.)2111 (Given - Provider: Shayla Freed R.N.) 0535 (Given - Provider: Vitor PickettN.)1300 (Given - Provider: Surinder Walters R.N.)2152 (Given - Provider: Shayla Freed R.N.) 0537 (Given - Provider: Shayla Freed R.N.) lidocaine 10 mg/mL (1 %) injection 0-10 [...] R.N.)2110 (Given - Provider: Shayla Freed R.N.) 0803 (Given - Provider: Surinder Walters R.N.)2049 (Given - Provider: Shayla Freed R.N.) 0937 (Given - Provider: Jian Pendleton R.N.) pantoprazole DR tablet 40 mg (Protonix) (CANCELED) 40 mg, oral, Daily before morning meal, First dose on Tue07/10/24 at 0700, Swallow whole. Do NOT crush, chew, or split tablet. 08 (Given - Provider: Sheryl Raymond R.N.) pantoprazole [...] mg/mL. 08 (Given - Provider: Surinder Walters RNavarro) potassium chloride ER tablet 60 mEq (COMPLETED) [...] Catheter: When no infusion to maintain patency. 0803 (Given - Provider: Surinder Walters R.N.) 0938 [...] 0818 (Not Given - Provider: Sheryl Raymond RNavarro - Reason: Loss of IV access)2110 (Given - Provider: Shayla Freed R.N.) 0803 (Given - Provider: Surinder Walters R.N.)2052 (Given - Provider: Shayla Freed R.N.) 0943 (Given - Provider: Jian Pendleton R.N.) PRN Medication Order 07/11/2024 07/12/2024 07/13/2024 busPIRone tablet 5 mg (BuSpar) 5 mg, oral, 3 times daily PRN, Anxiety, Starting on Tue07/12/24 at 1553 0 (Given - Provider: Shayla [...] prochlorperazine) 1620 (Given - Provider: Sheryl Raymond RDanielaNDaniela) HYDROmorphone (PF) injection 0.2 mg (Dilaudid) 0.2 mg, intravenous, Every 2 hour PRN, severe pain or score 7-10 of 10, breakthrough pain, Starting on Tue07/09/24 at 2251, For breakthrough pain unrelieved 30 minutes after PRN oral pain medication is used; or if unable to take oral pain medication. 1223 (Given - Provider: Sheryl Raymond RDanielaN.)1534 (Given - Provider: Vitor GoveaN.)2131 (Given - Provider: Shayla Freed RDanielaN.) 1100 (Given - Provider: Surinder Walters R.N.)1305 [...] Freed R.N.) 0211 (Given - Provider: Shayla Freed R.N.) LORazepam tablet 0.5 mg (Ativan) 0.5 mg, oral, Daily PRN, anxiety, Starting on [place] 07/12/24 at 2103 2159 (Given - Provider: Shayla Freed R.N.) 0937 [...] or score 7-10 of 10, Starting on 07/09/24 at 2251 0042 (Given - Provider: Jeanie Baires RDanielaN.) oxyCODONE IR tablet 10 mg (Roxicodone) (CANCELED) 10 mg, gastric tube, Every 4 hours PRN, severe pain or score 7-10 of 10, Starting on Tue07/11/24 at 1137 1539 (Given - Provider: Surinder Walters RDanielaNDaniela) oxyCODONE IR tablet 10 mg (Roxicodone)(Linked Group [...] 6 hours PRN, nausea, vomiting, Starting on 07/09/24 at 2251, For 48 hours, RASS must be -2 or higher to administer. Reassess for nausea/vomiting after at least 10 minutes. If nausea or vomiting persists administer next ordered antiemetic medications (order for antiemetic medication administration ondansetron then haloperidol then prochlorperazine) 2138 (Given - Provider: Shayla Freed R.N.) sodium [...] mg, oral, As needed, migraine, Starting on 07/08/24 at 1458, May repeat dose once in 2 hours if migraine is unresolved. 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 [address] [place] [address] PCP - General Family Medicine 03/26/20 documented as of this encounter
--- OUTSIDE RECORDS SUMMARY | 2024-07-13 23:46 | XMS_ITS | Encounter Summary ---
Author Organization [facility] Address [address] [place] [phone] Care Team Providers Care Computing Tutor Name Role Phone Sánchez Goldberg D.O. Primary Care Provider Encounter Details Date Type Department Care Team (Late st Contact Info) Description 07/09/2024 4:06 PM CDT Anesthesia Event RST ROMB MAIN OR [address] [place] [phone] Shereen Rocha M.D. [address] [place] [phone] Josue Williamson M.D. [address] [place] [phone] Anesthesia Record Procedure Summary Procedure Name Responsible Anesthesiologist Anesthesia Start Time Anesthesia Stop Time ROBOTIC-ASSISTED ABDOMINAL EXPLORATION, lysis of adhesions, parastoma hernia repair with mesh Shereen Rocha M.D. 07/09/24 1606 07/09/24 2145 Events Date Time Event Comment 07/09/2024 1505 1606 An Start Machine/Equipme nt Checked Infection Precautions Followed Procedure/Site Verified NPO Status Verified Supine Standard ASA Monitors Applied 1606 Patient ID Barcode would n ot scan. Verified with patient and RN. 1615 An Induction 1619 An Intubation 1623 Turnover to Proceduralist 1702 Proc Start 1846 Anes CS Handoff I, Brice chi, SIGN PAINTER HELPER, JUVENILE JUSTICE SPECIALIST, DNAP, attest that I have reconciled the controlled substances and that I have reviewed all the significant information with the next anesthesia provider assuming care of this patient. 2100 Anes CS Handoff I, Meredith Mills R.N., CCRN, attest that I have reconciled the controlled substances and that I have reviewed all the significant information with the next anesthesia provider assuming care of this patient. 2121 Proc Fin 2121 Turnover to ANE Staff 2133 Airway Removal Criteria Met 2133 Extubation/Airway Removed 2133 an stop data 2144 An End I completed my handoff to the receiving staff during which we 1. Identified the patient 2. Identified the responsible provider 3. Reviewed the pertinent medical history 4. Discussed the surgical course 5. Reviewed intra-op anesthesia management and issues during anesthesia 6. Set expectations for post-procedure period 7. Allowed opportunity for questions and acknowledgement of understanding. Meds Name Total fentanyl injection 50 mcg/mL 100 mcg lidocaine 2% (mg) injection 100 mg rocuronium 10 mg/mL injection 130 mg succinylcholine 20 mg/mL injection 100 m g ondansetron 4 mg/2 mL injection 4 mg sugammadex 100 mg/mL injection 240 mg propofol 10 mg/mL infusion 2,834.36 mg propofol 10 mg/mL injection 160 mg dexAMETHasone (Decadron) injection 4 mg/ mL 4 mg ketamine 10 mg/mL injection 50 mg droPERidoL (Inapsine) injection 2.5 mg/m L 5 mg dexmedeTOMIDine 80 mcg/20 mL (4 mcg/mL) in NaCl 0.9% syringe for OR (RESTRICTED) 80 mcg heparin injection 5,000 Units/mL 5,000 U nits scopolamine (Transderm-Scop) 1.5 mg patc h (delivers 1 mg/72 hr) 1 patch ceFAZolin (Ancef) injection 1 g/5 mL 5 g HYDROmorphone (Dilaudid) PF injection 2 mg/mL 1.4 mg Lactated Ringers Free Drip 1,800 mL lactated ringers free drip 1,800 mL * Agents No agents on file. * Blood No blood administrations on file. Lines, Drains, and Airways Type Details Placement Removal (RETIRED) Ileostomy Placement Date: 11/07; Placement Time: 163307/27/19 163 by Shereen Palacio, RVitor. Scope Sites 07/09/24; 180; Abdo men; Left, Upper; Left, Lower; Left, Mid; Left 07/09/24 180 by Florentin Sabillon, R.NDaneila NG/OG Tube Other hospital; Nasogastric; 53 cm; Nare; Left; 07/09/24; 210707/08/24 1520 by 07/09/242107 by Schuyler Campbell Indwelling Urinary Catheter Placement Date: 07/09/24; Inserted by: gabriela; Size: 16 Fr.; Balloon Size: 5 mL; Removal Date: 07/10/24; Removal Time: 653; Removal Reason: Per order 07/09/24 0000 by Nate Cuenca, R.NDaniela 07/10/24 0654 by Juancarlos Brower, R.NDaniela Peripheral IV Placement Date: 06/20 04/14; Placement Time: 1534; Catheter Size: 20 G; Orientation: Left; Location: Forearm; Site Prep: Chlorhexidine (Preferred); Technique: Anatomical landmarks; Inserted by: RHONDA; Insertion Attempts: 1; Removal Date: 07/10/24; Removal Time: 1933; Removal Reason: (PAIN) 07/09/24 153 by Mariola Renner, R.NDaniela 07/10/241933 by Debra Hill ETT Placement Date: 06/20 04/14; Placement Time: 1618 (created via procedure documentation); Mask Ventilation: Not attempted; Technique: Video laryngoscopy; Type: Standard ETT; Single Lumen Tube Size: 6.5 mm; Cuffed: Yes; Location: Oral; Grade View: Grade 2A; Insertion Attempts: 1; Placement Verification: Bilateral breath sounds, Positive ETCO2, Symmetrical chest wall movement; Removal Date: 07/09/24; Removal Time: 213307/09/241618 by Brice Gutierrez, SIGN PAINTER HELPER, JUVENILE JUSTICE SPECIALIST, DNAP 07/09/242133 by Schuyler Campbell Indwelling Urinary Catheter Placement Date: 07/09/24; Placement Time: 1624; Inserted by: D,; Size: 16 Fr.; Balloon Size: 5 mL; Urine Returned: Yes; Removal Date: 07/09/24; Removal Time: 1647; Removal Reason: (double charted) 07/09/241624 by Florentin Sabillon, R.N. 07/09/241647 by Florentin Sabillon, R.N. Peripheral IV Placement Date: 06/20 04/14; Placement Time: 1624; Catheter Size: 20 G; Orientation: Left; Location: Hand; Removal Date: 07/10/24; Removal Time: 1933; Removal Reason: (PAIN) 07/09/241624 by Brice Gutierrez APRN, CRNA, DNAP 07/10/241933 by Debra Hill documented in this encounter Social History Tobacco Use Types Packs/Day Years Used Date Smoking Tobacco: Never Passive Smoke Exposure: Never Smokeless Tobacco: Never Alcohol Use Standard Drinks/Week Comments Not Currently 1 (1 standard drink = 0.6 oz pur e alcohol) daily caffeine [employer] Answer Date Recorded In the past 12 months has [email or web address], gas, oil, or water [employer] threatened to shut off services in your [...] often do you attend chur ch or latter-day services? Never 07/13/2022 Do you belong to any clubs o r organizations such as restorationist groups, unions, fraternal or athletic groups, or [...] Answer Date Recorded PHQ-2 Score 6 05/16/2024 [facility] - Occupational Stress Questionnaire Answer Date [...] living situation today? I have a [facility] place to live 07/08/2024 Education Answer Date Recorded What is the highest level of school you have completed or the highest degree you have received? 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 - 07/09/2024 10:19 PM CDT Patient: Grisel Curz Procedure Summary Date: 07/09/24 Room / Location: [place] [address] / [facility] in [place], [place] Anesthesia Start: 160 Anesthesia Stop: 2144 Procedures: ROBOTIC-ASSISTED ABDOMINAL EXPLORATION, lysis of adhesions, parastoma hernia repair with mesh BLOCK - TRANSVERSUS ABDOMINIS PLANE (Abdomen) Diagnosis: Abdominal Pain (Abdominal Pain [R10.9]) Providers: Jennifer Edge M.D. Responsible Provider: Shereen Rocha M.D. Anesthesia Type: general ASA Status: 3 Anesthesia Type: general Last vitals Vitals Value Taken Time BP 144/95 07/09/24 22:15 Temp Pulse 104 07/09/24 22:18 Resp 15 07/09/24 22:18 SpO2 99 % 07/09/24 22:18 Vitals shown include unfiled device data. Please reference Vitals flowsheet for most recent vital signs. Anesthesia Post Evaluation Patient Disposition: general care unit Cardiovascular status: hemodynamics (HR & BP) acceptable Respiratory status: patent airway with spontaneous effort Temperature: normothermic Oxygen requirements: room air Level of consciousness: awake Pain score: pain adequately controlled and/or at baseline Post Op nausea/vomiting: none Hydration status: euvolemic Notable Events No notable events documented. * Anesthesia Procedure Notes - Brice Gutierrez APRN, CRNA, DNAP - 07/09/2024 5:08 PM CDTAssociated Order(s): Airway Airway Date/Time: 07/09/2024 4:19 PM Performed by: Brice Gutierrez APRN, CRNA, DNAP Authorized by: Josue Williamson M.D. Patient location during procedure: OR / Procedure Area PROCEDURE DETAILS: Mask difficulty assessment: not attempted Final airway type: video laryngoscope Laryngeal Manipulation: no Final best view of glottic structures - Cormack/Lehane Score: grade 2A ETT location: oral VL device: glide scope [place] scope blade size: 3 Tube size: 6.5 [...] Procedure outcome: successful Notable Events: no complications * Anesthesia Preprocedure Evaluation - Eugenie Garcia M.D. - 07/09/2024 3:05 PM CDT Preprocedure Anesthesia & H&P Assessment Procedure Summary Date/Time: 07/09/24 1358 Procedure: ROBOTIC-ASSISTED ABDOMINAL EXPLORATION, POSSIBLE BOWEL RESECTION, POSSIBLE STOMA CREATION, PROCEED INDICATED Diagnosis: Abdominal Pain [R10.9] Pre-op diagnosis: Abdominal Pain [R10.9] Location: RM OR 206 ROMB 552 / [facility] in [place], [place] Providers: Roberto Carlos Hollis M.D., Ph.D. Pertinent components of the patient's history including current problem list, medical history, surgical history, family history, social history, medications and allergies were reviewed. Present illness and pre-op diagnosis were confirmed. The planned surgery / procedure was verified with the patient / legal guardian. The patient's general health condition remains unchanged RELEVANT COMORBID CONDITIONS RESP (+) Asthma (HCC) (+) Asthma Mild Intermittent (HCC) PSYCH (+) Major depressive disorder, recurrent episode, moderate (CMS/HCC) (+) Posttraumatic Stress Disorder Brief GI (+) Crohn's Disease (HCC) (+) Crohns Disease Of Large Intestine With Unspecified Complications (HCC) (+) Crohns Disease Unspecified With Other Complication (HCC) (+) Gastroesophageal Reflux Disease NOS (+) Perianal Crohn's Disease (HCC) HEME (+) Anemia Iron Deficiency Other (+) Morbid Obesity Body Mass Index 45.0-49.9 Adult (HCC) (+) Obesity Body Mass Index 30-39.9 Adult OBJECTIVE PHYSICAL EXAMINATION Airway (HEENT) Mallampati: II TM Distance: <3 FB Neck ROM: Full Mouth Opening: >3 cm Upper Lip Bite Test Class: I Facies (pediatrics): normal Cardiovascular Rhythm: Regular Rate: Normal Cardiovascular Assessment: cardiovascular normal Functional Capacity: >4 METS Pulmonary Pulmonary Assessment: Clear General / Constitutional Constitutional Assessment: Obese General State of Health:: healthy appearing and calm Neurological Neurologic Assessment: alert ASSESSMENT / PLAN ANESTHESIA PLAN ASA: 3 Anesthesia Plan: general Patient seen and allergies reviewed, anesthesia plan and risks discussed directly with patient /legal guardian or through an internet marketing strategist. Risks/Benefits/Alternatives of Blood transfusion discussed with patient / legal guardian, includingan opportunity to ask questions and/or decline some or all transfusion therapies. The patient / legal guardian consented to the use of all blood products, as deemed medically necessary Approval to Proceed: approved for anesthesia documented in this encounter Plan of Treatment Upcoming Encounters Date Type Department Care Team (Latest Contact Info) Description 07/18/2024 10:45 AM CDT Office Visit Department of Orthopedic Surgery in [place], [place] [address] [place] [phone] Andrew Dougherty M.D. [address] [place] [phone] 07/20/2024 3:00 PM CDT Office Visit Department of Family Medicine, [facility], in [place], [place] [address] [place] [phone] Sánchez Goldberg D.O. [address] [place] [phone] 07/23/2024 10:50 AM CDT Hospital Encounter Post Anesthesia Care Unit in [place], [place] [address] [place] [phone] Andrew Dougherty M.D. [address] [place] [phone] 07/23/2024 10:50 AM CDT - 07/23/2024 12:02 PM CDT Surgery RST ROMB MAIN OR [facility] [place] [phone] Andrew Dougherty M.D. [address] [place] [phone] RELEASE CARPAL TUNNEL OPEN WRIST 07/27/2024 9:00 AM CDT Office Visit Division of Trauma Critical Care and General Surgery in [address] [phone] Jeanie Tavarez, SIGN PAINTER HELPER, C.N.P., D.N.P. [address] [place] [phone] 09/06/2024 7:50 AM CDT Hospital Encounter Post Anesthesia Care Unit in [place], [place] [address] [place] [phone] Andrew Dougherty M.D. [address] [place] [phone] 09/06/2024 7:50 AM CDT - 09/06/2024 9:02 AM CDT Surgery RST ROMB MAIN OR [address] [place] [phone] Andrew Dougherty M.D. [address] [place] [phone] RELEASE CARPAL TUNNEL OPEN WRIST Scheduled Procedures [...] Procedure Name Priority Date/Time Associated Diagnosis Comments LDA ANE ENDOTRACHEAL AIRWAY Routine 07/09/2024 4:19 PM CDT documented in this encounter Results * LDA ANE ENDOTRACHEAL AIRWAY (07/09/2024 4:19 PM CDT) Narrative Brice Gutierrez APRN, CRNA, DNAP - 07/09/2024 4:19 PM CDT Brice Gutierrez APRN, CRNA, DNAP 07/09/2024 5:11 PM Airway Date/Time: 07/09/2024 4:19 PM Performed by: Brice Gutierrez APRN, CRNA DNAP Authorized by: Josue Williamson M.D. Patient location during procedure: OR / Procedure Area PROCEDURE DETAILS: Mask difficulty assessment: not attempted Final airway type: video laryngoscope Laryngeal Manipulation: no Final best view of glottic structures - Cormack/Lehane Score: grade 2A ETT location: oral VL device: glide scope [place] scope blade size: 3 Tube size: 6.5 [...] Williamson M.D. ANESTHESIA ORDERABLES Fin al Result documented in this encounter Visit Diagnoses Not on filedocumented in this encounter Administered Medications Inactive Administered Medications - up to 3 most recent administrations Medication Order MAR Action Action Date Dose Rate Site ceFAZolin injection (Ancef) intravenous, As needed, Starting on Tue07/09/24 at 1702, Anesthesia Intra-op Given 07/09/2024 7:59 PM CDT 2 g Given 07/09/2024 5:02 PM CDT 3 g dexAMETHasone injection (Decadron) intravenous, As needed, Starting on Tue07/09/24 at 1652, Anesthesia Intra-op Given 07/09/2024 4:52 PM CDT 4 mg dexmedeTOMIDine 80 mcg/20 mL (4 mcg/mL) injection (Precedex) intravenous, As needed, Starting on Tue07/09/24 at 1615, Anesthesia Intra-op Given 07/09/2024 4:27 PM CDT 40 mcg Given 07/09/2024 4:15 PM CDT 40 mcg droPERidoL injection (Inapsine) intravenous, As needed, Starting on Tue07/09/24 at 1618, Anesthesia Intra-op Given 07/09/2024 4:18 PM CDT 5 mg fentaNYL injection (Sublimaze) intravenous, As needed, Starting on Tue07/09/24 at 1615, Anesthesia Intra-op Given 07/09/2024 4:15 PM CDT 100 mcg heparin (porcine) injection subcutaneous, As needed, Starting on Tue07/09/24 at 1623, Anesthesia Intra-op Given 07/09/2024 4:23 PM CDT 5,000 U nits HYDROmorphone (PF) injection (Dilaudid) intravenous, As needed, Starting on Tue07/09/24 at 1717, Anesthesia Intra-op Given 07/09/2024 9:45 PM CDT 0.4 mg Given 07/09/2024 6:02 PM CDT 0.2 mg Given 07/09/2024 5:33 PM CDT 0.4 mg ketamine injection (Ketalar) intravenous, As needed, Starting on Tue07/09/24 at 1653, Anesthesia Intra-op Given 07/09/2024 8:01 PM CDT 10 mg Given 07/09/2024 7:06 PM CDT 10 mg Given 07/09/2024 5:51 PM CDT 10 mg Lactated Ringer's intravenous, Continuous Infusion: Per Instructions PRN, Starting on Tue07/09/24 at 1607, Anesthesia Intra-op New Bag 07/09/2024 5:20 PM CDT New Bag 07/09/2024 4:07 PM CDT Lactated Ringer's intravenous, Continuous Infusion: Per Instructions PRN, Starting on Tue07/09/24 at 1625, Anesthesia Intra-op New Bag 07/09/2024 5:31 PM CDT New Bag 07/09/2024 4:25 PM CDT lidocaine (PF) (cardiac) injection intravenous, As needed, Starting on Tue07/09/24 at 1615, Anesthesia Intra-op Given 07/09/2024 4:15 PM CDT 100 mg ondansetron (PF) injection (Zofran) intravenous, As needed, Starting on Tue07/09/24 at 2104, Anesthesia Intra-op Given 07/09/2024 9:04 PM CDT 4 mg propofol 10 mg/mL infusion (Diprivan) intravenous, Continuous Infusion: Per Instructions PRN, Starting on Tue07/09/24 at 1621, Anesthesia Intra-op Rate/Dose Change 07/09/2024 7:56 PM CDT 60 mcg/kg/min 43.236 mL/hr Rate/Dose Change 07/09/2024 7:34 PM CDT 70 mcg/kg/min 50.4 42 mL/hr Rate/Dose Change 07/09/2024 5:08 PM CDT 80 mcg/kg/min 57.6 48 mL/hr propofoL injection (Diprivan) intravenous, As needed, Starting on Tue07/09/24 at 1618, Anesthesia Intra-op Given 07/09/2024 4:18 PM CDT 160 mg rocuronium injection (Zemuron) intravenous, As needed, Starting on Tue07/09/24 at 1646, Anesthesia Intra-op Given 07/09/2024 8:44 PM CDT 20 mg Given 07/09/2024 7:31 PM CDT 20 mg Given 07/09/2024 6:29 PM CDT 20 mg scopolamine base 1 mg over 3 days (Transderm-Scop) transdermal, Administer over 72 Hours, As needed, Starting on Tue07/09/24 at 1617, Anesthesia Intra-op Given 07/09/2024 4:17 PM CDT 1 patch succinylcholine (PF) injection (Anectine) intravenous, As needed, Starting on Tue07/09/24 at 1618, Anesthesia Intra-op Given 07/09/2024 4:18 PM CDT 100 mg sugammadex injection (Bridion) intravenous, As needed, Starting on Tue07/09/24 at 2124, Anesthesia Intra-op Given 07/09/2024 9:24 PM CDT 240 mg documented in this encounter Additional Health Concerns Active Problems Noted Date Diagnosed Date Autogenerated Problem 06/30/2024 Assessment Noted Time PHQ-9 Depression Total Score: 17 025 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 [address] [place] [phone] PCP - General Family Medicine 03/26/20 documented as of this encounter
--- OUTSIDE RECORDS SUMMARY | 2024-07-13 23:46 | XMS_ITS | Encounter Summary ---
Author Organization [facility] Address [address] [place] [address] Care Team Providers Care Leather Tanner Name Role Phone Sánchez Goldberg D.O. Primary Care Provider Encounter Details Date Type Department Care Team (Late st Contact Info) Description 07/09/2024 2:30 PM CDT Ancillary Procedure Department of General Surgery Social History Tobacco Use Types Packs/Day Years Used Date Smoking Tobacco: Never Passive Smoke Exposure: Never Smokeless Tobacco: Never Alcohol Use Standard Drinks/Week Comments Not Currently 1 (1 standard drink = 0.6 oz pur e alcohol) daily caffeine [facility] Utilities Answer Date Recorded In the past 12 months has [employer] gas, oil, or water [employer] threatened to shut off services in your [...] any clubs o r organizations such as baptist groups, unions, fraternal or athletic groups, or [...] Recorded PHQ-2 Score 6 05/16/2024 [facility] Questionnaire Answer Date Recorded [...] your living situation today? [facility] 07/08/2024 Education Answer Date Recorded What is the highest level of school you have completed or the highest degree you have received? 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 200 [place] [phone] 07/20/2024 3:00 PM CDT Office Visit Department of Family Medicine, [facility], in [place], [place] [address] [place] [phone] Sánchez Goldberg D.O. [address] [place] [phone] 07/23/2024 10:50 AM CDT Hospital Encounter Post Anesthesia Care Unit in [address] [phone] Andrew Dougherty M.D. [address] [place] [phone] 07/23/2024 10:50 AM CDT - 07/23/2024 12:02 PM CDT Surgery RST ROMB MAIN OR [address] [place] [phone] Andrew Dougherty M.D. [address] [place] [phone] RELEASE CARPAL TUNNEL OPEN WRIST 07/27/2024 9:00 AM CDT Office Visit Division of Trauma Critical Care and General Surgery in [address] [phone] Jeanie Tavarez APRN, C.N.P., D.N.P. [address] [place] [phone] 09/06/2024 7:50 AM CDT Hospital Encounter Post Anesthesia Care Unit in [address] [phone] Andrew Dougherty M.D. [address] [place] [phone] 09/06/2024 7:50 AM CDT - 09/06/2024 9:02 AM CDT Surgery RST ROMB MAIN OR [address] [place] [phone] Andrew Dougherty M.D. [address] [place] [phone] RELEASE CARPAL TUNNEL OPEN WRIST Scheduled Procedures [...] Procedure Name Priority Date/Time Associated Diagnosis Comments SURGERY IMAGE EXAM Routine 07/09/2024 2: 30 PM CDT documented in this encounter Results * Surgery Image Exam-Surgery Image Exam (07/09/2024 [...] Total Score: 17 05/16/ 025 10:48 AM ASSISTED LIVING NURSING DIRECTOR documented as of this encounter Care Teams Leather Tanner Relationship Specialty Start Date End Date Sánchez Goldberg D.O. [address] [place] [phone] PCP - General Family Medicine 03/26/20 documented as of this encounter
--- OUTSIDE RECORDS SUMMARY | 2024-07-13 23:47 | XMS_ITS | Encounter Summary ---
Author Organization [facility] Address [address] [place] [address] Care Team Providers Care Admitting Clerk Name Role Phone Sánchez Goldberg D.O. Primary Care Provider Reason for Visit * Reason Onset Date Comments Abdominal Pain 07/13/2024 Constipation 07/13/2024 Encounter Details Date Type Department Care Team (Late st Contact Info) Description 07/13/2024 Nurse Triage Department of Family Medicine, [facility], in [place], [place] [address] [place] [phone] Kelly Palomo R.N. [address] [place] [phone] Abdominal Pain; Constipation Social History Tobacco Use Types Packs/Day Years Used Date Smoking Tobacco: Never Passive Smoke Exposure: Never Smokeless Tobacco: Never Alcohol Use Standard Drinks/Week Comments Not Currently 1 (1 standard drink = 0.6 oz pur e alcohol) daily caffeine [facility] Utilities Answer Date Recorded In the [...] often do you attend chur ch or sabianism services? Never 07/13/2022 Do you belong to any clubs o r organizations such as gnosticism groups, unions, fraternal or athletic groups, or [...] Answer Date Recorded PHQ-2 Score 6 05/16/2024 [facility] [place] [facility] Occupat ional [facility] - Occupational Stress [...] your living situation today? I have a [facility] place to live 07/08/2024 Education Answer Date Recorded What is the highest level of school you have completed or the highest degree you have received? 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 - 07/13/2024 8:19 PM CDT Chief Complaint / Reason for Call Patient is a 38 y.o. female calling regarding Abdominal Pain and Constipation. Assessment Concern: Patient discharged from the hospital. Now home in [place]. Patient hospitalized for SBO with surgical intervention. . Patient shares that she has had worsening pain, feeling distended and full with pressure. Emesis was small with debris, she believes it was brown.Oxycodone taken a few hours prior due to pain being a 7. No fevers. Incision looks red. Present for: Abdominal pain and vomiting present this evening. Home cares tried: Oxycodone. She is using a heating pad for comfort. Calling to request: An appointment The recommended disposition is Go to ED Now (or PCP Triage). Patient connected to hospital straw hat brim cutter operator to be connected to General Surgery Team. Reviewed hospital straw hat brim cutter operator number with patient in case call back not received. Patient aware of recommendation to go toER if pain or vomiting worsen prior to call back. Care Advice Patient/Caregiver understands and will follow care advice?: Yes, able to teach back Post-Op Symptoms and Nsclyvxlb-Zwwtu-FO Nurse Kelly Jackson Jul 13, 2024 08:34 PM Care Advice GO TO ED/UCC NOW NOTHING BY MOUTH: * Do not eat or drink anything for now. Patient transferred to specialty department, general surgery, to Discuss symptoms. . Reason for Disposition [1] Vomiting AND [2] abdomen looks much more swollen than usual Protocols used: Post-Op Symptoms and Uudtcnduw-Iyziv-KB documented in this encounter Plan of Treatment Upcoming Encounters Date Type Department Care Team (Latest Contact Info) Description 07/18/2024 10:45 AM CDT Office Visit Department of Orthopedic Surgery in [place], [place] [address] [place] [address] Andrew Dougherty M.D. [address] [place] [address] 07/20/2024 3:00 PM CDT Office Visit Department of Family Medicine, [facility], in [place], [place] [address] [place] [phone] Sánchez Goldberg D.O. [address] [place] [address] 07/23/2024 10:50 AM CDT Hospital Encounter Post Anesthesia Care Unit in [address] [phone] Andrew Dougherty M.D. [address] [place] [phone] 07/23/2024 10:50 AM CDT - 07/23/2024 12:02 PM CDT Surgery [facility] MAIN OR [address] [place] [phone] Andrew Dougherty M.D. [address] [place] [phone] RELEASE CARPAL TUNNEL OPEN WRIST 07/27/2024 9:00 AM CDT Office Visit Division of Trauma Critical Care and General Surgery in [address] [phone] Jeanie Tavarez APRN, C.N.P., D.N.P. [address] [place] [phone] 09/06/2024 7:50 AM CDT Hospital Encounter Post Anesthesia Care Unit in [address] [phone] Andrew Dougherty M.D. [address] [place] [phone] 09/06/2024 7:50 AM CDT - 09/06/2024 9:02 AM CDT Surgery [facility] OR [address] [place] [phone] Anderw Dougherty M.D. [address] [place] [phone] RELEASE CARPAL TUNNEL OPEN WRIST Scheduled Procedures [...] Depression Total Score: 17 025 10:48 AM HOT MILL OPERATOR documented as of this encounter Care Teams Admitting Clerk Relationship Specialty Start Date End Date Sánchez Goldberg D.O. [address] [place] [phone] PCP - General Family Medicine 03/26/20 documented as of this encounter
--- OUTSIDE RECORDS SUMMARY | 2024-07-13 23:47 | XMS_ITS | Encounter Summary ---
Author Organization [facility] Address [address] [place] [address] Care Team Providers Care Fire Pot Operator Name Role Phone Sánchez Goldberg D.O. Primary Care Provider Reason for Referral * Outpatient (Routine) - Authorized Specialty Diagnoses / Procedures Referred By Clare anthony Referred To Contact Trauma Critical Care and General Surgery Diagnoses Abdominal Pain Jeanie Tavarez APRN, C.N.P., D.N.P. [address] [place] [address] Phone: tel: fax: [place] Referral ID Status Reason Start Date Expiration Date V isits Requested Visits Authorized [id number] Authorized 07/13/2024 01/12/2026 1 1 Reason for Visit * Reason Onset Date Comments Pre-visit Testing Orders 07/13/2024 Encounter Details Date Type Department Care Team (Latest Contact Info) Description 07/13/2024 Clinical Communication [facility] [address] [place] [address] Jeanie Tavarez APRN, C.N.P., D.N.P. [address] [place] [phone] Pre-visit Testing Orders Social History Tobacco Use Types Packs/Day Years Used Date Smoking Tobacco: Never Passive Smoke Exposure: Never Smokeless Tobacco: Never Alcohol Use Standard Drinks/Week Comments Not Currently 1 (1 standard drink = 0.6 oz pur e alcohol) daily caffeine [facility] Utilities Answer Date Recorded In the past 12 months has e [employer], [employer], oil, or water [employer] threatened to shut off services in your [...] often do you attend chur ch or worship services? Never 07/13/2022 Do you belong to any clubs o r organizations such as latter-day groups, unions, fraternal or athletic groups, or [...] Answer Date Recorded PHQ-2 Score 6 05/16/2024 [facility]ational Stress Questionnaire Answer Date Recorded [...] have a [facility] place to live 07/08/2024 Education Answer Date Recorded What is the highest level of school you have completed or the highest degree you have received? 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 [address] [place] [phone] 07/20/2024 3:00 PM CDT Office Visit Department of Family Medicine, [facility], in [place], [place] [address] [place] [phone] Sánchez Goldberg D.O. [address] [place] [phone] 07/23/2024 10:50 AM CDT Hospital Encounter Post Anesthesia Care Unit in [address] [phone] Andrew Dougherty M.D. [address] [place] [phone] 07/23/2024 10:50 AM CDT - 07/23/2024 12:02 PM CDT Surgery [facility] [address] [place] [phone] Andrew Dougherty M.D. [address] [place] [phone] RELEASE CARPAL TUNNEL OPEN WRIST 07/27/2024 9:00 AM CDT Office Visit Division of Trauma Critical Care and General Surgery in [address] [phone] Jeanie Tavarez APRN, C.N.P., D.N.P. [address] [place] [phone] 09/06/2024 7:50 AM CDT Hospital Encounter Post Anesthesia Care Unit in [address] [phone] Andrew Dougherty M.D. [address] [place] [phone] 09/06/2024 7:50 AM CDT - 09/06/2024 9:02 AM CDT Surgery [facility] OR [address] [place] [phone] Andrew Dougherty M.D. [address] [place] [phone] RELEASE CARPAL TUNNEL OPEN WRIST Scheduled Procedures Name Priority Associated Diagnoses Date/Ti me RELEASE CARPAL TUNNEL OPEN WRIST Carpal Tunnel Syndrome Right 07/23/2024 10:50 AM CDT RELEASE CARPAL TUNNEL OPEN WRIST Carpal Tunnel Syndrome Left 09/06/2024 7:50 AM CDT Scheduled Referrals Name Type Priority Associated Diagnoses Orde r Schedule Trauma Critical Care and General Surgery office visit (clinic) Outpatient Referral Routine Abdominal Pain Expected: 07/27/2024, Expires: 10/12/2025 documented as of this encounter Goals Goal Patient Goal Type Associated Problems Recent Progress Patient-Stated? Author Autogenera michelle Goal Care Plan Autogenerated Problem No Patient, Online Services documented as of this encounter Visit Diagnoses Diagnosis Abdominal Pain- Primary Carpal Tunnel Syndrome Right Carpal Tunnel Syndrome Left documented in this encounter Additional Health Concerns Active Problems Noted Date Diagnosed Date Autogenerated Problem 06/30/2024 Assessment Noted Time PHQ-9 Depression Total Score: 17 05/16/ 025 10:48 AM RENTAL SALES AGENT documented as of this encounter Care Teams Fire Pot Operator Relationship Specialty Start Date End Date Sánchez Goldberg D.O. [address] [place] [phone] PCP - General Family Medicine 03/26/20 documented as of this encounter
[2024-07-13 23:55] VITALS: BP 140/93; PULSE 99; RESP 18; TEMP 37; O2SAT 96; BMI 44.1
--- NOTE | 2024-07-14 00:21 | CRLHL7_ITS ---
For Patients: As a result of the Century Cures Act, medical imaging exams and procedure reports are released immediately into your electronic medical record. You may view this report before your referring provider. If you have questions, please contact your health care provider. INDICATION: Small-bowel obstruction follow-up. TECHNIQUE: CT abdomen and pelvis acquired with 115 cc Isovue 370 IV contrast. COMPARISON: 07/08/2024. FINDINGS: Lower chest: Mild subsegmental atelectasis. Liver: Unremarkable. Normal in size and attenuation. No suspicious masses. Gallbladder and bile ducts: Unremarkable. No stones or inflammation. No biliary dilatation. Pancreas: Unremarkable. No mass or inflammation. Spleen: Calcified lesion, likely a granuloma. Normal in size. No masses. Adrenal glands: Unremarkable. No nodules. Kidneys: Unremarkable. No suspicious masses, stones, or hydronephrosis. GI tract: Redemonstrated postsurgical changes of total colectomy. Redemonstrated fluid-filled loops of dilated small bowel with transition point at the right lower quadrant ostomy (2). Trace perienteric fluid is present. Increased fluid in the peristomal hernia as well. These findings appear overall increased compared to 07/08/2024. Vasculature: Abdominal aorta is normal in caliber. Mesenteric arteries are patent. Lymph nodes: No pathologic lymphadenopathy. Peritoneum/Abdominal Wall: No pneumoperitoneum. Foci of emphysema in the superficial soft tissues of the abdominal wall, possibly related to injections (). Left-sided abdominal wall superficial soft tissue edema. Pelvis: Bladder is unremarkable. Intrauterine IUD. Bones: Unremarkable for age. IMPRESSION: Redemonstrated small-bowel obstruction with transition point at the right lower quadrant ostomy. Findings appear to have overall increased compared to 07/08/2024. Please note that all CT scans at this facility use dose modulation, iterative reconstruction, and/or weight-based dosing when appropriate to reduce radiation dose to as low as reasonably achievable. Dictated by Roberto Carlos Clark MD @ 07/14/2024 2:17:57 AM (Electronically Signed)
--- NOTE | 2024-07-14 00:34 | ED_ITS ---
HPI - General Adult General Chief complaint: Nausea/Vomiting Stated complaint: Nausea, vomiting Time Seen by Provider: 07/14/24 00:11 Source: patient Mode of arrival: ambulatory Limitations: no limitations History of Present Illness HPI narrative: 38-year-old female with a history of severe Crohn's disease, ileostomy and recent hospitalization at [facility] for small bowel obstruction that required surgical intervention presents to the ED with return of abdominal pain, vomiting and distended abdomen. She was discharged approximately 10 hours ago from [facility]. She had been eating and drinking and had been passing some gas and some liquid from the stoma but only scant amounts. She reports that that has ceased and she is no longer passing even gas and is feeling uncomfortable. She called her her surgical team and they advised her to try drinking 500 mL of liquid. She reports that she tried doing minus and experienced return of nausea and vomiting and abdomen got more distended, did not pass any fluid from her stoma. They advised her to present to a local emergency department where we would work her up and transfer if needed. She notes no fever. No urinary changes. No new abdominal trauma. She does not believe that they removed any intestine as part of her surgery rather fixed a hernia, added more mesh and pulled the incarcerated section of bowel out. Unfortunately, I do not have access to her surgical records. She does have her discharge paperwork. Has not tried any medications to help with symptoms prior to coming to the ED. ED notes from Tuesday reviewed, transfer noted. Past medical history most notable for Crohn's disease with ileostomy placement, bipolar disorder and fibromyalgia. Long-term medications Adderall, famotidine, luasidone, immuno suppressant for her Crohn's disease. No anticoagulants. Nonsmoker. Denies alcohol intake. ROS notable for the GI symptoms only, otherwise reports her chronic conditions are currently stable. Related Data Home Medications ?Medication ?Instructions ?Recorded ?Confirmed ustekinumab 90 mg/mL subcutaneous 90 mg subcut Q4W 06/02/24 06/02/24 syringe (Tamlara) benzonatate 100 mg capsule 100 mg PO BID-TID PRN 07/08/24 07/08/24 buspirone 5 mg tablet 5 mg PO 3XD 07/08/24 07/08/24 celecoxib 200 mg capsule 1 PO BID 07/08/24 dextroamphetamine-amphetamine ER 1 cap PO QAM 07/08/24 07/08/24 10 mg 24hr capsule,extend release famotidine 20 mg tablet 20 mg PO Q12H 07/08/24 07/08/24 fexofenadine 180 mg tablet 180 mg PO DAILY 07/08/24 07/08/24 (Iesha Hives) hydroxyzine HCl 10 mg tablet PO 07/08/24 lurasidone 40 mg tablet 40 mg PO DAILY 07/08/24 07/08/24 ondansetron 4 mg disintegrating 4 mg PO Q8H PRN 07/08/24 07/08/24 tablet sulfamethoxazole 800 1 tab PO BID 07/08/24 07/08/24 mg-trimethoprim 160 mg tablet sumatriptan succinate 50 mg tablet PO 07/08/24 ustekinumab 45 mg/0.5 mL mg subcut 07/08/24 subcutaneous solution (Stelara) oxycodone 5 mg tablet PO 07/13/24 Allergies Allergy/AdvReac Type Severity Reaction Status Date / Time amoxicillin Allergy Mild Verified 07/08/24 08:17 [facility] Social History Smoking Status: Unknown if ever smoked Non-prescribed substance use: denies use service: No Exam Const: Vital Signs, click to edit/add: Vital Signs - 24 hr 07/13/24 23:55 Temperature 98.6 F Pulse Rate [Right Pulse Oximeter] 99 Respiratory Rate 18 Blood Pressure [Ri ght Upper Arm] 140/93 H Pulse Oximetry 96 Oxygen Delivery Me thod Room Air Documenting provider has reviewed patient's vital signs: yes Common normals: no apparent distress General appearance: cooperative and well kempt Other: Good historian. Does appear well nourished, nontoxic, well hydrated. HENMT: Common normals: normocephalic, moist oral mucous membranes and oropharynx normal Head and scalp: normocephalic Face and sinus: normal facial exam Mouth: oral and palatal mucosa normal Eye: Common normals: conjunctivae normal General eye: normal appearance of both eyes Conjunctiva: conjunctiva(e) normal Neck & C-Spine: Common normals: no lymphadenopathy General: normal visual inspection Resp: Common normals: normal respiratory effort, no use of accessory muscles and clear to auscultation bilaterally Effort & inspection: able to speak in complete sentences Auscultation: clear to auscultation bilaterally Cardio: Common normals: regular rate, regular rhythm, S1 normal heart sound, S2 normal heart sound and no murmurs Rate: regular rate Rhythm: regular rhythm Heart sounds: S1 normal and S2 normal GI: Other: Ileostomy and right lower quadrant, stoma appears nice and pink with no output currently. Abdomen does look distended. 4 recent laparoscopic ports more on far left side. Bowel sounds sound hypoactive throughout. Extremity: Common normals: normal to inspection and normal capillary refill Psych: Appearance: well kempt Attitude: engaged Mood and affect: euthymic mood Insight: insight good Judgement: judgment good Skin: Narrative: Normal capillary refill. Recent surgical sites noted as above. Course Course ED Course: 38-year-old female with recent hernia repair, lysis of adhesions presenting with what appears to be a new small bowel obstruction verses unresolved postoperative ileus. Differential diagnosis also includes return of hernia, incarcerated bowel, bowel ischemia, infection, gastroenteritis, amongst multiple others. Counseled patient we should do another CT scan, we need to place peripheral IV, typical intra-abdominal labs. Will give 1 L of LR, Zofran and Dilaudid as needed for pain. Will likely need to consult with her [facility] team once results are available. test pending. Reevaluation(s) Time of Reevaluation #1: 04:23 Reevaluation #1: [facility] called back, reports that they still did have access to the images, radiology team updated regarding this. They have accepted transfer, have requested that we put in an NG tube. Patient continues on Dilaudid, has received fluid bolus. Will start maintenance LR. She requests antianxiety medication, lorazepam ordered as well. Awaiting call back for transfer. Vitals remained stable. Reevaluation #2: Patient transferred at around 6:00 a.m. with no complication. Vitals remained stable, NG tube in place. Vital Signs Vital signs: Initial Vital Signs Temperature 98.6 F 07/13/24 23:55 Temperature Source Temporal Artery Scan 07/13/24 23:55 Pulse Rate 99 07/13/24 23:55 Respiratory Rate 18 07/13/24 23:55 Blood Pressure 140/93 H 07/13/24 23:55 Blood Pressure Mean 108 H 07/13/24 23:55 Blood Pressure Position Sitting 07/13/24 23:55 Pulse Oximetry 96 07/13/24 23:55 Oxygen Delivery Method Room Air 07/13/24 23:55 Vital Signs Temperature 98.6 F 07/13/24 23:55 Pulse Rate 99 07/13/24 23:55 Respiratory Rate 18 07/13/24 23:55 Blood Pressure 140/93 H 07/13/24 23:55 Pulse Oximetry 96 07/13/24 23:55 Oxygen Delivery Method Room Air 07/13/24 23:55 Temperature 98.6 F 07/13/24 23:55 Pulse Rate 99 07/13/24 23:55 Respiratory Rate 18 07/13/24 23:55 Blood Pressure 140/93 H 07/13/24 23:55 Pulse Oximetry 96 07/13/24 23:55 Oxygen Delivery Method Room Air 07/13/24 23:55 Medications Administered Medications: Discontinued Medications Generic Name Dose Route Start Last Admin Trade Name Freq PRN Reason Stop Dose Admin Hydromorphone HCl 0.5 mg 07/14/24 00:21 07/14/24 05:00 Hydromorphone 0.5 Mg/0.5 Ml Inj IVP 0.5 mg Q10M PRN Administration Lactated Ringer's 1,000 mls @ 500 mls/hr 07/14/24 00:21 07/14/24 03:30 Lactated Ringers 1000 Ml IV 07/14/24 02:20 Infused .Q2H MEGHAN Infusion Lactated Ringer's 1,000 mls @ 125 mls/hr 07/14/24 04:20 07/14/24 05:01 Lactated Ringers 1000 Ml IV 125 mls/hr .Q8H MEGHAN Administration Lorazepam 0.25 - 0.5 mg 07/14/24 03:03 07/14/24 03:30 Lorazepam 2 Mg/Ml Inj IVP 0.5 mg Q6H PRN Administration Anxiety Ondansetron HCl 4 mg 07/14/24 00:21 07/14/24 00:48 Ondansetron 2 Mg/Ml Inj IVP 07/14/24 00:22 4 mg ONCE ONE Administration Medical Decision Making Lab Data Lab results reviewed: Yes I reviewed the patient's lab results Lab results narrative: Mild leukocytosis, mild elevation of CRP but that really could be related to postsurgical changes. Urine is quite concentrated with some mild signs of dehydration. Labs: Lab Results 07/14/24 Range/Units 00:21 WBC 14.75 H (4.50-11.00) K/uL RBC 4.80 (4.00-5.20) m/uL Hgb 13.8 (12.0-16.0) gm/dL Hct 40.7 (33.0-51.0) % MCV 85 (80-100) fL MCH 29 (26-34) pg MCHC 34 (32-36) gm/dL RDW Coeff of Yaritza 12.8 (11.5-15.5) % Plt Count 310 (140-440) K/uL Neut % (Auto) 66.4 (42.0-72.0) % Lymph % (Auto) 18.0 L (20-44) % [place] % (Auto) 9.4 (0.0-11.0) % Eos % (Auto) 4.9 (0.0-7.0) % Baso % (Auto) 0.6 (0.0-3.0) % Neut # (Auto) 9.80 H (1.7-7.0) K/uL Lymph # (Auto) 2.70 (0.90-2.90) K/uL [place] # (Auto) 1.40 H (0.00-0.90) K/UL Eos # (Auto) 0.70 H (0.00-0.50) K/uL Baso # (Auto) 0.10 (0.00-0.30) K/uL Abs Immat Gran (auto) 0.10 (0.00-0.30) K/uL Imm/Tot Granulo (auto) 0.7 % Sodium 135 (135-149) mmol/L Potassium 4.3 (3.6-5.1) mmol/L Chloride 98 (96-114) mmol/L Carbon Dioxide 24 (20-32) mmol/L Anion Gap 13 (7-15) mEq/L BUN 13 (5-24) mg/dL Creatinine 0.6 (0.5-1.5) mg/dL Estimated Creat Clear 115.52 Estimated GFR 118 ml/min Glucose 112 (60-115) mg/dL Lactate 0.7 (0.5-1.9) mmol/L Calcium 9.6 (8.4-10.6) mg/dL Total Bilirubin 1.7 H (0.1-1.5) mg/dL AST 141 H (12-35) U/L ALT 121 H (4-35) U/L Alkaline Phosphatase 110 (40-150) U/L C-Reactive Protein 5.3 H (0.5-1.0) mg/dL Total Protein 7.5 (6.0-8.3) g/dL Albumin 4.5 (3.3-5.0) g/dL Lipase 523 H (23-300) U/L Urine Color Dai A (Yellow) Urine Appearance Slightly Cloudy A (Clear) Urine pH 6.0 (5.0-8.5) Ur Specific [place] 1.020 (1.000-1.030) Urine Protein 1+ A (Negative) Urine Glucose (UA) Negative (Negative) Urine Ketones 3+ A (Negative) Urine Blood 3+ A (Negative) Urine Nitrite Negative (Negative) Urine Bilirubin 2+ A (Negative) Urine Urobilinogen >=8.0 A (0.2-1.0) Ur Leukocyte Esterase Negative (Negative) Urine RBC 0-2 (0-2) Urine WBC 2-5 (0-5) Ur Squamous Epith Cells Few (None-Few) Urine Bacteria Few A (None) Urine HCG, Qual Negative (Negative) Imaging Data CT scan - abdomen: Attestation: I have reviewed the pertinent imaging results. My impression: Dilated small bowel, fluid filled, appears consistent with small-bowel obstruction. Radiologist's impression: IMPRESSION: Redemonstrated small-bowel obstruction with transition point at the right lower quadrant ostomy. Findings appear to have overall increased compared to 07/08/2024. Please note that all CT scans at this facility use dose modulation, iterative reconstruction, and/or weight-based dosing when appropriate to reduce radiation dose to as low as reasonably achievable. Dictated by Roberto Carlos Clark MD @ 07/14/2024 2:17:57 AM Discharge Plan Discharge Clinical Impression: Complete small bowel obstruction, Post-operative complication Patient Disposition: Xfer [facility] Discharge Location: [facility] Prescriptions: No Action Stelara 90 mg/mL syringe 90 mg subcut Q4W celecoxib 200 mg capsule 1 PO BID buspirone 5 mg tablet 5 mg PO 3XD sumatriptan succinate 50 mg tablet PO dextroamphetamine-amphetamine 10 mg capsule,extended release 24hr 1 cap PO QAM hydroxyzine HCl 10 mg tablet PO ondansetron 4 mg tablet,disintegrating 4 mg PO Q8H PRN lurasidone 40 mg tablet 40 mg PO DAILY benzonatate 100 mg capsule 100 mg PO BID-TID PRN famotidine 20 mg tablet 20 mg PO Q12H fexofenadine [Iesha Hives] 180 mg tablet 180 mg PO DAILY sulfamethoxazole-trimethoprim 800-160 mg tablet 1 tab PO BID Stelara 45 mg/0.5 mL solution SUBCUT Patient Comments: [NO ORIGINAL SIG] oxycodone 5 mg tablet PO Stand Alone [facility] Inst[facility]
[2024-07-14 00:36] LABS: Appearance Urine Slightly Cloudy (Clear); Bilirubin Urine 2+ (Negative); Blood Urine 3+ (Negative); Color Urine Amber (Yellow); Glucose Urine Negative (Negative); Ketones Urine 3+ (Negative); Leukocyte Esterase Urine Negative (Negative); Nitrite Urine Negative (Negative); Protein Urine 1+ (Negative); Urobilinogen Urine >=8.0 (0.2-1.0)
[2024-07-14 00:39] LABS: Ur HCG Qualitative* Negative (Negative)
[2024-07-14 00:41] LABS: Lactate* 0.7 mmol/L (0.5-1.9)
[2024-07-14 00:44] LABS: Basophils Percent Auto 0.6 % (0.0-3.0); Eosinophils Percent Auto 4.9 % (0.0-7.0); Hematocrit 40.7 % (33.0-51.0); Hemoglobin* 13.8 gm/dL (12.0-16.0); Immature Granulocytes Pct Auto 0.7 %; Mean Corpuscular HGB Conc 34 gm/dL (32-36); Mean Corpuscular Hemoglobin 29 pg (26-34); Mean Corpuscular Volume 85 fL (80-100); Monocytes Percent Auto 9.4 % (0.0-11.0); Neutrophils Percent Auto 66.4 % (42.0-72.0); Platelet Count* 310 K/uL (140-440); RDW Coefficient of Variation % 12.8 % (11.5-15.5); White Blood Count* 14.75 K/uL (4.50-11.00)
[2024-07-14 00:45] LABS: Bacteria Urine Few; RBC Urine 0-2 (0-2); Squamous Epithelial Cell Urine Few (None-Few)
[2024-07-14 00:48] LABS: Slide Review Reflex No
[2024-07-14] MEDS: ONDANSETRON 2 MG/ML inj 4 MG IVP (00:48)
[2024-07-14] MEDS: LACTATED RINGERS 1000 ML 1,000 ML 500 ML IV (00:48)
[2024-07-14] MEDS: HYDROmorphone 0.5 mg/0.5 ml inj IVP ×3 (00:51→05:00)
[2024-07-14 00:58] LABS: Albumin* 4.5 g/dL (3.3-5.0); Chloride* 98 mmol/L (96-114); Potassium* 4.3 mmol/L (3.6-5.1); Sodium* 135 mmol/L (135-149)
[2024-07-14 01:01] LABS: Alanine Aminotransferase* 121 U/L (4-35); Alkaline Phosphatase* 110 U/L (40-150); Anion Gap 13 mEq/L (7-15); Aspartate Amino Transferase* 141 U/L (12-35); Bilirubin Total* 1.7 mg/dL (0.1-1.5); Blood Urea Nitrogen* 13 mg/dL (5-24); Carbon Dioxide* 24 mmol/L (20-32); Creatinine* 0.6 mg/dL (0.5-1.5); Est. Creatinine Clearance* 115.52; Estimated Glomerular Filt Rate 118 ml/min; Lipase* 523 U/L (23-300); Total Protein* 7.5 g/dL (6.0-8.3)
[2024-07-14 01:02] LABS: Calcium* 9.6 mg/dL (8.4-10.6); Glucose* 112 mg/dL (60-115)
[2024-07-14 01:04] LABS: C Reactive Protein* 5.3 mg/dL (0.5-1.0)
--- OUTSIDE RECORDS SUMMARY | 2024-07-14 01:29 | XMS_ITS | Encounter Summary ---
Author Organization [facility] Address [address] [place] [address] Care Team Providers Care Retort Kiln Burner Name Role Phone Sánchez Goldberg D.O. Primary Care Provider Reason for Visit * Reason Onset Date Comments Med Refill 06/15/2024 Encounter Details Date Type Department Care Team (Late st Contact Info) Description 06/15/2024 Clinical Communication Department of Family Medicine, [facility], in [place], [place] [address] [place] [phone] Darby Martines M.S.N., R.N. [address] [place] [phone] Med Refill Social History Tobacco Use Types [...] Answer Date Recorded PHQ-2 Score 6 05/16/2024 [facility] [place] of Occupat ional Health - Occupational Stress [...] your living situation today? I have a [facility] place to live 01/18/2024 Education Answer Date Recorded What is the highest level of school you have completed or the highest degree you have received? 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 - 06/20/2024 9:06 AM CDT Prescription for oxycodone 5 mg sent on 06/15/24 for #6 tablets canceled at [facility] per patient request. I have pended the prescription to [facility] as requested by patient. documented in this encounter Plan of Treatment Upcoming Encounters Date Type Department Care Team (Latest Contact Info) Description 07/18/2024 10:45 AM CDT Office Visit Department of Orthopedic Surgery in [place], [place] [address] [place] [phone] Andrew Dougherty M.D. [address] [place] [phone] 07/20/2024 3:00 PM CDT Office Visit Department of Family Medicine, [facility], in [place], [place] [address] [place] [phone] Sánchez Goldberg D.O. [address] [place] [phone] 07/23/2024 10:50 AM CDT Hospital Encounter Post Anesthesia Care Unit in [place], [place] [address] [place] [phone] Andrew Dougherty M.D. [address] [place] [phone] 07/23/2024 10:50 AM CDT - 07/23/2024 12:02 PM CDT Surgery [facility] MAIN OR [address] [place] [phone] Andrew Dougherty M.D. [address] [place] [phone] RELEASE CARPAL TUNNEL OPEN WRIST 07/27/2024 9:00 AM CDT Office Visit Division of Trauma Critical Care and General Surgery in [address] [phone] Jeanie Tavarez, STEPHANIE, C.N.P., D.N.P. [address] [place] [phone] 09/06/2024 7:50 AM CDT Hospital Encounter Post Anesthesia Care Unit in [place], [place] [address] [place] [phone] Andrew Dougherty M.D. [address] [place] [phone] 09/06/2024 7:50 AM CDT - 09/06/2024 9:02 AM CDT Surgery [facility] MAIN OR [facility] [address] [place] [phone] Andrew Dougherty M.D. [address] [place] [phone] RELEASE CARPAL TUNNEL OPEN WRIST Scheduled Procedures [...] Depression Total Score: 17 025 10:48 AM WELL SERVICE FLOOR WORKER documented as of this encounter Care Teams Retort Kiln Burner Relationship Specialty Start Date End Date Sánchez Goldberg D.O. [address] [place] [phone] PCP - General Family Medicine 03/26/20 documented as of this encounter
--- OUTSIDE RECORDS SUMMARY | 2024-07-14 01:29 | XMS_ITS | Encounter Summary ---
Author Organization [facility] Address [address] [place] [phone] Care Team Providers Care Surgical Endoscopist Name Role Phone Sánchez Goldberg D.O. 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 - 07/14/2016 10:01 AM CDT DEMOGRAPHIC INFORMATION Clinic Number: [id number] Patient Name: Mrs. rGisel Cruz Age: 30 Y Birthdate: 1985 Sex: F Address: [address] [place] [address] City: [place] [phone] CONFIDENTIAL NOTE Service Date/Time: 14-Jul-2016 10:01 Provider: ELVIN Pinto MSW Pager: [phone] Service: MAXIM Type/Desc: PI Status: Fnl Revision [...] by ELVIN Trevino MSW Clinical Notes - [id number] Id: [id number] Status: Fnl documented in this encounter Plan of Treatment Upcoming Encounters Date Type Department Care Team (Latest Contact Info) Description 07/18/2024 10:45 AM CDT Office Visit Department of Orthopedic Surgery in [place], [place] [address] [place] [phone] Andrew Dougherty M.D. [address] [place] [phone] 07/20/2024 3:00 PM CDT Office Visit Department of Family Medicine, [facility], in [place] [phone] [place] [phone] Sánchez Goldberg D.O. [address] [place] [phone] 07/23/2024 10:50 AM CDT Hospital Encounter Post Anesthesia Care Unit in [address] [phone] Andrew Dougherty M.D. [address] [place] [phone] 07/23/2024 10:50 AM CDT - 07/23/2024 12:02 PM CDT Surgery [facility] MAIN OR [address] [place] [phone] Andrew Dougherty M.D. [address] [place] [phone] RELEASE CARPAL TUNNEL OPEN WRIST 07/27/2024 9:00 AM CDT Office Visit Division of Trauma Critical Care and General Surgery in [address] [phone] Jeanie Tavarez APRN, C.N.P., D.N.P. [address] [place] [phone] 09/06/2024 7:50 AM CDT Hospital Encounter Post Anesthesia Care Unit in [address] [phone] Andrew Dougherty M.D. [address] [place] [phone] 09/06/2024 7:50 AM CDT - 09/06/2024 9:02 AM CDT Surgery [facility] OR [address] [place] [phone] Andrew Dougherty M.D. [address] [place] [phone] RELEASE CARPAL TUNNEL OPEN WRIST Scheduled Procedures [...] Pending 02/26/2020 02/26/2020 02/26/2020 6 :02 PM FINAL OPERATIONS TECHNICIAN COVID19 Pending 03/12/2020 03/12/2020 03/12/2020 5 :42 PM FINAL OPERATIONS TECHNICIAN COVID19 Pending 07/11/2020 07/11/2020 07/11/2020 3 :33 AM CDT COVID19 Pending 07/29/2020 07/29/2020 07/29/2020 4 :12 PM CDT COVID19 Pending 10/02/2020 10/02/2020 10/02/2020 8 :22 AM CDT COVID19 Pending 11/12/2020 11/12/2020 11/12/2020 4 :31 AM CDT COVID19 Pending 05/30/2021 05/30/2021 05/30/2021 4 :55 PM FINAL OPERATIONS TECHNICIAN COVID19 Pending 12/25/2021 12/25/2021 12/25/2021 1 0:45 AM CDT COVID19 Pending 07/05/2022 07/05/2022 07/05/2022 3 :11 PM CDT COVID19 Pending 01/30/2023 01/30/2023 01/30/2023 1 1:53 AM FINAL OPERATIONS TECHNICIAN Assessment Noted Time PHQ-9 Depression Total Score: 19 012 9:38 AM CDT documented as of this encounter Care Teams Surgical Endoscopist Relationship Specialty Start Date End Date Sánchez Goldberg D.O. [address] [place] [phone] PCP - General Family Medicine 03/26/20 documented as of this encounter
--- OUTSIDE RECORDS SUMMARY | 2024-07-14 01:29 | XMS_ITS | Encounter Summary ---
Author Organization [facility] Address [address] [place] [address] Care Team Providers Care Poster Name Role Phone Sánchez Goldberg D.O. Primary Care Provider Reason for Visit * Reason Comments Pre-op Exam * Appointment Request (Routine) - Closed Specialty Diagnoses / Procedures Referred By Clare anthony Referred To Contact Family Medicine Referral ID Status Reason Start Date Expiration Date Visits Re quested Visits Authorized [id number] Closed 05/09/2024 08/09/2025 1 1 Encounter Details Date Type Department Care Team (Late st Contact Info) Description 06/15/2024 8:30 AM CDT Office Visit Department of Family Medicine, [facility], in [place], [place] [address] [place] [phone] Sánchez Goldberg D.O. 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 PREOPERATIVE CONSIDERATIONS Anticoagulant: aspirin, plavix, warfarin, etc. [...] Appearance: She is obese. HENT Mouth/Throat: Lips: [place]. Pharynx: Oropharynx is clear. Uvula midline. Cardiovascular [...] Deficiency 04/10/2019 Anxiety Generalized Disorder 2013 Asthma ([facility]) 03/21/1994 Overview: Asthma NOS Overview: Asthma NOS Asthma Mild Intermittent ([facility]) 12/07/2011 Asthma NOS 1994 Bipolar Disorder ([facility]) 01/12/2016 Bipolar Most Recent Episode Depressed Partial Remission ([facility]) 03/05/2019 Chronic Migraine Without Aura Not Intractable Without Status Migrainosus 2012 Crohn's Disease ([facility]) 2010 Crohns Disease Of Large Intestine With Fistula ([facility]) 06/17/2019 Crohns Disease Unspecified Without Complications ([facility]) 03/21/2010 Added automatically from request for surgery [id number] Added automatically from request for surgery [id number] Depressive Disorder 2013 Erythema Nodosum 06/09/2018 Family History Of Adenomatous And Serrated Polyps Fibromyalgia 2013 Fistula Perianal 06/16/2018 Added automatically from request for surgery [id number] Gastroesophageal Reflux Disease NOS 2000 Headache Unspecified 2013 Hemorrhage Gastrointestinal Hydrosalpinx 11/12/2020 Ileostomy ([facility]) 06/28/2018 Ileostomy Status ([facility]) 08/03/2019 Irritable bowel syndrome 03/25/2016 Irritable Bowel Syndrome, Unspecified 2000 Major depressive disorder, recurrent episode, moderate ([facility]) 01/18/2018 Migraine Headache 2013 Other Injury Of Unspecified Body Region 1993 Right elbow fracture as a child on the playground Pain Abdominal NOS Pain Rectal 06/16/2019 Pelvic Inflammatory Disease 11/12/2020 Perianal Crohn's Disease ([facility]) 05/17/2018 Added automatically from request for surgery [id number] Pneumonia 2 episodes, most recent 2009? Posttraumatic [...] screws.; Surgeon: Jose Swift III, M.D.; Location: [facility] ROMB OR REMOVAL SETON [...] Office Visit Department of Orthopedic Surgery in [place], [place] [address] [place] [phone] Andrew Dougherty M.D. [address] [place] [phone] 07/20/2024 3:00 PM CDT Office Visit Department of Family Medicine, [facility], in [place], [place] [address] [place] [phone] Sánchez Goldberg D.O. [address] [place] [phone] 07/23/2024 10:50 AM CDT Hospital Encounter Post Anesthesia Care Unit in [address] [phone] Andrew Dougherty M.D. [address] [place] [phone] 07/23/2024 10:50 AM CDT - 07/23/2024 12:02 PM CDT Surgery RST ROMB MAIN OR [address] [place] [phone] Andrew Dougherty M.D. [address] [place] [phone] RELEASE CARPAL TUNNEL OPEN WRIST 07/27/2024 9:00 AM CDT Office Visit Division of Trauma Critical Care and General Surgery in [address] [phone] Jeanie Tavarez APRN, C.N.P., D.N.P. [address] [place] [phone] 09/06/2024 7:50 AM CDT Hospital Encounter Post Anesthesia Care Unit in [place], [place] [address] [place] [phone] Andrew Dougherty M.D. [address] [place] [phone] 09/06/2024 7:50 AM CDT - 09/06/2024 9:02 AM CDT Surgery RST ROMB MAIN OR [address] [place] [phone] Andrew Dougherty M.D. [address] [place] [phone] RELEASE CARPAL TUNNEL OPEN WRIST Scheduled Procedures Name Priority Associated Diagnoses Date/Ti ut RELEASE CARPAL TUNNEL OPEN WRIST Carpal Tunnel [...] Depression Total Score: 17 025 10:48 AM CHAIN MAKER LOOM CONTROL documented as of this encounter Care Teams Poster Relationship Specialty Start Date End Date Sánchez Goldberg D.O. [address] [place] [phone] PCP - General Family Medicine 03/26/20 documented as of this encounter
--- OUTSIDE RECORDS SUMMARY | 2024-07-14 01:29 | XMS_ITS | Encounter Summary ---
Author Organization [facility] Address [address] [place] [address] Care Team Providers Care Beam Department Supervisor Name Role Phone Sánchez Goldberg D.O. Primary [...] PM CDT Clinical Communication Virtual Review in [place], [place] [address] [place] [address] Annual Exam (Disability paperwork/Infection in left hand [...] 0.6 oz pur e alcohol) daily caffeine [facility] Utilities Answer Date Recorded In the past 12 months has Eligible electric, gas, oil, or water company threatened [...] Never 07/13/2022 How often do you attend [facility] or spiritism services? Never 07/13/2022 Do you belong to any clubs o r organizations such as confucianism groups, unions, fraternal or athletic groups, or [...] Answer Date Recorded PHQ-2 Score 6 05/16/2024 [facility] of Occupat ional Health - [...] your living situation today? I have a [facility] place to live 01/18/2024 Education Answer Date Recorded What is the highest level of school you have completed or the highest degree you have received? 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 [address] [place] [phone] 07/20/2024 3:00 PM CDT Office Visit Department of Family Medicine, [facility], in [place], [place] [address] [place] [address] Sánchez Goldberg D.O. [address] [place] [phone] 07/23/2024 10:50 AM CDT Hospital Encounter Post Anesthesia Care Unit in [address] [phone] Andrew Dougherty M.D. [address] [place] [phone] 07/23/2024 10:50 AM CDT - 07/23/2024 12:02 PM CDT Surgery RST ROMB MAIN OR [address] [place] [phone] Andrew Dougherty M.D. [address] [place] [phone] RELEASE CARPAL TUNNEL OPEN WRIST 07/27/2024 9:00 AM CDT Office Visit Division of Trauma Critical Care and General Surgery in [address] [phone] Jeanie Tavarez APRN, C.N.P., D.N.P. [address] [place] [phone] 09/06/2024 7:50 AM CDT Hospital Encounter Post Anesthesia Care Unit in [address] [phone] Andrew Dougherty M.D. [address] [place] [phone] 09/06/2024 7:50 AM CDT - 09/06/2024 9:02 AM CDT Surgery RST ROMB MAIN OR [address] [place] [address] Andrew Dougherty M.D. 200 [place] [address] RELEASE CARPAL TUNNEL OPEN WRIST Scheduled Procedures [...] Depression Total Score: 17 025 10:48 AM MECHANICAL ARTIST documented as of this encounter Care Teams Beam Department Supervisor Relationship Specialty Start Date End Date Sánchez Goldberg D.O. [address] [place] [phone] PCP - General Family Medicine 03/26/20 documented as of this encounter
--- OUTSIDE RECORDS SUMMARY | 2024-07-14 01:29 | XMS_ITS | Encounter Summary ---
Author Organization [facility] Address [address] [place] [address] Care Team Providers Care Parts Counter Specialist Name Role Phone Sánchez Goldberg D.O. Primary Care Provider Encounter Details Date Type Department Care Team (Late st Contact Info) Description 11/20/2010 Historical Ophthalmology RST OPH Gentry Love M.D. 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 [address] [place] [address] 07/20/2024 3:00 PM CDT Office Visit Department of Family Medicine, [facility], in [place], [place] [address] [place] [address] Sánchez Goldberg D.O. [address] [place] [phone] 07/23/2024 10:50 AM CDT Hospital Encounter Post Anesthesia Care Unit in [address] [phone] Andrew Dougherty M.D. [address] [place] [phone] 07/23/2024 10:50 AM CDT - 07/23/2024 12:02 PM CDT Surgery RST ROMB MAIN OR [address] [place] [phone] Andrew Dougherty M.D. [address] [place] [phone] RELEASE CARPAL TUNNEL OPEN WRIST 07/27/2024 9:00 AM CDT Office Visit Division of Trauma Critical Care and General Surgery in [address] [phone] Jeanie Tavarez APRN, C.N.P., D.N.P. [address] [place] [phone] 09/06/2024 7:50 AM CDT Hospital Encounter Post Anesthesia Care Unit in [address] [phone] Andrew Dougherty M.D. [address] [place] [phone] 09/06/2024 7:50 AM CDT - 09/06/2024 9:02 AM CDT Surgery RST ROMB MAIN OR [address] [place] [phone] Andrew Dougherty M.D. [address] [place] [phone] RELEASE CARPAL TUNNEL OPEN WRIST Scheduled Procedures [...] Pending 02/26/2020 02/26/2020 02/26/2020 6 :02 PM DIESEL INSTRUCTOR COVID19 Pending 03/12/2020 03/12/2020 03/12/2020 5 :42 PM DIESEL INSTRUCTOR COVID19 Pending 07/11/2020 07/11/2020 07/11/2020 3 :33 AM CDT COVID19 Pending 07/29/2020 07/29/2020 07/29/2020 4 :12 PM CDT COVID19 Pending 10/02/2020 10/02/2020 10/02/2020 8 :22 AM CDT COVID19 Pending 11/12/2020 11/12/2020 11/12/2020 4 :31 AM CDT COVID19 Pending 05/30/2021 05/30/2021 05/30/2021 4 :55 PM DIESEL INSTRUCTOR COVID19 Pending 12/25/2021 12/25/2021 12/25/2021 1 0:45 AM CDT COVID19 Pending 07/05/2022 07/05/2022 07/05/2022 3 :11 PM CDT COVID19 Pending 01/30/2023 01/30/2023 01/30/2023 1 1:53 AM DIESEL INSTRUCTOR documented as of this encounter Care Teams Parts Counter Specialist Relationship Specialty Start Date End Date Sánchez Goldberg D.O. [address] [place] [phone] PCP - General Family Medicine 03/26/20 documented as of this encounter
--- OUTSIDE RECORDS SUMMARY | 2024-07-14 01:29 | XMS_ITS | Encounter Summary ---
Author Organization [facility] Address [address] [place] [address] Care Team Providers Care Fire Claims Adjuster Name Role Phone Sánchez Goldberg D.O. Primary Care Provider Reason for Visit * Reason Onset Date Comments Abdominal Pain 07/08/2024 Encounter Details Date Type Department Care Team (Late st Contact Info) Description 07/08/2024 Nurse Triage Department of Family Medicine, [facility] [place], in [place], [place] [address] [place] [phone] Nicole Flower, RNavarro [address] [place] [phone] Abdominal Pain Social History Tobacco Use Types Packs/Day Years Used Date Smoking Tobacco: Never Passive Smoke Exposure: Never Smokeless Tobacco: Never Alcohol Use Standard Drinks/Week Comments Not Currently 1 (1 standard drink = 0.6 oz pur e alcohol) daily caffeine [facility] Utilities Answer Date Recorded In the past [...] any clubs o r organizations such as voodoo groups, unions, fraternal or athletic groups, or [...] Answer Date Recorded PHQ-2 Score 6 05/16/2024 [facility] [place] of Occupat ional Health - Occupational Stress [...] a [facility] place to live 07/08/2024 Education Answer Date Recorded What is the highest level of school you have completed or the highest degree you have received? Some college, no degree 02/18/2019 Comments No Sex and Gender Information Value Date Recorded Sex Assigned at Female 09/13/2017 7:50 PM CDT Legal Sex Female 3:11 PM STRAWHAT BLOCKING OPERATOR Gender Identity Female 09/13/2017 7:50 PM [...] able to teach back Abdominal Pain - [id number] Nurse Nicole Fuentes Jul 08, 2024 06:28 [...] 1 hour Protocols used: Abdominal Pain - [id number] documented in this encounter Plan of Treatment Upcoming Encounters Date Type Department Care Team (Latest Contact Info) Description 07/18/2024 10:45 AM CDT Office Visit Department of Orthopedic Surgery in [place], [place] [address] [place] [address] Andrew Dougherty M.D. [address] [place] [phone] 07/20/2024 3:00 PM CDT Office Visit Department of Family Medicine, [facility] [place], in [place], [place] [address] [place] [phone] Sánchez Goldberg D.O. [address] [place] [phone] 07/23/2024 10:50 AM CDT Hospital Encounter Post Anesthesia Care Unit in [place], [place] [address] [place] [phone] Andrew Dougherty M.D. [address] [place] [phone] 07/23/2024 10:50 AM CDT - 07/23/2024 12:02 PM CDT Surgery RST ROMB MAIN OR [address] [place] [phone] Andrew Dougherty M.D. [address] [place] [phone] RELEASE CARPAL TUNNEL OPEN WRIST 07/27/2024 9:00 AM CDT Office Visit Division of Trauma Critical Care and General Surgery in [address] [phone] Jeanie Tavarez APRN, C.N.P., D.N.P. [address] [place] [phone] 09/06/2024 7:50 AM CDT Hospital Encounter Post Anesthesia Care Unit in [address] [phone] Andrew Dougherty M.D. [address] [place] [phone] 09/06/2024 7:50 AM CDT - 09/06/2024 9:02 AM CDT Surgery RST ROMB MAIN OR [address] [place] [phone] Andrew Dougherty M.D. [address] [place] [phone] RELEASE CARPAL TUNNEL OPEN WRIST Scheduled Procedures Name Priority Associated Diagnoses Date/Ti fl RELEASE CARPAL TUNNEL OPEN WRIST Carpal Tunnel [...] Depression Total Score: 17 025 10:48 AM STRAWHAT BLOCKING OPERATOR documented as of this encounter Care Teams Fire Claims Adjuster Relationship Specialty Start Date End Date Sánchez Goldberg D.O. 200 [place] [phone] PCP - General Family Medicine 03/26/20 documented as of this encounter
--- OUTSIDE RECORDS SUMMARY | 2024-07-14 01:29 | XMS_ITS | Encounter Summary ---
Author Organization [facility] Address [address] [place] [address] Care Team Providers Care Pharmacy Helper Name Role Phone Sánchez Goldberg D.O. Primary Care Provider Encounter Details Date Type Department Care Team (Late st Contact Info) Description 07/02/2024 Clinical Communication Department of Family Medicine, [facility], in [place], [place] [address] [place] [phone] Sánchez Goldberg D.O. [address] [place] [phone] Social History Tobacco Use Types Packs/Day Years Used Date Smoking Tobacco: Never Passive Smoke Exposure: Never Smokeless Tobacco: Never Alcohol Use Standard Drinks/Week Comments Not Currently 1 (1 standard drink = 0.6 oz pur e alcohol) daily caffeine [facility] Utilities Answer Date Recorded In the past 12 months has e [employer], gas, oil, or water [employer] threatened to shut off services in your [...] often do you attend chur ch or adventist services? Never 07/13/2022 Do you belong to any clubs o r organizations such as tenriism groups, unions, fraternal or athletic groups, or [...] Answer Date Recorded PHQ-2 Score 6 05/16/2024 [facility] [place] of Occupat ional Health - Occupational Stress [...] your living situation today? I have a [facility] place to live 01/18/2024 Education Answer Date Recorded What is the highest level of school you have completed or the highest degree you have received? Some college, no degree 02/18/2019 Comments No Sex and Gender Information Value Date Recorded Sex Assigned at Female 09/13/2017 7:50 PM CDT Legal Sex Female 3:11 PM COMPUTER SYSTEMS SOFTWARE ARCHITECT Gender Identity Female 09/13/2017 7:50 PM CDT Sexual Orientation Straight 09/13/2017 7: 50 PM CDT documented as of this encounter Miscellaneous Notes * Telephone Encounter - Estefany Lange - 07/02/2024 4:27 PM CDT Called patient back. Form is done and was faxed back to [facility] on 06/18/2024. documented in this encounter Plan of Treatment Upcoming Encounters Date Type Department Care Team (Latest Contact Info) Description 07/18/2024 10:45 AM CDT Office Visit Department of Orthopedic Surgery in [place], [place] [address] [place] [phone] Andrew Dougherty M.D. [address] [place] [phone] 07/20/2024 3:00 PM CDT Office Visit Department of Family Medicine, [facility], in [place], [place] [address] [facility] [place] [phone] Sánchez Goldberg D.O. [address] [place] [phone] 07/23/2024 10:50 AM CDT Hospital Encounter Post Anesthesia Care Unit in [place], [place] [address] [place] [phone] Andrew Dougherty M.D. [address] [place] [phone] 07/23/2024 10:50 AM CDT - 07/23/2024 12:02 PM CDT Surgery RST ROMB MAIN OR [address] [place] [phone] Andrew Dougherty M.D. [address] [place] [phone] RELEASE CARPAL TUNNEL OPEN WRIST 07/27/2024 9:00 AM CDT Office Visit Division of Trauma Critical Care and General Surgery in [place] [address] [place] [phone] Jeanie Tavarez, STEPHANIE, C.N.P., D.N.P. [address] [place] [phone] 09/06/2024 7:50 AM CDT Hospital Encounter Post Anesthesia Care Unit in [place], [place] [address] [place] [phone] Andrew Dougherty M.D. [address] [place] [phone] 09/06/2024 7:50 AM CDT - 09/06/2024 9:02 AM CDT Surgery RST ROMB MAIN OR [address] [place] [phone] Andrew Dougherty M.D. [address] [place] [phone] RELEASE CARPAL TUNNEL OPEN WRIST Scheduled Procedures Name Priority Associated Diagnoses Date/Ti sd RELEASE CARPAL TUNNEL OPEN WRIST Carpal Tunnel [...] Depression Total Score: 17 025 10:48 AM COMPUTER SYSTEMS SOFTWARE ARCHITECT documented as of this encounter Care Teams Pharmacy Helper Relationship Specialty Start Date End Date Sánchez Goldberg D.O. [address] [place] [phone] PCP - General Family Medicine 03/26/20 documented as of this encounter
--- OUTSIDE RECORDS SUMMARY | 2024-07-14 01:30 | XMS_ITS | Encounter Summary ---
Author Organization [facility] Address [address] [place] [address] Care Team Providers Care District Traffic Chief Name Role Phone Sánchez Goldberg D.O. Primary Care Provider Encounter Details Date Type Department Care Team (Late st Contact Info) Description 05/28/2024 Results Follow-Up Department of Family Medicine, [facility], in [place], [place] [address] [place] [phone] Sánchez Goldberg D.O. [address] [place] [phone] EMG Social History Tobacco Use Types Packs/Day Years Used Date Smoking Tobacco: Never Passive Smoke Exposure: Never Smokeless Tobacco: Never Alcohol Use Standard Drinks/Week Comments Not Currently 2 (1 standard drink = 0.6 oz pur e alcohol) daily caffeine [facility] Utilities Answer Date Recorded In the [...] often do you attend chur ch or jainism services? Never 07/13/2022 Do you belong to any clubs o r organizations such as anglican groups, unions, fraternal or athletic groups, or [...] Answer Date Recorded PHQ-2 Score 6 05/16/2024 [facility] [place] [facility] - Occupational Stress [...] your living situation today? I have a [facility] place to live 01/18/2024 Education Answer Date Recorded What is the highest level of school you have completed or the highest degree you have received? Some college, no degree 02/18/2019 Comments No Sex and Gender Information Value Date Recorded Sex Assigned at Female 09/13/2017 7:50 PM CDT Legal Sex Female 3:11 PM PSYCHOLOGIST PERSONNEL Gender Identity Female 09/13/2017 7:50 PM CDT Sexual Orientation Straight 09/13/2017 7: 50 PM CDT documented as of this encounter Plan of Treatment Upcoming Encounters Date Type Department Care Team (Latest Contact Info) Description 07/18/2024 10:45 AM CDT Office Visit Department of Orthopedic Surgery in [place], [place] [address] [place] [address] Andrew Dougherty M.D. [address] [place] [phone] 07/20/2024 3:00 PM CDT Office Visit Department of Family Medicine, [facility], in [place], [place] [address] [place] [phone] Sánchez Goldberg D.O. [address] [place] [phone] 07/23/2024 10:50 AM CDT Hospital Encounter Post Anesthesia Care Unit in [address] [phone] Andrew Dougherty M.D. [address] [place] [phone] 07/23/2024 10:50 AM CDT - 07/23/2024 12:02 PM CDT Surgery [facility] OR [address] [place] [phone] Andrew Dougherty M.D. [address] [place] [phone] RELEASE CARPAL TUNNEL OPEN WRIST 07/27/2024 9:00 AM CDT Office Visit Division of Trauma Critical Care and General Surgery in [address] [phone] Jeanie Tavarez APRN, C.N.P., D.N.P. [address] [place] [phone] 09/06/2024 7:50 AM CDT Hospital Encounter Post Anesthesia Care Unit in [address] [phone] Andrew Dougherty M.D. [address] [place] [phone] 09/06/2024 7:50 AM CDT - 09/06/2024 9:02 AM CDT Surgery [facility] OR [address] [place] [address] Andrew Dougherty M.D. [address] [place] [address] RELEASE CARPAL TUNNEL OPEN WRIST Scheduled Procedures [...] Depression Total Score: 17 025 10:48 AM PSYCHOLOGIST PERSONNEL documented as of this encounter Care Teams District Traffic Chief Relationship Specialty Start Date End Date Sánchez Goldberg D.O. [address] [place] [phone] PCP - General Family Medicine 03/26/20 documented as of this encounter
--- OUTSIDE RECORDS SUMMARY | 2024-07-14 01:30 | XMS_ITS | Encounter Summary ---
Author Organization [facility] Address [address] [place] [address] Care Team Providers Care Quarry Plant Crusher Operator Name Role Phone Sánchez Goldberg D.O. [...] 0.6 oz pur e alcohol) daily caffeine [facility] Utilities Answer Date Recorded In the past 12 months has [employer], oil, or water [employer] threatened to shut off services in your [...] often do you attend chur ch or congregation services? Never 07/13/2022 Do you belong to any clubs o r organizations such as lutheran groups, unions, fraternal or athletic groups, or [...] 6 05/16/2024 [facility] Answer Date [...] your living situation today? I have a [facility] place to live 07/08/2024 Education Answer Date Recorded What is the highest level of school you have completed or the highest degree you have received? Some college, no degree 02/18/2019 Comments No Sex and Gender Information Value Date Recorded Sex Assigned at Female 09/13/2017 7:50 PM CDT Legal Sex Female 3:11 PM MEDICAL OPERATIONS SUPERVISOR Gender Identity Female 09/13/2017 7:50 PM CDT Sexual Orientation Straight 09/13/2017 7: 50 PM CDT documented as of this encounter Plan of Treatment Upcoming Encounters Date Type Department Care Team (Latest Contact Info) Description 07/18/2024 10:45 AM CDT Office Visit Department of Orthopedic Surgery in [place], [place] [address] [place] [address] Andrew Dougherty M.D. [address] [place] [address] 07/20/2024 3:00 PM CDT Office Visit Department of Family Medicine, [facility], in [place], [place] [address] [place] [address] Sánchez Goldberg D.O. [address] [place] [phone] 07/23/2024 10:50 AM CDT Hospital Encounter Post Anesthesia Care Unit in [address] [phone] Andrew Dougherty M.D. [address] [place] [phone] 07/23/2024 10:50 AM CDT - 07/23/2024 12:02 PM CDT Surgery [facility] OR [address] [place] [phone] Andrew Dougherty M.D. [address] [place] [phone] RELEASE CARPAL TUNNEL OPEN WRIST 07/27/2024 9:00 AM CDT Office Visit Division of Trauma Critical Care and General Surgery in [address] [phone] Jeanie Tavarez APRN, C.N.P., D.N.P. [address] [place] [phone] 09/06/2024 7:50 AM CDT Hospital Encounter Post Anesthesia Care Unit in [address] [phone] Andrew Dougherty M.D. [address] [place] [phone] 09/06/2024 7:50 AM CDT - 09/06/2024 9:02 AM CDT Surgery [facility] OR [address] [place] [phone] Andrew Dougherty M.D. [address] [place] [phone] RELEASE CARPAL TUNNEL OPEN WRIST Scheduled Procedures [...] Total Score: 17 02/2 025 10:48 AM MEDICAL OPERATIONS SUPERVISOR documented as of this encounter Care Teams Quarry Plant Crusher Operator Relationship Specialty Start Date End Date Sánchez Goldberg D.O. [address] [place] [address] PCP - General Family Medicine 03/26/20 documented as of this encounter
--- OUTSIDE RECORDS SUMMARY | 2024-07-14 01:30 | XMS_ITS | Clinical Summary ---
Author Organization [facility] Address [address] [place] [address] Care Team Providers Care Plant Safety Leader Name Role Phone Michael Goldberg D.O. Primary Care Provider Source Comments Patient records contain information from all sites at [facility]. For routine questions regarding patient records, call [phone] during business hours, M-F 8:00 AM - 5:00 PM Central Time. Record requests for emergency care only can be directed to [phone] at any time.[facility] Allergies Active Allergy Reactions Criticality Noted [...] 8. Assessment & Plan (03/16/2021 8:52 PM PIGMENT PUMPER): Placed order for iron infusion, dextran. Follow-up [...] Ativan. Assessment & Plan (03/16/2021 8:50 PM PIGMENT PUMPER): She is looking forward to the consult [...] (05/17/2018): Added automatically from request for surgery [id number] Abscess Perianal 03/07/2018 Overview (03/16/2021): Grisel of [...] discomfort. Assessment & Plan (03/16/2021 8:56 PM PIGMENT PUMPER): Recommended referral to gynecology for further evaluation [...] (01/18/2018): Added automatically from request for surgery [id number] Irritable bowel syndrome 03/25/2016 Chronic Migraine Without [...] concern. Assessment & Plan (03/16/2021 8:58 PM PIGMENT PUMPER): Placed follow-up office visit, she has requested [...] (06/16/2018): Added automatically from request for surgery [id number] Depression Major Recurrent Moderate 06/09/2018 07/19/2019 Fever [...] (07/30/2020): Added automatically from request for surgery [id number] Added automatically from request for surgery [id number] Encounters * This document contains information received from the source organization and may not represent a complete record from that organization. Date Type Department Care Team Description 07/13/2024 Clinical Communication Division of Trauma Critical Care and General Surgery in [address] [phone] Jose Leon D.O. 07/13/2024 Nurse Triage Department of Family Medicine, [facility], in [place], [place] [address] [place] [phone] Kelly Palomo R.N. Abdominal Pain; Constipation 07/13/2024 Clinical Communication RST [address] [phone] Jeanie Tavarez, STEPHANIE, C.N.P., D.N.P. Pre-visit Testing Orders 07/12/2024 Clinical Communication Division of Trauma Critical Care and General Surgery in [address] [phone] Jennifer Edge M.D. [facility] see a [facility] nurse 07/09/2024 4:06 PM CDT Anesthesia Event [facility] OR [address] [place] [phone] Shereen Rocha M.D. Nuttall, Gregory A, M.D. 07/09/2024 2:30 PM CDT Ancillary Procedure Department of General Surgery 07/09/2024 1:58 PM CDT - 07/09/2024 6:01 PM CDT Surgery [facility]ST [facility] OR [address] [place] [phone] Jennifer Edge M.D. ROBOTIC-ASSISTED ABDOMINAL EXPLORATION, lysis of adhesions, parastoma hernia repair with mesh 07/09/2024 Clinical Communication RST [facility] [address] [place] [phone] Bradford Gross M.D. 07/08/2024 6:55 PM CDT Ancillary Procedure Department of Gastroenterology 07/08/2024 2:52 PM CDT - 07/13/2024 1:28 PM CDT Hospital Encounter [facility], [facility], [facility], Fourth Floor [address] [place] [phone] Jay Love M.B.B.S., Jennifer Corey M.D. Abdominal Pain (Primary Dx) Discharge Disposition: Home or Self Care 07/08/2024 Intake [facility] 07/08/2024 Nurse Triage Department of Family Medicine, [place], [place] [address] [place] [phone] Nicole Flower R.N. Abdominal Pain 07/02/2024 Clinical Communication Department of Family Medicine, [place], [place] [address] [place] [phone] Michael Goldberg D.O. 06/15/2024 8:30 AM CDT Office Visit Department of Family Medicine, [place], [place] [address] [place] [phone] Michael Goldberg D.O. Preoperative Exam (Primary Dx); Cellulitis; Paronychia Finger Right; Bipolar Disorder Current Episode Depressed Moderate (HCC); Morbid Obesity Body Mass Index 45.0-49.9 Adult (HCC); Low Income 06/15/2024 Clinical Communication Department of Family Medicine, [place], [place] [address] [place] [phone] Darby Martines M.S.N., R.N. Med Refill 06/13/2024 12:00 PM CDT Clinical Communication Virtual Review in [place], [place] [address] [place] [address] Annual Exam (Disability paperwork/Infectio n in left hand pointer finger-finished antibiotics but still a little red-cefalexin /Wrist surgery-needs physical for surgery /Suicide attempt beginning of the month) 06/05/2024 Clinical Communication Department of Family Medicine, [facility], in [place], [place] [address] [place] [phone] Michael Goldberg D.O. [employer] - Outside Materials ([employer]) 06/04/2024 Clinical Communication Department of Family Medicine, [facility] in [place], [place] [address] [place] [phone] Michael Goldberg D.O. 05/28/2024 2:00 PM CDT Comprehensive Visit Department of Orthopedic Surgery in [place], [place] [address] [place] [phone] Felipa Regalado, STEPHANIE CDanielaN.P., M.S. Carpal Tunnel Syndrome Bilateral 05/28/2024 9:15 AM CDT - 05/28/2024 11:59 PM CDT Hospital Encounter Department of Neurology in [place], [place] [address] [place] [address] Michael Goldberg D.O. Carpal Tunnel Syndrome Bilateral Discharge Disposition: Home or Self Care 05/28/2024 Results Follow-Up Department of Family Medicine, [facility], in [place], [place] [address] [place] [phone] Michael Goldberg D.O. EMG 05/16/2024 11:00 AM PIGMENT PUMPER Telemedicine Department of Family Medicine, [facility], in [place], [place] [address] [place] [phone] Michael Goldberg D.O. Carpal Tunnel Syndrome Bilateral (Primary Dx); Fibromyalgia; Asthma (HCC); Migraine Headache 05/16/2024 Clinical Communication Department of Family Medicine, [facility], in [place], [place] [address] [place] [phone] Michael Goldberg D.O. Med Question; Phone Contact 05/16/2024 Clinical Communication Division of Gastroenterology in [place], [place] [address] [place] [address] Bradford Gross M.D. Plan of care and [...] the past 12 months has th e [employer] gas, oil, or water [employer] threatened to shut off services in your [...] How often do you attend chur or pentecostalism services? Never 07/13/2022 Do you belong to [...] Answer Date Recorded PHQ-2 Score 6 05/16/2024 [facility] of Occupat ional Health - Occupational Stress [...] your living situation today? I have a [facility] place to live 07/08/2024 Education Answer Date Recorded What is the highest level of school you have completed or the highest degree you have received? Some college, no degree 02/18/2019 Comments No Sex and Gender Information Value Date Recorded Sex Assigned at Female 09/13/2017 7:50 PM CDT Legal Sex Female 3:11 PM PIGMENT PUMPER Gender Identity Female 09/13/2017 7:50 PM CDT [...] Office Visit Department of Orthopedic Surgery in [place], [place] [address] [place] [phone] Andrew Dougherty M.D. [address] [place] [phone] 07/20/2024 3:00 PM CDT Office Visit Department of Family Medicine, [facility], in [place], [place] [address] [place] [phone] Michael Goldberg D.O. [address] [place] [phone] 07/23/2024 10:50 AM CDT Hospital Encounter Post Anesthesia Care Unit in [place], [place] [address] [place] [phone] Andrew Dougherty M.D. [address] [place] [phone] 07/23/2024 10:50 AM CDT - 07/23/2024 12:02 PM CDT Surgery [facility] [address] [place] [phone] Andrew Dougherty M.D. [address] [place] [phone] RELEASE CARPAL TUNNEL OPEN WRIST 07/27/2024 9:00 AM CDT Office Visit Division of Trauma Critical Care and General Surgery in [place], [place] [address] [place] [phone] Jeanie Tavarez, PLASTIC FINISHER, C.N.P., D.N.P. [address] [place] [phone] 09/06/2024 7:50 AM CDT Hospital Encounter Post Anesthesia Care Unit in [address] [phone] Andrew Dougherty M.D. [address] [place] [phone] 09/06/2024 7:50 AM CDT - 09/06/2024 9:02 AM CDT Surgery [facility] OR [address] [place] [phone] Andrew Dougherty M.D. [address] [place] [phone] RELEASE CARPAL TUNNEL OPEN WRIST Scheduled Procedures [...] Online Services Medical Devices Implanted Type Area Groundsman Device Identifier Shelf Expiration Date Model / Serial / Lot Scrw Asn 3 St Pthrd Travis 4x34 - [id number] Implanted:Q ty: 2 on 04/07/2022 by Jose wSift III, M.D. at [facility] Hardware e.g. pins/screws/ro ds Left: Ankle Canal Point [id number] / / Screw Cosmo St 2.4x12 - [id number] Implanted:Q ty: 1 on 04/07/2022 by Jose Swift III, M.D. at [facility] Hardware e.g. pins/screws/ro ds Left: Ankle Depuy Synthes 201.612 / / Screw Cosmo St 2.4x10 - [id number] Implanted:Q ty: 1 on 04/07/2022 by Jose Swift III, M.D. at [facility] Hardware e.g. pins/screws/ro ds Left: Ankle Depuy Synthes 201.680 / / Scrw Axs St Fthrd Lck 3.5x12 - [id number] Implanted:Q ty: 2 on 04/07/2022 by Jose Swift III, M.D. at [facility] Hardware e.g. pins/screws/ro ds Left: Ankle Reji [id number] / / Scrw Axs St Fthrd Lck 3.5x14 - [id number] 28 Implanted:Q ty: 2 on 04/07/2022 by Jose Swift III, M.D. at [facility] Hardware e.g. pins/screws/ro ds Left: Ankle Canal Point [id number] / / Scrw Axs St Fthrd Lck 3.5x60 - [id number] Implanted:Q ty: 1 on 04/07/2022 by Jose Swift III, M.D. at [facility] Hardware e.g. pins/screws/ro ds Left: Ankle Reji [id number] / / Description:10/18/2022: screw broke during removal, part of screw explanted disposed of, part of screw remains in left tibia Plt Sps 03/23 Tub 10h 129 - [id number] Implanted:Q ty: 1 on 04/07/2022 by Jose Swift III, M.D. at [facility] Hardware e.g. pins/screws/ro ds Left: Ankle Canal Point [id number] / / Iud Mrn Lvngstr 52mg- 022 Implanted:Q ty: 1 on 06/30/2021 by Martha Pavon APRN, C.N.P., M.S.N. Intrauterine Device Uterus Yesi 09/19/2023 [id number] / / [id number] Description:Due to be remove d 06/30/2028 [facility] Jacki Synth 15x15 - [id number] Implanted:Q ty: 1 on 12/24/2021 by Roberto Carlos Sotelo M.D., M.B.A. at [facility] Mesh or Patch N/A: Abdomen Medtronic 06/18/2025 [id number] / / [id number] [facility] Prt Jacki Synth 20x30 - [id number] Implanted:Q ty: 1 on 07/19/2022 by Luz Vaughn M.D., M.S. at [facility] Mesh or Patch Abdomen Medtronic 10/18/2024 [id number] / / [id number] [facility] Vnt Jacki Polyprp Ov 4x6 - [id number] Implanted:Q ty: 1 on 07/09/2024 by Keisha Donald M.D. at [facility] Mesh or Patch N/A: Abdomen C.R.Bard [id number] 01/15/2026 [id number] / / [id number] Explanted Type Area Groundsman Device Identifier Shelf Expiration Date Model / Serial / Lot Scrw Axs St Fthrd Lck 3.5x55 - [id number] Implanted:Qty : 1 on 04/07/2022 by Jose Swift III, M.D. at [facility] Explanted:Qty : 1 on 10/18/2022 by Rosalba Weber M.D. at [facility] Hardware e.g. pins/screws/ rods Left: Ankle Canal Point [id number] / / Procedures Procedure Name Priority Date/Time [...] A DD-ON Final Result Performing Organization Address City/[facility]/[place] [address] * Phosphorus Inorganic (07/12/2024 3:25 AM CDT) Only the most recent of3 resultswithin the time period is included. Phosphorus (Inorganic), S 3.4 2.5 - 4.5 mg/dL 07/12/2024 4:42 AM CDT DTL Blood (Blood, Venous) 07/12/2024 3:25 AM CDT 07/12/2024 4:20 AM CDT Noreen Vega P.A.-C. LAB BLOOD ADD-ON Final Result Performing Organization Address City/[facility]/ZIP Co de Phone Number [facility] [address] [place] [address] * Magnesium (07/12/2024 3:25 AM CDT) Only the most recent of2 resultswithin the time period is included. Magnesium, S 2.3 1.7 - 2.3 mg/dL 07/12/2024 4:42 AM CDT DTL Blood (Blood, Venous) 07/12/2024 3:25 AM CDT 07/12/2024 4:20 AM CDT us Noreen Vega P.A.-C. LAB BLOOD ADD-ON Final Result [facility] [address] [place] [address], [place] DTL [facility] [address] [place] [address] * Basic Metabolic Panel (07/12/2024 3:25 AM CDT) Only the most recent of5 resultswithin the time period is included. Pathologist [facility] Potassium, S 4.0 3.6 - 5.2 mmol/L [...] Vega P.A.-C. LAB BLOOD ADD-ON Final Result [facility] [address] [place] [address], [place] DTL [facility] [address] [place] [address] * DX Abdomen Portable Anterior Posterior 1 [...] ETT location: oral VL device: glide scope Grayson scope blade size: 3 Tube size: 6.5 [...] PROCE DURES Final Result Performing Organization Address [facility] de Phone Number IIMS NA * Prothrombin [...] ADD- ON Final Result Performing Organization Address [facility] [place] [address], [facility] [place] [address] * (ABNORMAL) CBC with Differential, Blood (07/09/2024 [...] JoyceBDanielaSDaniela LAB BLOOD ADD- ON Final Result [facility] [address] [place] [address], [facility] DTL [facility] [address] [place] [address] DHPM [facility] [address] [place] [address] * Type and Screen (with Reflex Antibody ID) (07/09/2024 6:48 AM CDT) Pathologist [facility] ABORh B Pos Not applicable 07/09/2024 7:46 AM CDT STRM Antibody Screen Negative Negative 07/09/2024 7:51 AM CDT STRM Type & Screen Expiration 07/12/2024 23:59 07/09/2024 7:46 AM CDT STRM Testing Location Lesvia DEFAULT 07/09/2024 7:08 AM CDT STRM Blood (Blood, Venous) 07/09/2024 6:48 AM CDT 07/09/2024 7:08 AM CDT Kunal JoyceB.S. LAB BLOOD BANK TEST ORDERABLES Final Result [facility] [address] [place] [address], [facility] STRM [facility] [address] [place] [address] * DX Abdomen 1 View (07/09/2024 4:42 [...] PROCE DURES Final Result Performing Organization Address [facility] Co de Phone Number IIMS NA * ECG 12 Lead (07/08/2024 3:48 PM CDT) Ventricular Rate ECG/Min 86 BPM MUSE MI Interval 166 ms MUSE QRSD Interval 92 ms MUSE QT Interval 374 ms MUSE QTC Interval 447 ms MUSE P Alton 6 degrees MUSE R [place] 79 degrees MUSE T Wave Alton -14 degrees MUSE 07/08/2024 3:48 PM CDT [...] Edited Result - Final Performing Organization Address [facility] Co de Phone Number [...] ADD- ON Final Result Performing Organization Address City/[facility]/ZIP Co de Phone Number [facility] [address] [place] [address] * (ABNORMAL) CRP (C-Reactive Protein) (07/08/2024 3:42 PM CDT) [facility] C-Reactive Protein (CRP), S 14.9(H) <5.0 mg/L 07/08/2024 4:33 PM CDT DTL Blood (Blood, Venous) 07/08/2024 3:42 PM CDT 07/08/2024 4:18 PM CDT Kunal JoyceB.S. LAB BLOOD ADD- ON Final Result [facility] [address] [place] [address] * Lactate (07/08/2024 3:42 PM CDT) Lactate, P 1.0 0.5 - 2.2 mmol/L 07/08/2024 4:35 PM CDT STMA Blood (Blood, Venous) 07/08/2024 3:42 PM CDT 07/08/2024 3:52 PM CDT Knual Sharif LAB BLOOD NON ADD-ON Final Result Performing Organization Address [facility] de Phone Number [facility] [address] [place] [address], [facility] STMA [facility] [address] [place] [address] * CT ABDOMEN PELVIS W CON-Outside CT [...] PROCEDURES Final R esult Performing Organization Address [facility] de Phone Number IIMS NA * EMG (05/28/2024 9:22 AM CDT) 05/28/2024 9:15 AM CDT Narrative EMG - 05/28/2024 10:34 AM CDT Table formatting from the original result was not included. 28-May-2024 Electromyography Final Report Study Number: 2 EMG Vehicle Sales Professional: Martha Gilliam 127 or [phone] Referred by: MICHAEL GOLDBERG (127 or [phone]) Referred for: bilat CTS ( R>L) Referral [...] side. Images were saved to the internal [employer] warrant server. CLINICAL INTERPRETATION: Abnormal study. There is [...] on the left. Magdalena Gilliam (127 or [phone])/[facility] NERVE CONDUCTIONS Record Rep Normal Normal Distal [...] Electromyography Final Report Study Number: 2 EMG Vehicle Sales Professional: Marhta Gilliam 127 or [phone] Referred by: MICHAEL GOLDBERG (127 or [phone]) Referred for: bilat CTS ( R>L) Referral [...] eitherside. Images were saved to the internal [employer] network warrant server. CLINICAL INTERPRETATION: Abnormal study. There is [...] on the left. Magdalena Gilliam (127 or [phone])/[facility] NERVE CONDUCTIONS Record Rep Normal Normal Distal [...] Screen, Plasma (07/05/2023 2:40 PM CDT) Pathologist [facility] HIV-1/-2 Ag and Ab Screen, P Negative Negative 07/05/2023 8:51 PM CDT [facility] Comment: Negative result does not rule out HIV infection. If exposure to HIV infection occurred <14 days ago, contact the laboratory to request addition of HIV-1/HIV-2 RNA detection, Plasma (HIP12). Blood (Blood, Venous) 07/05/2023 2:40 PM CDT 07/05/2023 8:11 PM CDT Michael Goldberg D.O. LAB MICROBIOLOGY - BLO OD ORDERABLES Final Result Performing Organization Address City/[facility] Co de Phone Number [facility] [address] [place] [address] [facility] [address] [place] [address] * HPV with Genotyping, PCR, ThinPrep (06/26/2021 [...] was ordered in the context of a [facility] DOPEMAN Cytology case; this result should be interpreted within the context of the DOPEMAN cytology report. Varies 06/26/2021 1:42 PM CDT 06/26/2021 4:01 PM CDT Toña Iqbal APRN C.N.P., M.S.N. LAB MICROBIOLOG Y - GENERAL ORDERABLES Final Result [facility] [address] [place] [address], [facility] [address] [place] [address] from Last 3 Months or Most Recently Relevant to Health Maintenance Additional Health Concerns Active Problems Noted Date Diagnosed Date Autogenerated Problem 06/30/2024 Insurance MEDICARE [employer] Advance Directives For more information, please contact: [phone] Documents on File Type Date Recorded Patient Online Merchandising Specialist Expl anation Advance Directives 07/25/2019 9:52 AM [...] Agents on File Name Relationship Healthcare Agent [facility] Care Agent - 00 (Mobile) Noe [facility] Health Car e Agent Care Teams Plant Safety Leader Relationship Specialty Start Date End Date Michael Goldberg D.O. [address] [place] [phone] PCP - General Family Medicine 03/26/20
--- OUTSIDE RECORDS SUMMARY | 2024-07-14 01:30 | XMS_ITS | Encounter Summary ---
Author Organization [facility] Address [address] [place] [address] Care Team Providers Care Sales Route Driver Helper Name Role Phone Sánchez Goldberg D.O. Primary Care Provider Reason for Visit * Reason Onset Date Comments Med Question 05/16/2024 Phone Contact 05/16/2024 Encounter Details Date Type Department Care Team (Latest Contact Info) Description 05/16/2024 Clinical Communication Department of Family Medicine, [facility], in [place], [place] [address] [place] [phone] Sánchez Goldberg D.O. [address] [place] [phone] Med Question; Phone Contact Social History Tobacco [...] How often do you attend chur or samaritan services? Never 07/13/2022 Do you belong to any clubs o r organizations such as hinduism groups, unions, fraternal or athletic groups, or [...] Answer Date Recorded PHQ-2 Score 6 05/16/2024 [facility] [place] of Occupat ional Health - Occupational Stress [...] your living situation today? I have a [facility] place to live 01/18/2024 Education Answer Date Recorded What is the highest level of school you have completed or the highest degree you have received? Some college, no degree 02/18/2019 Comments No Sex and Gender Information Value Date Recorded Sex Assigned at Female 09/13/2017 7:50 PM CDT Legal Sex Female 3:11 PM YEAST CULTURE OPERATOR Gender Identity Female 09/13/2017 7:50 PM CDT Sexual Orientation Straight 09/13/2017 7: 50 PM CDT documented as of this encounter Plan of Treatment Upcoming Encounters Date Type Department Care Team (Latest Contact Info) Description 07/18/2024 10:45 AM CDT Office Visit Department of Orthopedic Surgery in [place], [place] [address] [place] [phone] Andrew Dougherty M.D. [address] [place] [phone] 07/20/2024 3:00 PM CDT Office Visit Department of Family Medicine, [facility], in [place], [place] [address] [place] [phone] Sánchez Goldberg D.O. [address] [place] [phone] 07/23/2024 10:50 AM CDT Hospital Encounter Post Anesthesia Care Unit in [address] [phone] Andrew Dougherty M.D. [address] [place] [phone] 07/23/2024 10:50 AM CDT - 07/23/2024 12:02 PM CDT Surgery [facility] OR [address] [place] [phone] Andrew Dougherty M.D. [address] [place] [phone] RELEASE CARPAL TUNNEL OPEN WRIST 07/27/2024 9:00 AM CDT Office Visit Division of Trauma Critical Care and General Surgery in [address] [phone] Jeanie Tavarez APRN, C.N.P., D.N.P. [address] [place] [phone] 09/06/2024 7:50 AM CDT Hospital Encounter Post Anesthesia Care Unit in [address] [phone] Andrew Dougherty M.D. [address] [place] [phone] 09/06/2024 7:50 AM CDT - 09/06/2024 9:02 AM CDT Surgery [facility] OR [address] [place] [address] Andrew Dougherty M.D. 200 [place] [phone] RELEASE CARPAL TUNNEL OPEN WRIST Scheduled Procedures [...] Depression Total Score: 17 025 10:48 AM YEAST CULTURE OPERATOR documented as of this encounter Care Teams Sales Route Driver Helper Relationship Specialty Start Date End Date Sánchez Goldberg D.O. [address] [place] [phone] PCP - General Family Medicine 03/26/20 documented as of this encounter
--- OUTSIDE RECORDS SUMMARY | 2024-07-14 01:30 | XMS_ITS | Encounter Summary ---
Author Organization [facility] Address [address] [place] [address] Care Team Providers Care Cant Gang Sawyer Name Role Phone Sánchez Goldberg D.O. Primary Care Provider Encounter Details Date Type Department Care Team (Latest Contact Info) Description 07/08/2024 Intake [facility] Social History Tobacco Use Types Packs/Day Years Used Date Smoking Tobacco: Never Passive Smoke Exposure: Never Smokeless Tobacco: Never Alcohol Use Standard Drinks/Week Comments Not Currently 1 (1 standard drink = 0.6 oz pur e alcohol) daily caffeine [facility] Utilities Answer Date Recorded In the past 12 months has [facility] [employer], oil, or water [employer] threatened to shut off services in your [...] often do you attend chur ch or catholic services? Never 07/13/2022 Do you belong to any clubs o r organizations such as jain groups, unions, fraternal or athletic groups, or [...] Answer Date Recorded PHQ-2 Score 6 05/16/2024 [facility] of Occupat ional Health - [...] [employer] place to live 07/08/2024 Education Answer Date Recorded What is the highest level of school you have completed or the highest degree you have received? 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 200 [place] [phone] 07/20/2024 3:00 PM CDT Office Visit Department of Family Medicine, [facility], in [place], [place] [address] [place] [phone] Sánchze Goldberg D.O. 200 [place] [address] 07/23/2024 10:50 AM CDT Hospital Encounter Post Anesthesia Care Unit in [address] [address] Andrwe Dougherty M.D. [address] [place] [phone] 07/23/2024 10:50 AM CDT - 07/23/2024 12:02 PM CDT Surgery RST ROMB MAIN OR [address] [place] [phone] Andrew Dougherty M.D. [address] [place] [phone] RELEASE CARPAL TUNNEL OPEN WRIST 07/27/2024 9:00 AM CDT Office Visit Division of Trauma Critical Care and General Surgery in [address] [phone] Jeanie Tavarez APRN, C.N.P., D.N.P. [address] [place] [phone] 09/06/2024 7:50 AM CDT Hospital Encounter Post Anesthesia Care Unit in [address] [phone] Andrew Dougherty M.D. [address] [place] [phone] 09/06/2024 7:50 AM CDT - 09/06/2024 9:02 AM CDT Surgery RST ROMB MAIN OR [address] [place] [phone] Andrew Dougherty M.D. [address] [place] [phone] RELEASE CARPAL TUNNEL OPEN WRIST Scheduled Procedures [...] Total Score: 17 05/16/ 025 10:48 AM SEALING AND CANCELING MACHINE OPERATOR documented as of this encounter Care Teams Cant Gang Sawyer Relationship Specialty Start Date End Date Sánchez Goldberg D.O. 200 [place] [address] PCP - General Family Medicine 03/26/20 documented as of this encounter
--- OUTSIDE RECORDS SUMMARY | 2024-07-14 01:30 | XMS_ITS | Encounter Summary ---
Author Organization [facility] Address [address] [place] [address] Care Team Providers Care Tipple Repairer Name Role Phone Sánchez Goldberg D.O. Primary Care Provider Reason for Visit * Reason Onset Date Comments [facility] - Outside Materials 06/05/2024 [employer] Encounter Details Date Type Department Care Team (Latest Contact Info) Description 06/05/2024 Clinical Communication Department of Family Medicine, [facility], in [place], [place] [address] [place] [phone] Sánchez Goldberg D.O. 200 [place] [phone] [facility] - Outside Materials ([employer]) Social History Tobacco Use Types Packs/Day Years Used Date Smoking Tobacco: Never Passive Smoke Exposure: Never Smokeless Tobacco: Never Alcohol Use Standard Drinks/Week Comments Not Currently 2 (1 standard drink = 0.6 oz pur e alcohol) daily caffeine [facility] Utilities Answer Date Recorded In the [...] How often do you attend chur or sikhism services? Never 07/13/2022 Do you belong to any clubs o r organizations such as denominational groups, unions, fraternal or athletic groups, or [...] Answer Date Recorded PHQ-2 Score 6 05/16/2024 [facility] of Occupat ional Health - Occupational Stress [...] your living situation today? I have a [facility] place to live 01/18/2024 Education Answer Date Recorded What is the highest level of school you have completed or the highest degree you have received? Some college, no degree 02/18/2019 Comments No Sex and Gender Information Value Date Recorded Sex Assigned at Female 09/13/2017 7:50 PM CDT Legal Sex Female 3:11 PM MONEY EXAMINER Gender Identity Female 09/13/2017 7:50 PM CDT Sexual Orientation Straight 09/13/2017 7: 50 PM CDT documented as of this encounter Plan of Treatment Upcoming Encounters Date Type Department Care Team (Latest Contact Info) Description 07/18/2024 10:45 AM CDT Office Visit Department of Orthopedic Surgery in [place], [place] [address] [place] [address] Andrew Dougherty M.D. [address] [place] [phone] 07/20/2024 3:00 PM CDT Office Visit Department of Family Medicine, [facility], in [place], [place] [address] [place] [phone] Sánchez Goldberg D.O. [address] [place] [phone] 07/23/2024 10:50 AM CDT Hospital Encounter Post Anesthesia Care Unit in [address] [phone] Andrew Dougherty M.D. [address] [place] [phone] 07/23/2024 10:50 AM CDT - 07/23/2024 12:02 PM CDT Surgery RST ROMB MAIN OR [address] [place] [phone] Andrew Dougherty M.D. [address] [place] [phone] RELEASE CARPAL TUNNEL OPEN WRIST 07/27/2024 9:00 AM CDT Office Visit Division of Trauma Critical Care and General Surgery in [address] [phone] Jeanie Tavarez APRN, C.N.P., D.N.P. [address] [place] [phone] 09/06/2024 7:50 AM CDT Hospital Encounter Post Anesthesia Care Unit in [address] [phone] Andrew Dougherty M.D. [address] [place] [phone] 09/06/2024 7:50 AM CDT - 09/06/2024 9:02 AM CDT Surgery RST ROMB MAIN OR [address] [place] [address] Andrew Dougherty M.D. 200 [place] [phone] RELEASE CARPAL TUNNEL OPEN WRIST Scheduled Procedures [...] Depression Total Score: 17 025 10:48 AM MONEY EXAMINER documented as of this encounter Care Teams Tipple Repairer Relationship Specialty Start Date End Date Sánchez Goldberg D.O. 200 [place] [phone] PCP - General Family Medicine 03/26/20 documented as of this encounter
--- OUTSIDE RECORDS SUMMARY | 2024-07-14 01:30 | XMS_ITS | Encounter Summary ---
Author Organization [facility] Address [address] [place] [address] Care Team Providers Care Heel Seat Laster Name Role Phone Sánchez Goldberg D.O. Primary Care Provider Encounter Details Date Type Department Care Team (Late st Contact Info) Description 07/09/2024 4:06 PM CDT Anesthesia Event RST ROMB MAIN OR [address] [place] [phone] Shereen Rocha M.D. [address] [place] [phone] Josue Williamson M.D. [address] [place] [phone] Anesthesia Record Procedure Summary Procedure Name Responsible [...] 1846 Anes CS Handoff I, Brice chi, HEALTH PRACTICE MANAGER, STOPPER SETTER, DNAP, attest that I have reconciled the [...] Mid; Left 07/09/24 180 by Florentin Sabillon, R.NDaniela NG/OG Tube Other hospital; Nasogastric; 53 cm; [...] 07/09/24; Removal Time: 213307/09/241618 by Brice Gutierrez, HEALTH PRACTICE MANAGER, STOPPER SETTER, DNAP 07/09/242133 by Schuyler Campbell Indwelling Urinary [...] 0.6 oz pur e alcohol) daily caffeine [employer] Answer Date Recorded In the past 12 months has [employer], gas, oil, or water [employer] threatened to shut off services in your [...] often do you attend chur ch or anabaptist services? Never 07/13/2022 Do you belong to [...] Answer Date Recorded PHQ-2 Score 6 05/16/2024 [facility] of Occupat ional [facility] - Occupational Stress Questionnaire Answer Date [...] your living situation today? I have a [facility] place to live 07/08/2024 Education Answer Date Recorded What is the highest level of school you have completed or the highest degree you have received? Some college, no degree 02/18/2019 Comments No Sex and Gender Information Value Date Recorded Sex Assigned at Female 09/13/2017 7:50 PM CDT Legal Sex Female 3:11 PM DIELECTRIC EMBOSSING MACHINE OPERATOR Gender Identity Female 09/13/2017 7:50 PM CDT Sexual Orientation Straight 09/13/2017 7: 50 PM CDT documented as of this encounter OR Notes * Anesthesia Postprocedure Evaluation - Vilma Millan D.O. - 07/09/2024 10:19 PM CDT Patient: Grisel Cruz Procedure Summary Date: 07/09/24 Room / Location: [place] [address] / [facility] in [place], [place] Anesthesia Start: 160 Anesthesia Stop: 2144 [...] ETT location: oral VL device: glide scope [place] scope blade size: 3 Tube size: 6.5 [...] Location: RM OR 206 ROMB 552 / [facility] in [place], [place] Providers: Roberto Carlos Hollis M.D., Ph.D. [...] with patient /legal guardian or through an aerial photograph interpreter. Risks/Benefits/Alternatives of Blood transfusion discussed with patient [...] Office Visit Department of Orthopedic Surgery in [place], [place] [address] [place] [phone] Andrew Dougherty M.D. [address] [place] [phone] 07/20/2024 3:00 PM CDT Office Visit Department of Family Medicine, [facility], in [place], [place] [address] [place] [phone] Sánchez Goldberg D.O. [address] [place] [phone] 07/23/2024 10:50 AM CDT Hospital Encounter Post Anesthesia Care Unit in [place], [place] [address] [place] [phone] Andrew Dougherty M.D. [address] [place] [phone] 07/23/2024 10:50 AM CDT - 07/23/2024 12:02 PM CDT Surgery RST ROMB MAIN OR [facility] [address] [place] [phone] Andrew Dougherty M.D. [address] [place] [phone] RELEASE CARPAL TUNNEL OPEN WRIST 07/27/2024 9:00 AM CDT Office Visit Division of Trauma Critical Care and General Surgery in [address] [phone] Jeanie Tavarez, HEALTH PRACTICE MANAGER, C.N.P., D.N.P. [address] [place] [phone] 09/06/2024 7:50 AM CDT Hospital Encounter Post Anesthesia Care Unit in [place], [place] [address] [place] [phone] Andrew Dougherty M.D. [address] [place] [phone] 09/06/2024 7:50 AM CDT - 09/06/2024 9:02 AM CDT Surgery RST ROMB MAIN OR [address] [place] [phone] Andrew Dougherty M.D. [address] [place] [phone] RELEASE CARPAL TUNNEL OPEN WRIST Scheduled Procedures [...] ETT location: oral VL device: glide scope [place] scope blade size: 3 Tube size: 6.5 [...] Depression Total Score: 17 025 10:48 AM DIELECTRIC EMBOSSING MACHINE OPERATOR documented as of this encounter Care Teams Heel Seat Laster Relationship Specialty Start Date End Date Sánchez Goldberg D.O. [address] [place] [phone] PCP - General Family Medicine 03/26/20 documented as of this encounter
--- OUTSIDE RECORDS SUMMARY | 2024-07-14 01:30 | XMS_ITS | Encounter Summary ---
Author Organization [facility] Address [address] [place] [address] Care Team Providers Care Salt Machine Operator Name Role Phone Sánchez Goldberg D.O. Primary Care Provider Encounter Details Date Type Department Care Team (Late st Contact Info) Description 07/09/2024 Clinical Communication [facility]ST [facility] [address] [place] [phone] Bradford Gross M.D. [address] [place] [phone] Social History Tobacco Use Types Packs/Day Years Used Date Smoking Tobacco: Never Passive Smoke Exposure: Never Smokeless Tobacco: Never Alcohol Use Standard Drinks/Week Comments Not Currently 1 (1 standard drink = 0.6 oz pur e alcohol) daily caffeine [facility] Utilities Answer Date Recorded In the past 12 months has [employer], gas, oil, or water company threatened [...] any clubs o r organizations such as advent groups, unions, fraternal or athletic groups, or [...] Answer Date Recorded PHQ-2 Score 6 05/16/2024 [facility] of Occupat ional Health - Occupational [...] your living situation today? I have a [facility] place to live 07/08/2024 Education Answer Date Recorded What is the highest level of school you have completed or the highest degree you have received? Some college, no degree 02/18/2019 Comments No Sex and Gender Information Value Date Recorded Sex Assigned at Female 09/13/2017 7:50 PM CDT Legal Sex Female 3:11 PM AUTOMATIC FURNACE OPERATOR Gender Identity Female 09/13/2017 7:50 PM CDT Sexual Orientation Straight 09/13/2017 7: 50 PM CDT documented as of this encounter Plan of Treatment Upcoming Encounters Date Type Department Care Team (Latest Contact Info) Description 07/18/2024 10:45 AM CDT Office Visit Department of Orthopedic Surgery in [place], [place] 200 [place] [address] Andrew Dougherty M.D. 200 [place] [phone] 07/20/2024 3:00 PM CDT Office Visit Department of Family Medicine, [facility], in [place], [place] [address] [place] [phone] Sánchez Goldberg D.O. [address] [place] [phone] 07/23/2024 10:50 AM CDT Hospital Encounter Post Anesthesia Care Unit in [address] [phone] Andrew Dougherty M.D. [address] [place] [phone] 07/23/2024 10:50 AM CDT - 07/23/2024 12:02 PM CDT Surgery RST ROMB MAIN OR [address] [place] [phone] Andrew Dougherty M.D. [address] [place] [phone] RELEASE CARPAL TUNNEL OPEN WRIST 07/27/2024 9:00 AM CDT Office Visit Division of Trauma Critical Care and General Surgery in [address] [phone] Jeanie Tavarez APRN, C.N.P., D.N.P. [address] [place] [phone] 09/06/2024 7:50 AM CDT Hospital Encounter Post Anesthesia Care Unit in [address] [phone] Andrew Dougherty M.D. [address] [place] [phone] 09/06/2024 7:50 AM CDT - 09/06/2024 9:02 AM CDT Surgery RST ROMB MAIN OR [address] [place] [phone] Andrew Dougherty M.D. 200 [place] [phone] RELEASE CARPAL TUNNEL OPEN WRIST Scheduled Procedures Name Priority Associated Diagnoses Date/Ti nv RELEASE CARPAL TUNNEL OPEN WRIST Carpal Tunnel [...] Total Score: 17 05/16/ 025 10:48 AM AUTOMATIC FURNACE OPERATOR documented as of this encounter Care Teams Salt Machine Operator Relationship Specialty Start Date End Date Sánchez Goldberg D.O. 200 [place] [phone] PCP - General Family Medicine 03/26/20 documented as of this encounter
--- OUTSIDE RECORDS SUMMARY | 2024-07-14 01:30 | XMS_ITS | Encounter Summary ---
Author Organization [facility] Address [address] [place] [address] Care Team Providers Care Bridge Inspector Name Role Phone Sánchez Goldberg D.O. Primary Care Provider Encounter Details Date Type Department Care Team (Late st Contact Info) Description 06/04/2024 Clinical Communication Department of Family Medicine, [facility], in [place], [place] [address] [place] [phone] Sánchez Goldberg D.O. [address] [place] [phone] Social History Tobacco Use Types Packs/Day Years Used Date Smoking Tobacco: Never Passive Smoke Exposure: Never Smokeless Tobacco: Never Alcohol Use Standard Drinks/Week Comments Not Currently 2 (1 standard drink = 0.6 oz pur e alcohol) daily caffeine [facility] Utilities Answer Date Recorded In the past 12 months has e [employer], gas, oil, or water [employer] threatened to shut off services in your [...] often do you attend chur ch or pentecostal services? Never 07/13/2022 Do you belong to any clubs o r organizations such as confucianist groups, unions, fraternal or athletic groups, or [...] Answer Date Recorded PHQ-2 Score 6 05/16/2024 [facility] [place] of Occupat ional Health - Occupational Stress [...] your living situation today? I have a [facility] place to live 01/18/2024 Education Answer Date Recorded What is the highest level of school you have completed or the highest degree you have received? Some college, no degree 02/18/2019 Comments No Sex and Gender Information Value Date Recorded Sex Assigned at Female 09/13/2017 7:50 PM CDT Legal Sex Female 3:11 PM RUST PROOFER Gender Identity Female 09/13/2017 7:50 PM CDT Sexual Orientation Straight 09/13/2017 7: 50 PM CDT documented as of this encounter Plan of Treatment Upcoming Encounters Date Type Department Care Team (Latest Contact Info) Description 07/18/2024 10:45 AM CDT Office Visit Department of Orthopedic Surgery in [place], [place] 200 [place] [address] Andrew Dougherty M.D. 200 [place] [phone] 07/20/2024 3:00 PM CDT Office Visit Department of Family Medicine, [facility], in [place], [place] [address] [place] [phone] Sánchez Goldberg D.O. [address] [place] [phone] 07/23/2024 10:50 AM CDT Hospital Encounter Post Anesthesia Care Unit in [address] [phone] Andrew Dougherty M.D. [address] [place] [phone] 07/23/2024 10:50 AM CDT - 07/23/2024 12:02 PM CDT Surgery RST ROMB MAIN OR [address] [place] [phone] Andrew Dougherty M.D. [address] [place] [phone] RELEASE CARPAL TUNNEL OPEN WRIST 07/27/2024 9:00 AM CDT Office Visit Division of Trauma Critical Care and General Surgery in [address] [phone] Jeanie Tavarez APRN, C.N.P., D.N.P. [address] [place] [phone] 09/06/2024 7:50 AM CDT Hospital Encounter Post Anesthesia Care Unit in [address] [phone] Andrew Dougherty M.D. [address] [place] [phone] 09/06/2024 7:50 AM CDT - 09/06/2024 9:02 AM CDT Surgery RST ROMB MAIN OR [address] [place] [address] Andrew Dougherty M.D. [address] [place] [phone] RELEASE CARPAL TUNNEL OPEN WRIST Scheduled Procedures [...] Depression Total Score: 17 025 10:48 AM RUST PROOFER documented as of this encounter Care Teams Bridge Inspector Relationship Specialty Start Date End Date Sánchez Goldberg D.O. [address] [place] [phone] PCP - General Family Medicine 03/26/20 documented as of this encounter
--- OUTSIDE RECORDS SUMMARY | 2024-07-14 01:31 | XMS_ITS | Encounter Summary ---
Author Organization [facility] Address [address] [place] [address] Care Team Providers Care Medical Physicist Name Role Phone Sánchez Goldberg D.O. Primary Care Provider Reason for Visit * Reason Onset Date Comments Request to see a [facility] nurse 07/12/2024 Encounter Details Date Type Department Care Team (Late st Contact Info) Description 07/12/2024 Clinical Communication Division of Trauma Critical Care and General Surgery in [place], [place] [address] [place] [phone] Jennifer Edge M.D. [address] [place] [phone] Request to see a [facility] nurse Social History Tobacco Use Types Packs/Day Years Used Date Smoking Tobacco: Never Passive Smoke Exposure: Never Smokeless Tobacco: Never Alcohol Use Standard Drinks/Week Comments Not Currently 1 (1 standard drink = 0.6 oz pur e alcohol) daily caffeine [facility] Utilities Answer Date Recorded In the [...] How often do you attend chur or jew services? Never 07/13/2022 Do you belong to any clubs o r organizations such as bahai groups, unions, fraternal or athletic groups, or [...] Date Recorded PHQ-2 Score 6 05/16/2024 [facility] [place] of Occupat ional Health - Occupational Stress [...] [facility] place to live 07/08/2024 Education Answer Date Recorded What is the highest level of school you have completed or the highest degree you have received? Some college, no degree 02/18/2019 Comments No Sex and Gender Information Value Date Recorded Sex Assigned at Female 09/13/2017 7:50 PM CDT Legal Sex Female 3:11 PM FIELD TAX AUDITOR Gender Identity Female 09/13/2017 7:50 PM CDT Sexual Orientation Straight 09/13/2017 7: 50 PM CDT documented as of this encounter Plan of Treatment Upcoming Encounters Date Type Department Care Team (Latest Contact Info) Description 07/18/2024 10:45 AM CDT Office Visit Department of Orthopedic Surgery in [place], [place] 200 [place] [address] Andrew Dougherty M.D. [address] [place] [phone] 07/20/2024 3:00 PM CDT Office Visit Department of Family Medicine, [facility], in [place], [place] [address] [place] [address] Sánchez Goldberg D.O. [address] [place] [phone] 07/23/2024 10:50 AM CDT Hospital Encounter Post Anesthesia Care Unit in [address] [phone] Andrew Dougherty M.D. [address] [place] [phone] 07/23/2024 10:50 AM CDT - 07/23/2024 12:02 PM CDT Surgery RST ROMB MAIN OR [address] [place] [phone] Andrew Dougherty M.D. [address] [place] [phone] RELEASE CARPAL TUNNEL OPEN WRIST 07/27/2024 9:00 AM CDT Office Visit Division of Trauma Critical Care and General Surgery in [address] [phone] Jeanie Tavarez APRN, C.N.P., D.N.P. [address] [place] [phone] 09/06/2024 7:50 AM CDT Hospital Encounter Post Anesthesia Care Unit in [address] [phone] Andrew Dougherty M.D. [address] [place] [phone] 09/06/2024 7:50 AM CDT - 09/06/2024 9:02 AM CDT Surgery RST ROMB MAIN OR [address] [place] [address] Andrew Dougherty M.D. [address] [place] [phone] RELEASE CARPAL TUNNEL OPEN WRIST Scheduled Procedures [...] Depression Total Score: 17 025 10:48 AM FIELD TAX AUDITOR documented as of this encounter Care Teams Medical Physicist Relationship Specialty Start Date End Date Sánchez Goldberg, Melodie [address] [place] [phone] PCP - General Family Medicine 03/26/20 documented as of this encounter
--- OUTSIDE RECORDS SUMMARY | 2024-07-14 01:31 | XMS_ITS | Encounter Summary ---
Author Organization [facility] Address [address] [place] [address] Care Team Providers Care Paver Name Role Phone Sánchez Goldberg D.O. Primary [...] 0.6 oz pur e alcohol) daily caffeine [facility] Utilities Answer Date Recorded In the past 12 months has [employer] gas, oil, or water [employer] threatened to shut off services in your [...] any clubs o r organizations such as pentecostalism groups, unions, fraternal or athletic groups, or [...] Score 6 05/16/2024 [facility] Questionnaire Answer Date [...] living situation today? I have a [facility] place to live 07/08/2024 Education Answer Date Recorded What is the highest level of school you have completed or the highest degree you have received? Some college, no degree 02/18/2019 Comments No Sex and Gender Information Value Date Recorded Sex Assigned at Female 09/13/2017 7:50 PM CDT Legal Sex Female 3:11 PM BATTERY TEST ENGINEER Gender Identity Female 09/13/2017 7:50 PM CDT Sexual Orientation Straight 09/13/2017 7: 50 PM CDT documented as of this encounter Plan of Treatment Upcoming Encounters Date Type Department Care Team (Latest Contact Info) Description 07/18/2024 10:45 AM CDT Office Visit Department of Orthopedic Surgery in [place], [place] [address] [place] [address] Andrew Dougherty M.D. [address] [place] [phone] 07/20/2024 3:00 PM CDT Office Visit Department of Family Medicine, [facility], in [place], [place] [address] [place] [phone] Sánchez Goldberg D.O. [address] [place] [phone] 07/23/2024 10:50 AM CDT Hospital Encounter Post Anesthesia Care Unit in [address] [phone] Andrew Dougherty M.D. [address] [place] [phone] 07/23/2024 10:50 AM CDT - 07/23/2024 12:02 PM CDT Surgery [facility] OR [address] [place] [phone] Andrew Dougherty M.D. [address] [place] [phone] RELEASE CARPAL TUNNEL OPEN WRIST 07/27/2024 9:00 AM CDT Office Visit Division of Trauma Critical Care and General Surgery in [address] [phone] Jeanie Tavarez APRN, C.N.P., D.N.P. [address] [place] [phone] 09/06/2024 7:50 AM CDT Hospital Encounter Post Anesthesia Care Unit in [address] [phone] Andrew Dougherty M.D. [address] [place] [phone] 09/06/2024 7:50 AM CDT - 09/06/2024 9:02 AM CDT Surgery [facility] [address] [place] [phone] Andrew Dougherty M.D. [address] [place] [phone] RELEASE CARPAL TUNNEL OPEN WRIST Scheduled Procedures [...] Total Score: 17 05/16/ 025 10:48 AM BATTERY TEST ENGINEER documented as of this encounter Care Teams Paver Relationship Specialty Start Date End Date Sánchez Goldberg D.O. [address] [place] [phone] PCP - General Family Medicine 03/26/20 documented as of this encounter
--- OUTSIDE RECORDS SUMMARY | 2024-07-14 01:31 | XMS_ITS | Encounter Summary ---
Author Organization [facility] Address [address] [place] [address] Care Team Providers Care Stone Chimney Mason Name Role Phone Sánchez Goldberg D.O. Primary Care Provider Encounter Details Date Type Department Care Team (Late st Contact Info) Description 07/09/2024 1:58 PM CDT - 07/09/2024 6:01 PM CDT Surgery [facility] MAIN OR [address] [place] [phone] Jennifer Edge M.D. [address] [place] [phone] ROBOTIC-ASSISTED ABDOMINAL EXPLORATION, lysis of adhesions, parastoma [...] How often do you attend chur or yazidi services? Never 07/13/2022 Do you belong to any clubs o r organizations such as uatsdin groups, unions, fraternal or athletic groups, or [...] Answer Date Recorded PHQ-2 Score 6 05/16/2024 [facility] [place] of Occupat ional Health - Occupational Stress [...] your living situation today? I have a [facility] place to live 07/08/2024 Education Answer Date Recorded What is the highest level of school you have completed or the highest degree you have received? 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 Primary Team: [facility] Primary Care Providers: Sácnhez Goldberg D.O. (General) [address] [place] [phone] Primary Care Provider Primary Care Provider Admission [...] appointment in the mail to see a production team member of the [facility] Surgical Service in 2 weeks regarding staple removal for parastomal hernia repair. If you do not receive an appointment please call [phone]. If you need to speak with them during office hours you may call the [facility] Surgical java technical manager at [phone]. If you need to reach a provider on the [facility] Surgical Service after hours, you may call the [facility] chip bin operator at [phone] and ask to speak the provider food and beverage controller. If you have forms that need addressed by the surgery team or outside records that need to be uploaded, please email them to [email or web address] or fax them at [phone]. Issue: Post hospitalization follow-up What is Needed: PCP follow-up Follow-up Appointments Arranged: Yes Issue: Staple removal, follow-up after parastomal hernia repair What is Needed: Follow-up in [facility] clinic Follow-up Appointments Arranged: Yes OUTPATIENT FOLLOW [...] to present to her local hospital, [facility]. There they placed an NG tube and prescribed IV fluids. Outside CT abdomen pelvis on 07/08 demonstrated small bowel loop dilatation (up to 4 cm) and a likely transition point at the hernia site. [facility] GI-B (07/08-07/09) On arrival, laboratory evaluation revealed elevated CRP and leukocytosis. Lactate was within normallimits. Of note, she stated explicitly that she would not refuse blood products (see admission notefor further details). She was started on maintenance fluids. HSS B (07/09-07/13) The [facility] Surgical Service Chief B was consulted. She underwent gastrografin challenge. She failed a Gastrografin challenge, therefore it was recommended to proceed to the operating room. On 07/09,she proceeded to the operating room for robotic assisted abdominal exploration, lysis of adhesions and parastomal hernia repair with mesh. Her incisions were closed with sharmin. She transferred to [facility] surgical service following the procedure. She remained with a NG tube in place until return of bowel function. This was removed on 07/12 and she was started on a clear liquid diet. She was then advanced to regular diet which she tolerated. [facility] RN also was engaged to assist with [...] to present to her local hospital, [facility]. There they placed an NG tube and prescribed IV fluids. Outside CT abdomen pelvis on 07/08 demonstrated small bowel loop dilatation (up to 4 cm) and a likely transition point at the hernia site. [facility]. GI-B [...] Hernia Dr. Kunal Narvaez PGY-2 Internal Medicine [id number] Service Pager: [phone] documented in this encounter Discharge Instructions * Discharge Instructions* Jeanie Tavarez, STEPHANIE, C.N.P., D.N.P. - 07/09/2024 7:57 AM CDT You were discharged from the [facility] B Hospital Service. Please identify this service [...] the National Suicide Prevention Lifeline at or 064 in the [place] This is open 24 hours a day. - Text the Crisis Text Line at 080689. Where to find more information - Centers [...] breath. Congestion 18 g 1 05/16/19 25 busPIRone (BuSpar) 5 mg tabletIndications: Anxiety Generalized [...] in 24 hours. 9 tablet 11 05/16/19 documented as of this encounter Progress Notes * Leonidas Russell R.N., MELISSA - 07/13/2024 10:44 AM CDT SUBJECTIVE REASON FOR VISIT Postoperative visit Patient Coping: Appropriate OBJECTIVE Physical Exam 07/13/24 1000 Ileostomy End RLQ Placement Date/Time: 07/27/19 4604 Surgeon: Dr. Vaughn Ileostomy Type: End Location: RLQ Site Assessment Budded;Red Stoma Size 1-3/8 x 2 Skin Assessment Intact;Sutures intact Peristomal Skin Care Water Pouching System (Stomal Appliance) Status Changed Changed by Wound communications analyst;Completed;Patient;Observed Pouching System Removed OR Pouch Pouching System Applied [place] [address]7927 wafer, Coloplast 42525 protective seal, Jerry 39649 pouch (Similar system to what she was using previously) Ongoing management Nursing;Patient/caregiver She was previously using a [place] 96266 oval convex ring as well but this was not needed at thistime. Other products used are the same as before surgery. Additional Ostomy Products for Consideration: #9942 [place] Adapt Stoma powder 1 oz bottle #[id number] Esenta Adhesive Remover Wipes 25/box #1438 [place] Adapt 1 Ostomy Belt- Medium #6394 Jerry Adapt 1 Ostomy Belt- Large #2375 Jerry M9 Odor Eliminator Drops 8 oz bottle ASSESSMENT / PLAN EDUCATION STATUS Patient is familiar and comfortable with ostomy cares. PLAN Consult complete, patient has met ostomy specialty service criteria. To request another consultation with a [facility] nurse, please place an order using [id number]. * Tito Johnson M.D. - 07/13/2024 7:05 [...] 0659 07/13/24 0700 - 07/14/24 0659 Shift 5231-8328 9467-4878 1448-8190 24 Hour Total 5534-6104 6050-4873 8859-8399 24 Hour Total INTAKE P.O. 450 300 750 Shift Total(mL/kg) 450(3.7) 300(2.5) 750(6.2) OUTPUT Urine(mL/kg/hr) 200(0.2) 650(0.7) 325(0.3) 1175(0.4) Emesis or Enteric Tube 100 100 Output (mL) ([REMOVED] GI Tube (Adult) 14 Fr Nare Left) 100 100 Stool 775 088 079 4487 Shift Total(mL/kg) 1075(8.8) 775(6.4) 705(5.8) 2555(21) Weight [...] Anxiety Generalized Disorder #4 Asthma Mild Intermittent ([facility]) #5 Anemia Iron Deficiency #6 Morbid Obesity Body Mass Index 45.0-49.9 Adult ([facility]) #7 Bipolar Disorder Current Episode Depressed Moderate ([facility]) #8 Borderline Personality Disorder ([facility]) #9 Obstruction Intestinal ([facility]) #10 Abdominal Pain #11 Crohn's Disease ([facility]) 38 F with Crohn's disease with history [...] for by the S-B team. Please page [phone] (S-B) with any questions. Plan and assessment [...] Spoke with unit-based RN and referred to [facility] RN note from 07/09, which specifies [facility] RN role, ostomycares, and patient's current supplies. Informed Unit RN that any necessary supplies not orderable in PAR can be provided by [facility] RN's. Discussed stool output can vary [...] to recent hernia repair. Informed unit-RN the WO RN's never received a consult post hernia [...] criteria. To request another consultation with a [facility] nurse, please place an order using [id number]. * Tito Johnson M.D. - 07/12/2024 9:28 [...] Pulse Rate: [92-97] 97 I/O Date 07/11/24 0700 - 07/12/24 0659 07/12/24 0700 - 07/13/24 0659 Shift 3577-9103 5228-0885 8798-5273 24 Hour Total 2539-5106 3107-9845 8866-5594 24 Hour Total INTAKE P.O. 250 0 [...] Anxiety Generalized Disorder #4 Asthma Mild Intermittent ([facility]) #5 Anemia Iron Deficiency #6 Morbid Obesity Body Mass Index 45.0-49.9 Adult ([facility]) #7 Bipolar Disorder Current Episode Depressed Moderate ([facility]) #8 Borderline Personality Disorder ([facility]) #9 Obstruction Intestinal ([facility]) #10 Abdominal Pain #11 Crohn's Disease ([facility]) 38F with Crohn's disease with history of [...] for by the HSS-B team. Please page [phone] (HSS-B) with any questions. Plan and assessment [...] for by the HSS-B team. Please page [phone] (HSS-B) with any questions. Plan and assessment [...] Celebrex, lorazepam, vitamins New: Pantoprazole DVT Prophylaxis: H ASSESSMENT / PLAN GI SMO: PRN Zofran [...] Brown PharmD Candidate Cosigned by Kayleigh Monique Pharm.D., R.Ph., BCPS at 07/11/2024 10:09 AM CDT [...] for by the HSS-B team. Please page [phone] (HSS-B) with any questions. Plan and assessment [...] and agree or amended. Norma Chand PGY1 12:03 PM CDT 07/10/24 * [...] mouth daily. DME Ostomy supplies -- -- 10/21/22 -- DME Order EPINEPHrine 0.3 mg/0.3 mL [...] mg in 24 hours. * Vivi Hameed PharmCanelo, R.Ph., BCPS - 07/09/2024 8:49 AM CDT [...] note: holding multiple home medications Vivi Hameed PharmFady., R.Ph., BCPS * Christiana Portillo R.N. - 07/09/2024 8:22 AM CDT SUBJECTIVE REASON FOR VISIT Consulted for Patient requesting assistance with routine pouching system change. Discussion from bedside nursing and TRAINING DEVELOPMENT SPECIALIST identified the following: Grisel changes her pouching system on her own at home but is way too sick to do it here and needs someone who knows what they are doing. Nursing explained that they can help her. She is currently using [place] 14627, 90344, 17536, 93446 but denies needing supplies or adjustments to her system. Nursing states that there is some skin irritation on the lower right peristomal skin. Grisel is treating this with barrier spray, stoma powder, and purple stuff for antibiotic. Nursing states the skinappears dry & is blanchable. PLAN Consult complete, patient has met ostomy specialty service criteria. [facility] RN explained that we do not do [...] us. To request another consultation with a [facility] nurse, please place an order using [id number]. * Whit De Paz M.B.B.S. - 07/09/2024 [...] today. Plan Continue NPO with NGT to LIS OR with HSS-B today 07/10 for robotic-assisted exploration. Risks, benefits, and alternatives discussed with the patient. Informed consent has been obtained. Will plan to transfer to [facility] service post-op Please page [phone] (S-A) with any questions or concerns. Plan [...] adalimumab, vedolizumab,and certolizumab currently on Ustekinumab #Previous Protestant #Obesity (BMI 44) c/b hepatic steatosis and hidradenitis suppurativa - Failed Gastrografin Challenge - PT with INR and Type & Screen - NGT to low intermittent suction - Maintenance IV Fluids LR 75 cc/hr - Benzocaine Berne 20% 1 Application QID PRN - Blood [...] Tests/procedures/consults Dr. Kunal Narvaez PGY-2 Internal Medicine [id number] Service Pager: [phone] documented in this encounter H&P Notes * [...] hernia c/b recurrence requiring repair in 2021 [id number] as well as treatment refractory disease to infliximab, adalimumab, vedolizumab, and certolizumab currently on Ustekinumab - Previous Protestant - Bipolar disorder - Fibromyalgia - Obesity [...] ileostomy either. She then presented to [facility]. There they placed an NG tube [...] and she recently is no longer a Protestant. She tells me that it is now [...] adalimumab, vedolizumab,and certolizumab currently on Ustekinumab #Previous Protestant #Obesity (BMI 44) c/b hepatic steatosis and [...] - Complete Blood Consent Form - Benzocaine Berne 20% 1 Application QID PRN - Hold other PO Medications - Hold Bactrim DS BID - Hold NSAIDs #Bipolar Disorder #Fibromyalgia - Hold Sumatriptan 50 mg PRN - Hold Hydroxyzine 10 mg QID PRN - Hold Lurasidone 20 mg Daily VTE prophylaxis: heparin Code status: Full Code Disposition: Uncertain with expected discharge date The patient will be formally staffed with GI-B center lead consultant, Dr. Love on 07/[address] Kunal Narvaez PGY-2 Internal Medicine [id number] Service Pager: [phone] [1] Past Medical History: Diagnosis Date Abscess Perianal 03/07/2018 Allergy Seasonal Anemia 2012 Anemia Iron Deficiency 04/10/2019 Anxiety Generalized Disorder 2012 Asthma ([facility]) 03/21/1994 Overview: Asthma NOS Overview: Asthma NOS Asthma Mild Intermittent (HCC) 12/07/2011 Asthma NOS 1994 Bipolar Disorder ([facility]) 01/12/2016 Bipolar Most Recent Episode Depressed Partial Remission (HCC) 03/05/2019 Chronic Migraine Without Aura Not Intractable Without Status Migrainosus 2012 Crohn's Disease ([facility]) 2010 Crohns Disease Of Large Intestine With Fistula ([facility]) 06/17/2019 Crohns Disease Unspecified Without Complications ([facility]) 03/21/2010 Added automatically from request for surgery [id number] Added automatically from request for surgery [id number] Depressive Disorder 2013 Erythema Nodosum 06/09/2018 Family History Of Adenomatous And Serrated Polyps Fibromyalgia 2013 Fistula Perianal 06/16/2018 Added automatically from request for surgery [id number] Gastroesophageal Reflux Disease NOS 2000 Headache Unspecified 2013 Hemorrhage Gastrointestinal Hydrosalpinx 11/12/2020 Ileostomy ([facility]) 06/28/2018 Ileostomy Status ([facility]) 08/03/2019 Irritable bowel syndrome 03/25/2016 Irritable Bowel Syndrome, Unspecified 2000 Major depressive disorder, recurrent episode, moderate ([facility]/HCC) 01/18/2018 Migraine Headache 2012 Other Injury Of Unspecified Body Region 1993 Right elbow fracture as a child on the playground Pain Abdominal NOS Pain Rectal 06/16/2019 Pelvic Inflammatory Disease 11/12/2020 Perianal Crohn's Disease (HCC) 05/17/2018 Added automatically from request for surgery [id number] Pneumonia 2 episodes, most recent 2009? Posttraumatic [...] Procedure: Perineal closure, omental flap; Surgeon: Tasha Wolfe MDanielaB.B.S.; Location: [facility] N/A [...] with ultrasound and measured to ensure appropriate fikxjqcc-xf-kavl ratio of 45% or less. Vein Diameter [...] to release the adhesive from the skin. [email or web address]/[email or web address] documented in this encounter Consult Notes * Rica Mallory M.S.Anjel, MyahSLona. - 07/09/2024 3:56 PM CDTAssociated Order(s): IP CONSULT TO CARE MANAGEMENT; IP CONSULT TO CARE MANAGEMENT Psychosocial Assessment (updated) SUBJECTIVE Referral Reason: Psychosocial assessment, Coping, adjustment and support Previous Assessment: Yes Referral Data Referral Source: Provider/Service Referral Reason: Psychosocial assessment, Coping, adjustment and support Previous Assessment: Yes Previous assessment done on: 09/17/24 Previous assessment done by: Elma Jeffries, MDanielaS.WDaniela Hair [employer] Services Used: No History of Present Illness [...] Communication: Can write, Talks, Understands speaking, Understands Wolof, Reads Shopping: Independent Medication Management: Independent Housekeeping: [...] by: Charles Montesinos, Parisa 07/10/2024 * Gee Kovacs D.O. - 07/08/2024 7:05 PM CDTAssociated Order(s): General Surgery consult (hospital) General Surgery Consult Note General Surgery consult (hospital) Referring Provider: Kunal Narvaez M.B.B.S. SUBJECTIVE HISTORY OF PRESENT ILLNESS Grisel Cruz [...] results of the gastrografin challenge. Please page [phone] (HSS-A) with any questions. Plan and assessment [...] I agree with his findings and plan. [facility]GS ICU HOB MACHINE OPERATOR SUMMARY Ms. Cruz is a 38 year old female patient on whom we are consulted regarding small bowel obstruction. She has a history of Crohn's disease status post colectomy and end ileostomy, on Stelara, and with recurrent parastomal herniation. Surgical history is as follows: - 2017 ileostomy creation -[id number] multiple exams of perianal area under anesthesia [...] the unit. Prescriptions for were sent to [facility] pharmacy. Electronically signed by: Jasmeet Johnson R.N. 07/13/24 3:27 PM CDT * Shayla Freed R.N. - 07/13/2024 2:51 AM CDT Problem: Risk for Compromised Skin Integrity-NG/ND/NJ Tube Goal: Maintain and/or improve skin integrity under and around nasogastric/nasoduodenal/nasojejunal tube. Outcome: Completed * Judith Munoz APRN, BEA, D.N.P. - 07/09/2024 8:27 AM CDT DRYLAND [employer]ARM[employer] Clinical Nurse Specialist consulted by primary RN to assess Mrs. Grisel Cruz' ostomy change needs. Assessment: Mrs. Cruz requested a WOC consult after declining to allow bedside RNs to assist with changing her ostomy with her home supplies. TRAINING DEVELOPMENT SPECIALIST explained that bedside RNs can assist with changes, and that TRAINING DEVELOPMENT SPECIALIST will consult with WOC if any new supplies are needed. Patient declined to alter homesystem and requested TRAINING DEVELOPMENT SPECIALIST assistance in changing her home system. Mrs. Cruz expressed feelings of anxiety, and TRAINING DEVELOPMENT SPECIALIST provided emotional support, active listening, and set expectations and limitations. Mrs. Cruz used adhesive remover to detach the previous wafer from her abdomen, which was non-adherent at the right inferior aspect. Peristomal skin irritation from approximately 5 o'clock to 8 o'clock was erythematous and dry with no lesions. Interventions: TRAINING DEVELOPMENT SPECIALIST assisted Mrs. Cruz with supplies, as she completed her home regimen. The peristomal area was cleansed with Vashe prior to applying stoma powder and barrier spray. She placed [place] cut [address] to the [address] wafer and then applied a coloplast 67977 ring to seal to the skin. She applied this after barrier spray dried and then attached the bag 22611. A warm blanket and light pressure was placed over the top of the pouching system to help the wax soften and adhere to her skin. Recommendations: Mrs. Cruz expressed satisfaction with this system, and TRAINING DEVELOPMENT SPECIALIST reinforced that bedside RNs can and will assist her with this change when needed. If a new or altered pouching system is needed, please consult TRAINING DEVELOPMENT SPECIALIST or WOC RN. Electronically signed by: Idalia Munoz APRN, BEA, D.N.P. 07/09/24 8:40 AM CDT * Marisol Farris, R.N. - 07/09/2024 5:47 AM CDT Shift [...] Progressing Problem: Risk for Compromised Skin Integrity-Other Stone Driller Helper(s) Goal: Risk for Compromised Skin Integrity-Other Stone Driller Helper(s) Outcome: Progressing Problem: GASTROINTESTINAL - ADULT Goal: [...] to present to her local hospital, [facility]. There they placed an NG tube and prescribed IV fluids. Outside CT abdomen pelvis on 07/08 demonstrated small bowel loop dilatation (up to 4 cm) and a likely transition point at the hernia site. [facility]. GI-B (07/08-07/09) On arrival, laboratory evaluation revealed elevated CRP and leukocytosis. Lactate was within normallimits. Of note, she stated explicitly that she would not refuse blood products (see admission notefor further details). She was started on maintenance fluids. HSS B (07/09-07/13) The [facility] Surgical Service Chief B was [...] advanced to regular diet which she tolerated. [facility] RN also was engaged to assist with [...] of Orthopedic Surgery in [place], [place] [address] [place] [phone] Andrew Dougherty M.D. [address] [place] [phone] 07/20/2024 3:00 PM CDT Office Visit Department of Family Medicine, [facility], in [place], [place] [address] [place] [phone] Sánchez Goldberg D.O. [address] [place] [phone] 07/23/2024 10:50 AM CDT Hospital Encounter Post Anesthesia Care Unit in [address] [phone] Andrew Dougherty M.D. [address] [place] [phone] 07/23/2024 10:50 AM CDT - 07/23/2024 12:02 PM CDT Surgery [facility] MAIN OR [address] [place] [phone] Andrew Dougherty M.D. [address] [place] [phone] RELEASE CARPAL TUNNEL OPEN WRIST 07/27/2024 9:00 AM CDT Office Visit Division of Trauma Critical Care and General Surgery in [address] [phone] Jeanie Tavarez APRN, C.N.P., D.N.P. [address] [place] [phone] 09/06/2024 7:50 AM CDT Hospital Encounter Post Anesthesia Care Unit in [address] [phone] Andrew Dougherty M.D. [address] [place] [phone] 09/06/2024 7:50 AM CDT - 09/06/2024 9:02 AM CDT Surgery [facility] MAIN OR [address] [place] [phone] Andrew Dougherty M.D. [address] [place] [phone] RELEASE CARPAL TUNNEL OPEN WRIST Scheduled Procedures [...] Kowalski R.N. Authorized by: Jennifer Edge M.D. us Jennifer Edge M.D. PROCEDURE/MINOR SURGICAL ORDERABLES Final [...] A DD-ON Final Result Performing Organization Address [facility]/ZIP Co de Phone Number [facility] [address] [place] [address], [facility] [address] [place] [address] * Phosphorus Inorganic (07/12/2024 3:25 AM CDT) Pathologist [facility] Phosphorus (Inorganic), S 3.4 2.5 - 4.5 mg/dL 07/12/2024 4:42 AM CDT DTL Blood (Blood, Venous) 07/12/2024 3:25 AM CDT 07/12/2024 4:20 AM CDT us Noreen Vega P.A.-C. LAB BLOOD ADD-ON Final Result Performing Organization Address [facility]/ZIP Co de Phone Number [facility] [place] [address], [facility] [address] [place] [address] * Magnesium (07/12/2024 3:25 AM CDT) Pathologist [facility] Magnesium, S 2.3 1.7 - 2.3 mg/dL 07/12/2024 4:42 AM CDT DTL Blood (Blood, Venous) 07/12/2024 3:25 AM CDT 07/12/2024 4:20 AM CDT Noreen Vega P.A.-C. LAB BLOOD [place] [address], [facility] [place] [address] * Basic Metabolic Panel (07/12/2024 3:25 AM CDT) Pathologist [facility] Potassium, S 4.0 [...] BLOOD ADD-ON Final Result Performing Organization Address [facility]/ZIP Co de Phone Number [facility] [address] D[address] [facility] [address] [place] [address] * (ABNORMAL) CBC without Differential (07/12/2024 3:24 [...] CDT 07/12/2024 4:04 AM CDT us Noreen VasquezC. LAB BLOOD ADD-ON Final Result Performing Organization Address City/[facility]/ZIP Co de Phone Number [facility] [address] [address] * DX Abdomen Portable Anterior Posterior 1 [...] consistent withobstruction. Cutaneous sharmin. Jennifer Edge M.D. IMG DIAGNOSTIC IMAGING P [...] the central abdomen. us Noreen Vega P.A.-C. IMG DIAGNOSTIC IMAGING PROCEDURES Final Result * DX [...] in extent or distribution since 07/09/2024. Noreen Vega P.A.-C. IMG DIAGNOSTIC IMAGING PROCEDURES Final Result * Place [...] successfully: yes Complications: no apparent complications Noreen Cardoza.A.-CDaniela PROCEDURE/MINOR SURGIC AL ORDERABLES Final Result * [...] PM CDT 07/10/2024 9:27 PM CDT Noreen Vega P.A.-C. LAB BLOOD [place] [address], [facility] [facility] [place] [place] [address] * (ABNORMAL) CBC without Differential (07/10/2024 8:53 [...] CDT 07/10/2024 9:12 PM CDT us Noreen Keys-C. LAB BLOOD ADD-ON Final Result Performing Organization Address [facility] Co de Phone Number [facility] [address] [place] [address] * Phosphorus Inorganic (07/10/2024 8:53 PM CDT) [facility] Phosphorus (Inorganic), S 2.8 2.5 - 4.5 mg/dL 07/10/2024 9:44 PM CDT DTL Blood (Blood, Venous) 07/10/2024 8:53 PM CDT 07/10/2024 9:27 PM CDT us Noreen HodgesA.-C. LAB BLOOD ADD-ON Final Result Performing Organization Address [facility] Co de Phone Number [facility] [address] [place] [address] * (ABNORMAL) CBC without Differential (07/10/2024 8:17 AM CDT) Pathologist [facility] Hemoglobin 13.6 11.6 - 15.0 g/dL 07/10/2024 [...] M.D. LAB BLOOD ADD-ON Final Resu lt [facility] [address] [place] [address], [facility] [address] [place] [address] * (ABNORMAL) Basic Metabolic Panel (07/10/2024 8:17 [...] ADD-ON Final Resu lt Performing Organization Address City/[facility]/ZIP Co de Phone Number [facility] [address] [place] [address] * Magnesium (07/10/2024 8:17 AM CDT) Magnesium, S 2.0 1.7 - 2.3 mg/dL 07/10/2024 9:30 AM CDT DTL Blood (Blood, Venous) 07/10/2024 8:17 AM CDT 07/10/2024 9:02 AM CDT us Norma Chand M.D. LAB BLOOD ADD-ON Final Resu lt Performing Organization Address City/[facility]/ZIP Co de Phone Number [facility] [address] [place] [address] * (ABNORMAL) Phosphorus Inorganic (07/10/2024 8:17 AM CDT) Phosphorus (Inorganic), S 2.3(L) 2.5 - 4.5 mg/dL 07/10/2024 9:30 AM CDT DTL Blood (Blood, Venous) 07/10/2024 8:17 AM CDT 07/10/2024 9:02 AM CDT us Norma Chand M.D. LAB BLOOD ADD-ON Final Resu lt [facility] [address] [place] [address], [facility] [address] [place] [address] * DX Chest Portable 1 View (07/09/2024 [...] the mid thoracic trachea. Keisha Donald M.D. IM DIAGNOSTIC IMAGING PROC EDURES Final Result * [...] Sharif LAB BLOOD ADD- ON Final Result [facility] [address] [place], [place] [address] DTL [facility] [address] [place] [address] * Type and Screen (with Reflex Antibody ID) (07/09/2024 6:48 AM CDT) [facility] ABORh B Pos Not applicable 07/09/2024 7:46 AM CDT STRM Antibody Screen Negative Negative 07/09/2024 7:51 AM CDT STRM Type & Screen Expiration 07/12/2024 23:59 07/09/2024 7:46 AM CDT STRM Testing Location [place] DEFAULT 07/09/2024 7:08 AM CDT STRM Blood (Blood, Venous) 07/09/2024 6:48 AM CDT 07/09/2024 7:08 AM CDT Kunal JoyceBDanielaSDaniela LAB BLOOD BANK TEST ORDERABLES Final Result [facility] [address] [place] [address], [facility] [address] [place] [address] * Basic Metabolic Panel (07/09/2024 6:48 AM CDT) [facility] Potassium, S 3.8 3.6 - 5.2 mmol/L [...] 6:48 AM CDT 07/09/2024 7:35 AM CDT us Kunal Sharif LAB BLOOD ADD- ON Final Result [address] [address], [facility] [place] [address] * (ABNORMAL) CBC with Differential, Blood (07/09/2024 [...] ADD- ON Final Result Performing Organization Address City/State/[facility] Co de Phone Number [facility] [address] [place] [address], [facility] DTL [facility] [address] [place] [address] DHPM [facility] [address] [place] [address] * DX Abdomen 1 View (07/09/2024 4:42 [...] IMG DIAGNOSTIC IMAGING PROCEDURES Final Result * DX [...] tip and side-port in the stomach. Kunal JoyceB.S. IMG DIAGNOSTIC IMAGING PROCEDURES Final Result * ECG 12 Lead (07/08/2024 3:48 PM CDT) Pathologist [facility] Ventricular Rate ECG/Min 86 BPM MUSE [place] Interval 166 ms MUSE QRSD Interval 92 ms MUSE QT Interval 374 ms MUSE QTC Interval 447 ms MUSE P [place] 6 degrees MUSE R [place] 79 degrees MUSE T Wave [place] -14 degrees MUSE 07/08/2024 3:48 PM CDT [...] JoyceBDanielaSDaniela ECG ORDERABLES Edited Result - Final MUSE NA * Lactate (07/08/2024 3:42 PM CDT) Lactate, P 1.0 0.5 - 2.2 mmol/L 07/08/2024 4:35 PM CDT STMA Blood (Blood, Venous) 07/08/2024 3:42 PM CDT 07/08/2024 3:52 PM CDT Kunal JoyceB.S. LAB BLOOD NON ADD-ON Final Result Performing Organization Address [facility] [place] [address], [place] [address] * Prothrombin Time (PT) (07/08/2024 3:42 PM CDT) Prothrombin Time, P 11.0 9.4 - 12.5 sec 07/08/2024 4:32 PM CDT DTL INR 1.0 0.9 - 1.1 07/08/2024 4:32 PM CDT DTL Comment: ----ADDITIONAL INFORMATION---- Standard intensity warfarin therapeutic range: 2.0 to 3.0 High intensity warfarin therapeutic range: 2.5 to 3.5 Blood (Blood, Venous) 07/08/2024 3:42 PM CDT 07/08/2024 4:07 PM CDT Kunal JoyceB.S. LAB BLOOD ADD- ON Final Result Performing Organization Address City/[facility]/ZIP Co de Phone Number [facility] [address] [place] [address], [place] [address] * (ABNORMAL) CRP (C-Reactive Protein) (07/08/2024 3:42 PM CDT) Pathologist [facility] C-Reactive Protein (CRP), S 14.9(H) <5.0 mg/L 07/08/2024 4:33 PM CDT DTL Blood (Blood, Venous) 07/08/2024 3:42 PM CDT 07/08/2024 4:18 PM CDT Kunal Engel.S. LAB BLOOD ADD- ON Final Result Performing Organization Address City/[facility] Co de Phone Number [facility] [address] [place] [address], [place] [address] * Hepatic Function Panel (07/08/2024 3:42 PM [...] Sharif LAB BLOOD ADD- ON Final Result [facility] [address] [place] [address], [facility] DTL [facility] [address] [place] [address] * Basic Metabolic Panel (07/08/2024 3:42 PM CDT) Potassium, S 4.5 3.6 - 5.2 mmol/L [...] 3:42 PM CDT 07/08/2024 4:18 PM CDT us Kunal Sharif LAB BLOOD ADD- ON Final Result [facility] [address] [place] [address], [facility] DTL [facility] [address] [place] [address] * (ABNORMAL) CBC with Differential, Blood (07/08/2024 [...] 3:42 PM CDT 07/08/2024 4:07 PM CDT us Kunal Sharif LAB BLOOD ADD- ON Final Result [facility] [address] [place] [address], [place] DTL [facility] [address] [place] [address] [facility] [address] [place] [address] documented in this encounter Visit Diagnoses Diagnosis [...] 50 mL injection As needed, Starting on Tue07/09/24 at 2100, Intra-Op Given 07/09/2024 9:00 PM CDT 50 mL Abdominal Tissue busPIRone tablet 5 mg (BuSpar) 5 mg, oral, 3 times daily PRN, Anxiety, Starting on Tue07/12/24 at 1553 Given 07/13/2024 [...] hours. 1701 (Given - Provider: Surinder Walters RNavarro)2336 (Given - Provider: Shayla Freed R.N.) 0536 (Given - Provider: Shayla Freed R.N.)1200 (Due) heparin (porcine) injection 5,000 Units 5,000 Units, subcutaneous, Every 8 hours scheduled, First dose on Tue07/10/24 at 0530 0548 (Given - Provider: Vitor RamirezNDaniela)1404 (Given - Provider: Vitor GoveaNDaniela)2111 (Given - Provider: Shayla Freed R.N.) 0535 (Given - Provider: Shayla Freed R.N.)1300 (Given - Provider: Surinder Walters RDanielaN.)2152 (Given - Provider: Vitor PickettN.) 0537 (Given - Provider: Vitor PickettN.) lidocaine [...] 0900 0812 (Given - Provider: Sheryl Raymond R.N.)2111 (Given - Provider: Shayla Freed R.N.) 0803 (Given - Provider: Surinder Walters R.N.)2049 (Given - Provider: Shayla Freed R.N.) 37 (Given - Provider: Jian Pendleton R.N.) pantoprazole [...] Do NOT crush, chew, or split tablet. 536 (Given - Provider: Shayla Freed R.N.) pantoprazole injection 40 mg (Protonix) (CANCELED) 40 mg, intravenous, Every 24 hours scheduled, First dose on Tue07/12/24 at 0900, Administer IV push over 2 minutes. Add 10 mL NS to 40 mg vial for a final concentration of 4 mg/mL. 0803 (Given - Provider: Surinder Walters R.N.) potassium [...] 08 (Given - Provider: Surinder Walters R.N.) 937 (Given - Provider: Jian Pendleton R.N.) sodium [...] Raymond R.N. - Reason: Loss of IV access)211 (Given - Provider: Shayla Freed R.N.) 0803 [...] at 2103 2159 (Given - Provider: Shayla Freed, R.N.) 0937 (Given - Provider: Jian Pendleton RDanielaN.) NaCl 0.9% infusion 1-999 mL/hr, intravenous, As [...] prochlorperazine). 1557 (Given - Provider: Sheryl Raymond RDanielaN.) oxyCODONE IR tablet 10 mg (Roxicodone) [...] mg in 24 hours., On hold since Tue07/08/2024 at 1503 until manually unheld 1528 (Unheld [...] Depression Total Score: 17 025 10:48 AM [employer] documented as of this encounter Care Teams Stone Chimney Mason Relationship Specialty Start Date End Date Sánchez Goldberg D.O. [address] [place] [phone] PCP - General Family Medicine 03/26/20 documented as of this encounter
--- OUTSIDE RECORDS SUMMARY | 2024-07-14 01:31 | XMS_ITS | Encounter Summary ---
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 CBC with Differential, Blood (07/09/2024 [...] Sharif LAB BLOOD ADD- ON Final Result [facility] [address] [place] [address], [facility] DTL [facility] [address] [place] [address] [facility] [address] [place] [address] * DX Abdomen 1 View (07/09/2024 4:42 [...] diluted in small bowel fluid. Gabriel Duran.B.B.S. [facility] PROCEDURES Final Result * DX [...] tip and side-port in the stomach. Kunal Duran.B.B.S. [facility]AG[facility] PROCEDURES Final Result * ECG 12 Lead (07/08/2024 3:48 PM CDT) Ventricular Rate ECG/Min 86 BPM MUSE MO Interval 166 ms MUSE QRSD Interval 92 ms MUSE QT Interval 374 ms MUSE QTC Interval 447 ms MUSE P [place] 6 degrees MUSE R [place] 79 degrees MUSE T Wave [place] -14 degrees MUSE 07/08/2024 3:48 PM CDT [...] data has occurred Reviewed by DIANNE Marques us Kunal JoyceBDanielaSDaniela ECG ORDERABLES Edited Result - Final Performing Organization Address City/[facility]/ZIP Co de Phone Number MUSE NA * Lactate (07/08/2024 3:42 PM CDT) Pathologist [facility] Lactate, P 1.0 0.5 - 2.2 mmol/L 07/08/2024 4:35 PM CDT STMA Blood (Blood, Venous) 07/08/2024 3:42 PM CDT 07/08/2024 3:52 PM CDT us Kunal JoyceB.S. LAB BLOOD NON ADD-ON Final Result Performing Organization Address [facility]/ZIP Co de Phone Number [facility] [address] [place] [address], [facility] [address] [place] [address] * Prothrombin Time (PT) (07/08/2024 3:42 PM [...] ADD- ON Final Result Performing Organization Address City/[facility]/ZIP Co de Phone Number [facility] [address] [place] [address] * (ABNORMAL) CRP (C-Reactive Protein) (07/08/2024 3:42 PM CDT) C-Reactive Protein (CRP), S 14.9(H) <5.0 mg/L 07/08/2024 4:33 PM CDT DTL Blood (Blood, Venous) 07/08/2024 3:42 PM CDT 07/08/2024 4:18 PM CDT Kunal JoyceB.S. LAB BLOOD ADD- ON Final Result Performing Organization Address [facility] Co de Phone Number [facility] [address] [place] [address] * Hepatic Function Panel (07/08/2024 3:42 PM [...] Sharif LAB BLOOD ADD- ON Final Result [facility] [address] [place] [address], [facility] [address] [place] [address] * Basic Metabolic Panel (07/08/2024 3:42 PM CDT) [facility] Potassium, S 4.5 3.6 - 5.2 mmol/L [...] Sharif LAB BLOOD ADD- ON Final Result [facility] [address] [place] [address], [facility] DTL [facility] [address] [place] [address] * (ABNORMAL) CBC with Differential, Blood (07/08/2024 [...] Sharif LAB BLOOD ADD- ON Final Result [facility] [address] [place] [address], [place] DTL [facility] [address] [place] [address] DHPM [facility] [address] [place] [address] documented in this encounter Visit Diagnoses Diagnosis [...] 3 times daily PRN, Anxiety, Starting on Tu07/10/24 at 0950 Given 07/10/2024 10:34 AM CDT [...] mg Lactated Ringer's 1.5 mL/kg/hr 57 kg [place] weight (85.5 mL/hr), intravenous, Continuous, Starting on [...] PRN, nausea, vomiting, Starting on Tue07/08/24 at 1529 Given 07/09/2024 12:26 PM CDT 4 mg Given 07/09/2024 5:36 AM CDT 4 mg Given 07/08/2024 10:18 PM CDT 4 mg ondansetron (PF) injection 4 mg (Zofran) 4 mg, intravenous, Every 6 hours PRN, nausea, vomiting, Starting on 07/09/24 at 2251, For 48 hours, Reassess for [...] Baires R.N.)1404 (Given - Provider: Sheryl Raymond RVitor.)2111 (Given - Provider: Vitor PickettN.) 0535 (Given - Provider: Vitor PickettNDaniela)1300 (Given - Provider: Surinder Walters R.N.)2152 (Given [...] dilute with equal volume of 0.9% NS 2306 (Given - Provider: Shayla Freed R.N.) magnesium [...] Do NOT crush, chew, or split tablet. 0812 (Given - Provider: Sheryl Raymond R.N.) pantoprazole [...] 0818 (Not Given - Provider: Sheryl Raymond RDanielaNDaniela - Reason: Loss of IV access)2110 (Given [...] Provider: Sheryl Raymond R.N.)2131 (Given - Provider: Vitor PickettNDaniela) 1100 (Given - Provider: Surinder Walters R.N.)1305 [...] Shayla Freed R.N.) 0646 (Given - Provider: Vitor PickettN.) 0211 (Given - Provider: Shayla Freed R.N.) [...] prochlorperazine). 1557 (Given - Provider: Sheryl Raymond R.N.) oxyCODONE IR tablet 10 mg (Roxicodone) (CANCELED) 10 mg, oral, Every 4 hours PRN, severe pain or score 7-10 of 10, Starting on Tue07/09/24 at 2251 0042 (Given - Provider: Jeanie Baires R.N.) oxyCODONE IR tablet 10 mg (Roxicodone) (CANCELED) 10 mg, gastric tube, Every 4 hours PRN, severe pain or score 7-10 of 10, Starting on Tue07/11/24 at 1137 1539 (Given - Provider: Surinder Walters R.N.) oxyCODONE IR tablet 10 mg (Roxicodone)(Linked Group 1) 10 mg, oral, Every 4 hours PRN, severe pain or score 7-10 of 10, Starting on Tue07/12/24 at 1553 2153 (Given - Provider: Shayla Freed R.N.) 0545 (Given - Provider: Shayla Freed R.N.)0937 (Given - Provider: Jian Pendleton R.N.) oxyCODONE IR tablet 5 mg (Roxicodone)(Linked Group 1) 5 mg, oral, Every 4 hours PRN, moderate pain or score 4-6 of 10, Starting on Tue07/12/24 at 1553 2153 (See Alternative - Provider: Shayla Freed R.N.) 0545 (See Alternative - Provider: Shayla Freed R.N.)0937 (See Alternative - Provider: Jian Pendleton R.N.) phenoL 1.4 % spray 1 spray (Chloraseptic) 1 spray, mouth/throat, As needed, sore throat, Starting on 07/08/24 at 2241 prochlorperazine injection 5 mg (Compazine) () 5 mg, intravenous, Every 6 hours PRN, nausea, vomiting, Starting on Tue07/09/24 at 2251, For 48 hours, RASS must be -2 or higher to administer. Reassess for nausea/vomiting after at least 10 minutes. 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 [address] [place] [phone] PCP - General Family Medicine 03/26/20 documented as of this encounter
--- OUTSIDE RECORDS SUMMARY | 2024-07-14 01:31 | XMS_ITS | Encounter Summary ---
Author Organization [facility] Address [address] [place] [address] Care Team Providers Care Head Of Digital Name Role Phone Sánchez Goldberg D.O. Primary Care Provider Encounter Details Date Type Department Care Team (Late st Contact Info) Description 07/13/2024 Clinical Communication Division of Trauma Critical Care and General Surgery in [place], [place] [address] [place] [phone] Jose Leon D.O. [address] [place] [phone] Social History Tobacco Use Types Packs/Day Years Used Date Smoking Tobacco: Never Passive Smoke Exposure: Never Smokeless Tobacco: Never Alcohol Use Standard Drinks/Week Comments Not Currently 1 (1 standard drink = 0.6 oz pur e alcohol) daily caffeine C Utilities Answer Date Recorded In the past 12 months has e [employer], gas, oil, or water [employer] threatened to shut off services in your [...] often do you attend chur ch or yarsani services? Never 07/13/2022 Do you belong to any clubs o r organizations such as evangelical groups, unions, fraternal or athletic groups, or [...] Answer Date Recorded PHQ-2 Score 6 05/16/2024 [facility] of Occupat ional Health - Occupational Stress [...] your living situation today? I have a [facility] place to live 07/08/2024 Education Answer Date Recorded What is the highest level of school you have completed or the highest degree you have received? 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 [address] [place] [phone] 07/20/2024 3:00 PM CDT Office Visit Department of Family Medicine, [facility], in [place], [place] [address] [place] [phone] Sánchez Goldberg D.O. [address] [place] [phone] 07/23/2024 10:50 AM CDT Hospital Encounter Post Anesthesia Care Unit in [place], [place] [address] [place] [phone] Andrew Dougherty M.D. [address] [place] [phone] 07/23/2024 10:50 AM CDT - 07/23/2024 12:02 PM CDT Surgery [facility] MAIN OR [address] [place] [phone] Andrew Dougherty M.D. [address] [place] [phone] RELEASE CARPAL TUNNEL OPEN WRIST 07/27/2024 9:00 AM CDT Office Visit Division of Trauma Critical Care and General Surgery in [address] [phone] Jeanie Tavarez APRN, C.N.P., D.N.P. [address] [place] [phone] 09/06/2024 7:50 AM CDT Hospital Encounter Post Anesthesia Care Unit in [address] [phone] Andrew Dougherty M.D. [address] [place] [phone] 09/06/2024 7:50 AM CDT - 09/06/2024 9:02 AM CDT Surgery [facility] MAIN OR [address] [place] [phone] Andrew Dougherty M.D. 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 [address] [place] [phone] PCP - General Family Medicine 03/26/20 documented as of this encounter
--- OUTSIDE RECORDS SUMMARY | 2024-07-14 01:31 | XMS_ITS | Encounter Summary ---
Author Organization [facility] Address [address] [place] [address] Care Team Providers Care Security Project Manager Name Role Phone Sánchez Goldberg D.O. Primary Care Provider Reason for Referral * Outpatient (Routine) - Authorized Specialty Diagnoses / Procedures Referred By Clare anthony Referred To Contact Trauma Critical Care and General Surgery Diagnoses Abdominal Pain Jeanie Tavarez APRN, C.N.P., D.N.P. 200 [place] [address] Phone: tel: fax: [place] Referral ID Status Reason Start Date Expiration Date V isits Requested Visits Authorized [id number] Authorized 07/13/2024 01/12/2026 1 1 Reason for Visit * Reason Onset Date Comments Pre-visit Testing Orders 07/13/2024 Encounter Details Date Type Department Care Team (Latest Contact Info) Description 07/13/2024 Clinical Communication [facility] [address] [place] [phone] Jeanie Tavarez APRN, C.N.P., D.N.P. 200 [place] [phone] Pre-visit Testing Orders Social History Tobacco Use Types Packs/Day Years Used Date Smoking Tobacco: Never Passive Smoke Exposure: Never Smokeless Tobacco: Never Alcohol Use Standard Drinks/Week Comments Not Currently 1 (1 standard drink = 0.6 oz pur e alcohol) daily caffeine [facility] Utilities Answer Date Recorded In the past 12 months has e [employer], [employer], oil, or water [employer] threatened to shut off services in your [...] often do you attend chur ch or christianity services? 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 [address] [place] [phone] 07/20/2024 3:00 PM CDT Office Visit Department of Family Medicine, [facility], in [place], [place] [address] [place] [phone] Sánchez Goldberg D.O. [address] [place] [phone] 07/23/2024 10:50 AM CDT Hospital Encounter Post Anesthesia Care Unit in [address] [phone] Andrew Dougherty M.D. [address] [place] [phone] 07/23/2024 10:50 AM CDT - 07/23/2024 12:02 PM CDT Surgery [facility] OR [facility] [place] [phone] Andrew Dougherty M.D. [address] [place] [phone] RELEASE CARPAL TUNNEL OPEN WRIST 07/27/2024 9:00 AM CDT Office Visit Division of Trauma Critical Care and General Surgery in [address] [phone] Jeanie Tavarez APRN, C.N.P., D.N.P. [address] [place] [phone] 09/06/2024 7:50 AM CDT Hospital Encounter Post Anesthesia Care Unit in [address] [phone] Andrew Dougherty M.D. [address] [place] [phone] 09/06/2024 7:50 AM CDT - 09/06/2024 9:02 AM CDT Surgery [facility] MAIN OR [address] [place] [phone] Andrew Dougherty M.D. [address] [place] [phone] RELEASE CARPAL TUNNEL OPEN WRIST Scheduled Procedures [...] Total Score: 17 05/16/ 025 10:48 AM BROOMMAKER documented as of this encounter Care Teams Security Project Manager Relationship Specialty Start Date End Date Sánchez Goldberg D.O. [address] [place] [phone] PCP - General Family Medicine 03/26/20 documented as of this encounter
--- OUTSIDE RECORDS SUMMARY | 2024-07-14 01:32 | XMS_ITS | Encounter Summary ---
Author Organization [facility] Address [address] [place] [address] Care Team Providers Care Service Dispatcher Name Role Phone Sánchez Goldberg D.O. Primary Care Provider Reason for Visit * Reason Onset Date Comments Abdominal Pain 07/13/2024 Constipation 07/13/2024 Encounter Details Date Type Department Care Team (Late st Contact Info) Description 07/13/2024 Nurse Triage Department of Family Medicine, [facility], in [place], [place] [address] [place] [phone] Kelly Palomo R.N. [address] [place] [phone] Abdominal Pain; Constipation Social History Tobacco Use Types Packs/Day Years Used Date Smoking Tobacco: Never Passive Smoke Exposure: Never Smokeless Tobacco: Never Alcohol Use Standard Drinks/Week Comments Not Currently 1 (1 standard drink = 0.6 oz pur e alcohol) daily caffeine [facility] Utilities Answer Date Recorded In the [...] often do you attend chur ch or druze services? Never 07/13/2022 Do you belong to [...] Answer Date Recorded PHQ-2 Score 6 05/16/2024 [facility] of Occupat ional Health - Occupational Stress [...] living situation today? I have a [facility] place to live 07/08/2024 Education Answer Date Recorded What is the highest level of school you have completed or the highest degree you have received? 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 - 07/13/2024 8:19 PM CDT Chief Complaint / Reason for Call Patient is a 38 y.o. female calling regarding Abdominal Pain and Constipation. Assessment Concern: Patient discharged from the hospital. Now home in [place]. Patient hospitalized for SBO with surgical intervention. [...] (or PCP Triage). Patient connected to hospital flanging machine operator to be connected to General Surgery Team. Reviewed hospital flanging machine operator number with patient in case call back not received. Patient aware of recommendation to go toER if pain or vomiting worsen prior to call back. Care Advice Patient/Caregiver understands and will follow care advice?: Yes, able to teach back Post-Op Symptoms and [id number]-TL Nurse Kelly Jackson Jul 13, 2024 08:34 PM Care Advice GO TO ED/UCC NOW NOTHING BY MOUTH: * Do not eat or drink anything for now. Patient transferred to specialty department, general surgery, to Discuss symptoms. . Reason for Disposition [1] Vomiting AND [2] abdomen looks much more swollen than usual Protocols used: Post-Op Symptoms and Dogflpqzr-[id number]-WN documented in this encounter Plan of Treatment Upcoming Encounters Date Type Department Care Team (Latest Contact Info) Description 07/18/2024 10:45 AM CDT Office Visit Department of Orthopedic Surgery in [place], [place] [address] [place] [phone] Andrew Dougherty M.D. [address] [place] [phone] 07/20/2024 3:00 PM CDT Office Visit Department of Family Medicine, [facility], in [place], [place] [address] [place] [phone] Sánchez Goldberg D.O. [address] [place] [phone] 07/23/2024 10:50 AM CDT Hospital Encounter Post Anesthesia Care Unit in [address] [phone] Andrew Dougherty M.D. [address] [place] [phone] 07/23/2024 10:50 AM CDT - 07/23/2024 12:02 PM CDT Surgery [facility] MAIN OR [address] [place] [phone] Andrew Dougherty M.D. [address] [place] [phone] RELEASE CARPAL TUNNEL OPEN WRIST 07/27/2024 9:00 AM CDT Office Visit Division of Trauma Critical Care and General Surgery in [address] [phone] Jeanie Tavarez APRN, C.N.P., D.N.P. [address] [place] [phone] 09/06/2024 7:50 AM CDT Hospital Encounter Post Anesthesia Care Unit in [address] [phone] Andrew Dougherty M.D. [address] [place] [phone] 09/06/2024 7:50 AM CDT - 09/06/2024 9:02 AM CDT Surgery [facility] MAIN OR [address] [place] [phone] Andrew Dougherty M.D. 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 [address] [place] [phone] PCP - General Family Medicine 03/26/20 documented as of this encounter
[2024-07-14] MEDS: LORazepam 2 MG/ML inj IVP (03:30)
[2024-07-14] MEDS: LACTATED RINGERS 1000 ML 1,000 ML 125 ML IV (05:01)
== END 2024-07-14 06:09 | disposition short-term general hospital (02) ==
PROVIDERS: Emergency Provider Family Medicine
DX: K91.32 Postprocedural complete intestinal obstruction (principal); Z79.899 Other long term (current) drug therapy
CPT/HCPCS: 36415; 74177; 80053; 81001; 81003; 81025; 83605; 83690; 84703; 85025; 86140; 87086; 96361; 96374; 96375; 99284; 99285; J1171; J2060; J2405; J7120; Q9967

== ENCOUNTER 2024-07-14 05:56 | Outpatient (CLI) | payer MEDICARE, OTHER, SELFPAY | END 2024-07-14 05:57 | disposition home or self-care (01) | LOC: AMB 07-16 10:18 | PROVIDERS: Visit Provider Family Medicine | DX: K56.601 Complete intestinal obstruction, unspecified as to cause (principal); T81.9XXA Unspecified complication of procedure, initial encounter | CPT/HCPCS: A0425; A0434 ==